=== PATIENT | female | born 1960 | race Caucasian/White ===

== ENCOUNTER 2019-12-12 16:06 | Emergency (ER) | payer OTHER ==
[2019-12-12] MEDS ORDERED: Sodium Chloride 0.9% 1000 ML 1,000 ML IV STA (16:20)
[2019-12-12] MEDS ORDERED: CLINDAMYCIN-D5W 600 MG/50 ML*** 600 MG/50 ML BAG IV STA (16:20)
[2019-12-12] MEDS ORDERED: CLINDAMYCIN-D5W 600 MG/50 ML*** 600 MG/50 ML BAG IV ONE (16:35)
[2019-12-12] MEDS ORDERED: Sodium Chloride 0.9% 1000 ML 1,000 ML ONE (16:35)
--- NOTE | 2019-12-12 17:14 | ERPHSYRPT ---
- History of Present Illness Source: patient Exam Limitations: no limitations Patient Subjective Stated Complaint: pt reports Dr. Valladares performed surgery 11/09 to the left hip to remove a mass. pt states approx 2 weeks ago the top of her incision had opened and she noted some drainage, reports she saw Dr Valladares for this and took a one week course of a tetracycline. pt reports approx 8 days ago she noted some bloody drainage and tenderness to her left hip and she placed a pressure dressing over her incision. pt reports she is unable to see her hip. pt reports she presented to [facility] today for increased pain and was sent to the ED for evaluation. Triage Nursing Assessment: pt is aox3, pupils perrl, afebrile, resps easy and non labored, radial pulses strong and equal, cap refill < 3 seconds, large swollen, hot to touch, reddened area noted to the left lateral hip. area measures 21.5 cm x 10cm. skin is intact, no drainage noted. pt is unable to sit due to pain. pt mobility is intact, bears weight with no difficulty. Method of Injury: incised Occurred: other (Surgery was 1 month ago, dehiscence 2 weeks ago, worsening pain , swelling and redness was 8 is ago) Quality: constant, sharpness, throbbing Severity of Pain-Max: severe Severity of Pain-Current: severe Lower Extremities Pain: hip: left (Lateral aspect), leg: left (Lateral aspect) Modifying Factors: Improves With: rest. Worsens With: movement, other ( Palpation) Associated Symptoms: No unable to bear weight, No dizzy, No fainted, No snapping sensation, No popping sensation Hx Tetanus, Diphtheria Vaccination/Date Given: Yes Hx Influenza Vaccination/Date Given: Yes Hx Pneumococcal Vaccination/Date Given: Yes Immunizations Up to Date: Yes <ANJALI ARORA - Last Filed: 12/12/19 18:44> <DOM DAVIS - Last Filed: 12/12/19 20:04> - History of Present Illness Time Seen by Provider: 12/12/19 16:10 Physician History: Patient comes into the emergency department with left lateral upper leg pain redness, swelling and tenderness the past 8 days. Patient had a mass removed from her left lateral upper leg on 11/09/[address] Arya Valladares. She had dehiscence with drainage from the wound slightly over 2 weeks ago, and Dr. Valladares gave her a one-week supply of dog cycling which she took. Patient began having pain to the left lateral aspect of her leg which worsened over the past 8 days. Patient was then referred to the emergency department from [facility] due to the size of the redness, swelling and pain noticed at the [facility]. (ANJALI ARORA) Allergies/Adverse Reactions: Penicillins Allergy (Verified 12/12/19 16:40) Home Medications: Metformin HCl 500 mg [Glucophage 500 MG] 500 mg PO TID 12/12/19 [History] glipiZIDE [Glipizide] 5 mg PO TID 12/12/19 [History] - Review of Systems Constitutional: No Fever, No Chills Eyes: No Symptoms Ears, Nose, & Throat: No Symptoms, No Throat Pain, No Painful Swallowing Respiratory: No Cough, No Dyspnea Cardiac: No Chest Pain, No Edema, No Syncope Abdominal/Gastrointestinal: No Abdominal Pain, No Nausea, No Vomiting, No Diarrhea Genitourinary Symptoms: No Dysuria, No Hematuria, No Flank Pain Musculoskeletal: No Back Pain, No Neck Pain Skin: Induration (Left lateral upper leg only), No Rash Neurological: No Dizziness, No Focal Weakness, No Sensory Changes Psychological: No Symptoms Endocrine: No Symptoms All Other Systems: Reviewed and Negative <ANJALI ARORA - Last Filed: 12/12/19 18:44> - Past Medical History Pertinent Past Medical History: Yes Cardiac History: High Cholesterol Endocrine Medical History: Diabetes Type II - Past Surgical History Past Surgical History: Yes Gastrointestinal: Appendectomy, Cholecystectomy Musculoskeletal: Other Female Surgical History: Tubal Ligation Other Surgical History: left hip surgery, mass removal. breast biopsy - Social History Smoking Status: Never smoker Drug Use: none Patient Lives Alone: Yes <MAITEPRASANTHBRYNN CONTRERAS - Last Filed: 12/12/19 18:44> - Physical Exam General Appearance: mild distress, alert Eyes, Ears, Nose, Throat Exam: moist mucous membranes Neck Exam: normal inspection, non-tender, supple Cardiovascular/Respiratory Exam: chest non-tender, normal breath sounds, regular rate/rhythm, no JVD, no respiratory distress Gastrointestinal/Abdominal Exam: non-tender, soft, guarding, No tenderness Back Exam: normal inspection, No CVA tenderness, No vertebral tenderness Hips Exam: bilateral: non-tender, normal inspection, normal range of motion, no evidence of injury Legs Exam: right leg: non-tender, normal inspection, no evidence of injury, bilateral leg: normal range of motion, pain, soft tissue tenderness ( [id number] erythematous patch on the lateral upper left thigh), swelling (No dehiscence noted at the surgical incision site) Knees Exam: bilateral knee: non-tender, normal inspection, normal range of motion, no evidence of injury Ankle Exam: bilateral ankle: non-tender, normal inspection, normal range of motion, no evidence of injury Foot Exam: bilateral foot: non-tender, normal inspection, normal range of motion , no evidence of injury DTR - Lower Extremities Exam: ankle (R): 2+, ankle (L): 2+ Neuro/Tendon Exam: normal sensation, normal motor functions Mental Status Exam: alert, oriented x 3, cooperative Skin Exam: normal color, warm, dry, No petechiae, No jaundice, No cyanosis SpO2 Interpretation: normal SpO2: 100 O2 Delivery: Room Air <ANJALI ARORA - Last Filed: 12/12/19 18:44> - Nursing Vital Signs Nursing Vital Signs: Initial Vital Signs Temperature 99.5 F 12/12/19 16:18 Pulse Rate 117 H 12/12/19 16:18 Respiratory Rate 20 12/12/19 16:18 Blood Pressure 135/84 12/12/19 16:18 O2 Sat by Pulse Oximetry 100 12/12/19 16:18 Pain Scale Pain Intensity 3 Ordered Tests: Active Orders 24 hr Category Date Time Status PELVIS WITHOUT CONTRAST [CT] Stat Exams 12/12/19 16:19 Taken CBC W DIFF Stat Lab 12/12/19 17:55 Completed CK (IN-HOUSE) [CK-Creatinine Phosphokinase] Stat Lab 12/12/19 17:55 Completed CMP Stat Lab 12/12/19 17:55 Completed Lactic Acid Stat Lab 12/12/19 16:18 Completed Lactic Acid Stat Lab 12/12/19 19:19 Received Manual Differential NC Stat Lab 12/12/19 17:55 Completed PROTIME WITH INR Stat Lab 12/12/19 17:55 Completed SED RATE [Erythrocyte Sedimentation Rate] Stat Lab 12/12/19 17:55 Completed Medication Summary Discontinued Medications Generic Name Dose Route Start Last Admin Trade Name Terry PRN Reason Stop Dose Admin Clindamycin HCl/Dextrose 600 mg in 50 mls @ 100 mls/hr 12/12/19 16:20 18:06 Clindamycin-D5w 600 Mg/50 Ml IV 12/12/19 16:49 Infused STAT STA Infusion Sodium Chloride 1,000 mls @ 999 mls/hr 12/12/19 16:20 12/12/19 18:06 Sodium Chloride 0.9% 1000 Ml IV 12/12/19 17:20 Infused .Q1H1M STA Infusion Sodium Chloride Confirm 12/12/19 16:35 Sodium Chloride 0.9% 1000 Ml Administered 12/12/19 16:36 Dose 1,000 mls @ ud .ROUTE .[employer] ONE Clindamycin HCl/Dextrose Confirm 12/12/19 16:35 Clindamycin-D5w 600 Mg/50 Ml Administered 12/12/19 16:36 Dose 600 mg in 50 mls @ ud IV .[employer]-MED ONE Lab/Rad Data: Laboratory Result Diagrams 12/12/19 17:55 12/12/19 17:55 Laboratory Results 12/12/19 12/12/19 12/12/19 Range/Units 17:55 17:55 17:55 WBC (4.0-10.5) K/mm3 RBC (4.1-5.4) M/mm3 Hgb (12.0-16.0) gm/dl Hct (35-47) % MCV (78-100) fl MCH (26-32) pg MCHC (32-36) g/dl RDW (11.5-14.0) % Plt Count (150-450) K/mm3 MPV (7.5-11.0) fl ESR (0-20) mm/hr PT 13.8 H (9.95-12.35) SECONDS INR 1.22 (0.8-3.0) Sodium 139 (137-145) mmol/L Potassium 4.0 (3.5-5.1) mmol/L Chloride 99 (98-107) mmol/L Carbon Dioxide 29 (22-30) mmol/L Anion Gap 14.9 (5-15) MEQ/L BUN 16 (7-17) mg/dL Creatinine 0.69 (0.52-1.04) mg/dL Estimated GFR > 60.0 ML/MIN Glucose 340 H (74-106) mg/dL Lactic Acid (0.4-2.0) Calcium 9.4 (8.4-10.2) mg/dL Total Bilirubin 0.50 (0.2-1.3) mg/dL AST 13 L (14-36) U/L ALT 11 (0-35) U/L Alkaline Phosphatase 119 (38-126) U/L Creatine Kinase 24 L (30-135) U/L Serum Total Protein 7.3 (6.3-8.2) g/dL Albumin 3.9 (3.5-5.0) g/dL 12/12/19 12/12/19 Range/Units 17:55 16:18 WBC 11.7 H (4.0-10.5) K/mm3 RBC 4.26 (4.1-5.4) M/mm3 Hgb 12.1 (12.0-16.0) gm/dl Hct 36.6 (35-47) % MCV 85.9 (78-100) fl MCH 28.4 (26-32) pg MCHC 33.1 (32-36) g/dl RDW 12.6 (11.5-14.0) % Plt Count 206 (150-450) K/mm3 MPV 10.1 (7.5-11.0) fl ESR 82 H (0-20) mm/hr PT (9.95-12.35) SECONDS INR (0.8-3.0) Sodium (137-145) mmol/L Potassium (3.5-5.1) mmol/L Chloride (98-107) mmol/L Carbon Dioxide (22-30) mmol/L Anion Gap (5-15) MEQ/L BUN (7-17) mg/dL Creatinine (0.52-1.04) mg/dL Estimated GFR ML/MIN Glucose (74-106) mg/dL Lactic Acid 2.0 (0.4-2.0) Calcium (8.4-10.2) mg/dL Total Bilirubin (0.2-1.3) mg/dL AST (14-36) U/L ALT (0-35) U/L Alkaline Phosphatase (38-126) U/L Creatine Kinase (30-135) U/L Serum Total Protein (6.3-8.2) g/dL Albumin (3.5-5.0) g/dL - Progress Counseled pt/family regarding: lab results, diagnosis, need for follow-up, rad results <ANJALI ARORA - Last Filed: 12/12/19 18:44> <DOM DAVIS - Last Filed: 12/12/19 20:04> - Progress Progress Note: 12/12/19 17:59 The patient was discussed with transfer center at [facility] in [place], [place]. They will get started on reserving a bed for transfer and will contact Dr. Valladares. 12/12/19 18:15 Discussed the patient with Dr Arya Valladares, patient's surgeon. Dr. Valladares states that he drained a large seroma for the patient in the past and thinks that it is a seroma causing her symptoms at this time and does not need admitted but continue with oral antibiotics such as clindamycin we will see her in the office on 12/15/2019. Becomes febrile or cannot tolerate orally or systemically become sick, Dr. Valladares recommends the patient go to [facility] through the emergency department there to be admitted. 12/12/19 18:18 Incision site was noted to be oozing clear to yellow fluid per nursing visualization. 12/12/19 18:47 Patient's pulse has improved after IV hydration and IV antibiotics. 12/12/19 19:00 Discussed the patient with Dr Davis, [facility] emergency department attending. Care was transferred to Dr. Davis. Dr. Davis will determine final disposition of the patient after reevaluation the patient, reviewing labs and reviewing finalized interpretation of the CT scan imaging. (ANJALI ARORA) 12/12/19 20:00 Patient is checked out to me at end of Dr. Colindres's shift with pending CT. Patient was earlier discussed with Dr. Valladares the primary surgeon at [facility]. CT showed left hip cutaneous/subcutaneous induration with subcutaneous 8 x 4 x 14 cm fluid collection with air bubbles favoring abscess. I have discussed with Dr. Valladares, he still thinks patient has seroma but patient would be transferred to [place] for further evaluation as it looks infected to me. She has been given a dose of clindamycin IV in here. Plan discussed with patient and family in detail which they seem understanding and agree with that. (DOM DAVIS) <ANJALI ARORA DIANE - Last Filed: 12/12/19 18:44> - Departure Departure Disposition: Transfer Critical Care Time: No <DOM DAVIS - Last Filed: 12/12/19 20:04> - Departure Clinical Impression: Cellulitis of left thigh, Abscess of left thigh Condition: Stable Referrals: DAVIAN WHITE DO [Primary Care Provider] - Prescriptions: Clindamycin HCl 300 mg PO QID 10 Days #40 capsule
[2019-12-12 18:04] LABS: Hematocrit 36.6 % (35-47); Hemoglobin 12.1 gm/dl (12.0-16.0); Mean Cell Volume 85.9 fl (78-100); Mean Corpuscular Hemoglobin 28.4 pg (26-32); Mean Corpuscular Hgb Concent. 33.1 g/dl (32-36); Mean Platelet Volume 10.1 fl (7.5-11.0); Platelet Count 206 K/mm3 (150-450); Red Blood Count 4.26 M/mm3 (4.1-5.4); Red Cell Distribution Width 12.6 % (11.5-14.0); White Blood Count 11.7 K/mm3 (4.0-10.5)
[2019-12-12 18:14] LABS: INR 1.22 (0.8-3.0); PROTIME 13.8 SECONDS (9.95-12.35)
[2019-12-12 18:30] LABS: Erythrocyte Sedimentation Rate 82 mm/hr (0-20)
[2019-12-12 18:52] LABS: ALBUMIN 3.9 g/dL (3.5-5.0); ALKALINE PHOSPHATASE 119 U/L (38-126); ANION GAP 14.9 MEQ/L (5-15); BLOOD UREA NITROGEN 16 mg/dL (7-17); CHLORIDE 99 mmol/L (98-107); Calcium 9.4 mg/dL (8.4-10.2); Carbon Dioxide 29 mmol/L (22-30); Creatinine 1 0.69 mg/dL (0.52-1.04); Glucose 340 mg/dL (74-106); SGOT/AST 13 U/L (14-36); SGPT/ALT 11 U/L (0-35); SODIUM 139 mmol/L (137-145); Total Protein 7.3 g/dL (6.3-8.2)
[2019-12-12 21:02] VITALS: BP 150/79; PULSE 95; O2SAT 98
[2019-12-12 21:34] LABS: BAND 1 % (0.0-2.0); Eosinophil 1 % (0.00-3.0); Lymphocytes 17 % (24-44); Monocyte 5 % (0.0-12.0); Neutrophils 76 % (36.0-66.0); Platelet Estimate NORMAL (NORMAL); Total Cells Counted 100
--- NOTE | 2019-12-13 07:39 | XRAY ---
Indication: Left hip pain, erythema, and swelling following "mass" surgical excision October 2019. Multiple contiguous axial images obtained through the pelvis without contrast. Cutaneous BBs placed over the region of interest. Comparison: None Lateral left hip demonstrates cutaneous/subcutaneous soft tissue induration favoring inflammatory/infectious process. There is underlying subcutaneous fluid collection measuring at least 8.8 x 4.5 x 14.5 cm in greatest AP, transverse, and CC projections respectively. Fluid collection demonstrates multiple air bubbles concerning for gas-forming abscess. The deeper soft tissues/muscles appears minimally heterogeneous without air bubbles either reactive versus postsurgical. No acute fracture, suspicious bony lesions, or osseous destructive process. Both hips are intact with mild/moderate degenerative changes. Visualized pelvis demonstrates scattered colonic diverticulosis. Right mid kidney demonstrates partially visualized 1.4 x 0.4 cm indeterminant cortical calcifications. Minimal scattered aortoiliac calcifications. Impression: 1. Lateral left hip soft tissue induration favoring inflammatory/infectious process with abnormal fluid collection as detailed worrisome for abscess. No bony involvement. 2. Incidental bilateral hip degenerative arthropathy and indeterminant right renal cortical calcifications.
== END 2019-12-12 21:10 | disposition short-term general hospital (02) ==
LOC: ED 16:06
DX: L03.116 Cellulitis of left lower limb (principal); L02.416 Cutaneous abscess of left lower limb
CPT/HCPCS: 36415; 72192; 80053; 82550; 83605; 85025; 85610; 85652; 86141; 96360; 96365; 99285

== ENCOUNTER 2020-02-20 08:24 | Observation (INO) | payer OTHER ==
[2020-02-20] MEDS ORDERED: SUBLIMAZE 100 MCG/2 ML IV ONE ×2 (08:26→09:23)
[2020-02-20] MEDS ORDERED: SUBLIMAZE 100 MCG/2 ML ONE ×2 (08:33→09:28)
[2020-02-20 08:41] LABS: Absolute Neutrophil Ct (ANC) 6.79 (1.4-6.9); BASOPHIL % 0.4 % (0.0-0.4); Basophil (Absolute #) 0.04 (0-0.4); Eosinophil % 1.4 % (0.00-5.0); Eosinophil (Absolute #) 0.14 (0-0.5); Hematocrit 39.8 % (35-47); Hemoglobin 13.2 gm/dl (12.0-16.0); Lymphocyte (Absolute #) 2.06 (1.0-4.6); Lymphocytes % 21.3 % (24.0-44.0); Mean Cell Volume 81.4 fl (78-100); Mean Corpuscular Hgb Concent. 33.2 g/dl (32-36); Mean Platelet Volume 10.6 fl (7.5-11.0); Monocyte (Absolute #) 0.64 (0.0-1.3); Monocytes % 6.6 % (0.0-12.0); Neutrophil % 70.3 % (36.0-66.0); Platelet Count 191 K/mm3 (150-450); Red Blood Count 4.89 M/mm3 (4.1-5.4); White Blood Count 9.7 K/mm3 (4.0-10.5)
[2020-02-20 08:54] LABS: ALBUMIN 4.3 g/dL (3.5-5.0); ALKALINE PHOSPHATASE 180 U/L (38-126); ANION GAP 16.6 MEQ/L (5-15); BLOOD UREA NITROGEN 19 mg/dL (7-17); CHLORIDE 104 mmol/L (98-107); Calcium 9.8 mg/dL (8.4-10.2); Carbon Dioxide 21 mmol/L (22-30); Creatinine 1 0.45 mg/dL (0.52-1.04); Glucose 313 mg/dL (74-106); Potassium 4.1 mmol/L (3.5-5.1); SGOT/AST 22 U/L (14-36); SGPT/ALT 23 U/L (0-35); SODIUM 137 mmol/L (137-145); Total Protein 7.8 g/dL (6.3-8.2)
[2020-02-20] MEDS ORDERED: Ativan 2 MG/1 ML VIAL IV ONE (09:24)
--- NOTE | 2020-02-20 09:26 | XRAY ---
Indication: Right hip pain following fall. Comparison: August 28, 2019. AP pelvis and 2 view right hip unchanged again demonstrating osteopenia, mild bilateral hip degenerative arthropathy, mild lower lumbar degenerative spondylosis, and mild scattered vascular calcifications. No new/acute findings.
[2020-02-20] MEDS ORDERED: Ativan 2 MG/1 ML VIAL ONE (09:28)
--- NOTE | 2020-02-20 10:12 | XRAY ---
Indication: Right hip pain following fall. Multiple contiguous axial images obtained through the pelvis with special attention to the osseous structures. Two-dimensional sagittal and coronal reformatted images obtained. Comparison: December 12, 2019. Stable osteopenia, mild/moderate degenerative changes of both hips, left anterior hip heterotopic ossifications, and lower lumbar degenerative changes. Again no acute fracture, dislocation, or suspicious bony lesions. SI joints are bilaterally symmetric with stable mild degenerative changes. Stable mild scattered vascular calcifications bilaterally. Previous lateral left hip subcutaneous abscess has markedly improved with mild residual soft tissue induration and tiny subcutaneous air bubble. Remaining visualized noncontrasted soft tissues including pelvic contents are unremarkable. Impression: 1. Continued negative for acute fracture/dislocation. 2. Stable osteopenia and degenerative changes as detailed. 3. Markedly improved left lateral hip abscess.
--- NOTE | 2020-02-20 10:38 | ERPHSYRPT ---
- History of Present Illness Time Seen by Provider: 02/20/20 08:25 Patient Subjective Stated Complaint: "I fell around 330 this morning and landed on my right hip." Triage Nursing Assessment: Pt presents alert et oriented with obvious distress of pain noted. Pt reported recent left hip surgery. Presents with complaints of right hip pain following a fall secondary to tripping at home. Denies any head injury/loss of consciousness. Symmetrical chest expanions. lungs clear with adequate airflow. Pain to right hip rated 8/10 and described as sharp. Unable to palpate hip d/t pt presenting in a wheelchair. Pt able to bear minimal weight yet unable to rotate. Denies numbness/tingling to lower extremities. Pedal pulses present bilateral. Physician History: Patient had a fall, right hip pain. She did not hit her head. She does have some very minor left hip pain. Patient does have a past medical history of left hip surgery. She is not on any blood thinners. She has no headache. Location: right hip Quality: sharp Radiation: none Severity: moderate Duration: just CEM[employer] KEE[employer] Timing: after fall Modifying factors/associated signs and symptoms: none tried, arrives in wheel chair Timing/Duration: today Occured at: home Context: fall Quality: stabbing Hip Pain Location: hip (R) Allergies/Adverse Reactions: Iodinated Contrast Media Allergy (Verified 02/20/20 08:30) Penicillins Allergy (Verified 02/20/20 08:27) shellfish derived Allergy (Verified 02/20/20 08:30) Home Medications: Metformin HCl 500 mg [Glucophage 500 MG] 500 mg PO TID 12/12/19 [History] glipiZIDE [Glipizide] 5 mg PO TID 12/12/19 [History] Hx Tetanus, Diphtheria Vaccination/Date Given: Yes Hx Influenza Vaccination/Date Given: Yes Hx Pneumococcal Vaccination/Date Given: Yes Immunizations Up to Date: Yes Travel Risk - International Travel Have you traveled outside of the country in past 3 weeks: No Have you or anyone close to you been diagnosed with or: No Do your reside in a community with a known COVID-19 case?: Yes If Yes where:: [facility] - Coronavirus Screening Has patient experienced Coronavirus symptoms: No - Review of Systems Constitutional: No Fever, No Chills Eyes: No Symptoms Ears, Nose, & Throat: No Symptoms Respiratory: No Cough, No Dyspnea Cardiac: No Chest Pain, No Edema, No Syncope Abdominal/Gastrointestinal: No Abdominal Pain, No Nausea, No Vomiting, No Diarrhea Genitourinary Symptoms: No Dysuria Musculoskeletal: Other (righ hip pain), No Back Pain, No Neck Pain Skin: No Rash Neurological: No Dizziness, No Focal Weakness, No Sensory Changes Psychological: No Symptoms Endocrine: No Symptoms All Other Systems: Reviewed and Negative - Past Medical History Pertinent Past Medical History: Yes Cardiac History: High Cholesterol, Hypertension Endocrine Medical History: Diabetes Type II - Past Surgical History Past Surgical History: Yes Gastrointestinal: Appendectomy, Cholecystectomy Musculoskeletal: Other Female Surgical History: Tubal Ligation Other Surgical History: left hip surgery, mass removal. breast biopsy - Social History Smoking Status: Never smoker Exposure to second hand smoke: No Drug Use: none Patient Lives Alone: Yes - Female History Hx Now: (NA) - Nursing Vital Signs Nursing Vital Signs: Initial Vital Signs Pulse Rate 93 H 02/20/20 08:31 Respiratory Rate 22 02/20/20 08:31 Blood Pressure 159/69 02/20/20 08:31 O2 Sat by Pulse Oximetry 99 02/20/20 08:31 Pain Scale Pain Intensity 9 - Physical Exam General Appearance: no apparent distress, alert Eye Exam: PERRL/EOMI Ears, Nose, Throat Exam: normal ENT inspection, moist mucous membranes Neck Exam: normal inspection, non-tender, supple Respiratory Exam: normal breath sounds, lungs clear, No chest tenderness, No respiratory distress Cardiovascular Exam: regular rate/rhythm, No edema Gastrointestinal Exam: soft, No tenderness, No distention, No guarding Back Exam: normal inspection, normal range of motion, No vertebral tenderness Neurologic Exam: alert, oriented x 3, cooperative, 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 Sensation intact. 2+ pulses. Full range of motion at her knee and ankle. No other signs of obvious deformity. Left hip has minor tenderness. - Course Nursing assessment & vital signs reviewed: Yes EKG Interpreted by Me: RATE, Sinus Rhythm - Radiology Exams Hip X-ray Interpretation: Interpreted by me, Negative Ordered Tests: Active Orders 24 hr Category Date Time Status Code Status Order ROUTINE Care 02/20/20 10:44 Active EKG-ER Only STAT Care 02/20/20 08:26 Active IV Care Q6H Care 02/20/20 10:44 Active IV Insertion STAT Care 02/20/20 08:[address] in Observation ROUTINE Care 02/20/20 10:44 Active HIP UNI (2V) INCL PEL IF DONE Stat Exams 02/20/20 08:59 Completed MRI PELVIS WITHOUT CONTRAST [MRI] Stat Exams 02/20/20 10:45 Ordered PELVIS WITHOUT CONTRAST [CT] Stat Exams 02/20/20 09:28 Completed CBC W DIFF Stat Lab 02/20/20 08:35 Completed CMP Stat Lab 02/20/20 08:35 Completed Medication Summary Generic Name Dose Route Start Last Admin Trade Name Freq PRN Reason Stop Dose Admin Hydromorphone HCl 1 mg 02/20/20 10:44 Dilaudid 2 Mg Injection IV 02/25/20 10:43 Q4H PRN PRN PAIN Discontinued Medications Generic Name Dose Route Start Last Admin Trade Name Freq PRN Reason Stop Dose Admin Fentanyl Citrate 50 mcg 02/20/20 08:26 02/20/20 08:38 Sublimaze 100 Mcg/2 Ml IV 02/20/20 08:27 50 mcg STAT ONE Administration Fentanyl Citrate Confirm 02/20/20 08:33 Sublimaze 100 Mcg/2 Ml Administered 02/20/20 08:34 Dose 100 mcg .ROUTE .STK-MED ONE Fentanyl Citrate 50 mcg 02/20/20 09:23 02/20/20 09:32 Sublimaze 100 Mcg/2 Ml IV 02/20/20 09:24 50 mcg STAT ONE Administration Fentanyl Citrate Confirm 02/20/20 09:28 Sublimaze 100 Mcg/2 Ml Administered 02/20/20 09:29 Dose 100 mcg .ROUTE .STK-MED ONE Lorazepam 1 mg 02/20/20 09:24 02/20/20 09:34 Ativan 2 Mg/1 Ml Vial IV 02/20/20 09:25 1 mg STAT ONE Administration Lorazepam Confirm 02/20/20 09:28 Ativan 2 Mg/1 Ml Vial Administered 02/20/20 09:29 Dose 2 mg .ROUTE .STK-MED ONE Lab/Rad Data: Laboratory Result Diagrams 02/20/20 08:35 02/20/20 08:35 Laboratory Results 02/20/20 02/20/20 Range/Units 08:35 08:35 WBC 9.7 (4.0-10.5) K/mm3 RBC 4.89 (4.1-5.4) M/mm3 Hgb 13.2 (12.0-16.0) gm/dl Hct 39.8 (35-47) % MCV 81.4 (78-100) fl MCH 27.0 (26-32) pg MCHC 33.2 (32-36) g/dl RDW 14.0 (11.5-14.0) % Plt Count 191 (150-450) K/mm3 MPV 10.6 (7.5-11.0) fl Gran % 70.3 H (36.0-66.0) % Eos # (Auto) 0.14 (0-0.5) Absolute Lymphs (auto) 2.06 (1.0-4.6) Absolute Monos (auto) 0.64 (0.0-1.3) Lymphocytes % 21.3 L (24.0-44.0) % Monocytes % 6.6 (0.0-12.0) % Eosinophils % 1.4 (0.00-5.0) % Basophils % 0.4 (0.0-0.4) % Absolute Granulocytes 6.79 (1.4-6.9) Basophils # 0.04 (0-0.4) Sodium 137 (137-145) mmol/L Potassium 4.1 (3.5-5.1) mmol/L Chloride 104 (98-107) mmol/L Carbon Dioxide 21 L (22-30) mmol/L Anion Gap 16.6 H (5-15) MEQ/L BUN 19 H (7-17) mg/dL Creatinine 0.45 L (0.52-1.04) mg/dL Estimated GFR > 60.0 ML/MIN Glucose 313 H (74-106) mg/dL Calcium 9.8 (8.4-10.2) mg/dL Total Bilirubin 0.70 (0.2-1.3) mg/dL AST 22 (14-36) U/L ALT 23 (0-35) U/L Alkaline Phosphatase 180 H (38-126) U/L Serum Total Protein 7.8 (6.3-8.2) g/dL Albumin 4.3 (3.5-5.0) g/dL - Progress Progress: improved Progress Note: 02/20/20 11:08 Patient was given 2 rounds of IV fentanyl for pain control. X-ray of the hip showed no obvious fracture. Patient is having a lot of pain, unable to ambulate. Therefore obtained a CT scan of the hip and proximal femur. This demonstrated no obvious fractures. I have a very high suspicion for occult fracture. Therefore, an MRI will need to be obtained. Discussed with inpatient physician, Dr. Blood. Patient will need to be admitted for pain control, PT OT, MRI. We discussed with patient and patient's daughter. They are amenable to being admitted to the hospital today. Discussed with : Sandy Will see patient in: hospital (observation) Counseled pt/family regarding: lab results, diagnosis, rad results - Departure Departure Disposition: Observation, Extended Care Facility Clinical Impression: Right hip pain Condition: Stable Critical Care Time: No
[2020-02-20] MEDS: DILAUDID 2 MG INJECTION IV PRN ×2 (11:24→21:25)
[2020-02-20] MEDS ORDERED: HUMALOG SQ PRN (12:17)
[2020-02-20] MEDS ORDERED: TYLENOL 325 MG PO PRN (12:45)
[2020-02-20] MEDS ORDERED: Zofran 4 MG/2 ML VIAL IV PRN (12:46)
[2020-02-20] MEDS ORDERED: Zestril 5 MG PO STA (16:17)
[2020-02-20] MEDS: Glucotrol 5 MG PO SCH (16:56)
[2020-02-20] MEDS: NORCO 5/325 MG PO PRN (16:56)
[2020-02-20] MEDS ORDERED: Lantus Insulin SQ SCH (22:00)
[2020-02-21] MEDS: DILAUDID 2 MG INJECTION IV PRN (03:19)
[2020-02-21 08:11] VITALS: PULSE 87
[2020-02-21] MEDS: Glucotrol 5 MG PO SCH ×2 (08:30→12:14)
[2020-02-21] MEDS: NORCO 5/325 MG PO PRN ×2 (08:31→13:00)
--- NOTE | 2020-02-21 09:28 | PCM.DCORD ---
- Discharge Discharge Date: 02/21/20 Disposition: Home, Self-Care Condition: Good Prescriptions: New Pen Needle, Diabetic [1St Tier Unifine Pentips Plus] 1 each MC DAILY #100 dis.needle Insulin Glargine,Hum.rec.anlog [Lantus Solostar] 10 unit SQ QHS #3 ml Acetaminophen 325 mg [Tylenol 325 mg] 650 mg PO Q4H PRN PRN tablet PRN Reason: Pain Lisinopril 5 mg [Zestril 5 MG] 5 mg PO DAILY #30 tablet Continue glipiZIDE [Glipizide] 5 mg PO TID Metformin HCl 500 mg [Glucophage 500 MG] 500 mg PO TID Additional Instructions: Check your blood glucoses before meals. Call you primary care doctor if your blood glucose is <60 or >300. Use your walker to help with ambulation. Follow up with: DAVIAN WHITE DO [Primary Care Provider] - 1 Week
[2020-02-21] MEDS ORDERED: Zestril 5 MG PO SCH (10:00)
[2020-02-21 12:31] VITALS: BP 116/65; O2SAT 97
[2020-02-21] MEDS ORDERED: Sodium Chloride 0.9% 10 ML FLUSH Syringe IV SCH (14:00)
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
== END 2020-02-21 12:50 | disposition home or self-care (01) ==
LOC: ED 08:24 → MED SURG 11:04
PROVIDERS: ADMIT Internal Medicine; ATTEND Internal Medicine
DX: M25.551 Pain in right hip (principal); E11.649 Type 2 diabetes mellitus with hypoglycemia without coma; I10 Essential (primary) hypertension; Z60.9 Problem related to social environment, unspecified; W01.0XXA Fall on same level from slipping, tripping and stumbling without subsequent striking against object, initial encounter; Y92.009 Unspecified place in unspecified non-institutional (private) residence as the place of occurrence of the external cause; Z79.84 Long term (current) use of oral hypoglycemic drugs
CPT/HCPCS: 36000; 36415; 72192; 73502; 80053; 82962; 83036; 85025; 93005; 96374; 96375; 96376; 99285; G0378; J1170; J1817; J2060; J3010; A9270-GY

== ENCOUNTER 2023-02-06 10:08 | Inpatient (IN) | payer OTHER ==
[2023-02-06] MEDS ORDERED: PHARMACY DOSING REQUEST MC ONE (10:36)
[2023-02-06] MEDS ORDERED: HUMALOG SQ PRN (10:42)
[2023-02-06] MEDS: Sodium Chloride 0.9% 1000 ML 1,000 ML IV SCH (11:20)
[2023-02-06 11:29] LABS: Absolute Neutrophil Ct (ANC) 9.22 x10^3/uL (1.4-6.9); BASOPHIL % 0.3 % (0.0-0.4); Basophil (Absolute #) 0.03 x10^3/uL (0-0.4); Eosinophil % 0.6 % (0.00-5.0); Eosinophil (Absolute #) 0.07 x10^3/uL (0-0.5); Hematocrit 38.1 % (35-47); Hemoglobin 12.4 g/dL (12.0-16.0); IMMATURE GRAN # 0.07 x10^3u/L (0.00-0.03); IMMATURE GRAN % 0.6 % (0.00-0.4); Lymphocyte (Absolute #) 1.68 x10^3/uL (1.0-4.6); Lymphocytes % 14.2 % (24.0-44.0); Mean Corpuscular Hemoglobin 27.7 pg (26-32); Mean Corpuscular Hgb Concent. 32.5 g/dL (32-36); Mean Platelet Volume 10.6 fL (7.5-11.0); Monocyte (Absolute #) 0.79 x10^3/uL (0.0-1.3); Monocytes % 6.7 % (0.0-12.0); Neutrophil % 77.6 % (36.0-66.0); Platelet Count 160 x10^3/uL (150-450); Red Blood Count 4.48 x10^6/uL (4.1-5.4); Red Cell Distribution Width 11.9 % (11.5-14.0); White Blood Count 11.9 x10^3/uL (4.0-10.5)
[2023-02-06 11:47] LABS: ALBUMIN 3.7 g/dL (3.5-5.0); ALKALINE PHOSPHATASE 183 U/L (38-126); ANION GAP 11.6 MEQ/L (5-15); BLOOD UREA NITROGEN 16 mg/dL (7-17); CHLORIDE 101 mmol/L (98-107); Carbon Dioxide 29 mmol/L (22-30); Creatinine 1 0.65 mg/dL (0.52-1.04); EST GLOMERULAR FILTRATION RATE > 60.0 ML/MIN; Glucose 270 mg/dL (74-106); Potassium 3.9 mmol/L (3.5-5.1); SGOT/AST 24 U/L (14-36); SGPT/ALT 25 U/L (0-35); SODIUM 137 mmol/L (137-145)
[2023-02-06 11:50] LABS: INFLUENZA A NEGATIVE (NEGATIVE); INFLUENZA B NEGATIVE (NEGATIVE); RESPIRATORY SYNCTIAL VIRUS NEGATIVE (NEGATIVE); SARS-CoV-2 Xpert Express NEGATIVE (NEGATIVE)
[2023-02-06] MEDS ORDERED: ROCEPHIN 1 Gm-D5w 50 ml Bag** 1 G/50 ML IVPB IV SCH (12:00)
--- NOTE | 2023-02-06 12:08 | XRAY ---
Indication: Great toe ulcer. No known injury. Comparison: None 3 portable views left foot demonstrates great toe soft tissue swelling. Elsewhere osteopenia, large heel spurs, and scattered vascular calcifications. No other bony, articular, or soft tissue abnormalities.
[2023-02-06] MEDS ORDERED: Xylocaine 1% Vial 30 ML PF IJ ONE (12:48)
[2023-02-06] MEDS ORDERED: Marcaine Mpf 0.5% Vial 30 Ml ONE (12:48)
[2023-02-06] MEDS ORDERED: Lactated Ringers 1,000 ML IV SCH (13:00)
--- NOTE | 2023-02-06 13:11 | PCM.HP ---
History of Present Illness - Chief Complaint Chief Complaint: Diabetic foot wound, cellulitis, hyperglycemia History of Present Illness: is a 62 year old female pt of Dr. Rodriguez's (first seen by him today) who was admitted directly from office with diabetic foot wound, cellulitis, and hyperglycemia d/t DM. She started having L foot swelling after some shoes rubbed her feet 5d ago; also had erythema. Two days later she attempted to go to the doctor only to find her PCP had retired. Went to yesterday and was given bactrim, but vomited up the 2nd dose. Denies fevers/chills. Saw Dr. Rodriguez and was admitted by me. Dr. Sims was consulted and would like to amputate her great toe on the L. She was started on IV vancomycin and rocephin. She grew up "odd" and her mother was an herbalist. 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 It was reported to me that pt's BS was 500. Pt does not check it at home. - Review of Systems Abdominal/Gastrointestinal: Nausea, Vomiting Skin: Cellulitis, Skin Lesions All Other Systems: Reviewed and Negative Medications & Allergies Home Medications: Home Medication List No Reportable Medications [No Reported Medications] 02/06/23 [History Confirmed 02/06/23] Allergies/Adverse Reactions: Allergies Allergy/AdvReac Type Severity Reaction Status Date / Time shellfish derived Allergy Intermediate Rash Verified 02/06/23 11:27 Iodinated Contrast Media Allergy Unknown Verified 02/06/23 11:29 Penicillins Allergy Hives Verified 02/06/23 11:27 - Past Medical History Past Medical History: Yes Neurological History: No Pertinent History ENT History: No Pertinent History Cardiac History: High Cholesterol, Hypertension Respiratory History: No Pertinent History Endocrine Medical History: Diabetes Type II Musculoskelatal History: No Pertinent History GI Medical History: No Pertinent History History: No Pertinent History Reproductive Disorders: No Pertinent History - Female History Are you now?: No - Past Surgical History Past Surgical History: Yes Neuro Surgical History: No Pertinent History Cardiac History: No Pertinent History Respiratory Surgery: No Pertinent History GI Surgical History: Appendectomy, Cholecystectomy Musculskeletal Surgical Hx: Other Female Surgical History: Tubal Ligation Other Surgical History: left hip surgery, mass removal. breast biopsy - Social History Smoking Status: Never smoker Exposure to second hand smoke: No Alcohol: None Drug Use: none - Physical Exam General Appearance: no apparent distress, alert Neurologic Exam: oriented x 3, cooperative Eye Exam: eyes nml inspection Ears, Nose, Throat Exam: moist mucous membranes Neck Exam: normal inspection Respiratory Exam: normal breath sounds, lungs clear, No crackles/rales, No rhonchi, No wheezing Cardiovascular Exam: regular rate/rhythm, normal heart sounds, No murmur Gastrointestinal/Abdomen Exam: normal bowel sounds Back Exam: normal inspection, No rash Extremity Exam: other (L great toe is wrapped. There is erythema of distal L foot.) Results - Labs Lab/Micro Results: Lab Results-Last 24 Hours 02/06/23 02/06/23 02/06/23 Range/Units 11:00 11:20 Unknown WBC 11.9 H (4.0-10.5) x10^3/uL RBC 4.48 (4.1-5.4) x10^6/uL Hgb 12.4 (12.0-16.0) g/dL Hct 38.1 (35-47) % MCV 85.0 (78-100) fL MCH 27.7 (26-32) pg MCHC 32.5 (32-36) g/dL RDW 11.9 (11.5-14.0) % Plt Count 160 (150-450) x10^3/uL MPV 10.6 (7.5-11.0) fL Gran % 77.6 H (36.0-66.0) % Immature Gran % (Auto) 0.6 H (0.00-0.4) % Nucleat RBC Rel Count 0.0 (0.00-0.1) % Eos # (Auto) 0.07 (0-0.5) x10^3/uL Immature Gran # (Auto) 0.07 H (0.00-0.03) x10^3u/L Absolute Lymphs (auto) 1.68 (1.0-4.6) x10^3/uL Absolute Monos (auto) 0.79 (0.0-1.3) x10^3/uL Absolute Nucleated RBC 0.00 (0.00-0.01) x10^3u/L Lymphocytes % 14.2 L (24.0-44.0) % Monocytes % 6.7 (0.0-12.0) % Eosinophils % 0.6 (0.00-5.0) % Basophils % 0.3 (0.0-0.4) % Absolute Granulocytes 9.22 H (1.4-6.9) x10^3/uL Basophils # 0.03 (0-0.4) x10^3/uL Sodium 137 (137-145) mmol/L Potassium 3.9 (3.5-5.1) mmol/L Chloride 101 (98-107) mmol/L Carbon Dioxide 29 (22-30) mmol/L Anion Gap 11.6 (5-15) MEQ/L BUN 16 (7-17) mg/dL Creatinine 0.65 (0.52-1.04) mg/dL Estimated GFR > 60.0 ML/MIN Glucose 270 H (74-106) mg/dL Lactic Acid 1.2 (0.4-2.0) Calcium 9.0 (8.4-10.2) mg/dL Total Bilirubin 0.60 (0.2-1.3) mg/dL AST 24 (14-36) U/L ALT 25 (0-35) U/L Alkaline Phosphatase 183 H (38-126) U/L Serum Total Protein 7.0 (6.3-8.2) g/dL Albumin 3.7 (3.5-5.0) g/dL Influenza Type A Ag (NEGATIVE) Influenza Type B Ag (NEGATIVE) RSV (PCR) (NEGATIVE) SARS-CoV-2 (PCR) (NEGATIVE) 02/06/23 Range/Units Unknown WBC (4.0-10.5) x10^3/uL RBC (4.1-5.4) x10^6/uL Hgb (12.0-16.0) g/dL Hct (35-47) % MCV (78-100) fL MCH (26-32) pg MCHC (32-36) g/dL RDW (11.5-14.0) % Plt Count (150-450) x10^3/uL MPV (7.5-11.0) fL Gran % (36.0-66.0) % Immature Gran % (Auto) (0.00-0.4) % Nucleat RBC Rel Count (0.00-0.1) % Eos # (Auto) (0-0.5) x10^3/uL Immature Gran # (Auto) (0.00-0.03) x10^3u/L Absolute Lymphs (auto) (1.0-4.6) x10^3/uL Absolute Monos (auto) (0.0-1.3) x10^3/uL Absolute Nucleated RBC (0.00-0.01) x10^3u/L Lymphocytes % (24.0-44.0) % Monocytes % (0.0-12.0) % Eosinophils % (0.00-5.0) % Basophils % (0.0-0.4) % Absolute Granulocytes (1.4-6.9) x10^3/uL Basophils # (0-0.4) x10^3/uL Sodium (137-145) mmol/L Potassium (3.5-5.1) mmol/L Chloride (98-107) mmol/L Carbon Dioxide (22-30) mmol/L Anion Gap (5-15) MEQ/L BUN (7-17) mg/dL Creatinine (0.52-1.04) mg/dL Estimated GFR ML/MIN Glucose (74-106) mg/dL Lactic Acid (0.4-2.0) Calcium (8.4-10.2) mg/dL Total Bilirubin (0.2-1.3) mg/dL AST (14-36) U/L ALT (0-35) U/L Alkaline Phosphatase (38-126) U/L Serum Total Protein (6.3-8.2) g/dL Albumin (3.5-5.0) g/dL Influenza Type A Ag NEGATIVE (NEGATIVE) Influenza Type B Ag NEGATIVE (NEGATIVE) RSV (PCR) NEGATIVE (NEGATIVE) SARS-CoV-2 (PCR) NEGATIVE (NEGATIVE) - Radiology Impressions Radiology Exams & Impressions: Radiology Procedures Category Date Time Status FOOT (MINIMUM 3 VIEWS) Urgent Exams 02/06/23 11:00 Completed Assessment/Plan (1) Diabetic foot wound Current Visit: Yes Status: Acute (2) Cellulitis of left foot Current Visit: Yes Status: Acute Code(s): L03.116 - CELLULITIS OF LEFT LOWER LIMB (3) Diabetes mellitus type II, uncontrolled Current Visit: Yes Status: Acute Code(s): YIV5669 - (4) Hyperglycemia Current Visit: Yes Status: Acute Code(s): R73.9 - HYPERGLYCEMIA, UNSPECIFIED
[2023-02-06] MEDS: VANCOMYCIN 1 GRAM/200 ML BAG 1 GM/200 ML PIGGYBACK IV SCH ×2 (15:15→21:59)
--- NOTE | 2023-02-06 15:37 | PCM.CONS ---
Podiatry HPI - Consult Date of Consultation Date: 02/06/23 Reason for Consult: Diabetic foot wound possible necrotizing fasciitis Consulting Provider: MARCIO HOU DPM - [facility] History of Present Illness: Rina is a very pleasant 62-year-old female with a positive history of diabetes mellitus uncontrolled with recent history of a diabetic sore developing over the left hallux when she wore a thicker pair of socks than she typically does in a pair of shoes that was too small for her feet. Patient indicates it started off as beet red however over the course of several days from Sunday of last week till today it is progressively gotten worse. She indicates that she presented to [facility] where she was provided antibiotics and cultures were taken however after the second dose of Bactrim she vomited and can no longer tolerate tolerate the home antibiotics. Patient indicates that she has not been taking her insulin or checking her sugars at home. She currently denies any other pedal complaints at this time Medications & Allergies Home Medications: Home Medication List No Reportable Medications [No Reported Medications] 02/06/23 [History Confirmed 02/06/23] Allergies/Adverse Reactions: Allergies Allergy/AdvReac Type Severity Reaction Status Date / Time shellfish derived Allergy Intermediate Rash Verified 02/06/23 11:27 Iodinated Contrast Media Allergy Unknown Verified 02/06/23 11:29 Penicillins Allergy Hives Verified 02/06/23 11:27 - Past Medical History Past Medical History: Yes Neurological History: No Pertinent History ENT History: No Pertinent History Cardiac History: High Cholesterol, Hypertension Respiratory History: No Pertinent History Endocrine Medical History: Diabetes Type II Musculoskelatal History: No Pertinent History GI Medical History: No Pertinent History History: No Pertinent History Reproductive Disorders: No Pertinent History - Female History Are you now?: No - Past Surgical History Past Surgical History: Yes Neuro Surgical History: No Pertinent History Cardiac History: No Pertinent History Respiratory Surgery: No Pertinent History GI Surgical History: Appendectomy, Cholecystectomy Musculskeletal Surgical Hx: Other Female Surgical History: Tubal Ligation Other Surgical History: left hip surgery, mass removal. breast biopsy - Social History Smoking Status: Never smoker Exposure to second hand smoke: No Alcohol: None Drug Use: none Physical Exam - General General Appearance: no apparent distress - Neuro Neurologic: Epicritic and protopathic (absent) - Vascular Peripheral Pulses: Posterior tibialis: 2+, Dorsalis-Pedis: 2+ Capillary Refill Time: < 3 seconds Hair Growth: Symmetrical and Bilateral Varicosities: Positive Edema: Pitting Edema Degree: 2+ Skin: Supple, not atrophic - Narrative Narrative Physical Exam: Podiatry Physical Exam Results - Labs Lab/Micro Results: Lab Results-Last 24 Hours 02/06/23 02/06/23 02/06/23 Range/Units 11:00 11:20 Unknown WBC 11.9 H (4.0-10.5) x10^3/uL RBC 4.48 (4.1-5.4) x10^6/uL Hgb 12.4 (12.0-16.0) g/dL Hct 38.1 (35-47) % MCV 85.0 (78-100) fL MCH 27.7 (26-32) pg MCHC 32.5 (32-36) g/dL RDW 11.9 (11.5-14.0) % Plt Count 160 (150-450) x10^3/uL MPV 10.6 (7.5-11.0) fL Gran % 77.6 H (36.0-66.0) % Immature Gran % (Auto) 0.6 H (0.00-0.4) % Nucleat RBC Rel Count 0.0 (0.00-0.1) % Eos # (Auto) 0.07 (0-0.5) x10^3/uL Immature Gran # (Auto) 0.07 H (0.00-0.03) x10^3u/L Absolute Lymphs (auto) 1.68 (1.0-4.6) x10^3/uL Absolute Monos (auto) 0.79 (0.0-1.3) x10^3/uL Absolute Nucleated RBC 0.00 (0.00-0.01) x10^3u/L Lymphocytes % 14.2 L (24.0-44.0) % Monocytes % 6.7 (0.0-12.0) % Eosinophils % 0.6 (0.00-5.0) % Basophils % 0.3 (0.0-0.4) % Absolute Granulocytes 9.22 H (1.4-6.9) x10^3/uL Basophils # 0.03 (0-0.4) x10^3/uL Sodium 137 (137-145) mmol/L Potassium 3.9 (3.5-5.1) mmol/L Chloride 101 (98-107) mmol/L Carbon Dioxide 29 (22-30) mmol/L Anion Gap 11.6 (5-15) MEQ/L BUN 16 (7-17) mg/dL Creatinine 0.65 (0.52-1.04) mg/dL Estimated GFR > 60.0 ML/MIN Glucose 270 H (74-106) mg/dL Lactic Acid 1.2 (0.4-2.0) Calcium 9.0 (8.4-10.2) mg/dL Total Bilirubin 0.60 (0.2-1.3) mg/dL AST 24 (14-36) U/L ALT 25 (0-35) U/L Alkaline Phosphatase 183 H (38-126) U/L Serum Total Protein 7.0 (6.3-8.2) g/dL Albumin 3.7 (3.5-5.0) g/dL Influenza Type A Ag (NEGATIVE) Influenza Type B Ag (NEGATIVE) RSV (PCR) (NEGATIVE) SARS-CoV-2 (PCR) (NEGATIVE) 02/06/23 Range/Units Unknown WBC (4.0-10.5) x10^3/uL RBC (4.1-5.4) x10^6/uL Hgb (12.0-16.0) g/dL Hct (35-47) % MCV (78-100) fL MCH (26-32) pg MCHC (32-36) g/dL RDW (11.5-14.0) % Plt Count (150-450) x10^3/uL MPV (7.5-11.0) fL Gran % (36.0-66.0) % Immature Gran % (Auto) (0.00-0.4) % Nucleat RBC Rel Count (0.00-0.1) % Eos # (Auto) (0-0.5) x10^3/uL Immature Gran # (Auto) (0.00-0.03) x10^3u/L Absolute Lymphs (auto) (1.0-4.6) x10^3/uL Absolute Monos (auto) (0.0-1.3) x10^3/uL Absolute Nucleated RBC (0.00-0.01) x10^3u/L Lymphocytes % (24.0-44.0) % Monocytes % (0.0-12.0) % Eosinophils % (0.00-5.0) % Basophils % (0.0-0.4) % Absolute Granulocytes (1.4-6.9) x10^3/uL Basophils # (0-0.4) x10^3/uL Sodium (137-145) mmol/L Potassium (3.5-5.1) mmol/L Chloride (98-107) mmol/L Carbon Dioxide (22-30) mmol/L Anion Gap (5-15) MEQ/L BUN (7-17) mg/dL Creatinine (0.52-1.04) mg/dL Estimated GFR ML/MIN Glucose (74-106) mg/dL Lactic Acid (0.4-2.0) Calcium (8.4-10.2) mg/dL Total Bilirubin (0.2-1.3) mg/dL AST (14-36) U/L ALT (0-35) U/L Alkaline Phosphatase (38-126) U/L Serum Total Protein (6.3-8.2) g/dL Albumin (3.5-5.0) g/dL Influenza Type A Ag NEGATIVE (NEGATIVE) Influenza Type B Ag NEGATIVE (NEGATIVE) RSV (PCR) NEGATIVE (NEGATIVE) SARS-CoV-2 (PCR) NEGATIVE (NEGATIVE) - Radiology Impressions Radiology Exams & Impressions: Radiology Procedures Category Date Time Status FOOT (MINIMUM 3 VIEWS) Urgent Exams 02/06/23 11:00 Completed Assessment/Plan (1) Necrotizing fasciitis of lower leg Current Visit: Yes Status: Acute Code(s): M72.6 - NECROTIZING FASCIITIS (2) Cellulitis of left foot Current Visit: Yes Status: Acute Assessment & Plan: Initial patient examination evaluation. Radiographs reviewed and discussed with patient demonstrating relatively normal soft tissue pathology and no osseous indicators. Decision was made due to patient's neuropathy to proceed with a bedside debridement however once the dorsal aspect of the wound was uncovered the distal interphalangeal joint was exposed and a very strong anaerobic malodor was uncovered. Deep cultures were obtained at bedside. Given patient does have an elevated white blood cell count with left shift and clinical appearance of wound appears to be cellulitic with tracking up the extensor hallucis longus discussion was held in regards to pot entials for treatment. Patient after discussion was amenable to an amputation to the left hallux in order to stop the spread of the possible necrotizing fasciitis We will need to see reactive protein in order to better assess however there is a higher clinical suspicion through history and physical therefore we will proceed with operative debridement. Plan for amputation left hallux open with packing. Plan for delayed primary closure at a later date once infection has been eradicated. Would like to proceed with vancomycin and Cirpofloxacin 500 mg PO BID. pharmacy to dose vancomycin. will follow cultures for narrowing antibiotic spectrum. Dressings to remain clean dry and intact following surgical intervention reinforced for strikethrough dressing changes to be performed daily by myself or staff. Pain control as prescribed DVT prophylaxis as prescribed Will follow up closely planned return to OR later this week. Code(s): L03.116 - CELLULITIS OF LEFT LOWER LIMB (3) Diabetes mellitus type II, uncontrolled Current Visit: Yes Status: Acute Code(s): [id number] - (4) Diabetic foot wound Current Visit: Yes Status: Acute (5) Hyperglycemia Current Visit: Yes Status: Acute Code(s): R73.9 - HYPERGLYCEMIA, UNSPECIFIED
[2023-02-06] MEDS ORDERED: Hydromorphone 1 mg/ml Injection IV PRN (15:50)
[2023-02-06] MEDS ORDERED: PERCOCET TABLET 5/325MG PO PRN (15:50)
[2023-02-06] MEDS: Acidophilus TABLET PO SCH ×2 (15:52→21:59)
[2023-02-06] MEDS ORDERED: PHARMACY RENAL DOSING MC ONE (16:48)
[2023-02-06] MEDS: Cipro 500 MG PO SCH (18:41)
[2023-02-06] MEDS: Ecotrin 325 MG PO SCH (18:41)
[2023-02-06] MEDS ORDERED: Levofloxacin 500 MG Tablet PO SCH (22:00)
[2023-02-06 22:30] LABS: Barbiturate,Urine NEGATIVE (NEGATIVE); Benzodiazepine,Urine NEGATIVE (NEGATIVE); Cocaine,Urine NEGATIVE (NEGATIVE); Methadone,Urine NEGATIVE (NEGATIVE); Opiate,Urine NEGATIVE (NEGATIVE); PCP,Urine NEGATIVE (NEGATIVE); THC,Urine POSITIVE (NEGATIVE)
[2023-02-06 22:56] LABS: Amphetamine,Urine POSITIVE (NEGATIVE)
[2023-02-07] MEDS: Sodium Chloride 0.9% 1000 ML 1,000 ML IV SCH ×2 (06:50→20:29)
[2023-02-07] MEDS: Acidophilus TABLET PO SCH ×3 (08:32→21:44)
[2023-02-07] MEDS: Ecotrin 325 MG PO SCH (08:32)
[2023-02-07] MEDS: VANCOMYCIN 1 GRAM/200 ML BAG 1 GM/200 ML PIGGYBACK IV SCH ×2 (08:32→21:44)
[2023-02-07] MEDS: ENOXAPARIN SODIUM SQ SCH (08:32)
[2023-02-07] MEDS: Cipro 500 MG PO SCH (08:34)
[2023-02-07] MEDS ORDERED: ENOXAPARIN SODIUM SQ SCH (10:00)
--- NOTE | 2023-02-07 11:08 | OP ---
SURGERY DATE/TIME: 02/06/2023 1341 PREOPERATIVE DIAGNOSES: 1) Left foot diabetic foot infection. 2) Diabetic foot ulcer. 3) Cellulitis left foot. 4) Necrotizing fasciitis. 5) Uncontrolled diabetes mellitus. POSTOPERATIVE DIAGNOSES: 1) Left foot diabetic foot infection. 2) Diabetic foot ulcer. 3) Cellulitis left foot. 4) Necrotizing fasciitis. 5) Uncontrolled diabetes mellitus. PROCEDURE: Open amputation left hallux at metatarsophalangeal joint. SURGEON: Levi Ramirez DPM. TRAFFIC ADMINISTRATOR: None. ANESTHESIA: Local. ESTIMATED BLOOD LOSS: Less than 10 cc. MATERIALS: 3-0 Nylon, 0.25 inch Iodoform packing. INJECTABLES: 30 cc of a 1:1 mixture of 1% lidocaine plain and 0.5% bupivacaine plain injected in a Hester block-type fashion. HEMOSTASIS: Pressure dressing. INDICATION FOR SURGERY: Rina is a very pleasant 62-year-old female well-known patient who was admitted to the hospital after having suffered a diabetic foot infection from wearing a pair of shoes that were too tight with some socks that were too thick. The patient indicated that this started out as deep red to the dorsal aspect of the left great toe. She presented to [facility] at first which prescribed her Bactrim and she was only able to tolerate the first dose. However, she was suffering with nausea, vomiting, fever, chills and as a result presented to Dr. Rodriguez's office and presented for direct admit. At this time the patient does present with an elevated white blood cell count as well as indications of possible necrotizing fasciitis. A LRINEC score was run. However with the patient's clinical symptomatology and evidence of concerns for necrotizing fasciitis we decided to have discussion in regards to options for treatment. Bedside debridement was first initially performed. However, significant necrosis of the tissue as well as concern for tracking of the infection of the extensor hallucis longus tendon was immediately a concern as well as a very specific anaerobic smell to the wound. Discussion was held in regards to proceeding with an amputation to the left great toe in hope to salvage a potential transmetatarsal or a below knee amputation at a later date. The patient is amenable to this. She currently understands all risks, complications and benefits of surgical intervention at this time including but not limited to infection, hematoma, seroma, possibility of delayed wound healing, nonwound healing, possibility of residual infection and possible need for surgical intervention at a later date. There were no guarantees provided as to the outcome of surgical intervention. It is with that we decided to proceed. Plenty of time was allowed for the patient to ask questions to her apparent satisfaction. It is with that we decided to proceed. DESCRIPTION OF PROCEDURE AND FINDINGS: At this time the patient is brought into the OR and placed and placed on the OR bed in the supine position. A local block consisting of 30 cc of a 1:1 mixture of 1% lidocaine plain and 0.5% bupivacaine plain was injected to the left foot in a Hester block-type fashion. Following this, the left lower extremity was prepped and draped in the typical sterile fashion and lowered onto the surgical field. At this time a medial racket incision was made over the first metatarsal down to the level of bone and circumferentially around the great toe. Disarticulation of the hallux was performed. The hallux was handed off the field for soft tissue cultures as well as bone for pathology. At this time Bactisure was utilized to flush the surgical site and then 3 liters of normal sterile saline was then utilized to flush the surgical site. Following this the wound was inspected for any residual necrosis of which none was found. No other clinical signs of infection were present. At this time gloves were changed and 3-0 Nylon was utilized to partially close the wound. A 0.25 inch Iodoform packing was introduced to the distal aspect of the left amputation site. A dressing consisting of Betadine, Adaptic, 4x4, Kerlix, ABD and THOMPSON was applied with minimal compression to the left lower extremity. At this time, the patient was returned to the Med/Surg floor with vital signs stable and vascular status intact. The patient handled the anesthesia as well as the procedure without significant complication. Postoperative orders as indicated in the patients inpatient chart.
--- NOTE | 2023-02-07 12:33 | PCM.NOTE ---
Date and Time: 02/07/23 1227 Subjective Assessment: She is very tired today. Had surgery yesterday. Sandie po. - Review of Systems Constitutional: Fatigue, No Fever Abdominal/Gastrointestinal: No Vomiting Objective Exam General Appearance: no apparent distress, other (somnolent but wakes to voice) Neurologic Exam: cooperative, No motor deficits Skin Exam: normal color, warm, dry, No rash Wound Assessment: Skin/Wound Assessment Wound/Incision Assessment Start: 02/06/23 12:01 Text: Status: Active Freq: Q6H Protocol: Document 02/07/23 08:00 AR (Rec: 02/07/23 08:45 AR [id number]) Wound/Incision Assessment Left Toe Wound Assessment Shift Assessment Wound Type Amputation Dressing Status Dry & Intact Comment DRESSING CDI Wound Photo Photo Taken No Comment: Instructed by physician to not remove dressing, only reinforce dressing. Eye Exam: eyes nml inspection Ears, Nose, Throat Exam: moist mucous membranes Neck Exam: normal inspection Respiratory Exam: normal breath sounds, lungs clear, No crackles/rales, No rhonchi, No wheezing Cardiovascular Exam: regular rate/rhythm, normal heart sounds, No murmur Gastrointestinal/Abdomen Exam: soft, normal bowel sounds, No tenderness, No distention, No mass, No guarding, No rebound Extremity Exam: other (L foot wrapped) Back Exam: normal inspection, No rash OBJECTIVE DATA Vital Signs: Vital Signs - 24 hr Temp Pulse Resp BP Pulse Ox 02/07/23 11:39 96.9 F 69 16 88/53 99 02/07/23 08:00 97.2 F 83 17 127/69 98 02/07/23 04:00 98.2 F 85 15 131/71 95 02/06/23 23:51 98.5 F 84 17 136/73 96 02/06/23 20:00 97.8 F 96 H 18 138/71 98 02/06/23 16:34 124/67 02/06/23 16:00 97.2 F 98 H 17 97 Intake and Output: Intake & Output 02/05/23 02/06/23 02/07/23 02/08/23 11:59 11:59 11:59 11:59 Intake Total 1712 Output Total 1650 Balance 62 Weight 63.6 kg 63.6 kg Lab Results: Lab Results-Last 24 Hours 04/09/2002/06/23 02/06/23 Range/Units 11:15 16:36 21:12 POC Glucometer 263 H (74 to 106) mg/dL Uric Acid 5.1 (2.6-6.0) mg/dL Urine Opiates Level NEGATIVE (NEGATIVE) Ur Methadone NEGATIVE (NEGATIVE) Urine Barbiturates NEGATIVE (NEGATIVE) Ur Phencyclidine (PCP) NEGATIVE (NEGATIVE) Urine Amphetamine POSITIVE (NEGATIVE) U Benzodiazepine Level NEGATIVE (NEGATIVE) Urine Cocaine NEGATIVE (NEGATIVE) Urine Marijuana (THC) POSITIVE (NEGATIVE) 02/06/23 02/07/23 02/07/23 Range/Units 21:14 07:01 11:08 POC Glucometer 324 H 189 H 249 H (74 to 106) mg/dL Uric Acid (2.6-6.0) mg/dL Urine Opiates Level (NEGATIVE) Ur Methadone (NEGATIVE) Urine Barbiturates (NEGATIVE) Ur Phencyclidine (PCP) (NEGATIVE) Urine Amphetamine (NEGATIVE) U Benzodiazepine Level (NEGATIVE) Urine Cocaine (NEGATIVE) Urine Marijuana (THC) (NEGATIVE) Radiology Exams: Radiology Procedures Category Date Time Status FOOT (MINIMUM 3 VIEWS) Urgent Exams 02/06/23 11:00 Completed Multi-Disciplinary Progress Notes: Multi-Disciplinary Progress Notes 02/07/23 09:56 Case Management Note by Amanda Galvez S/W PATIENT AND SHE VERBALIZED UNDERSTANDING OF NEEDING CONT IV ANTIBIOTICS VIA PICC AND STATES SHE WILL BE ABLE TO COME TO [facility] OUPT FOR IV THERAPY AND DRSG CHANGES. EX- AND CHILDREN WILL TRANSPORT NEEDED. DENIES ANY OTHER NEEDS AT DC. PLANS TO RETURN HOME Initialized on 02/07/23 09:56 - END OF NOTE 02/07/23 09:36 Case Management Note by Amparo Barfield S/W DR. BUCKLEY- NOTIFIED HIM OF + DRUG SCREEN FOR AMPHETAMINES AND THC. HE VERIFIED UNDERSTANDING AND STATED TO PROCEED WITH IV PICC LINE PATIENT NEEDS THIS FOR TREATMENT OF INFECTION Initialized on 02/07/23 09:36 - END OF NOTE 02/07/23 09:01 Case Management Note by Amparo Barfield S/W DR. BUCKLEY ABOUT PLAN OF CARE- HE MAY TAKE PATIENT BACK FOR DELAYED CLOSURE ON SUNDAY BUT IT WILL DEPEND ON HER HEALING STATUS. HE STATED THIS WOULD BE THE EARLIEST DATE BUT MAY BE LATER. HE GAVE ORDERS FOR PICC LINE PLACEMENT SHE WILL NEED ORGAN TUNER ELECTRONIC ANTIBIOTICS AFTER DC. ORDER ENTERED. MASTER FIRE CONTROL TECHNICIAN AND PRIMARY RN NOTIFIED Initialized on 02/07/23 09:01 - END OF NOTE 02/06/23 15:36 Case Management Note by Amanda Galvez S/W PATIENT AND SHE STATES SHE DOES NOT HAVE AN GLUCOMETER TO CHECK HER SUGARS AT HOME. WILL NEED A GLUCOMETER AND STRIPS AT DC. Initialized on 02/06/23 15:36 - END OF NOTE 02/06/23 12:46 Pharmacy Note by Hayes Spencer Pharmacokinetic dosing service Date: 02/06/23 Time: 1245 Objective: Patient: Floor: Age: 62 yo Serum creatinine: 0.6 mg/dL Height: 62 Inches Weight (kg): 64 Diagnosis:CELLULITIS Relevant medical/social history: Cultures and sensitivities: Other labs: Assessment: IBW (kg): 50.10 Dosing wt(kg): 64 Estimated Creatinine clearance (ml/min): 76.9 CRCL method: Cockcroft and Gault using ibw(default). Drug selected: Vancomycin Loading dose (mg): 0 Vd (liters): 48.0 (factor used: 0.75 L/kg) Jp (hr-1): 0.068 Half life (hrs): 10.19 Recommended dose: 1000 mg Interval: 12 hrs Infusion time (hrs): 1.5 Predicted peak (mcg/mL): 35.5 Predicted trough (mcg/mL): 17.38 Total body weight is being used for vancomycin dosing. Renal function is stable [X ] /unstable [ ] Recommendations: Give Vancomycin 1000 mg q 12 hrs with an expected Cpeak of 35.5 mcg/ml and an expected Ctrough of 17.38 mcg/ml Renal dosing of other antibiotics (review renal dosing of other medications and list guidelines here): Thank you for the consult, will continue to follow. VANCOMYCIN TROUGH 02/08/23 Signature: ALEN SPENCER [facility] Initialized on 02/06/23 12:46 - END OF NOTE Assessment/Plan (1) Diabetic foot wound Current Visit: Yes Status: Acute Assessment & Plan: POD #1 s/p amputation great toe. Foot is wrapped. On vancomycin and cipro day #[address] Buckley, thank you. (2) Cellulitis of left foot Current Visit: Yes Status: Acute Code(s): L03.116 - CELLULITIS OF LEFT LOWER LIMB (3) Diabetes mellitus type II, uncontrolled Current Visit: Yes Status: Chronic Qualifiers: Glycemic state: with hyperglycemia Qualified Code(s): E11.65 - Type 2 diabetes mellitus with hyperglycemia Code(s): AWU7229 - (4) Hyperglycemia Current Visit: Yes Status: Acute Assessment & Plan: will start glimeperide here in an effort to lower BS and promote healing. Code(s): R73.9 - HYPERGLYCEMIA, UNSPECIFIED (5) Polysubstance use disorder Current Visit: Yes Status: Acute Assessment & Plan: Pt's daughter suggested we check a urine drug screen; was positive for THC and amphetamines. Code(s): F19.90 - OTHER PSYCHOACTIVE SUBSTANCE USE, UNSPECIFIED, UNCOMPLICATED
[2023-02-07 13:18] LABS: Absolute Neutrophil Ct (ANC) 5.31 x10^3/uL (1.4-6.9); BASOPHIL % 0.5 % (0.0-0.4); Basophil (Absolute #) 0.04 x10^3/uL (0-0.4); Eosinophil % 1.4 % (0.00-5.0); Eosinophil (Absolute #) 0.12 x10^3/uL (0-0.5); Hematocrit 36.9 % (35-47); Hemoglobin 12.2 g/dL (12.0-16.0); IMMATURE GRAN # 0.06 x10^3u/L (0.00-0.03); IMMATURE GRAN % 0.7 % (0.00-0.4); Lymphocyte (Absolute #) 2.19 x10^3/uL (1.0-4.6); Lymphocytes % 26.1 % (24.0-44.0); Mean Corpuscular Hemoglobin 28.1 pg (26-32); Mean Corpuscular Hgb Concent. 33.1 g/dL (32-36); Mean Platelet Volume 11.6 fL (7.5-11.0); Monocyte (Absolute #) 0.68 x10^3/uL (0.0-1.3); Monocytes % 8.1 % (0.0-12.0); Neutrophil % 63.2 % (36.0-66.0); Platelet Count 161 x10^3/uL (150-450); Red Blood Count 4.34 x10^6/uL (4.1-5.4); Red Cell Distribution Width 11.9 % (11.5-14.0); White Blood Count 8.4 x10^3/uL (4.0-10.5)
[2023-02-07 13:24] LABS: ALBUMIN 3.5 g/dL (3.5-5.0); ALKALINE PHOSPHATASE 168 U/L (38-126); ANION GAP 11.8 MEQ/L (5-15); BLOOD UREA NITROGEN 15 mg/dL (7-17); CHLORIDE 104 mmol/L (98-107); Calcium 8.9 mg/dL (8.4-10.2); Carbon Dioxide 26 mmol/L (22-30); EST GLOMERULAR FILTRATION RATE > 60.0 ML/MIN; Glucose 163 mg/dL (74-106); Potassium 4.2 mmol/L (3.5-5.1); SGOT/AST 32 U/L (14-36); SGPT/ALT 24 U/L (0-35); SODIUM 138 mmol/L (137-145); Total Protein 6.8 g/dL (6.3-8.2)
[2023-02-07] MEDS: Amaryl 2 MG PO SCH ×2 (14:33→21:44)
--- NOTE | 2023-02-07 14:40 | XRAY ---
Indication: PICC line placement. Comparison: None Portable chest demonstrates right arm PICC line with tip projecting over atrial caval junction. Remaining heart and lungs normal. Bony thorax intact with osteopenia and mild degenerative changes.
--- NOTE | 2023-02-07 16:38 | PCM.NOTE ---
Date and Time: 02/07/23 1631 Subjective Assessment: POD #1. Awake and alert on assessment. Patient states she is not her typical self but feels better than she did yesterday. Denies calf pain, chest pain or shortness of breath. She denies any other pedal complaints. Physical Exam - General General Appearance: no apparent distress - Neuro Neurologic: Epicritic and protopathic (absent) - Vascular Peripheral Pulses: Posterior tibialis: 1+, Dorsalis-Pedis: 2+ Capillary Refill Time: < 3 seconds Hair Growth: Symmetrical and Bilateral Edema: Pitting Edema Degree: 2+ Skin: Supple, not atrophic Skin Temperature: Warm to touch - Muscular Muscle Strength: 5/5 on all 4 quadrants - Narrative Narrative Physical Exam: Podiatry Physical Exam Wound appears to be clean with no evidence of necrosis or residual infection. Some residual cellulitis extending to the midtarsal joint dorsally. No obvious signs of drainage. OBJECTIVE DATA Vital Signs: Vital Signs - 24 hr Temp Pulse Resp BP Pulse Ox 02/07/23 11:39 96.9 F 69 16 88/53 99 02/07/23 08:00 97.2 F 83 17 127/69 98 02/07/23 04:00 98.2 F 85 15 131/71 95 02/06/23 23:51 98.5 F 84 17 136/73 96 02/06/23 20:00 97.8 F 96 H 18 138/71 98 02/06/23 16:34 124/67 Intake and Output: Intake & Output 02/05/23 02/06/23 02/07/23 02/08/23 11:59 11:59 11:59 11:59 Intake Total 1712 Output Total 1650 Balance 62 Weight 63.6 kg 63.6 kg Lab Results: Lab Results-Last 24 Hours 02/06/23 02/06/23 02/06/23 Range/Units 11:15 16:36 21:12 WBC (4.0-10.5) x10^3/uL RBC (4.1-5.4) x10^6/uL Hgb (12.0-16.0) g/dL Hct (35-47) % MCV (78-100) fL MCH (26-32) pg MCHC (32-36) g/dL RDW (11.5-14.0) % Plt Count (150-450) x10^3/uL MPV (7.5-11.0) fL Gran % (36.0-66.0) % Immature Gran % (Auto) (0.00-0.4) % Nucleat RBC Rel Count (0.00-0.1) % Eos # (Auto) (0-0.5) x10^3/uL Immature Gran # (Auto) (0.00-0.03) x10^3u/L Absolute Lymphs (auto) (1.0-4.6) x10^3/uL Absolute Monos (auto) (0.0-1.3) x10^3/uL Absolute Nucleated RBC (0.00-0.01) x10^3u/L Lymphocytes % (24.0-44.0) % Monocytes % (0.0-12.0) % Eosinophils % (0.00-5.0) % Basophils % (0.0-0.4) % Absolute Granulocytes (1.4-6.9) x10^3/uL Basophils # (0-0.4) x10^3/uL Sodium (137-145) mmol/L Potassium (3.5-5.1) mmol/L Chloride (98-107) mmol/L Carbon Dioxide (22-30) mmol/L Anion Gap (5-15) MEQ/L BUN (7-17) mg/dL Creatinine (0.52-1.04) mg/dL Estimated GFR ML/MIN Glucose (74-106) mg/dL POC Glucometer 263 H (74 to 106) mg/dL Uric Acid 5.1 (2.6-6.0) mg/dL Calcium (8.4-10.2) mg/dL Total Bilirubin (0.2-1.3) mg/dL AST (14-36) U/L ALT (0-35) U/L Alkaline Phosphatase (38-126) U/L Serum Total Protein (6.3-8.2) g/dL Albumin (3.5-5.0) g/dL Urine Opiates Level NEGATIVE (NEGATIVE) Ur Methadone NEGATIVE (NEGATIVE) Urine Barbiturates NEGATIVE (NEGATIVE) Ur Phencyclidine (PCP) NEGATIVE (NEGATIVE) Urine Amphetamine POSITIVE (NEGATIVE) U Benzodiazepine Level NEGATIVE (NEGATIVE) Urine Cocaine NEGATIVE (NEGATIVE) Urine Marijuana (THC) POSITIVE (NEGATIVE) 02/06/23 02/07/23 02/07/23 Range/Units 21:14 05:00 05:00 WBC 8.4 (4.0-10.5) x10^3/uL RBC 4.34 (4.1-5.4) x10^6/uL Hgb 12.2 (12.0-16.0) g/dL Hct 36.9 (35-47) % MCV 85.0 (78-100) fL MCH 28.1 (26-32) pg MCHC 33.1 (32-36) g/dL RDW 11.9 (11.5-14.0) % Plt Count 161 (150-450) x10^3/uL MPV 11.6 H (7.5-11.0) fL Gran % 63.2 (36.0-66.0) % Immature Gran % (Auto) 0.7 H (0.00-0.4) % Nucleat RBC Rel Count 0.0 (0.00-0.1) % Eos # (Auto) 0.12 (0-0.5) x10^3/uL Immature Gran # (Auto) 0.06 H (0.00-0.03) x10^3u/L Absolute Lymphs (auto) 2.19 (1.0-4.6) x10^3/uL Absolute Monos (auto) 0.68 (0.0-1.3) x10^3/uL Absolute Nucleated RBC 0.00 (0.00-0.01) x10^3u/L Lymphocytes % 26.1 (24.0-44.0) % Monocytes % 8.1 (0.0-12.0) % Eosinophils % 1.4 (0.00-5.0) % Basophils % 0.5 (0.0-0.4) % Absolute Granulocytes 5.31 (1.4-6.9) x10^3/uL Basophils # 0.04 (0-0.4) x10^3/uL Sodium 138 (137-145) mmol/L Potassium 4.2 (3.5-5.1) mmol/L Chloride 104 (98-107) mmol/L Carbon Dioxide 26 (22-30) mmol/L Anion Gap 11.8 (5-15) MEQ/L BUN 15 (7-17) mg/dL Creatinine 0.60 (0.52-1.04) mg/dL Estimated GFR > 60.0 ML/MIN Glucose 163 H (74-106) mg/dL POC Glucometer 324 H (74 to 106) mg/dL Uric Acid (2.6-6.0) mg/dL Calcium 8.9 (8.4-10.2) mg/dL Total Bilirubin 0.40 (0.2-1.3) mg/dL AST 32 (14-36) U/L ALT 24 (0-35) U/L Alkaline Phosphatase 168 H (38-126) U/L Serum Total Protein 6.8 (6.3-8.2) g/dL Albumin 3.5 (3.5-5.0) g/dL Urine Opiates Level (NEGATIVE) Ur Methadone (NEGATIVE) Urine Barbiturates (NEGATIVE) Ur Phencyclidine (PCP) (NEGATIVE) Urine Amphetamine (NEGATIVE) U Benzodiazepine Level (NEGATIVE) Urine Cocaine (NEGATIVE) Urine Marijuana (THC) (NEGATIVE) 02/07/23 02/07/23 Range/Units 07:01 11:08 WBC (4.0-10.5) x10^3/uL RBC (4.1-5.4) x10^6/uL Hgb (12.0-16.0) g/dL Hct (35-47) % MCV (78-100) fL MCH (26-32) pg MCHC (32-36) g/dL RDW (11.5-14.0) % Plt Count (150-450) x10^3/uL MPV (7.5-11.0) fL Gran % (36.0-66.0) % Immature Gran % (Auto) (0.00-0.4) % Nucleat RBC Rel Count (0.00-0.1) % Eos # (Auto) (0-0.5) x10^3/uL Immature Gran # (Auto) (0.00-0.03) x10^3u/L Absolute Lymphs (auto) (1.0-4.6) x10^3/uL Absolute Monos (auto) (0.0-1.3) x10^3/uL Absolute Nucleated RBC (0.00-0.01) x10^3u/L Lymphocytes % (24.0-44.0) % Monocytes % (0.0-12.0) % Eosinophils % (0.00-5.0) % Basophils % (0.0-0.4) % Absolute Granulocytes (1.4-6.9) x10^3/uL Basophils # (0-0.4) x10^3/uL Sodium (137-145) mmol/L Potassium (3.5-5.1) mmol/L Chloride (98-107) mmol/L Carbon Dioxide (22-30) mmol/L Anion Gap (5-15) MEQ/L BUN (7-17) mg/dL Creatinine (0.52-1.04) mg/dL Estimated GFR ML/MIN Glucose (74-106) mg/dL POC Glucometer 189 H 249 H (74 to 106) mg/dL Uric Acid (2.6-6.0) mg/dL Calcium (8.4-10.2) mg/dL Total Bilirubin (0.2-1.3) mg/dL AST (14-36) U/L ALT (0-35) U/L Alkaline Phosphatase (38-126) U/L Serum Total Protein (6.3-8.2) g/dL Albumin (3.5-5.0) g/dL Urine Opiates Level (NEGATIVE) Ur Methadone (NEGATIVE) Urine Barbiturates (NEGATIVE) Ur Phencyclidine (PCP) (NEGATIVE) Urine Amphetamine (NEGATIVE) U Benzodiazepine Level (NEGATIVE) Urine Cocaine (NEGATIVE) Urine Marijuana (THC) (NEGATIVE) Radiology Exams: Radiology Procedures Category Date Time Status CHEST 1 VIEW (PORTABLE) Stat Exams 02/07/23 14:22 Completed FOOT (MINIMUM 3 VIEWS) Urgent Exams 02/06/23 11:00 Completed Multi-Disciplinary Progress Notes: Multi-Disciplinary Progress Notes 02/07/23 09:56 Case Management Note by Amanda Galvez S/W PATIENT AND SHE VERBALIZED UNDERSTANDING OF NEEDING CONT IV ANTIBIOTICS VIA PICC AND STATES SHE WILL BE ABLE TO COME TO [facility] OUPT FOR IV THERAPY AND DRSG CHANGES. EX- AND CHILDREN WILL TRANSPORT NEEDED. DENIES ANY OTHER NEEDS AT AL. PLANS TO RETURN HOME Initialized on 02/07/23 09:56 - END OF NOTE 02/07/23 09:36 Case Management Note by Amparo Barfield S/Estrellita BUCKLEY- NOTIFIED HIM OF + DRUG SCREEN FOR AMPHETAMINES AND THC. HE VERIFIED UNDERSTANDING AND STATED TO PROCEED WITH IV PICC LINE PATIENT NEEDS THIS FOR TREATMENT OF INFECTION Initialized on 02/07/23 09:36 - END OF NOTE 02/07/23 09:01 Case Management Note by Amparo Barfield/Estrellita BUCKLEY ABOUT PLAN OF CARE- HE MAY TAKE PATIENT BACK FOR DELAYED CLOSURE ON SUNDAY BUT IT WILL DEPEND ON HER HEALING STATUS. HE STATED THIS WOULD BE THE EARLIEST DATE BUT MAY BE LATER. HE GAVE ORDERS FOR PICC LINE PLACEMENT SHE WILL NEED ANESTHESIA RESIDENT ANTIBIOTICS AFTER DC. ORDER ENTERED. IDENTIFICATION OFFICER AND PRIMARY RN NOTIFIED Initialized on 02/07/23 09:01 - END OF NOTE Assessment/Plan (1) Cellulitis of left foot Current Visit: Yes Status: Acute Code(s): L03.116 - CELLULITIS OF LEFT LOWER LIMB (2) Diabetes mellitus type II, uncontrolled Current Visit: Yes Status: Chronic Qualifiers: Glycemic state: with hyperglycemia Qualified Code(s): E11.65 - Type 2 diabetes mellitus with hyperglycemia Code(s): [id number] - (3) Diabetic foot wound Current Visit: Yes Status: Acute Assessment & Plan: Patient examination and evaluation. Radiographs ordered to reassess for potential residual gas. Dressings changed and wound inspected packing pulled today and flushed with sterile saline demonstrating no purulence and no residual signs of infection at the margins of the wound. A dressing consisting of Betadine Adaptic 4 x 4 Curlex and Tj was applied to the left foot. White blood cell count has dropped from 11.9 yesterday to 8.4 today demonstrating some indications of improvement in response to infection with surgical intervention as well as IV antibiotics. Preliminary cultures demonstrating gram-positive bacteria we will discontinue Cipro at this time and proceed with vancomycin. Based on clinical appearance of wound yesterday with purple discoloration I suspect a streptococcal infection. If confirmed will add clindamycin for endotoxin coverage. Once culture and sensitivity has been obtained we will proceed with narrowing antibiotic spectrum for outpatient therapy. At this time too early to tell if patient is a good candidate for delayed primary closure on Sunday of this week however she is making good progress at this point. Continue nonweightbearing left lower extremity Continue pain prophylaxis Continue DVT prophylaxis Will monitor closely. (4) Hyperglycemia Current Visit: Yes Status: Acute Code(s): R73.9 - HYPERGLYCEMIA, UNSPECIFIED
[2023-02-07] MEDS ORDERED: ZOFRAN ODT 4 MG PO PRN (18:22)
[2023-02-08 05:29] LABS: Absolute Neutrophil Ct (ANC) 4.69 x10^3/uL (1.4-6.9); BASOPHIL % 0.4 % (0.0-0.4); Basophil (Absolute #) 0.03 x10^3/uL (0-0.4); Eosinophil % 1.6 % (0.00-5.0); Eosinophil (Absolute #) 0.12 x10^3/uL (0-0.5); Hematocrit 34.3 % (35-47); Hemoglobin 11.1 g/dL (12.0-16.0); IMMATURE GRAN # 0.05 x10^3u/L (0.00-0.03); IMMATURE GRAN % 0.7 % (0.00-0.4); Lymphocyte (Absolute #) 1.88 x10^3/uL (1.0-4.6); Lymphocytes % 25.7 % (24.0-44.0); Mean Cell Volume 84.9 fL (78-100); Mean Corpuscular Hemoglobin 27.5 pg (26-32); Mean Corpuscular Hgb Concent. 32.4 g/dL (32-36); Mean Platelet Volume 10.3 fL (7.5-11.0); Monocyte (Absolute #) 0.55 x10^3/uL (0.0-1.3); Monocytes % 7.5 % (0.0-12.0); Neutrophil % 64.1 % (36.0-66.0); Platelet Count 152 x10^3/uL (150-450); Red Blood Count 4.04 x10^6/uL (4.1-5.4); Red Cell Distribution Width 11.9 % (11.5-14.0); White Blood Count 7.3 x10^3/uL (4.0-10.5)
[2023-02-08 05:42] LABS: ALBUMIN 3.3 g/dL (3.5-5.0); ALKALINE PHOSPHATASE 156 U/L (38-126); BLOOD UREA NITROGEN 16 mg/dL (7-17); CHLORIDE 105 mmol/L (98-107); Carbon Dioxide 25 mmol/L (22-30); Creatinine 1 0.53 mg/dL (0.52-1.04); EST GLOMERULAR FILTRATION RATE > 60.0 ML/MIN; Glucose 196 mg/dL (74-106); SGOT/AST 29 U/L (14-36); SGPT/ALT 26 U/L (0-35); SODIUM 137 mmol/L (137-145); Total Protein 6.5 g/dL (6.3-8.2)
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
[2023-02-08] MEDS: Cipro 500 MG PO SCH (11:25)
[2023-02-08] MEDS: Ecotrin 325 MG PO SCH (11:25)
[2023-02-08] MEDS: Acidophilus TABLET PO SCH ×3 (11:25→20:33)
[2023-02-08] MEDS: ENOXAPARIN SODIUM SQ SCH (11:25)
[2023-02-08] MEDS: VANCOMYCIN 1 GRAM/200 ML BAG 1 GM/200 ML PIGGYBACK IV SCH ×2 (11:25→20:33)
[2023-02-08] MEDS: Amaryl 2 MG PO SCH ×2 (11:25→20:34)
[2023-02-08] MEDS: Sodium Chloride 0.9% 1000 ML 1,000 ML IV SCH (11:26)
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
[2023-02-09] MEDS: Sodium Chloride 0.9% 1000 ML 1,000 ML IV SCH (03:53)
[2023-02-09 05:03] LABS: Absolute Neutrophil Ct (ANC) 4.29 x10^3/uL (1.4-6.9); BASOPHIL % 0.4 % (0.0-0.4); Basophil (Absolute #) 0.03 x10^3/uL (0-0.4); Eosinophil % 1.8 % (0.00-5.0); Eosinophil (Absolute #) 0.12 x10^3/uL (0-0.5); Hematocrit 35.3 % (35-47); Hemoglobin 11.5 g/dL (12.0-16.0); IMMATURE GRAN # 0.05 x10^3u/L (0.00-0.03); IMMATURE GRAN % 0.7 % (0.00-0.4); Lymphocyte (Absolute #) 1.81 x10^3/uL (1.0-4.6); Lymphocytes % 26.7 % (24.0-44.0); Mean Cell Volume 84.7 fL (78-100); Mean Corpuscular Hemoglobin 27.6 pg (26-32); Mean Corpuscular Hgb Concent. 32.6 g/dL (32-36); Mean Platelet Volume 9.8 fL (7.5-11.0); Monocyte (Absolute #) 0.49 x10^3/uL (0.0-1.3); Monocytes % 7.2 % (0.0-12.0); Neutrophil % 63.2 % (36.0-66.0); Platelet Count 151 x10^3/uL (150-450); Red Blood Count 4.17 x10^6/uL (4.1-5.4); Red Cell Distribution Width 11.9 % (11.5-14.0); White Blood Count 6.8 x10^3/uL (4.0-10.5)
[2023-02-09] MEDS ORDERED: Marcaine Mpf 0.5% Vial 30 Ml ONE (06:27)
[2023-02-09] MEDS ORDERED: Xylocaine 1% Vial 30 ML PF IJ ONE (06:27)
[2023-02-09] MEDS ORDERED: CLEOCIN 150 MG CAPSULE PO SCH (10:00)
[2023-02-09] MEDS ORDERED: DAPTOMYCIN IV SCH (10:00)
[2023-02-09] MEDS ORDERED: SODIUM CHLORIDE FLUSH IV SCH (10:00)
[2023-02-09] MEDS ORDERED: NORCO 5/325 MG PO PRN (10:03)
[2023-02-09] MEDS ORDERED: MOTRIN 600 MG PO PRN (10:04)
--- NOTE | 2023-02-09 10:17 | XRAY ---
Indication: Follow-up surgery. Comparison: February 06, 2023 3 nonweightbearing views left foot demonstrates interval amputation great toe/distal 1st metatarsal with postsurgical soft tissue swelling, subcutaneous air bubble, and overlying bandage material. Stable osteopenia, large heel spurs, and scattered vascular calcifications. No other bony, articular, or soft tissue abnormalities.
[2023-02-09] MEDS: Acidophilus TABLET PO SCH (10:40)
[2023-02-09] MEDS: Amaryl 2 MG PO SCH (10:40)
[2023-02-09] MEDS: Ecotrin 325 MG PO SCH (10:40)
[2023-02-09] MEDS: ENOXAPARIN SODIUM SQ SCH (10:41)
--- NOTE | 2023-02-09 10:58 | OP ---
SURGERY DATE/TIME: 11/11/2022 0817 PREOPERATIVE DIAGNOSES: 1) Group B Streptococcus infection. 2) Diabetic foot ulcer. 3) Peripheral neuropathy left foot. 4) Uncontrolled diabetes. 5) Soft tissue infection. POSTOPERATIVE DIAGNOSES: 1) Group B Streptococcus infection. 2) Diabetic foot ulcer. 3) Peripheral neuropathy left foot. 4) Uncontrolled diabetes. 5) Soft tissue infection. PROCEDURES: 1) Metatarsal head resection. 2) Delayed complex closure of surgical wound. SURGEON: Levi Ramirez DPM. CASING RUNNING MACHINE TENDER: None. HEMOSTASIS: Pressure dressing. ESTIMATED BLOOD LOSS: Approximately 10 cc. MATERIALS: 4-0 Monocryl, 3-0 Nylon. INJECTABLES: 20 cc of 1:1 mixture of 1% lidocaine plain and 0.5% bupivacaine plain injected in mini Hester type block fashion. INDICATION FOR SURGERY: Rina is a very pleasant 62-year-old female known to my service for an amputation secondary to an aggressive group B Strep infection that was developing to the dorsal aspect of the left hallux. The patient had this occurring for five days and it was not responding to antibiotics. X-rays were taken demonstrating no significant gas. However, significant anaerobic smell and worsening along with endotoxin to the appearance of the toe leading me to believe that this is an aggressive group B Strep infection and options were discussed with the patient. The patient wished to proceed with amputation and that was performed approximately three days ago. At this time the patient has improved quite significantly with an open wound draining infection and on antibiotics at this time. This was confirmed to be a group B Strep and the decision was made for IV antibiotics and delayed primary closure at this time. The patient understands all risks, complications and benefits of surgical intervention including but not limited to infection, hematoma, seroma, possibility of delayed wound healing or nonwound healing, possibility of need for surgical intervention at a later date and possibility of need for revision of said outcome. No guarantees were provided as to the outcome. Plenty of time was allowed for the patient to ask questions which were answered to the patient's apparent satisfaction. It is with that we decided to proceed. DESCRIPTION OF PROCEDURE AND FINDINGS: The patient is brought into the OR and placed on the OR table in the supine position. At this time the left lower extremity was prepped and draped in the typical sterile fashion and lowered onto the surgical field. At this time a local block consisting of 20 cc of a 1:1 mixture of 1% lidocaine plain and 0.5% bupivacaine plain was injected in a Hester block-type fashion. The trauma stitches were removed from the surgical site. Deepening the wound and checking for any signs of residual necrosis or infection. Some hematoma was cleared out utilizing a combination of 15 blade and a rongeur. At this time the wound edges were excised and demonstrated healthy bleeding border. In order to get the necrotic tissue out, more skin had to be taken and on attempt at closure the skin was unable to be closed under minimal tension. Decision at that time was to proceed with a tarsometatarsal head resection along with the sesamoid. At this time the metatarsal head was resected utilizing an 18 mm blade and sagittal saw, this was handed off the field and sent for clean margins. At this time the wound was cleansed with copious amounts of sterile saline through Pulsavac. The wound was coapted utilizing 4-0 Monocryl and 3-0 Nylon in a simple buried-type fashion and followed by a horizontal mattress-type fashion for skin closure. At this time a dressing consisting of Betadine, Adaptic, 4x4, Kerlix, ABD and THOMPSON was then applied to the patient's left lower extremity. The patient was returned to her room with vital signs stable and vascular status intact. The patient handled the anesthesia as well as procedure without significant complication. Postoperative orders as indicated in the patient's inpatient chart.
[2023-02-09 11:23] VITALS: BP 159/72; PULSE 86; O2SAT 99
--- NOTE | 2023-02-09 13:13 | PCM.DS ---
Discharge Summary Date of Admission: 02/06/23 13:06 Admitting Physician: MARLEEN MENDOZA Consults: Consults on Case 02/06/23 10:35 Consult Podiatry ROUTINE Primary Care Provider: ROSA M MILTON Allergies Allergies shellfish derived Allergy (Intermediate, Verified 02/06/23 11:27) Rash rash Iodinated Contrast Media Allergy (Unknown, Verified 02/06/23 11:29) PT STATES SHE USE TO BE ALLERGIC TO BETADINE BUT NOT ANYMORE AN ADULT. STATES SHES NEVER HAD IV CONTRAST THAT SHE KNOWS OF Penicillins Allergy (Verified 02/06/23 11:27) [facility] Summary - Hospital Course Hospital Course: patient admitted with cellulitis and had amputation of toe of left foot with delayed closure done today. she is ordered to have IV abx per podiatry, new onset diabetes well controlled on new po meds. home today and will get outpatient infusions - Vitals & Intake/Output Vital Signs: Vital Signs Temperature 97.8 F 02/09/23 11:22 Pulse Rate 86 02/09/23 11:22 Respiratory Rate 16 02/09/23 11:22 Blood Pressure 159/72 02/09/23 11:22 O2 Sat by Pulse Oximetry 99 02/09/23 11:22 Intake & Output: Intake & Output 02/07/23 02/08/23 02/09/23 02/10/23 11:59 11:59 11:59 11:59 Intake Total 1712 2515 1402 Output Total 1650 1550 1350 Balance 62 965 52 Weight 63.6 kg 63.6 kg - Lab Result Diagrams: 02/09/23 04:48 02/08/23 05:10 Lab Results-Last 24 Hrs: Lab Results-Last 24 Hours 02/07/23 02/08/23 02/08/23 Range/Units 05:00 16:36 21:20 WBC (4.0-10.5) x10^3/uL RBC (4.1-5.4) x10^6/uL Hgb (12.0-16.0) g/dL Hct (35-47) % MCV (78-100) fL MCH (26-32) pg MCHC (32-36) g/dL RDW (11.5-14.0) % Plt Count (150-450) x10^3/uL MPV (7.5-11.0) fL Gran % (36.0-66.0) % Immature Gran % (Auto) (0.00-0.4) % Nucleat RBC Rel Count (0.00-0.1) % Eos # (Auto) (0-0.5) x10^3/uL Immature Gran # (Auto) (0.00-0.03) x10^3u/L Absolute Lymphs (auto) (1.0-4.6) x10^3/uL Absolute Monos (auto) (0.0-1.3) x10^3/uL Absolute Nucleated RBC (0.00-0.01) x10^3u/L Lymphocytes % (24.0-44.0) % Monocytes % (0.0-12.0) % Eosinophils % (0.00-5.0) % Basophils % (0.0-0.4) % Absolute Granulocytes (1.4-6.9) x10^3/uL Basophils # (0-0.4) x10^3/uL POC Glucometer 186 H 238 H (74 to 106) mg/dL Hemoglobin A1c 13.1 H (4.8-5.6) % 02/09/23 02/09/23 02/09/23 Range/Units 04:48 06:47 11:05 WBC 6.8 (4.0-10.5) x10^3/uL RBC 4.17 (4.1-5.4) x10^6/uL Hgb 11.5 L (12.0-16.0) g/dL Hct 35.3 (35-47) % MCV 84.7 (78-100) fL MCH 27.6 (26-32) pg MCHC 32.6 (32-36) g/dL RDW 11.9 (11.5-14.0) % Plt Count 151 (150-450) x10^3/uL MPV 9.8 (7.5-11.0) fL Gran % 63.2 (36.0-66.0) % Immature Gran % (Auto) 0.7 H (0.00-0.4) % Nucleat RBC Rel Count 0.0 (0.00-0.1) % Eos # (Auto) 0.12 (0-0.5) x10^3/uL Immature Gran # (Auto) 0.05 H (0.00-0.03) x10^3u/L Absolute Lymphs (auto) 1.81 (1.0-4.6) x10^3/uL Absolute Monos (auto) 0.49 (0.0-1.3) x10^3/uL Absolute Nucleated RBC 0.00 (0.00-0.01) x10^3u/L Lymphocytes % 26.7 (24.0-44.0) % Monocytes % 7.2 (0.0-12.0) % Eosinophils % 1.8 (0.00-5.0) % Basophils % 0.4 (0.0-0.4) % Absolute Granulocytes 4.29 (1.4-6.9) x10^3/uL Basophils # 0.03 (0-0.4) x10^3/uL POC Glucometer 108 H 108 H (74 to 106) mg/dL Hemoglobin A1c (4.8-5.6) % Micro Results-Entire Visit: Microbiology 02/06/23 14:21 Wound Culture - Final Toe - L Big (Greater) Streptococcus Agalactiae 02/06/23 14:38 Anaerobic Culture - Final Toe - L Big (Greater) Not Reportable Anaerobic Culture Result 1 - Final Not Reportable Anaerobic Culture Result 3 - Final Not Reportable Anaerobic Culture Result 4 - Final Not Reportable Anaerobic Bacterial Sensitivity - Final Not Reportable Accuchecks Date 02/09/23 Date 02/09/23 Date 02/08/23 Time 11:22 Time 07:02 Time 17:30 - Radiology Exams Ordered Rad Exams-Entire Visit: Radiology Procedures Category Date Time Status CHEST 1 VIEW (PORTABLE) Stat Exams 02/07/23 14:22 Completed FOOT (2 VIEWS) Urgent Exams 02/09/23 12:04 Stop Req FOOT (MINIMUM 3 VIEWS) Routine Exams 02/09/23 09:37 Completed - Procedures and Test Procedures and Tests throughout Hospitalization: Therapy Orders & Screens 02/06/23 12:57 OT Screen per Nursing Assess ONCE Comment: Protocol Order Physician Instructions: Greater than 3 points order OT Admission Screening Reason For Exam: Triggered on Admission Diagnosis: Diabetic foot wound, cellulitis, hyperglycemia Open Wound/Cellutlitis/Pressure Ulcers: Yes Acute Fx/ORIF/Change in wt bearing status: No Severe MUSCULOSKELETAL pain: No ADL Dysfunction: No Acute CVA w/Hemiparesis/Hemiplegia: No Decreased Functional Mobility/Strength: No Sprain/Strain: No Acute Post-op Mobility Dysfunction: No Total Points: 5 PT Screen per Nursing Assess ONCE Comment: Protocol Order Physician Instructions: Greater than 3 points order PT Admission Screenin Reason For Exam: Triggered on Admission Diagnosis: Diabetic foot wound, cellulitis, hyperglycemia Open Wound/Cellutlitis/Pressure Ulcers: Yes Acute Fx/ORIF/Change in wt bearing status: No Severe MUSCULOSKELETAL pain: No ADL Dysfunction: No Acute CVA w/Hemiparesis/Hemiplegia: No Decreased Functional Mobility/Strength: No Sprain/Strain: No Acute Post-op Mobility Dysfunction: No Total Points: 5 02/06/23 15:50 PT Eval & Treat (MD Order) ONCE Reason for Eval:: Postop amp left great toe Diagnosis: Diabetic foot wound, cellulitis, hyperglycemia Discharge Exam General Appearance: no apparent distress Neurologic Exam: alert, oriented x 3 Respiratory Exam: normal breath sounds, lungs clear, No respiratory distress Cardiovascular Exam: regular rate/rhythm, normal heart sounds Gastrointestinal/Abdomen Exam: soft, No tenderness, No mass Extremity Exam: other (dressing to left foot intact, clean and dry) Wound Assessment: Skin/Wound Assessment Wound/Incision Assessment Start: 02/06/23 12:01 Text: Status: Active Freq: Q6H Protocol: Document 02/09/23 08:00 EK (Rec: 02/09/23 08:18 EK [id number]) Wound/Incision Assessment Left Toe Wound Assessment Shift Assessment Wound Type Amputation Dressing Status Dry & Intact Comment DRESSING CDI, LLE ELEVATED ON PILLOWS AT THIS TIME. PATIENT PREPARING TO GO TO OR FOR DELAYED PRIMARY CLOSURE THIS AM. Final Diagnosis/Problem List - Final Discharge Diagnosis/Problem (1) Amputated great toe of left foot Current Visit: Yes Status: Acute Assessment & Plan: managed per podiatry Dr Buckley, receiving IV abx infusions. Code(s): S98.112A - COMPLETE TRAUMATIC AMPUTATION OF LEFT GREAT TOE, INIT ENCNTR (2) Cellulitis of left foot Current Visit: Yes Status: Acute Code(s): L03.116 - CELLULITIS OF LEFT LOWER LIMB (3) Diabetic foot wound Current Visit: Yes Status: Acute (4) Polysubstance use disorder Current Visit: Yes Status: Acute Code(s): F19.90 - OTHER PSYCHOACTIVE SUBSTANCE USE, UNSPECIFIED, UNCOMPLICATED (5) Diabetes mellitus type II, uncontrolled Current Visit: Yes Status: Chronic Assessment & Plan: continue new po med, check blood sugar once daily as directed. f/u arranged with Dr Milton PCP Code(s): MCQ6201 - - Discharge Disposition: Home, Self-Care Condition: Stable Prescriptions: New Aspirin EC 325 mg [Ecotrin 325 MG] 325 mg PO DAILY #30 tab clindamycin HCL [Clindamycin HCl] 300 mg PO TID #42 cap Daptomycin [Cubicin Rf] 400 mg IV DAILY #21 Lactobacillus Acidophilus [Acidophilus TABLET] 1 tab PO TID tablet Glimepiride 2 mg [Amaryl 2 MG] 2 mg PO BID #60 tablet Additional Instructions: -YOUR FIRST INFUSION IS SCHEDULED FOR TOMORROW 02/10/23@0800- GO TO REGISTRATION WHEN YOU ARRIVE. -YOU WILL RECEIVE INFUSIONS DAILY FOR 20 DAYS. -YOU ALSO NEED TO TAKE CLINDAMYCIN AT HOME- PRESCRIPTION SENT TO PHARMACY -THE INFUSION CENTER WILL DO YOUR DRESSING CHANGES ON MONDAYS AND FRIDAYS. -YOU WILL SEE DR. BUCKLEY ON WEDNESDAYS- HE WILL CHANGE YOUR DRESSING THAT DAY -DR. BUCKLEY'S OFFICE WILL SEND IN PRESCRIPTION FOR PAIN MEDS -ELEVATE LEFT FOOT ABOVE LEVEL OF HEART TO REDUCE INFLAMMATION AND PAIN -ICE BEHIND KNEE TO REDUCE INFLAMMATION -KEEP NON WEIGHT BEARING STATUS TO LEFT FOOT- USE KNEE SCOOTER -TEST YOUR BLOOD SUGAR DAILY IN THE AM -PRESCRIPTION FOR GLUCOMETER, TEST STRIPS AND LANCETS WERE SENT TO [facility] Follow up with: MARCIO HOU DPM [ACTIVE STAFF] - 02/14/23 11:00 am ROSA M MILTON [Primary Care Provider] - 02/15/23 9:00 am
== END 2023-02-09 14:10 | disposition home or self-care (01) | DRG 579 ==
LOC: MED SURG 10:08 → OBSVTOIN 13:06 → MED SURG 13:06
PROVIDERS: ADMIT Family Medicine; ATTEND Family Medicine
PROC: 0Y6Q0Z0 Detachment at Left 1st Toe, Complete, Open Approach (ICD-10-PCS; principal; 2023-02-06)
PROC: 0QTP0ZZ Resection of Left Metatarsal, Open Approach (ICD-10-PCS; 2023-02-09)
PROC: 0HQNXZZ Repair Left Foot Skin, External Approach (ICD-10-PCS; 2023-02-09)
DX: L03.116 Cellulitis of left lower limb (principal); M72.6 Necrotizing fasciitis; S98.112A Complete traumatic amputation of left great toe, initial encounter; E11.621 Type 2 diabetes mellitus with foot ulcer; E11.65 Type 2 diabetes mellitus with hyperglycemia; I10 Essential (primary) hypertension; E78.5 Hyperlipidemia, unspecified; F19.90 Other psychoactive substance use, unspecified, uncomplicated; Z20.828 Contact with and (suspected) exposure to other viral communicable diseases; A49.1 Streptococcal infection, unspecified site; G62.9 Polyneuropathy, unspecified; L08.9 Local infection of the skin and subcutaneous tissue, unspecified
CPT/HCPCS: 0241U; 13160; 28005; 28820; 36415; 71045; 73630; 80053; 80202; 80307; 82947; 83036; 83605; 84550; 85025; 87070; 87075; 87077; 87186; 93971; 97161; 97530; 99232; A6260; J0696; J0878; J1650; J1817; J2001; A9270-GY; J3370

== ENCOUNTER 2024-01-15 05:36 | Day surgery (SDC) | payer OTHER ==
[2024-01-15] MEDS: Lactated Ringers 1,000 ML IV SCH (06:27)
[2024-01-15 06:43] VITALS: RESP 18
[2024-01-15 06:53] LABS: Absolute Neutrophil Ct (ANC) 7.23 x10^3/uL (1.4-6.9); BASOPHIL % 0.3 % (0.0-0.4); Basophil (Absolute #) 0.03 x10^3/uL (0-0.4); Eosinophil % 1.6 % (0.00-5.0); Eosinophil (Absolute #) 0.16 x10^3/uL (0-0.5); Hematocrit 34.5 % (35-47); Hemoglobin 11.1 g/dL (12.0-16.0); IMMATURE GRAN # 0.06 x10^3u/L (0.00-0.03); IMMATURE GRAN % 0.6 % (0.00-0.4); Lymphocyte (Absolute #) 1.87 x10^3/uL (1.0-4.6); Lymphocytes % 18.7 % (24.0-44.0); Mean Cell Volume 83.5 fL (78-100); Mean Corpuscular Hemoglobin 26.9 pg (26-32); Mean Corpuscular Hgb Concent. 32.2 g/dL (32-36); Mean Platelet Volume 10.1 fL (7.5-11.0); Monocyte (Absolute #) 0.64 x10^3/uL (0.0-1.3); Monocytes % 6.4 % (0.0-12.0); Neutrophil % 72.4 % (36.0-66.0); Platelet Count 142 x10^3/uL (150-450); Red Blood Count 4.13 x10^6/uL (4.1-5.4); Red Cell Distribution Width 12.4 % (11.5-14.0)
[2024-01-15 07:03] LABS: ALBUMIN 3.3 g/dL (3.5-5.0); ANION GAP 10.1 MEQ/L (5-15); BILIRUBIN,TOTAL 0.5 mg/dL (0.2-1.3); Calcium 9.2 mg/dL (8.4-10.2); Creatinine 1 0.7 mg/dL (0.52-1.04); EST GLOMERULAR FILTRATION RATE 97.1 ML/MIN; Potassium 4.5 mmol/L (3.5-5.1); Total Protein 6.3 g/dL (6.3-8.2)
[2024-01-15] MEDS ORDERED: HUMULIN R ONE (07:34)
[2024-01-15] MEDS: HUMULIN R IV ONE (07:46)
--- NOTE | 2024-01-15 08:41 | XRAY ---
Indication: Preop exam. Comparison: None 3 nonweightbearing views right foot demonstrates osteopenia, small posterior/plantar heel spurs, tiny navicular accessory ossicle, and diffuse scattered vascular calcifications. No other bony, articular, or soft tissue abnormalities.
--- NOTE | 2024-01-15 08:41 | XRAY ---
Indication: Preop exam. Comparison: February 09, 2023. 3 nonweightbearing views left foot demonstrates interval healed amputation great toe/distal 1st metatarsal. Stable osteopenia, large heel spurs, and diffuse scattered vascular calcifications. No other bony, articular, or soft tissue abnormalities.
[2024-01-15] MEDS ORDERED: DIPRIVAN 200 MG/20 ML IV ONE (08:58)
[2024-01-15] MEDS ORDERED: Versed 2 MG/2 ML Injection ONE (09:13)
[2024-01-15] MEDS ORDERED: SUBLIMAZE 100 MCG/2 ML ONE (09:13)
[2024-01-15] MEDS ORDERED: Xylocaine-Mpf 2% 5 Ml Vial ONE (09:15)
[2024-01-15] MEDS ORDERED: Marcaine Mpf 0.5% Vial 30 Ml ONE (09:41)
[2024-01-15] MEDS ORDERED: Xylocaine 1% Vial 30 ML PF IJ ONE (09:41)
[2024-01-15] MEDS ORDERED: D5W IV ONE (09:47)
[2024-01-15] MEDS ORDERED: ROCEPHIN IV ONE (09:47)
[2024-01-15 10:10] VITALS: TEMP 97.2
[2024-01-15 10:34] VITALS: PULSE 87; O2SAT 96
[2024-01-15 10:37] VITALS: BP 155/86
--- NOTE | 2024-01-28 10:20 | OP ---
SURGERY DATE/TIME: 01/15/2024 0909 PREOPERATIVE DIAGNOSES: 1) Diabetic foot ulcer bilateral heels. 2) Group B Strep infection. 3) Diabetic peripheral neuropathy. 4) Pressure injury to heel. 5) Diabetes mellitus type II, uncontrolled. POSTOPERATIVE DIAGNOSES: 1) Diabetic foot ulcer bilateral heels. 2) Group B Strep infection. 3) Diabetic peripheral neuropathy. 4) Pressure injury to heel. 5) Diabetes mellitus type II, uncontrolled. PROCEDURE: Incision and drainage with debridement to the level of the fascia under multiple soft tissue planes to the bilateral heel. SURGEON: Levi Ramirez DPM. LEVELER: None. ANESTHESIA: Monitored anesthesia care with local block. HEMOSTASIS: Pressure dressing. ESTIMATED BLOOD LOSS: Approximately 5 cc. MATERIALS: None. INJECTABLES: 30 cc of 1% lidocaine plain with epinephrine for the thigh and 20 cc of 1:1 mixture of 1% lidocaine plain and 0.5% bupivacaine plain injected for a V block-type fashion to the right lower extremity proximal to the surgical wound. INDICATION FOR SURGERY: Rina Espinosa is a very pleasant 63-year-old female that presented to my clinic for nail care shortly after the passing of her secondary to cancer with metastases to the brain. The patient was extraordinarily depressed and stated that she had neglected her health in this period of time. As a result, she had developed some pressure ulceration to the bilateral heel which initially appeared to be worse on the right than on the left. Cultures were obtained and initially the patient was progressing without complication. However, she did develop an infection in the postoperative period of Group B Strep with worsening of the left heel wound which broke down to the level of the fascia and tendon however not quite exposed bone at this point. At this time, the patient was amenable to proceeding with aggressive debridement to the bilateral lower extremity in order to eradicate the infection as she is somewhat sensate to this area at the posterior aspect of her heel. However, secondary to her neuropathy, she has suffered amputation in the past before. The patient understands all risks, complications and benefits of surgical intervention including but not limited to infection, hematoma, seroma, possibility of loss of limb and possible loss of life. The patient understands all of these risks. Plenty of time was allowed for the patient to ask questions which were answered to her apparent satisfaction. It is at this time we decided to proceed. DESCRIPTION OF PROCEDURE AND FINDINGS: The patient is brought into the OR and placed on the OR table in the supine position. At this time, monitored anesthesia care was administered until the patient was adequately sedated. The bilateral lower extremity was prepped and draped in the typical sterile fashion and lowered onto the surgical field. At this time, aggressive debridement took place utilizing a combination of curette, rongeur and 15 blade to resect any necrotic or infected appearing tissue. At this time, 1,000 ml of Bactisure was then utilized on each leg in order to flush out any signs of infection and then 3,000 ml of sterile saline was utilized to flush out the Bactisure. Following this, a dressing with compression consisting of Betadine, Adaptic, 4x4, Kerlix, ABD and THOMPSON was applied to the bilateral lower extremity with moderate compression. The patient was then reversed from anesthesia and returned to the postoperative anesthesia care unit with vital signs stable and vascular status intact. The patient handled the anesthesia as well as the procedure without significant complication. Postoperative orders as indicated in the patient's discharge chart.
== END 2024-01-15 10:47 | disposition home or self-care (01) ==
LOC: SDC 05:36
PROVIDERS: ATTEND Podiatrist Foot & Ankle Surgery
DX: E11.621 Type 2 diabetes mellitus with foot ulcer (principal); B95.1 Streptococcus, group B, as the cause of diseases classified elsewhere; E11.42 Type 2 diabetes mellitus with diabetic polyneuropathy; L89.623 Pressure ulcer of left heel, stage 3; L89.613 Pressure ulcer of right heel, stage 3
CPT/HCPCS: 28003; 36415; 73630; 80053; 82947; 85025; 87046; 87070; 87075; 87116; 87205; 87206; A6260; J0696; J1642; J1815; J2001; J2250; J2704; J3010

== ENCOUNTER 2024-01-16 08:29 | Emergency (ER) | payer OTHER ==
[2024-01-16 08:36] VITALS: TEMP 97.5
--- NOTE | 2024-01-16 08:39 | ERPHSYRPT ---
- History of Present Illness Time Seen by Provider: 01/16/24 08:38 Source: patient Exam Limitations: no limitations Physician History: This is a 63-year-old diabetic white female patient brought to the emergency department from the infusion clinic. Patient did receive her intravenous antibiotics this morning. However, patient lives alone and has difficulty with her partial weightbearing instructions post surgical debridement of her bilateral heels by Dr. Sims, podiatry. Per report, hospitalist contacted to see if they would admit the patient for intravenous antibiotics for the next few days. The hospitalist declined. Outpatient infusion clinic brought the patient here. Timing/Duration: today Severity: mild Associated Symptoms: denies symptoms Allergies/Adverse Reactions: shellfish derived Allergy (Intermediate, Verified 01/16/24 09:05) Rash rash bee venom protein (honey bee) Allergy (Unknown, Verified 01/16/24 09:05) metformin [From Glucophage] Allergy (Unknown, Verified 01/16/24 09:05) Penicillins Allergy (Verified 01/16/24 09:05) Hives hives sob Home Medications: Glimepiride 2 mg [Amaryl 2 MG] 4 mg PO BID 01/14/24 [History] Honey [Medihoney] 1 applic TOP UD 01/14/24 [History] Gabapentin [Neurontin ] 300 mg PO DAILY 01/16/24 [History] Hydrocodone/Acetaminophen [Hydrocodone-Acetamin 5-325 mg] 1 tab PO Q6HPRN PRN MDD 4 01/16/24 [History] Hx Tetanus, Diphtheria Vaccination/Date Given: Yes Hx Influenza Vaccination/Date Given: Yes Hx Pneumococcal Vaccination/Date Given: Yes Travel Risk - International Travel Have you traveled outside of the country in past 3 weeks: No - Coronavirus Screening Are you exhibiting any of the following symptoms?: No Close contact with a COVID-19 positive Pt in past 14-21 Days: No - Vaccine Status Have you recieved a Covid-19 vaccination: No - Review of Systems Constitutional: No Symptoms Eyes: No Symptoms Ears, Nose, & Throat: No Symptoms Respiratory: No Symptoms Cardiac: No Symptoms Abdominal/Gastrointestinal: No Symptoms Genitourinary Symptoms: No Symptoms Musculoskeletal: No Symptoms Skin: No Symptoms Neurological: No Symptoms Psychological: Anxiety, Depression Endocrine: No Symptoms Hematologic/Lymphatic: No Symptoms Immunological/Allergic: No Symptoms All Other Systems: Reviewed and Negative - Past Medical History Pertinent Past Medical History: No Neurological History: No Pertinent History ENT History: No Pertinent History Cardiac History: High Cholesterol, Hypertension Respiratory History: No Pertinent History Endocrine Medical History: Diabetes Type II, Other Musculoskeletal History: No Pertinent History GI Medical History: No Pertinent History History: No Pertinent History Psycho-Social History: Depression Female Reproductive Disorders: No Pertinent History - Past Surgical History Past Surgical History: Yes Neuro Surgical History: No Pertinent History Cardiac: No Pertinent History Respiratory: No Pertinent History Gastrointestinal: Appendectomy, Cholecystectomy Genitourinary: No Pertinent History Musculoskeletal: Amputation, Other Female Surgical History: Tubal Ligation Other Surgical History: left hip surgery, mass removal. breast biopsy,lt great toe amputation. debr - Social History Smoking Status: Never smoker Exposure to second hand smoke: No Drug Use: marijuana Patient Lives Alone: Yes - Nursing Vital Signs Nursing Vital Signs: Initial Vital Signs Temperature 97.5 F 01/16/24 08:34 Pulse Rate 85 01/16/24 08:34 Respiratory Rate 22 01/16/24 08:34 Blood Pressure 149/81 01/16/24 08:34 O2 Sat by Pulse Oximetry 99 01/16/24 08:34 Pain Scale Pain Intensity 0 - Physical Exam General Appearance: no apparent distress, alert, anxiety, obese Eye Exam: PERRL/EOMI, eyes nml inspection Ears, Nose, Throat Exam: normal ENT inspection, moist mucous membranes Neck Exam: normal inspection, non-tender, supple, full range of motion Respiratory Exam: normal breath sounds, lungs clear, No chest tenderness, No respiratory distress Cardiovascular Exam: regular rate/rhythm, normal heart sounds, normal peripheral pulses Gastrointestinal/Abdomen Exam: soft, normal bowel sounds, No tenderness Pelvic Exam: not done Rectal Exam: not done Back Exam: normal inspection, normal range of motion, No CVA tenderness, No vertebral tenderness Extremity Exam: tenderness (bilat feet with postop dressings in place. dressings clean) Neurologic Exam: alert, oriented x 3, cooperative, asphalt coater II-XII nml as tested Skin Exam: normal color, warm, dry Lymphatic Exam: No adenopathy SpO2 Interpretation: normal SpO2: 99 O2 Delivery: Room Air Ordered Tests: Active Orders 24 hr Category Date Time Status CBC W DIFF Stat Lab 01/16/24 09:20 Completed CMP Stat Lab 01/16/24 09:20 Completed Lactic Acid Stat Lab 01/16/24 09:20 Completed Lab/Rad Data: Laboratory Result Diagrams 01/16/24 09:20 01/16/24 09:20 Laboratory Results 01/16/24 01/16/24 01/16/24 Range/Units 09:20 09:20 09:20 WBC 10.6 H (4.0-10.5) x10^3/uL RBC 4.24 (4.1-5.4) x10^6/uL Hgb 11.3 L (12.0-16.0) g/dL Hct 35.8 (35-47) % MCV 84.4 (78-100) fL MCH 26.7 (26-32) pg MCHC 31.6 L (32-36) g/dL RDW 12.7 (11.5-14.0) % Plt Count 183 (150-450) x10^3/uL MPV 10.2 (7.5-11.0) fL Gran % 74.9 H (36.0-66.0) % Immature Gran % (Auto) 0.5 H (0.00-0.4) % Nucleat RBC Rel Count 0.0 (0.00-0.1) % Eos # (Auto) 0.13 (0-0.5) x10^3/uL Immature Gran # (Auto) 0.05 H (0.00-0.03) x10^3u/L Absolute Lymphs (auto) 1.83 (1.0-4.6) x10^3/uL Absolute Monos (auto) 0.61 (0.0-1.3) x10^3/uL Absolute Nucleated RBC 0.00 (0.00-0.01) x10^3u/L Lymphocytes % 17.3 L (24.0-44.0) % Monocytes % 5.8 (0.0-12.0) % Eosinophils % 1.2 (0.00-5.0) % Basophils % 0.3 (0.0-0.4) % Absolute Granulocytes 7.90 H (1.4-6.9) x10^3/uL Basophils # 0.03 (0-0.4) x10^3/uL Sodium 138 (135-145) mmol/L Potassium 4.0 (3.5-5.1) mmol/L Chloride 103 (98-107) mmol/L Carbon Dioxide 26 (22-30) mmol/L Anion Gap 13.2 (5-15) MEQ/L BUN 20 H (7-17) mg/dL Creatinine 0.75 (0.52-1.04) mg/dL Estimated GFR 89.4 ML/MIN Glucose 277 H (74-106) mg/dL Lactic Acid 0.9 (0.4-2.0) Calcium 9.6 (8.4-10.2) mg/dL Total Bilirubin 0.30 (0.2-1.3) mg/dL AST 17 (14-36) U/L ALT 19 (0-35) U/L Alkaline Phosphatase 154 H (38-126) U/L Serum Total Protein 7.2 (6.3-8.2) g/dL Albumin 3.8 (3.5-5.0) g/dL - Progress Progress: unchanged Progress Note: 01/16/24 09:35 This patient's medical issue is 1 of low to moderate complexity. Level complexity in the workup performed is based on review of the patient's past medical history, review of the patient's medication list, review the patient drug allergy list, history of present illness and physical findings on examination. The workup in this patient includes CBC, CMP and lactic acid level. 01/16/24 10:50 I interpreted the patient's laboratory data results. There is no evidence of any acute, emergent medical issue based on her laboratory data results. There is no evidence of sepsis. This patient refused to be placed short-term, in a nursing facility for rehab, wound care and intravenous antibiotics. Patient also told our emergency room nurse, Ashlee, a second time that she would not go into a nursing facility for rehab and IV antibiotics. 01/16/24 10:57 Discharge planning is in the room with the patient at this time. They are making arrangements for home health intravenous antibiotics. They are also making arrangements for her to get transportation home today. Counseled pt/family regarding: lab results, diagnosis, need for follow-up Medical Desision Making - Diagnostic Testing Diagnostic test were ordered, analyzed, and reviewed by me: Yes - Risk of complications Low Risk: Low risk of morbidity from additional dx testing or treatment - Departure Departure Disposition: Home Clinical Impression: Encounter for medical screening examination, Need for elementary school social worker intervention Condition: Stable Critical Care Time: No Referrals: ROSA M MILTON [Primary Care Provider] - Follow up/PCP as directed Additional Instructions: Continue all your same medications at home. Follow the discharge planning instructions. Keep all your follow-up appointments with your primary care provider and shellfish grower.
[2024-01-16 09:30] LABS: BASOPHIL % 0.3 % (0.0-0.4); Basophil (Absolute #) 0.03 x10^3/uL (0-0.4); Eosinophil % 1.2 % (0.00-5.0); Eosinophil (Absolute #) 0.13 x10^3/uL (0-0.5); Hematocrit 35.8 % (35-47); Hemoglobin 11.3 g/dL (12.0-16.0); IMMATURE GRAN # 0.05 x10^3u/L (0.00-0.03); IMMATURE GRAN % 0.5 % (0.00-0.4); Lymphocyte (Absolute #) 1.83 x10^3/uL (1.0-4.6); Lymphocytes % 17.3 % (24.0-44.0); Mean Cell Volume 84.4 fL (78-100); Mean Corpuscular Hemoglobin 26.7 pg (26-32); Mean Corpuscular Hgb Concent. 31.6 g/dL (32-36); Mean Platelet Volume 10.2 fL (7.5-11.0); Monocyte (Absolute #) 0.61 x10^3/uL (0.0-1.3); Monocytes % 5.8 % (0.0-12.0); Neutrophil % 74.9 % (36.0-66.0); Platelet Count 183 x10^3/uL (150-450); Red Blood Count 4.24 x10^6/uL (4.1-5.4); Red Cell Distribution Width 12.7 % (11.5-14.0); White Blood Count 10.6 x10^3/uL (4.0-10.5)
[2024-01-16 09:45] LABS: ALBUMIN 3.8 g/dL (3.5-5.0); ANION GAP 13.2 MEQ/L (5-15); BILIRUBIN,TOTAL 0.3 mg/dL (0.2-1.3); Calcium 9.6 mg/dL (8.4-10.2); Creatinine 1 0.75 mg/dL (0.52-1.04); EST GLOMERULAR FILTRATION RATE 89.4 ML/MIN; Total Protein 7.2 g/dL (6.3-8.2)
[2024-01-16 10:06] VITALS: RESP 18
[2024-01-16 12:16] VITALS: BP 108/60; PULSE 70; O2SAT 105
== END 2024-01-16 12:17 | disposition home or self-care (01) ==
LOC: ED 08:29
DX: Z04.89 Encounter for examination and observation for other specified reasons (principal); Z60.2 Problems related to living alone; E78.5 Hyperlipidemia, unspecified; I10 Essential (primary) hypertension; E11.9 Type 2 diabetes mellitus without complications; Z79.84 Long term (current) use of oral hypoglycemic drugs; Z79.891 Long term (current) use of opiate analgesic; Z79.899 Other long term (current) drug therapy; Z28.310 Unvaccinated for COVID-19
CPT/HCPCS: 36415; 80053; 83605; 85025; 99282

== ENCOUNTER 2024-01-29 05:54 | Day surgery (SDC) | payer OTHER ==
[2024-01-29] MEDS: Lactated Ringers 1,000 ML IV SCH (06:40)
[2024-01-29 06:48] VITALS: RESP 18
[2024-01-29 07:05] LABS: Hematocrit 31.8 % (35-47); Hemoglobin 10.1 g/dL (12.0-16.0); Mean Cell Volume 85.7 fL (78-100); Mean Corpuscular Hemoglobin 27.2 pg (26-32); Mean Corpuscular Hgb Concent. 31.8 g/dL (32-36); Mean Platelet Volume 10.4 fL (7.5-11.0); Platelet Count 143 x10^3/uL (150-450); Red Blood Count 3.71 x10^6/uL (4.1-5.4); Red Cell Distribution Width 12.9 % (11.5-14.0); White Blood Count 8.2 x10^3/uL (4.0-10.5)
[2024-01-29] MEDS ORDERED: Marcaine Mpf 0.5% Vial 30 Ml ONE (07:15)
[2024-01-29 07:16] LABS: ALBUMIN 3.2 g/dL (3.5-5.0); ANION GAP 7.2 MEQ/L (5-15); BILIRUBIN,TOTAL 0.2 mg/dL (0.2-1.3); Creatinine 1 0.63 mg/dL (0.52-1.04); EST GLOMERULAR FILTRATION RATE 99.6 ML/MIN; Potassium 3.6 mmol/L (3.5-5.1); Total Protein 6.4 g/dL (6.3-8.2)
[2024-01-29] MEDS ORDERED: XYLOCAINE 1% HCL 20 ML MDV ONE (07:16)
[2024-01-29 07:18] LABS: INR 0.94 (0.8-3.0); PROTIME 10.3 SECONDS (9.4-12.5); PTT 25.2 SECONDS (25.1-36.5)
[2024-01-29] MEDS ORDERED: SUBLIMAZE 100 MCG/2 ML ONE (07:29)
[2024-01-29] MEDS ORDERED: DIPRIVAN 200 MG/20 ML IV ONE (07:29)
[2024-01-29] MEDS ORDERED: Zofran 4 MG/2 ML VIAL ONE (07:36)
[2024-01-29] MEDS ORDERED: TORAdol 30 mg Injection ONE (07:36)
[2024-01-29] MEDS ORDERED: Versed 2 MG/2 ML Injection ONE (07:36)
[2024-01-29] MEDS ORDERED: Decadron 4 MG INJ ONE (07:36)
[2024-01-29] MEDS ORDERED: Ephedrine Sulfate 50 MG/ML ONE (08:29)
[2024-01-29] MEDS ORDERED: PHENYLEPHRINE HCL ONE (08:34)
[2024-01-29] MEDS ORDERED: OFIRMEV 100 ML IV ONE (08:54)
[2024-01-29 11:03] VITALS: BP 151/88; PULSE 81; TEMP 97.6; O2SAT 95
--- NOTE | 2024-01-29 12:40 | OP ---
SURGERY DATE/TIME: 01/29/2024 0826 PREOPERATIVE DIAGNOSES: 1) Diabetic foot ulcer bilateral heel. 2) Pressure ulceration to the left heel to level of bone. 3) Pressure ulceration to the right heel to the level of subcu. 4) Diabetic peripheral neuropathy. 5) Uncontrolled diabetes mellitus. 6) Group B Strep infection, resolved. POSTOPERATIVE DIAGNOSES: 1) Diabetic foot ulcer bilateral heel. 2) Pressure ulceration to the left heel to level of bone. 3) Pressure ulceration to the right heel to the level of subcu. 4) Diabetic peripheral neuropathy. 5) Uncontrolled diabetes mellitus. 6) Group B Strep infection, resolved. PROCEDURES: 1) Incision and drainage with bone debridement to the left heel. 2) Wound debridement to the right heel with bone biopsy and incision and drainage to the level of bone right heel. 3) Application of synthetic skin substitute left heel. SURGEON: Levi Ramirez DPM. FLIGHT CREW TIME CLERK: None. ANESTHESIA: Monitored anesthesia care with intraoperative local block to the bilateral lower extremity consisting of 15 cc of 1:1 mixture of 1% lidocaine plain and 0.5% bupivacaine plain injected in an ankle block specifically posterior tibial and sural nerve distributions bilaterally. HEMOSTASIS: Pressure dressing. ESTIMATED BLOOD LOSS: Approximately 10 cc. MATERIALS: Integra 4x5 to the left heel secured with 4-0 Monocryl. INDICATION FOR SURGERY: Rina is a very pleasant 64-year-old female very well known to my service for amputations in the past. In this recent turn of events, the patient did have some issues with wounds developing to the bilateral heel secondary to her peripheral neuropathy. The patient did subsequently refuse to go to a fpc and developed Group B Strep infection to the bilateral heel, which was debrided in the previous weeks. As a result, the wound that probed to the level of bone on the left heel and a localized area that probes to the level of bone on the right heel. The patient has been made aware of the planned procedure and consents to debridement to the right as well as incision and drainage with debridement to the level of bone on the left with bone biopsy as well as application of synthetic skin substitute. The patient has been made aware of all risks, complications and benefits of surgical intervention at this time including but not limited to infection, hematoma, seroma, possibility of delayed bone healing, nonwound healing, possibility of nonheaing of wound, possible loss of limb, possible loss of life and possible need for further surgical intervention at a later date. The discussion of an external fixator was discussed with the patient which initially she was agreeable to the left lower extremity. However on discussion this morning, the patient did not understand the implication of this and this was explained in depth and the patient was asked once again if she consented to this procedure which she wished to forego for this period of time. Discussion was held in regards to the future. If the graft does fail as a result of noncompliance and weightbearing, we may have to revisit the concept of an external fixator if the wound does appear to be further progressing to the level of bone. The patient understands this and wishes to proceed. Plenty of time was allowed for the patient to ask questions to her apparent satisfaction. It is at this time we decided to proceed. DESCRIPTION OF PROCEDURE AND FINDINGS: The patient is brought into the OR and placed on the OR table in the supine position. At this time monitored anesthesia care was administered until the patient was adequately sedated. The bilateral lower extremity were prepped and draped in the typical sterile fashion and lowered onto the surgical field. At this time attention was directed to the left heel wound where utilizing a 15 blade, curette and rongeurs debridement took place of all necrotic tissue. All nonviable tissue was removed from the site. There was an area of nonviable tissue very close to the level of bone. The decision was made to proceed with a bone debridement to the medial aspect of the calcaneus. From this standpoint the debridement took place utilizing a curette. Bone biopsy with trocar was then performed of the medial aspect of the calcaneus in the area where the bone was exposed. Copious amounts of sterile saline and Bactisure were utilized to flush the surgical site. Integra was then placed and secured utilizing 4-0 Monocryl, this was secured with a compression dressing to the left lower extremity. Following this, the right lower extremity was then debrided utilizing a combination of curettes, rongeurs and 15 blade. From that standpoint, there is a central area of plug of tissue that was easily probed. [place] was passed through this deficit and was carried down to the level of bone. Decision was made to proceed with debridement and a bone biopsy on the right side as well. Following this, copious amounts of sterile saline and Bactisure once again were utilized to flush the surgical site. Following this, a dressing to the right consisting of Betadine, Adaptic, 4x4, Kerlix, ABD and Coban were then applied to the right lower extremity. To the left lower extremity iodine was applied around the Integra graft and a compression dressing consisting of Adaptic, 4x4, Kerlix, cast padding and Coban was applied with moderate compression. The patient was then reversed from anesthesia and returned to the postoperative anesthesia care unit with vital signs stable and vascular status intact. The patient handled the anesthesia as well as the procedure without significant complication. Postoperative orders as indicated in the patient's discharge chart.
== END 2024-01-29 11:39 | disposition home health service (06) ==
LOC: SDC 05:54
PROVIDERS: ATTEND Podiatrist Foot & Ankle Surgery
DX: E11.621 Type 2 diabetes mellitus with foot ulcer (principal); E11.42 Type 2 diabetes mellitus with diabetic polyneuropathy; A49.1 Streptococcal infection, unspecified site; L89.624 Pressure ulcer of left heel, stage 4; L89.613 Pressure ulcer of right heel, stage 3
CPT/HCPCS: 15275; 28005; 36415; 80053; 82947; 83036; 85027; 85610; 85730; 93005; A6260; J1100; J1642; J1885; J2250; J2371; J2405; J2704; J3010; Q4104; Q4158

== ENCOUNTER 2024-02-14 21:58 | Inpatient (IN) | payer OTHER ==
[2024-02-14 23:41] LABS: Absolute Neutrophil Ct (ANC) 9.24 x10^3/uL (1.4-6.9); BASOPHIL % 0.3 % (0.0-0.4); Basophil (Absolute #) 0.03 x10^3/uL (0-0.4); Eosinophil % 0.5 % (0.00-5.0); Eosinophil (Absolute #) 0.06 x10^3/uL (0-0.5); Hematocrit 28.3 % (35-47); Hemoglobin 9.2 g/dL (12.0-16.0); IMMATURE GRAN % 0.9 % (0.00-0.4); Lymphocyte (Absolute #) 0.99 x10^3/uL (1.0-4.6); Lymphocytes % 8.9 % (24.0-44.0); Mean Corpuscular Hemoglobin 26.7 pg (26-32); Mean Corpuscular Hgb Concent. 32.5 g/dL (32-36); Mean Platelet Volume 9.8 fL (7.5-11.0); Monocyte (Absolute #) 0.66 x10^3/uL (0.0-1.3); Neutrophil % 83.4 % (36.0-66.0); Platelet Count 194 x10^3/uL (150-450); Red Blood Count 3.45 x10^6/uL (4.1-5.4); Red Cell Distribution Width 13.1 % (11.5-14.0); White Blood Count 11.1 x10^3/uL (4.0-10.5)
[2024-02-14 23:48] LABS: ALBUMIN 2.9 g/dL (3.5-5.0); ANION GAP 7.8 MEQ/L (5-15); BILIRUBIN,TOTAL 0.1 mg/dL (0.2-1.3); Calcium 8.2 mg/dL (8.4-10.2); Creatinine 1 0.79 mg/dL (0.52-1.04); Total Protein 5.9 g/dL (6.3-8.2)
[2024-02-14 23:52] LABS: Potassium 2.9 mmol/L (3.5-5.1)
[2024-02-15] MEDS ORDERED: Klor Con ONE (00:23)
[2024-02-15] MEDS ORDERED: VANCOMYCIN 2 GRAM/400 ML BAG 2 GM/400 ML PIGGYBACK IV ONE (00:23)
[2024-02-15] MEDS ORDERED: Merrem IV ONE (00:23)
[2024-02-15] MEDS ORDERED: Sodium Chloride 100ML MINI-BAG PLUS 100 ML IV ONE (00:23)
[2024-02-15] MEDS: Klor Con PO ONE (00:24)
[2024-02-15] MEDS ORDERED: POTASSIUM CHLORIDE 20 mEq IN WATER 100ML 100 ML IV ONE (00:24)
[2024-02-15] MEDS: POTASSIUM CHLORIDE 20 mEq IN WATER 100ML 20 MEQ/100 ML BAG IV ONE (00:25)
[2024-02-15] MEDS: VANCOMYCIN 2 GRAM/400 ML BAG 2 GM/400 ML PIGGYBACK IV ONE (00:25)
[2024-02-15] MEDS: Merrem 1 GM in Sodium Chloride 100ML MINI-BAG PLUS 100 ML IV ONE (00:26)
[2024-02-15] MEDS: Sodium Chloride 0.9% 1000 ML 1,000 ML IV SCH (00:41)
[2024-02-15] MEDS ORDERED: NORCO 5/325 MG ONE (02:05)
[2024-02-15] MEDS: NORCO 5/325 MG PO PRN (02:05)
--- NOTE | 2024-02-15 04:39 | PCM.HP ---
History of Present Illness - Chief Complaint Chief Complaint: Sepsis/ Diabetic Foot Wounds Date: 02/15/24 History of Present Illness: Ms. HERNANDEZ is a 63 year old female with a past medical history significant for diabetes, neuropathy and recent loss of her in November who presents to the hospital with wounds on her feet that have not been improving despite outpatient treatment of Rocephin. She was seen in the ER and switched to a combination of antibiotics including Vancomycin and Meropenem. Initial labs were notable for a potassium of 2.7. She reports having ongoing diarrhea since she's been on antibiotics. No fever but some chills earlier. No chest pain or shortness of breath. She does have diarrhea but denies nausea and vomiting. No dysuria, hematuria or foamy urine. She has been recommended for admission and appears comfortable in bed. - Review of Systems Constitutional: Chills, No Fever, No Fatigue Eyes: No Vision Changes Ears, Nose, & Throat: No Epistaxis, No Mouth Pain Respiratory: No Cough, No Orthopnea, No Short Of Breath Cardiac: No Chest Pain, No Edema, No Palpitations Abdominal/Gastrointestinal: Diarrhea, No Abdominal Pain, No Nausea, No Vomiting Genitourinary Symptoms: No Dysuria, No Frequency, No Hematuria Musculoskeletal: No Arthralgias, No Back Pain Skin: Cellulitis Neurological: No Focal Weakness Psychological: Depression, Emotional Lability Endocrine: No Polyuria, No Polydipsia Medications & Allergies Home Medications: Home Medication List Glimepiride 2 mg [Amaryl 2 MG] 4 mg PO BID 01/14/24 [History Confirmed 02/14/24] Gabapentin [Neurontin ] 300 mg PO TID 01/16/24 [History Confirmed 02/14/24] Allergies/Adverse Reactions: Allergies Allergy/AdvReac Type Severity Reaction Status Date / Time shellfish derived Allergy Intermediate Rash Verified 02/14/24 22:19 bee venom protein (honey bee) Allergy Unknown Verified 02/14/24 22:19 metformin [From Glucophage] Allergy Unknown Verified 02/14/24 22:19 Penicillins Allergy Hives Verified 02/14/24 22:19 - Past Medical History Past Medical History: No Neurological History: No Pertinent History ENT History: No Pertinent History Cardiac History: High Cholesterol, Hypertension Respiratory History: No Pertinent History Endocrine Medical History: Diabetes Type II, Other Musculoskelatal History: No Pertinent History GI Medical History: No Pertinent History History: No Pertinent History Pyscho-Social History: Depression Reproductive Disorders: No Pertinent History - Female History Are you now?: No - Past Surgical History Past Surgical History: Yes Neuro Surgical History: No Pertinent History Cardiac History: No Pertinent History Respiratory Surgery: No Pertinent History GI Surgical History: Appendectomy, Cholecystectomy Genitourinary Surgical Hx: No Pertinent History Musculskeletal Surgical Hx: Amputation, Other Female Surgical History: Tubal Ligation Other Surgical History: left hip surgery, mass removal. breast biopsy,Lt great toe amputation. debr - Social History Smoking Status: Never smoker Exposure to second hand smoke: No Alcohol: None Drug Use: marijuana - Social Determinants of Health Will the patient participate in the screening: Yes Do you worry about a steady place to live?: No Do you have any problems with any of the following?: No known problems In the past 12 months,have you had to go without utilities?: No Have you or anyone in your house had to go without enough: No Transportation Issues: No Has anyone in your support network made you feel unsafe?: No Does the patient want assistance with any of the above?: No - Physical Exam Vital Signs: Vital Signs - 24 hr Temp Pulse Resp BP BP Pulse Ox 02/15/24 02:53 99.1 F 106 H 20 156/74 94 L 02/15/24 00:00 103 H 19 149/82 94 L 02/14/24 23:30 103 H 18 152/76 93 L 02/14/24 23:26 104 H 20 139/79 98 02/14/24 22:21 100.4 F 113 H 16 137/99 98 General Appearance: no apparent distress Neurologic Exam: alert, oriented x 3, No slurred speech Ears, Nose, Throat Exam: dry mucous membranes Neck Exam: normal inspection, supple Respiratory Exam: No respiratory distress Cardiovascular Exam: regular rate/rhythm Gastrointestinal/Abdomen Exam: soft Extremity Exam: No riana's sign, No pedal edema Skin Exam: No rash Results - Labs Lab/Micro Results: Lab Results-Last 24 Hours 02/14/24 02/14/24 02/14/24 Range/Units 23:10 23:10 23:10 WBC 11.1 H (4.0-10.5) x10^3/uL RBC 3.45 L (4.1-5.4) x10^6/uL Hgb 9.2 L (12.0-16.0) g/dL Hct 28.3 L (35-47) % MCV 82.0 (78-100) fL MCH 26.7 (26-32) pg MCHC 32.5 (32-36) g/dL RDW 13.1 (11.5-14.0) % Plt Count 194 (150-450) x10^3/uL MPV 9.8 (7.5-11.0) fL Gran % 83.4 H (36.0-66.0) % Immature Gran % (Auto) 0.9 H (0.00-0.4) % Nucleat RBC Rel Count 0.0 (0.00-0.1) % Eos # (Auto) 0.06 (0-0.5) x10^3/uL Immature Gran # (Auto) 0.10 H (0.00-0.03) x10^3u/L Absolute Lymphs (auto) 0.99 L (1.0-4.6) x10^3/uL Absolute Monos (auto) 0.66 (0.0-1.3) x10^3/uL Absolute Nucleated RBC 0.00 (0.00-0.01) x10^3u/L Lymphocytes % 8.9 L (24.0-44.0) % Monocytes % 6.0 (0.0-12.0) % Eosinophils % 0.5 (0.00-5.0) % Basophils % 0.3 (0.0-0.4) % Absolute Granulocytes 9.24 H (1.4-6.9) x10^3/uL Basophils # 0.03 (0-0.4) x10^3/uL ESR 64 H (0-20) mm/hr Sodium 132 L (135-145) mmol/L Potassium 2.9 L* (3.5-5.1) mmol/L Chloride 99 (98-107) mmol/L Carbon Dioxide 29 (22-30) mmol/L Anion Gap 7.8 (5-15) MEQ/L BUN 17 (7-17) mg/dL Creatinine 0.79 (0.52-1.04) mg/dL Estimated GFR 84.0 ML/MIN Glucose 279 H (74-106) mg/dL Lactic Acid (0.4-2.0) Calcium 8.2 L (8.4-10.2) mg/dL Total Bilirubin 0.10 L (0.2-1.3) mg/dL AST 22 (14-36) U/L ALT 19 (0-35) U/L Alkaline Phosphatase 134 H (38-126) U/L Serum Total Protein 5.9 L (6.3-8.2) g/dL Albumin 2.9 L (3.5-5.0) g/dL Lipase 468 H (23-300) U/L 02/15/24 Range/Units 00:38 WBC (4.0-10.5) x10^3/uL RBC (4.1-5.4) x10^6/uL Hgb (12.0-16.0) g/dL Hct (35-47) % MCV (78-100) fL MCH (26-32) pg MCHC (32-36) g/dL RDW (11.5-14.0) % Plt Count (150-450) x10^3/uL MPV (7.5-11.0) fL Gran % (36.0-66.0) % Immature Gran % (Auto) (0.00-0.4) % Nucleat RBC Rel Count (0.00-0.1) % Eos # (Auto) (0-0.5) x10^3/uL Immature Gran # (Auto) (0.00-0.03) x10^3u/L Absolute Lymphs (auto) (1.0-4.6) x10^3/uL Absolute Monos (auto) (0.0-1.3) x10^3/uL Absolute Nucleated RBC (0.00-0.01) x10^3u/L Lymphocytes % (24.0-44.0) % Monocytes % (0.0-12.0) % Eosinophils % (0.00-5.0) % Basophils % (0.0-0.4) % Absolute Granulocytes (1.4-6.9) x10^3/uL Basophils # (0-0.4) x10^3/uL ESR (0-20) mm/hr Sodium (135-145) mmol/L Potassium (3.5-5.1) mmol/L Chloride (98-107) mmol/L Carbon Dioxide (22-30) mmol/L Anion Gap (5-15) MEQ/L BUN (7-17) mg/dL Creatinine (0.52-1.04) mg/dL Estimated GFR ML/MIN Glucose (74-106) mg/dL Lactic Acid 0.5 (0.4-2.0) Calcium (8.4-10.2) mg/dL Total Bilirubin (0.2-1.3) mg/dL AST (14-36) U/L ALT (0-35) U/L Alkaline Phosphatase (38-126) U/L Serum Total Protein (6.3-8.2) g/dL Albumin (3.5-5.0) g/dL Lipase (23-300) U/L Assessment/Plan (1) Diabetic foot wound Current Visit: No Status: Acute Assessment & Plan: Bilateral foot wounds not responding to IV Rocephin 1. Admit to hospital 2. Will switch antibiotics to Vanco/Meropenem 3. Podiatry consult 4. Monitor cultures 5. DVT prophylaxis (2) Hypokalemia Current Visit: Yes Status: Acute Assessment & Plan: Likely from GI losses 1. Replete K, check Mg 2. Monitor electrolytes closely Code(s): E87.6 - HYPOKALEMIA (3) Diarrhea Current Visit: Yes Status: Acute Assessment & Plan: High concern for C dif given previous antibiotic therapy 1. Will check stool for C dif 2. Check stool for culture, O&P 3. Defer meds for now Code(s): R19.7 - DIARRHEA, UNSPECIFIED (4) Diabetes mellitus type II, uncontrolled Current Visit: No Status: Chronic Qualifiers: Glycemic state: with hyperglycemia Qualified Code(s): E11.65 - Type 2 diabetes mellitus with hyperglycemia Assessment & Plan: Exacerbated by dietary indiscretion 1. FSBS qAC/HS 2. Continue oral sulfonylurea 3. Check HbA1c 4. Monitor blood sugars Code(s): [id number] - Telemedicine Encounter - Telemedicine Encounter Telemedicine Encounter: The entirety of this encounter was performed via Telemedicine"
[2024-02-15] MEDS ORDERED: HUMULIN R SQ PRN (04:45)
[2024-02-15] MEDS: VANCOMYCIN 1 GRAM/200 ML BAG 1 GM/200 ML PIGGYBACK IV SCH (05:26)
[2024-02-15] MEDS: MERREM 500 MG in Sodium Chloride 100ML MINI-BAG PLUS 100 ML IV SCH (05:26)
[2024-02-15] MEDS: Amaryl 2 MG PO SCH ×2 (07:27→18:25)
[2024-02-15 07:28] LABS: ADD URINE CULTURE? NO (NO); Appearance Clear (Clear); Bacteria None Seen /HPF (None Seen); Bilirubin Negative (Negative); Blood Negative (Negative); Epithelial Cells Few /HPF (None Seen); Glucose, Urine 500 mg/dL (Negative); Hyaline Casts NONE SEEN /LPF (0-2); Ketones Negative (Negative); Leukocyte Esterase Negative (Negative); Nitrite Negative (Negative); Ph 5.5 (4.6-8.0); Protein,Urine Dip 100 (Negative); RBC 0-2 /HPF (0-5); Specific Gravity 1.025 (1.005-1.030); Urobilinogen 0.2 mg/dL (0.2); WBC 0-2 /HPF (0-5)
[2024-02-15 08:22] LABS: Absolute Neutrophil Ct (ANC) 10.96 x10^3/uL (1.4-6.9); BASOPHIL % 0.3 % (0.0-0.4); Basophil (Absolute #) 0.04 x10^3/uL (0-0.4); Eosinophil % 0.5 % (0.00-5.0); Eosinophil (Absolute #) 0.06 x10^3/uL (0-0.5); Hematocrit 26.4 % (35-47); Hemoglobin 8.4 g/dL (12.0-16.0); IMMATURE GRAN # 0.12 x10^3u/L (0.00-0.03); IMMATURE GRAN % 0.9 % (0.00-0.4); Lymphocyte (Absolute #) 0.69 x10^3/uL (1.0-4.6); Lymphocytes % 5.4 % (24.0-44.0); Mean Cell Volume 83.3 fL (78-100); Mean Corpuscular Hemoglobin 26.5 pg (26-32); Mean Corpuscular Hgb Concent. 31.8 g/dL (32-36); Mean Platelet Volume 9.4 fL (7.5-11.0); Monocyte (Absolute #) 0.87 x10^3/uL (0.0-1.3); Monocytes % 6.8 % (0.0-12.0); Neutrophil % 86.1 % (36.0-66.0); Platelet Count 180 x10^3/uL (150-450); Red Blood Count 3.17 x10^6/uL (4.1-5.4); Red Cell Distribution Width 13.4 % (11.5-14.0); White Blood Count 12.7 x10^3/uL (4.0-10.5)
[2024-02-15 08:37] LABS: ALBUMIN 2.6 g/dL (3.5-5.0); BILIRUBIN,TOTAL 0.4 mg/dL (0.2-1.3); Calcium 7.5 mg/dL (8.4-10.2); Creatinine 1 0.63 mg/dL (0.52-1.04); EST GLOMERULAR FILTRATION RATE 99.6 ML/MIN; Potassium 3.5 mmol/L (3.5-5.1); Total Protein 5.4 g/dL (6.3-8.2)
[2024-02-15] MEDS ORDERED: Xylocaine 1% Vial 30 ML PF IJ ONE (10:21)
[2024-02-15] MEDS ORDERED: Marcaine Mpf 0.5% Vial 30 Ml ONE (10:21)
[2024-02-15] MEDS ORDERED: SUBLIMAZE 100 MCG/2 ML ONE (10:22)
[2024-02-15] MEDS ORDERED: DIPRIVAN 200 MG/20 ML IV ONE (10:22)
[2024-02-15] MEDS ORDERED: DEXMEDETOMIDINE 80 MCG/20ML-NS IV ONE (10:22)
--- NOTE | 2024-02-15 11:56 | PCM.NOTE ---
Podiatry Post-Op Plan Podiatry Post-Op Plan: Podiatry Post-Op Plan Post-operative plan is as follows: ANTIBIOTICS: Vancomycin 1 g every 12 hours. Vancomycin trough. Meropenem 500 mg every 8 hours PAIN CONTROL: [place] 5/325mg q4h moderate pain. Morphine 2 mg q4h severe pain. VTE PROPHYLAXIS: Aspirin 325mg PO daily DRESSINGS: Dressing to remain clean and dry. Reinforce with Kerlix/THOMPSON as necessary. Dressing change MWF with podaitry service ACTIVITY: bedrest THERAPIES:NWB to the bilateral leg with exception for transfers. PLACEMENT: CM consult for evaluation and possible SNF/Rehab placement. Imaging: MRI with contrast bilateral calcaneus.
[2024-02-15] MEDS: Neurontin PO SCH (13:05)
[2024-02-15] MEDS: ENOXAPARIN SODIUM SQ SCH (13:05)
[2024-02-15] MEDS ORDERED: MOTRIN 600 MG PO PRN (13:41)
--- NOTE | 2024-02-15 15:19 | XRAY ---
Indication: Foot ulcers. Sagittal, coronal, and axial MRI left mid to hindfoot performed using pre-and post T1, T2, and STIR sequences. 15 cc Dotarem contrast used. Comparison: None Several images/sequences slightly degraded by motion artifact. Visualized left ankle/foot articulation appears anatomic. There is mild diffuse subcutaneous soft tissue swelling/edema with enhancement favoring diffuse cellulitis. No focal solid/cystic soft tissue mass or abnormal fluid collection. Major medial/lateral ankle ligaments/tendons including Achilles tendon and plantar aponeurosis are grossly unremarkable. Posterior heel demonstrates small soft tissue ulcer. Underlying posterior calcaneus demonstrates cortical thinning with breakthrough and 2.2 x 1.3 x 2.2 cm subcortical bony edema signal and enhancement favoring osteomyelitis. Incidental small posterior/plantar heel spurs. Medial talar dome demonstrates 1 cm curvilinear subcortical bone edema signal without fracture. Elsewhere no acute fracture, suspicious bony lesions, or abnormal bone marrow signal. Impression: 1. Motion artifact. 2. Diffuse cellulitis with posterior heel ulcer. Small focus osteomyelitis posterior calcaneus. 3. Tiny focus osteochondral injury medial talar dome. 4. Incidental heel spurs.
[2024-02-15] MEDS: NORCO 7.5/325 MG TAB PO PRN (15:23)
[2024-02-15] MEDS: NEURONTIN PO SCH (15:24)
--- NOTE | 2024-02-15 15:41 | XRAY ---
Indication: Foot ulcers. Sagittal, coronal, and axial MRI right mid to hindfoot performed using pre-and post T1, T2, and STIR sequences. 15 cc Dotarem contrast used. Comparison: None Several images/sequences slightly degraded by motion artifact. Visualized right ankle/foot articulation appears anatomic. There is mild diffuse subcutaneous soft tissue swelling/edema with enhancement favoring diffuse cellulitis. No focal solid/cystic soft tissue mass or abnormal fluid collection. Major medial/lateral ankle ligaments/tendons including Achilles tendon and plantar aponeurosis are grossly unremarkable. Calcaneus demonstrates anterior to posterior fracture. Fracture line originates subtalar joint and extends posteriorly with posterior fracture widened/splayed. Calcaneus demonstrates diffuse patchy bone edema signal/enhancement. Incidental small posterior/tiny heel spurs. Elsewhere no acute fracture, suspicious bony lesions, or abnormal bone marrow signal. Impression: 1. Motion artifact. 2. Diffuse cellulitis. 3. Anterior posterior calcaneal fracture with diffuse bone edema signal/enhancement as detailed. Fracture may be pathologic with superimposed osteomyelitis offered for clinical consideration. 4. Incidental heel spurs.
[2024-02-15] MEDS: TYLENOL 325 MG PO PRN (23:15)
[2024-02-16 06:03] LABS: Absolute Neutrophil Ct (ANC) 11.11 x10^3/uL (1.4-6.9); BASOPHIL % 0.3 % (0.0-0.4); Basophil (Absolute #) 0.04 x10^3/uL (0-0.4); Eosinophil % 0.5 % (0.00-5.0); Eosinophil (Absolute #) 0.07 x10^3/uL (0-0.5); Hematocrit 28.3 % (35-47); Hemoglobin 8.8 g/dL (12.0-16.0); IMMATURE GRAN % 0.8 % (0.00-0.4); Lymphocyte (Absolute #) 0.68 x10^3/uL (1.0-4.6); Lymphocytes % 5.3 % (24.0-44.0); Mean Cell Volume 84.5 fL (78-100); Mean Corpuscular Hemoglobin 26.3 pg (26-32); Mean Corpuscular Hgb Concent. 31.1 g/dL (32-36); Mean Platelet Volume 9.5 fL (7.5-11.0); Monocyte (Absolute #) 0.78 x10^3/uL (0.0-1.3); Monocytes % 6.1 % (0.0-12.0); Platelet Count 189 x10^3/uL (150-450); Red Blood Count 3.35 x10^6/uL (4.1-5.4); Red Cell Distribution Width 13.3 % (11.5-14.0); White Blood Count 12.8 x10^3/uL (4.0-10.5)
[2024-02-16 06:37] LABS: ALBUMIN 2.6 g/dL (3.5-5.0); ANION GAP 10.7 MEQ/L (5-15); BILIRUBIN,TOTAL 0.6 mg/dL (0.2-1.3); Calcium 8.3 mg/dL (8.4-10.2); Creatinine 1 0.71 mg/dL (0.52-1.04); EST GLOMERULAR FILTRATION RATE 95.5 ML/MIN; MAGNESIUM 1.5 mg/dL (1.6-2.3); Potassium 3.4 mmol/L (3.5-5.1); Total Protein 5.6 g/dL (6.3-8.2)
--- NOTE | 2024-02-16 07:31 | PCM.NOTE ---
Date and Time: 02/16/24 0726 Subjective Assessment: Ms. HERNANDEZ is a 63 year old female with a past medical history significant for diabetes, neuropathy and recent loss of her in November who presented to [facility] 02/15/24 experiencing wounds to bilateral feet that have not been improving despite outpatient treatment of Rocephin. Podiatry consulted and patient taken to OR 02/15/24 got debridement and removal of skin graft to left heel. MRI is showing diffuse cellulitis and questionable osteomyelitis to bilteral feet. MRI confirmed pathological fracture to right calcaneus Podiatry plan reviewed, agree with continued antibiotic treatment with vanc/merrem. No plan for surgical intervention to the right calcaneus fractures with current infection. Per po diatry note plan is to wait for final bone biopsies, if positive, partial calcanectomy and bone debridement with external fixation/6-8 weeks of IV abx. If negative, plan for ORIF calcaneus with Acera restrata graft/wound vac application to the right foot. Patient may need rehab placement as she to remain NWB to BLE with exception for transfers. Dressing changes MWF with podiatry. 02/15: Met with patient bedside. Endorses 04/07 to BLE secondary to I&D/foot ulcers. Discussed podiatry's plan of care and the possible need for rehab placement once discharged. Patient would like time to think about this. Will have CM discuss on Sunday. - Review of Systems Constitutional: No Symptoms Eyes: No Symptoms Ears, Nose, & Throat: No Symptoms Respiratory: No Symptoms Cardiac: No Symptoms Abdominal/Gastrointestinal: No Symptoms Genitourinary Symptoms: No Symptoms Musculoskeletal: No Symptoms Skin: No Symptoms Neurological: Dizziness Psychological: No Symptoms Endocrine: No Symptoms Hematologic/Lymphatic: No Symptoms Immunological/Allergic: No Symptoms Objective Exam General Appearance: no apparent distress Neurologic Exam: alert, oriented x 3, cooperative Skin Exam: normal color, other (trach) Ears, Nose, Throat Exam: moist mucous membranes, dry mucous membranes Neck Exam: full range of motion Respiratory Exam: normal breath sounds, lungs clear Cardiovascular Exam: regular rate/rhythm, normal heart sounds Gastrointestinal/Abdomen Exam: soft, normal bowel sounds Extremity Exam: normal inspection Back Exam: normal inspection Pelvic Exam: deferred Rectal Exam: deferred Objective Data Vital Signs: Vital Signs - 24 hr Temp Pulse Resp BP Pulse Ox 02/16/24 04:33 99.9 F 104 H 20 138/66 91 L 02/15/24 23:47 101.6 F 118 H 18 133/90 91 L 02/15/24 19:44 97.9 F 95 H 18 106/57 98 02/15/24 16:10 98.6 F 93 H 16 107/55 94 L 02/15/24 12:23 98.2 F 98 H 16 157/80 93 L 02/15/24 10:05 97.8 F 86 16 91/54 91 L Pain Assessment - Last Documented Pain Intensity 3 Pain Scale Used 0-10 Pain Scale Intake and Output: Intake & Output 02/13/24 02/14/24 02/15/24 02/16/24 11:59 11:59 11:59 11:59 Intake Total 60 3501 Output Total 650 Balance -590 3501 Weight 72 kg 72 kg Lab Results: Lab Results-Last 24 Hours 02/15/24 02/15/24 02/15/24 Range/Units 06:30 06:57 07:58 WBC 12.7 H (4.0-10.5) x10^3/uL RBC 3.17 L (4.1-5.4) x10^6/uL Hgb 8.4 L (12.0-16.0) g/dL Hct 26.4 L (35-47) % MCV 83.3 (78-100) fL MCH 26.5 (26-32) pg MCHC 31.8 L (32-36) g/dL RDW 13.4 (11.5-14.0) % Plt Count 180 (150-450) x10^3/uL MPV 9.4 (7.5-11.0) fL Gran % 86.1 H (36.0-66.0) % Immature Gran % (Auto) 0.9 H (0.00-0.4) % Nucleat RBC Rel Count 0.0 (0.00-0.1) % Eos # (Auto) 0.06 (0-0.5) x10^3/uL Immature Gran # (Auto) 0.12 H (0.00-0.03) x10^3u/L Absolute Lymphs (auto) 0.69 L (1.0-4.6) x10^3/uL Absolute Monos (auto) 0.87 (0.0-1.3) x10^3/uL Absolute Nucleated RBC 0.00 (0.00-0.01) x10^3u/L Lymphocytes % 5.4 L (24.0-44.0) % Monocytes % 6.8 (0.0-12.0) % Eosinophils % 0.5 (0.00-5.0) % Basophils % 0.3 (0.0-0.4) % Absolute Granulocytes 10.96 H (1.4-6.9) x10^3/uL Basophils # 0.04 (0-0.4) x10^3/uL Sodium (135-145) mmol/L Potassium (3.5-5.1) mmol/L Chloride (98-107) mmol/L Carbon Dioxide (22-30) mmol/L Anion Gap (5-15) MEQ/L BUN (7-17) mg/dL Creatinine (0.52-1.04) mg/dL Estimated GFR ML/MIN Glucose (74-106) mg/dL POC Glucometer (74 to 106) mg/dL Hemoglobin A1c (4.5-6.0) % Calcium (8.4-10.2) mg/dL Magnesium (1.6-2.3) mg/dL Total Bilirubin (0.2-1.3) mg/dL AST (14-36) U/L ALT (0-35) U/L Alkaline Phosphatase (38-126) U/L Serum Total Protein (6.3-8.2) g/dL Albumin (3.5-5.0) g/dL Urine Color Yellow (Yellow) Urine Appearance Clear (Clear) Urine pH 5.5 (4.6-8.0) Ur Specific [place] 1.025 (1.005-1.030) Urine Protein 100 A (Negative) Urine Glucose (UA) 500 A (Negative) mg/dL Urine Ketones Negative (Negative) Urine Blood Negative (Negative) Urine Nitrite Negative (Negative) Urine Bilirubin Negative (Negative) Urine Urobilinogen 0.2 (0.2) mg/dL Ur Leukocyte Esterase Negative (Negative) U Hyaline Cast (Auto) NONE SEEN (0-2) /LPF Urine Microscopic RBC 0-2 (0-5) /HPF Urine Microscopic WBC 0-2 (0-5) /HPF Ur Epithelial Cells Few (None Seen) /HPF Urine Bacteria None Seen (None Seen) /HPF Urine Culture Reflexed NO (NO) Ur Random Creatinine 115.0 MG/DL Urine Sodium 78 (30-90) mmol/L 02/15/24 02/15/24 02/15/24 Range/Units 08:05 08:05 10:09 WBC (4.0-10.5) x10^3/uL RBC (4.1-5.4) x10^6/uL Hgb (12.0-16.0) g/dL Hct (35-47) % MCV (78-100) fL MCH (26-32) pg MCHC (32-36) g/dL RDW (11.5-14.0) % Plt Count (150-450) x10^3/uL MPV (7.5-11.0) fL Gran % (36.0-66.0) % Immature Gran % (Auto) (0.00-0.4) % Nucleat RBC Rel Count (0.00-0.1) % Eos # (Auto) (0-0.5) x10^3/uL Immature Gran # (Auto) (0.00-0.03) x10^3u/L Absolute Lymphs (auto) (1.0-4.6) x10^3/uL Absolute Monos (auto) (0.0-1.3) x10^3/uL Absolute Nucleated RBC (0.00-0.01) x10^3u/L Lymphocytes % (24.0-44.0) % Monocytes % (0.0-12.0) % Eosinophils % (0.00-5.0) % Basophils % (0.0-0.4) % Absolute Granulocytes (1.4-6.9) x10^3/uL Basophils # (0-0.4) x10^3/uL Sodium 134 L (135-145) mmol/L Potassium 3.5 D (3.5-5.1) mmol/L Chloride 106 (98-107) mmol/L Carbon Dioxide 26 (22-30) mmol/L Anion Gap 6.0 (5-15) MEQ/L BUN 14 (7-17) mg/dL Creatinine 0.63 (0.52-1.04) mg/dL Estimated GFR 99.6 ML/MIN Glucose 185 H (74-106) mg/dL POC Glucometer 173 H (74 to 106) mg/dL Hemoglobin A1c 10.42 H (4.5-6.0) % Calcium 7.5 L (8.4-10.2) mg/dL Magnesium (1.6-2.3) mg/dL Total Bilirubin 0.40 (0.2-1.3) mg/dL AST 19 (14-36) U/L ALT 16 (0-35) U/L Alkaline Phosphatase 106 (38-126) U/L Serum Total Protein 5.4 L (6.3-8.2) g/dL Albumin 2.6 L (3.5-5.0) g/dL Urine Color (Yellow) Urine Appearance (Clear) Urine pH (4.6-8.0) Ur Specific [place] (1.005-1.030) Urine Protein (Negative) Urine Glucose (UA) (Negative) mg/dL Urine Ketones (Negative) Urine Blood (Negative) Urine Nitrite (Negative) Urine Bilirubin (Negative) Urine Urobilinogen (0.2) mg/dL Ur Leukocyte Esterase (Negative) U Hyaline Cast (Auto) (0-2) /LPF Urine Microscopic RBC (0-5) /HPF Urine Microscopic WBC (0-5) /HPF Ur Epithelial Cells (None Seen) /HPF Urine Bacteria (None Seen) /HPF Urine Culture Reflexed (NO) Ur Random Creatinine MG/DL Urine Sodium (30-90) mmol/L 02/15/24 02/15/24 02/15/24 Range/Units 12:09 16:38 21:30 WBC (4.0-10.5) x10^3/uL RBC (4.1-5.4) x10^6/uL Hgb (12.0-16.0) g/dL Hct (35-47) % MCV (78-100) fL MCH (26-32) pg MCHC (32-36) g/dL RDW (11.5-14.0) % Plt Count (150-450) x10^3/uL MPV (7.5-11.0) fL Gran % (36.0-66.0) % Immature Gran % (Auto) (0.00-0.4) % Nucleat RBC Rel Count (0.00-0.1) % Eos # (Auto) (0-0.5) x10^3/uL Immature Gran # (Auto) (0.00-0.03) x10^3u/L Absolute Lymphs (auto) (1.0-4.6) x10^3/uL Absolute Monos (auto) (0.0-1.3) x10^3/uL Absolute Nucleated RBC (0.00-0.01) x10^3u/L Lymphocytes % (24.0-44.0) % Monocytes % (0.0-12.0) % Eosinophils % (0.00-5.0) % Basophils % (0.0-0.4) % Absolute Granulocytes (1.4-6.9) x10^3/uL Basophils # (0-0.4) x10^3/uL Sodium (135-145) mmol/L Potassium (3.5-5.1) mmol/L Chloride (98-107) mmol/L Carbon Dioxide (22-30) mmol/L Anion Gap (5-15) MEQ/L BUN (7-17) mg/dL Creatinine (0.52-1.04) mg/dL Estimated GFR ML/MIN Glucose (74-106) mg/dL POC Glucometer 137 H 84 92 (74 to 106) mg/dL Hemoglobin A1c (4.5-6.0) % Calcium (8.4-10.2) mg/dL Magnesium (1.6-2.3) mg/dL Total Bilirubin (0.2-1.3) mg/dL AST (14-36) U/L ALT (0-35) U/L Alkaline Phosphatase (38-126) U/L Serum Total Protein (6.3-8.2) g/dL Albumin (3.5-5.0) g/dL Urine Color (Yellow) Urine Appearance (Clear) Urine pH (4.6-8.0) Ur Specific [place] (1.005-1.030) Urine Protein (Negative) Urine Glucose (UA) (Negative) mg/dL Urine Ketones (Negative) Urine Blood (Negative) Urine Nitrite (Negative) Urine Bilirubin (Negative) Urine Urobilinogen (0.2) mg/dL Ur Leukocyte Esterase (Negative) U Hyaline Cast (Auto) (0-2) /LPF Urine Microscopic RBC (0-5) /HPF Urine Microscopic WBC (0-5) /HPF Ur Epithelial Cells (None Seen) /HPF Urine Bacteria (None Seen) /HPF Urine Culture Reflexed (NO) Ur Random Creatinine MG/DL Urine Sodium (30-90) mmol/L 02/16/24 02/16/24 Range/Units 05:45 05:45 WBC 12.8 H (4.0-10.5) x10^3/uL RBC 3.35 L (4.1-5.4) x10^6/uL Hgb 8.8 L (12.0-16.0) g/dL Hct 28.3 L (35-47) % MCV 84.5 (78-100) fL MCH 26.3 (26-32) pg MCHC 31.1 L (32-36) g/dL RDW 13.3 (11.5-14.0) % Plt Count 189 (150-450) x10^3/uL MPV 9.5 (7.5-11.0) fL Gran % 87.0 H (36.0-66.0) % Immature Gran % (Auto) 0.8 H (0.00-0.4) % Nucleat RBC Rel Count 0.0 (0.00-0.1) % Eos # (Auto) 0.07 (0-0.5) x10^3/uL Immature Gran # (Auto) 0.10 H (0.00-0.03) x10^3u/L Absolute Lymphs (auto) 0.68 L (1.0-4.6) x10^3/uL Absolute Monos (auto) 0.78 (0.0-1.3) x10^3/uL Absolute Nucleated RBC 0.00 (0.00-0.01) x10^3u/L Lymphocytes % 5.3 L (24.0-44.0) % Monocytes % 6.1 (0.0-12.0) % Eosinophils % 0.5 (0.00-5.0) % Basophils % 0.3 (0.0-0.4) % Absolute Granulocytes 11.11 H (1.4-6.9) x10^3/uL Basophils # 0.04 (0-0.4) x10^3/uL Sodium 137 (135-145) mmol/L Potassium 3.4 L (3.5-5.1) mmol/L Chloride 106 (98-107) mmol/L Carbon Dioxide 23 (22-30) mmol/L Anion Gap 10.7 (5-15) MEQ/L BUN 16 (7-17) mg/dL Creatinine 0.71 (0.52-1.04) mg/dL Estimated GFR 95.5 ML/MIN Glucose 117 H (74-106) mg/dL POC Glucometer (74 to 106) mg/dL Hemoglobin A1c (4.5-6.0) % Calcium 8.3 L (8.4-10.2) mg/dL Magnesium 1.5 L (1.6-2.3) mg/dL Total Bilirubin 0.60 (0.2-1.3) mg/dL AST 24 (14-36) U/L ALT 17 (0-35) U/L Alkaline Phosphatase 116 (38-126) U/L Serum Total Protein 5.6 L (6.3-8.2) g/dL Albumin 2.6 L (3.5-5.0) g/dL Urine Color (Yellow) Urine Appearance (Clear) Urine pH (4.6-8.0) Ur Specific [place] (1.005-1.030) Urine Protein (Negative) Urine Glucose (UA) (Negative) mg/dL Urine Ketones (Negative) Urine Blood (Negative) Urine Nitrite (Negative) Urine Bilirubin (Negative) Urine Urobilinogen (0.2) mg/dL Ur Leukocyte Esterase (Negative) U Hyaline Cast (Auto) (0-2) /LPF Urine Microscopic RBC (0-5) /HPF Urine Microscopic WBC (0-5) /HPF Ur Epithelial Cells (None Seen) /HPF Urine Bacteria (None Seen) /HPF Urine Culture Reflexed (NO) Ur Random Creatinine MG/DL Urine Sodium (30-90) mmol/L Radiology Exams: Radiology Procedures Category Date Time Status MRI LOWER EXT WITH CONTRAST [MRI] Stat Exams 02/15/24 09:23 Completed MRI LOWER EXT WITH CONTRAST [MRI] Stat Exams 02/15/24 09:24 Completed Multi-Disciplinary Progress Notes: Multi-Disciplinary Progress Notes 02/15/24 15:30 (created 02/15/24 20:12) Case Management Note by Amparo Barfield ATTEMPTED TO TALK TO PATIENT ABOUT DC NEEDS- POSSIBLE REHAB STAY. PATIENT VERY TEARFUL. PATIENT NOTED PAIN IN COCCYX AREA AFTER MRI. PATIENT UPSET AT THE POSSIBILITY OF REHAB PLACEMENT. SHE VOICED SHE IS DISAPPOINTED THAT SHE HAS 2 DAUGHTERS THAT A NURSES BUT ARE EVIDENTLY UNWILLING TO CARE FOR OR HELP PATIENT AT HOME. PATIENT VOICING FEELINGS HOPELESSNESS. SHE STATED"IM ABOUT TO JUST BE DONE WITH ALL OF THIS, I'M TIRED OF ALL OF THIS". PATIENT GIVEN EMOTIONAL SUPPORT. RADHA SUDHAKAR NOTIFIED OF INTERACTION AND SHE VERIFIED UNDERSTANDING. SHE WILL TRY TO SPEAK WITH PATIENT AGAIN IN THE AM. Initialized on 02/15/24 20:12 - END OF NOTE Assessment/Plan (1) Diabetic foot wound Current Visit: No Status: Acute Assessment & Plan: -Bilateral feet/heel -MRI left and right lower extremities showing Left Diffuse cellulitis with posterior heel ulcer. Small focus osteomyelitis posterior calcaneus. 3. Tiny focus osteochondral injury medial talar dome. 4. Incidental heel spurs. Right: Impression: 1. Motion artifact. 2. Diffuse cellulitis. 3. Anterior posterior calcaneal fracture with diffuse bone edema signal/enhancement as detailed. Fracture may be pathologic with superimposed osteomyelitis offered for clinical consideration. 4. Incidental heel spurs. -Podiatry following, S/P debridement 02/15/24, agree with plan to continue vanc/merrem, cultures pending -Blood culture NGTD (2) Cellulitis of both feet Current Visit: Yes Status: Acute Assessment & Plan: -see foot ulcer Code(s): L03.115 - CELLULITIS OF RIGHT LOWER LIMB; L03.116 - CELLULITIS OF LEFT LOWER LIMB (3) Osteomyelitis Current Visit: Yes Status: Acute Assessment & Plan: -see foot ulcer Code(s): M86.9 - OSTEOMYELITIS, UNSPECIFIED (4) Hypokalemia Current Visit: Yes Status: Acute Assessment & Plan: -Potassium at 3.4, will replenish Code(s): E87.6 - HYPOKALEMIA (5) Diabetes mellitus type II, uncontrolled Current Visit: No Status: Chronic Qualifiers: Glycemic state: with hyperglycemia Qualified Code(s): E11.65 - Type 2 diabetes mellitus with hyperglycemia Assessment & Plan: -Poorly controlled, A1c at 10.42 -discussed imported of good glycemic control for healing purposes -ADA diet -SSI -moderate while IP, glucose levels have been stable, may need adjustment while IP, will monitor -Will need adjustments to home meds on discharge Code(s): ABP8044 - (6) Diarrhea Current Visit: Yes Status: Acute Assessment & Plan: -Stool studies pending VTE: ASA per podiatry Dispo: 2-3 days, may need rehab on discharge Code(s): R19.7 - DIARRHEA, UNSPECIFIED (7) Pathologic calcaneal fracture Current Visit: Yes Status: Acute Assessment & Plan: -reviewed podiatry note/MRI noting right fracture to calcaneus, agree with plan "Awaiting bone biopsies to assess if positive will plan for partial calcanectomy and bone debridement application of external fixation with 6-8 weeks of IV abx. If negative will plan for ORIF calcaneus with Acera restrata graft with wound vac application to the right." Code(s): M84.476A - PATHOLOGICAL FRACTURE, UNSP FOOT, INIT ENCNTR FOR FRACTURE
--- NOTE | 2024-02-16 07:54 | PCM.NOTE ---
Date and Time: 02/16/24747 Subjective Assessment: POD #1 patient lethargic at bedside Heels floated on pillows. Resting in bed. No constitutional symptoms of infection. No new complaints. Physical Exam - General General Appearance: mild distress, alert - Neuro Neurologic: Epicritic and protopathic - Vascular Peripheral Pulses: Posterior tibialis: 2+, Dorsalis-Pedis: 2+ Capillary Refill Time: < 3 seconds Varicosities: Positive Edema: Pitting Edema Degree: 2+ Skin: Supple, not atrophic (wound posterior heel R 3cm x 2.8 with positive probe to bone Wound Posterior heel L 4.0 x 5.1 with positive probe to bone.) - Narrative Narrative Physical Exam: Podiatry Physical Exam Objective Data Vital Signs: Vital Signs - 24 hr Temp Pulse Resp BP Pulse Ox 02/16/24 04:33 99.9 F 104 H 20 138/66 91 L 02/15/24 23:47 101.6 F 118 H 18 133/90 91 L 02/15/24 19:44 97.9 F 95 H 18 106/57 98 02/15/24 16:10 98.6 F 93 H 16 107/55 94 L 02/15/24 12:23 98.2 F 98 H 16 157/80 93 L 02/15/24 10:05 97.8 F 86 16 91/54 91 L Pain Assessment - Last Documented Pain Intensity 3 Pain Scale Used 0-10 Pain Scale Intake and Output: Intake & Output 02/13/24 02/14/24 02/15/24 02/16/24 11:59 11:59 11:59 11:59 Intake Total 60 3501 Output Total 650 Balance -590 3501 Weight 72 kg 72 kg Lab Results: Lab Results-Last 24 Hours 02/15/24 02/15/24 02/15/24 Range/Units 07:58 08:05 08:05 WBC 12.7 H (4.0-10.5) x10^3/uL RBC 3.17 L (4.1-5.4) x10^6/uL Hgb 8.4 L (12.0-16.0) g/dL Hct 26.4 L (35-47) % MCV 83.3 (78-100) fL MCH 26.5 (26-32) pg MCHC 31.8 L (32-36) g/dL RDW 13.4 (11.5-14.0) % Plt Count 180 (150-450) x10^3/uL MPV 9.4 (7.5-11.0) fL Gran % 86.1 H (36.0-66.0) % Immature Gran % (Auto) 0.9 H (0.00-0.4) % Nucleat RBC Rel Count 0.0 (0.00-0.1) % Eos # (Auto) 0.06 (0-0.5) x10^3/uL Immature Gran # (Auto) 0.12 H (0.00-0.03) x10^3u/L Absolute Lymphs (auto) 0.69 L (1.0-4.6) x10^3/uL Absolute Monos (auto) 0.87 (0.0-1.3) x10^3/uL Absolute Nucleated RBC 0.00 (0.00-0.01) x10^3u/L Lymphocytes % 5.4 L (24.0-44.0) % Monocytes % 6.8 (0.0-12.0) % Eosinophils % 0.5 (0.00-5.0) % Basophils % 0.3 (0.0-0.4) % Absolute Granulocytes 10.96 H (1.4-6.9) x10^3/uL Basophils # 0.04 (0-0.4) x10^3/uL Sodium 134 L (135-145) mmol/L Potassium 3.5 D (3.5-5.1) mmol/L Chloride 106 (98-107) mmol/L Carbon Dioxide 26 (22-30) mmol/L Anion Gap 6.0 (5-15) MEQ/L BUN 14 (7-17) mg/dL Creatinine 0.63 (0.52-1.04) mg/dL Estimated GFR 99.6 ML/MIN Glucose 185 H (74-106) mg/dL POC Glucometer (74 to 106) mg/dL Hemoglobin A1c 10.42 H (4.5-6.0) % Calcium 7.5 L (8.4-10.2) mg/dL Magnesium (1.6-2.3) mg/dL Total Bilirubin 0.40 (0.2-1.3) mg/dL AST 19 (14-36) U/L ALT 16 (0-35) U/L Alkaline Phosphatase 106 (38-126) U/L Serum Total Protein 5.4 L (6.3-8.2) g/dL Albumin 2.6 L (3.5-5.0) g/dL 02/15/24 02/15/24 02/15/24 Range/Units 10:09 12:09 16:38 WBC (4.0-10.5) x10^3/uL RBC (4.1-5.4) x10^6/uL Hgb (12.0-16.0) g/dL Hct (35-47) % MCV (78-100) fL MCH (26-32) pg MCHC (32-36) g/dL RDW (11.5-14.0) % Plt Count (150-450) x10^3/uL MPV (7.5-11.0) fL Gran % (36.0-66.0) % Immature Gran % (Auto) (0.00-0.4) % Nucleat RBC Rel Count (0.00-0.1) % Eos # (Auto) (0-0.5) x10^3/uL Immature Gran # (Auto) (0.00-0.03) x10^3u/L Absolute Lymphs (auto) (1.0-4.6) x10^3/uL Absolute Monos (auto) (0.0-1.3) x10^3/uL Absolute Nucleated RBC (0.00-0.01) x10^3u/L Lymphocytes % (24.0-44.0) % Monocytes % (0.0-12.0) % Eosinophils % (0.00-5.0) % Basophils % (0.0-0.4) % Absolute Granulocytes (1.4-6.9) x10^3/uL Basophils # (0-0.4) x10^3/uL Sodium (135-145) mmol/L Potassium (3.5-5.1) mmol/L Chloride (98-107) mmol/L Carbon Dioxide (22-30) mmol/L Anion Gap (5-15) MEQ/L BUN (7-17) mg/dL Creatinine (0.52-1.04) mg/dL Estimated GFR ML/MIN Glucose (74-106) mg/dL POC Glucometer 173 H 137 H 84 (74 to 106) mg/dL Hemoglobin A1c (4.5-6.0) % Calcium (8.4-10.2) mg/dL Magnesium (1.6-2.3) mg/dL Total Bilirubin (0.2-1.3) mg/dL AST (14-36) U/L ALT (0-35) U/L Alkaline Phosphatase (38-126) U/L Serum Total Protein (6.3-8.2) g/dL Albumin (3.5-5.0) g/dL 02/15/24 02/16/24 02/16/24 Range/Units 21:30 05:45 05:45 WBC 12.8 H (4.0-10.5) x10^3/uL RBC 3.35 L (4.1-5.4) x10^6/uL Hgb 8.8 L (12.0-16.0) g/dL Hct 28.3 L (35-47) % MCV 84.5 (78-100) fL MCH 26.3 (26-32) pg MCHC 31.1 L (32-36) g/dL RDW 13.3 (11.5-14.0) % Plt Count 189 (150-450) x10^3/uL MPV 9.5 (7.5-11.0) fL Gran % 87.0 H (36.0-66.0) % Immature Gran % (Auto) 0.8 H (0.00-0.4) % Nucleat RBC Rel Count 0.0 (0.00-0.1) % Eos # (Auto) 0.07 (0-0.5) x10^3/uL Immature Gran # (Auto) 0.10 H (0.00-0.03) x10^3u/L Absolute Lymphs (auto) 0.68 L (1.0-4.6) x10^3/uL Absolute Monos (auto) 0.78 (0.0-1.3) x10^3/uL Absolute Nucleated RBC 0.00 (0.00-0.01) x10^3u/L Lymphocytes % 5.3 L (24.0-44.0) % Monocytes % 6.1 (0.0-12.0) % Eosinophils % 0.5 (0.00-5.0) % Basophils % 0.3 (0.0-0.4) % Absolute Granulocytes 11.11 H (1.4-6.9) x10^3/uL Basophils # 0.04 (0-0.4) x10^3/uL Sodium 137 (135-145) mmol/L Potassium 3.4 L (3.5-5.1) mmol/L Chloride 106 (98-107) mmol/L Carbon Dioxide 23 (22-30) mmol/L Anion Gap 10.7 (5-15) MEQ/L BUN 16 (7-17) mg/dL Creatinine 0.71 (0.52-1.04) mg/dL Estimated GFR 95.5 ML/MIN Glucose 117 H (74-106) mg/dL POC Glucometer 92 (74 to 106) mg/dL Hemoglobin A1c (4.5-6.0) % Calcium 8.3 L (8.4-10.2) mg/dL Magnesium 1.5 L (1.6-2.3) mg/dL Total Bilirubin 0.60 (0.2-1.3) mg/dL AST 24 (14-36) U/L ALT 17 (0-35) U/L Alkaline Phosphatase 116 (38-126) U/L Serum Total Protein 5.6 L (6.3-8.2) g/dL Albumin 2.6 L (3.5-5.0) g/dL Radiology Exams: Radiology Procedures Category Date Time Status MRI LOWER EXT WITH CONTRAST [MRI] Stat Exams 02/15/24 09:23 Completed MRI LOWER EXT WITH CONTRAST [MRI] Stat Exams 02/15/24 09:24 Completed Multi-Disciplinary Progress Notes: Multi-Disciplinary Progress Notes 02/15/24 15:30 (created 02/15/24 20:12) Case Management Note by Amparo Barfield ATTEMPTED TO TALK TO PATIENT ABOUT DC NEEDS- POSSIBLE REHAB STAY. PATIENT VERY TEARFUL. PATIENT NOTED PAIN IN COCCYX AREA AFTER MRI. PATIENT UPSET AT THE POSSIBILITY OF REHAB PLACEMENT. SHE VOICED SHE IS DISAPPOINTED THAT SHE HAS 2 DAUGHTERS THAT A NURSES BUT ARE EVIDENTLY UNWILLING TO CARE FOR OR HELP PATIENT AT HOME. PATIENT VOICING FEELINGS HOPELESSNESS. SHE STATED"IM ABOUT TO JUST BE DONE WITH ALL OF THIS, I'M TIRED OF ALL OF THIS". PATIENT GIVEN EMOTIONAL SUPPORT. RADHA SUDHAKAR NOTIFIED OF INTERACTION AND SHE VERIFIED UNDERSTANDING. SHE WILL TRY TO SPEAK WITH PATIENT AGAIN IN THE AM. Initialized on 02/15/24 20:12 - END OF NOTE Assessment/Plan (1) Pathologic calcaneal fracture Current Visit: Yes Status: Acute Assessment & Plan: MRI confirmed pathological fracture at this time to right calcaneus No urgency to proceeding with intervention at this time as complicated with chronic diabetic heel ulcer with potential osteomyelitis Awaiting bone biopsies to assess if positive will plan for partial calcanectomy and bone debridement application of external fixation with 6-8 weeks of IV abx. If negative will plan for ORIF calcaneus with Acera restrata graft with wound vac application to the right. Patient made aware of these options will await bone biopsies and cultures. Code(s): M84.476A - PATHOLOGICAL FRACTURE, UNSP FOOT, INIT ENCNTR FOR FRACTURE (2) Diabetic foot wound Current Visit: No Status: Acute Assessment & Plan: Ulcers debrided post op day #1 (3) Diabetes mellitus type II, uncontrolled Current Visit: No Status: Chronic Qualifiers: Glycemic state: with hyperglycemia Qualified Code(s): E11.65 - Type 2 diabetes mellitus with hyperglycemia Code(s): [id number] - (4) Hyperglycemia Current Visit: No Status: Acute Code(s): R73.9 - HYPERGLYCEMIA, UNSPECIFIED (5) Polysubstance use disorder Current Visit: No Status: Acute Code(s): F19.90 - OTHER PSYCHOACTIVE SUBSTANCE USE, UNSPECIFIED, UNCOMPLICATED (6) Amputated great toe of left foot Current Visit: No Status: Acute Code(s): S98.112A - COMPLETE TRAUMATIC AMPUTATION OF LEFT GREAT TOE, INIT ENCNTR (7) Cellulitis of both feet Current Visit: Yes Status: Acute Code(s): L03.115 - CELLULITIS OF RIGHT LOWER LIMB; L03.116 - CELLULITIS OF LEFT LOWER LIMB (8) Osteomyelitis Current Visit: Yes Status: Acute Assessment & Plan: Awaiting bone biopsies Vancomycin/ Merrem for now Code(s): M86.9 - OSTEOMYELITIS, UNSPECIFIED (9) Diabetic foot ulcers Current Visit: Yes Status: Acute Code(s): E11.621 - TYPE 2 DIABETES MELLITUS WITH FOOT ULCER; L97.509 - NON-PRESSURE CHRONIC ULCER OTH PRT UNSP FOOT W UNSP SEVERITY (10) Leukocytosis Current Visit: Yes Status: Acute Assessment & Plan: Will monitor. Current worsening but possible stress response. Consider additional source of infection if worsening. Code(s): D72.829 - ELEVATED WHITE BLOOD CELL COUNT, UNSPECIFIED
[2024-02-16] MEDS: Ecotrin 325 MG PO SCH (08:37)
[2024-02-16] MEDS: Klor Con PO ONE (08:37)
[2024-02-16] MEDS: VANCOMYCIN 1 GRAM/200 ML BAG 1 GM/200 ML PIGGYBACK IV SCH (09:16)
[2024-02-16 18:41] LABS: 027 TOX PROD PRESUMPTIVE NEGATIVE (NEGATIVE)
[2024-02-16 18:45] LABS: TOXIGENIC C. DIFF ORG POSITIVE (NEGATIVE)
[2024-02-16] MEDS: QUESTRAN Light 4 GM Packet PO SCH (19:18)
[2024-02-16] MEDS: QUESTRAN Light 4 GM Packet PO ONE (19:20)
[2024-02-16] MEDS: HUMALOG SQ PRN (21:26)
[2024-02-17 05:35] LABS: Absolute Neutrophil Ct (ANC) 8.09 x10^3/uL (1.4-6.9); BASOPHIL % 0.2 % (0.0-0.4); Basophil (Absolute #) 0.02 x10^3/uL (0-0.4); Eosinophil % 1.5 % (0.00-5.0); Eosinophil (Absolute #) 0.14 x10^3/uL (0-0.5); Hematocrit 27.2 % (35-47); Hemoglobin 8.5 g/dL (12.0-16.0); IMMATURE GRAN # 0.08 x10^3u/L (0.00-0.03); IMMATURE GRAN % 0.8 % (0.00-0.4); Lymphocyte (Absolute #) 0.77 x10^3/uL (1.0-4.6); Mean Cell Volume 84.5 fL (78-100); Mean Corpuscular Hemoglobin 26.4 pg (26-32); Mean Corpuscular Hgb Concent. 31.3 g/dL (32-36); Mean Platelet Volume 9.4 fL (7.5-11.0); Monocytes % 5.2 % (0.0-12.0); Neutrophil % 84.3 % (36.0-66.0); Platelet Count 195 x10^3/uL (150-450); Red Blood Count 3.22 x10^6/uL (4.1-5.4); Red Cell Distribution Width 13.5 % (11.5-14.0); White Blood Count 9.6 x10^3/uL (4.0-10.5)
[2024-02-17 05:56] LABS: ALBUMIN 2.5 g/dL (3.5-5.0); ANION GAP 8.1 MEQ/L (5-15); BILIRUBIN,TOTAL 0.4 mg/dL (0.2-1.3); Calcium 8.5 mg/dL (8.4-10.2); Creatinine 1 0.64 mg/dL (0.52-1.04); EST GLOMERULAR FILTRATION RATE 99.2 ML/MIN; Potassium 3.6 mmol/L (3.5-5.1); Total Protein 5.5 g/dL (6.3-8.2)
[2024-02-17] MEDS: TROUGH DRUG LEVELS IJ ONE (09:01)
--- NOTE | 2024-02-17 09:50 | PCM.NOTE ---
Date and Time: 02/17/24 0945 Subjective Assessment: Ms. HERNANDEZ is a 63 year old female with a past medical history significant for diabetes, neuropathy and recent loss of her in November who presented to [facility] 02/15/24 experiencing wounds to bilateral feet that have not been improving despite outpatient treatment of Rocephin. Podiatry consulted and patient taken to OR 02/15/24 got debridement and removal of skin graft to left heel. MRI is showing diffuse cellulitis and questionable osteomyelitis to bilteral feet. MRI confirmed pathological fracture to right calcaneus Podiatry plan reviewed, agree with continued antibiotic treatment with vanc/merrem. No plan for surgical intervention to the right calcaneus fractures with current infection. Per po diatry note plan is to wait for final bone biopsies, if positive, partial calcanectomy and bone debridement with external fixation/6-8 weeks of IV abx. If negative, plan for ORIF calcaneus with Acera restrata graft/wound vac application to the right foot. Patient may need rehab placement as she to remain NWB to BLE with exception for transfers. Dressing changes MWF with podiatry. 02/15: Met with patient bedside. Endorses 6/10 to BLE secondary to I&D/foot ulcers. Discussed podiatry's plan of care and the possible need for rehab placement once discharged. Patient would like time to think about this. Will have CM discuss on Sunday. 02/16: Met with patient bedside. Endorses continued pain to BLE rating 4/10 today. Patient states she has been having diarrhea for several weeks now. CDiff testing negative. Questran given yesterday which has helped. Patient is very depressed, tearful, and expressing hopelessness this morning due to her current situation. She would like to return home but knows she needs rehab. CM to discuss placement tomorrow. Denies fever,cough, sob, cp, abdominal pain, CARBALLO, dizziness, N/V/D. - Review of Systems Constitutional: No Symptoms Eyes: No Symptoms Ears, Nose, & Throat: No Symptoms Respiratory: No Symptoms Cardiac: No Symptoms Abdominal/Gastrointestinal: No Symptoms Genitourinary Symptoms: No Symptoms Musculoskeletal: Joint Pain (right ankle, BLE heel pain) Skin: Other (BLE diabetic foot ulcers, Unna boot compression dressing) Psychological: Anxiety, Depression Endocrine: No Symptoms Hematologic/Lymphatic: No Symptoms Immunological/Allergic: No Symptoms Objective Exam General Appearance: no apparent distress Neurologic Exam: alert, oriented x 3, depressed mood/affect Skin Exam: other (BLE diabetic foot ulcers, Unna boot compression dressing) Ears, Nose, Throat Exam: moist mucous membranes Neck Exam: full range of motion Respiratory Exam: normal breath sounds, lungs clear Cardiovascular Exam: regular rate/rhythm, normal heart sounds Gastrointestinal/Abdomen Exam: soft, normal bowel sounds (BLE diabetic foot ulcers, Unna boot compression dressing) Back Exam: normal inspection Pelvic Exam: deferred Rectal Exam: deferred Objective Data Vital Signs: Vital Signs - 24 hr Temp Pulse Resp BP Pulse Ox 02/17/24 08:15 97.6 F 78 20 120/59 98 02/16/24 19:36 98.1 F 85 18 98/54 99 Pain Assessment - Last Documented Pain Intensity 6 Pain Scale Used 0-10 Pain Scale Intake and Output: Intake & Output 02/14/24 02/15/24 02/16/24 02/17/24 11:59 11:59 11:59 11:59 Intake Total 60 3621 1330 Output Total 650 Balance -590 3621 1330 Weight 72 kg 72 kg Lab Results: Lab Results-Last 24 Hours 02/14/24 02/16/24 02/16/24 Range/Units 23:10 10:00 12:25 WBC (4.0-10.5) x10^3/uL RBC (4.1-5.4) x10^6/uL Hgb (12.0-16.0) g/dL Hct (35-47) % MCV (78-100) fL MCH (26-32) pg MCHC (32-36) g/dL RDW (11.5-14.0) % Plt Count (150-450) x10^3/uL MPV (7.5-11.0) fL Gran % (36.0-66.0) % Immature Gran % (Auto) (0.00-0.4) % Nucleat RBC Rel Count (0.00-0.1) % Eos # (Auto) (0-0.5) x10^3/uL Immature Gran # (Auto) (0.00-0.03) x10^3u/L Absolute Lymphs (auto) (1.0-4.6) x10^3/uL Absolute Monos (auto) (0.0-1.3) x10^3/uL Absolute Nucleated RBC (0.00-0.01) x10^3u/L Lymphocytes % (24.0-44.0) % Monocytes % (0.0-12.0) % Eosinophils % (0.00-5.0) % Basophils % (0.0-0.4) % Absolute Granulocytes (1.4-6.9) x10^3/uL Basophils # (0-0.4) x10^3/uL Sodium (135-145) mmol/L Potassium 3.5 (3.5-5.1) mmol/L Chloride (98-107) mmol/L Carbon Dioxide (22-30) mmol/L Anion Gap (5-15) MEQ/L BUN (7-17) mg/dL Creatinine (0.52-1.04) mg/dL Estimated GFR ML/MIN Glucose (74-106) mg/dL POC Glucometer 167 H (74 to 106) mg/dL Calcium (8.4-10.2) mg/dL Total Bilirubin (0.2-1.3) mg/dL AST (14-36) U/L ALT (0-35) U/L Alkaline Phosphatase (38-126) U/L C-Reactive Prot, Quant 100 H (0-10) mg/L Serum Total Protein (6.3-8.2) g/dL Albumin (3.5-5.0) g/dL Vancomycin Trough (10-20) ug/mL C. difficile Screen (NEGATIVE) C.difficile 027-NAP1-B1 (NEGATIVE) 02/16/24 02/16/24 02/16/24 Range/Units 16:47 17:40 21:16 WBC (4.0-10.5) x10^3/uL RBC (4.1-5.4) x10^6/uL Hgb (12.0-16.0) g/dL Hct (35-47) % MCV (78-100) fL MCH (26-32) pg MCHC (32-36) g/dL RDW (11.5-14.0) % Plt Count (150-450) x10^3/uL MPV (7.5-11.0) fL Gran % (36.0-66.0) % Immature Gran % (Auto) (0.00-0.4) % Nucleat RBC Rel Count (0.00-0.1) % Eos # (Auto) (0-0.5) x10^3/uL Immature Gran # (Auto) (0.00-0.03) x10^3u/L Absolute Lymphs (auto) (1.0-4.6) x10^3/uL Absolute Monos (auto) (0.0-1.3) x10^3/uL Absolute Nucleated RBC (0.00-0.01) x10^3u/L Lymphocytes % (24.0-44.0) % Monocytes % (0.0-12.0) % Eosinophils % (0.00-5.0) % Basophils % (0.0-0.4) % Absolute Granulocytes (1.4-6.9) x10^3/uL Basophils # (0-0.4) x10^3/uL Sodium (135-145) mmol/L Potassium (3.5-5.1) mmol/L Chloride (98-107) mmol/L Carbon Dioxide (22-30) mmol/L Anion Gap (5-15) MEQ/L BUN (7-17) mg/dL Creatinine (0.52-1.04) mg/dL Estimated GFR ML/MIN Glucose (74-106) mg/dL POC Glucometer 197 H 233 H (74 to 106) mg/dL Calcium (8.4-10.2) mg/dL Total Bilirubin (0.2-1.3) mg/dL AST (14-36) U/L ALT (0-35) U/L Alkaline Phosphatase (38-126) U/L C-Reactive Prot, Quant (0-10) mg/L Serum Total Protein (6.3-8.2) g/dL Albumin (3.5-5.0) g/dL Vancomycin Trough (10-20) ug/mL C. difficile Screen POSITIVE (NEGATIVE) C.difficile 027-NAP1-B1 PRESUMPTIVE NEGATIVE (NEGATIVE) 02/17/24 02/17/24 02/17/24 Range/Units 05:24 05:24 08:10 WBC 9.6 (4.0-10.5) x10^3/uL RBC 3.22 L (4.1-5.4) x10^6/uL Hgb 8.5 L (12.0-16.0) g/dL Hct 27.2 L (35-47) % MCV 84.5 (78-100) fL MCH 26.4 (26-32) pg MCHC 31.3 L (32-36) g/dL RDW 13.5 (11.5-14.0) % Plt Count 195 (150-450) x10^3/uL MPV 9.4 (7.5-11.0) fL Gran % 84.3 H (36.0-66.0) % Immature Gran % (Auto) 0.8 H (0.00-0.4) % Nucleat RBC Rel Count 0.0 (0.00-0.1) % Eos # (Auto) 0.14 (0-0.5) x10^3/uL Immature Gran # (Auto) 0.08 H (0.00-0.03) x10^3u/L Absolute Lymphs (auto) 0.77 L (1.0-4.6) x10^3/uL Absolute Monos (auto) 0.50 (0.0-1.3) x10^3/uL Absolute Nucleated RBC 0.00 (0.00-0.01) x10^3u/L Lymphocytes % 8.0 L (24.0-44.0) % Monocytes % 5.2 (0.0-12.0) % Eosinophils % 1.5 (0.00-5.0) % Basophils % 0.2 (0.0-0.4) % Absolute Granulocytes 8.09 H (1.4-6.9) x10^3/uL Basophils # 0.02 (0-0.4) x10^3/uL Sodium 136 (135-145) mmol/L Potassium 3.6 (3.5-5.1) mmol/L Chloride 109 H (98-107) mmol/L Carbon Dioxide 22 (22-30) mmol/L Anion Gap 8.1 (5-15) MEQ/L BUN 16 (7-17) mg/dL Creatinine 0.64 (0.52-1.04) mg/dL Estimated GFR 99.2 ML/MIN Glucose 156 H (74-106) mg/dL POC Glucometer 150 H (74 to 106) mg/dL Calcium 8.5 (8.4-10.2) mg/dL Total Bilirubin 0.40 (0.2-1.3) mg/dL AST 20 (14-36) U/L ALT 16 (0-35) U/L Alkaline Phosphatase 118 (38-126) U/L C-Reactive Prot, Quant (0-10) mg/L Serum Total Protein 5.5 L (6.3-8.2) g/dL Albumin 2.5 L (3.5-5.0) g/dL Vancomycin Trough (10-20) ug/mL C. difficile Screen (NEGATIVE) C.difficile 027-NAP1-B1 (NEGATIVE) 02/17/24 Range/Units 08:25 WBC (4.0-10.5) x10^3/uL RBC (4.1-5.4) x10^6/uL Hgb (12.0-16.0) g/dL Hct (35-47) % MCV (78-100) fL MCH (26-32) pg MCHC (32-36) g/dL RDW (11.5-14.0) % Plt Count (150-450) x10^3/uL MPV (7.5-11.0) fL Gran % (36.0-66.0) % Immature Gran % (Auto) (0.00-0.4) % Nucleat RBC Rel Count (0.00-0.1) % Eos # (Auto) (0-0.5) x10^3/uL Immature Gran # (Auto) (0.00-0.03) x10^3u/L Absolute Lymphs (auto) (1.0-4.6) x10^3/uL Absolute Monos (auto) (0.0-1.3) x10^3/uL Absolute Nucleated RBC (0.00-0.01) x10^3u/L Lymphocytes % (24.0-44.0) % Monocytes % (0.0-12.0) % Eosinophils % (0.00-5.0) % Basophils % (0.0-0.4) % Absolute Granulocytes (1.4-6.9) x10^3/uL Basophils # (0-0.4) x10^3/uL Sodium (135-145) mmol/L Potassium (3.5-5.1) mmol/L Chloride (98-107) mmol/L Carbon Dioxide (22-30) mmol/L Anion Gap (5-15) MEQ/L BUN (7-17) mg/dL Creatinine (0.52-1.04) mg/dL Estimated GFR ML/MIN Glucose (74-106) mg/dL POC Glucometer (74 to 106) mg/dL Calcium (8.4-10.2) mg/dL Total Bilirubin (0.2-1.3) mg/dL AST (14-36) U/L ALT (0-35) U/L Alkaline Phosphatase (38-126) U/L C-Reactive Prot, Quant (0-10) mg/L Serum Total Protein (6.3-8.2) g/dL Albumin (3.5-5.0) g/dL Vancomycin Trough 14.42 (10-20) ug/mL C. difficile Screen (NEGATIVE) C.difficile 027-NAP1-B1 (NEGATIVE) Radiology Exams: Radiology Procedures Category Date Time Status MRI LOWER EXT WITH CONTRAST [MRI] Stat Exams 02/15/24 09:23 Completed MRI LOWER EXT WITH CONTRAST [MRI] Stat Exams 02/15/24 09:24 Completed Assessment/Plan (1) Diabetic foot wound Current Visit: No Status: Acute Assessment & Plan: -Bilateral feet/heel -MRI left and right lower extremities showing Left Diffuse cellulitis with posterior heel ulcer. Small focus osteomyelitis posterior calcaneus. 3. Tiny focus osteochondral injury medial talar dome. 4. Incidental heel spurs. Right: Impression: 1. Motion artifact. 2. Diffuse cellulitis. 3. Anterior posterior calcaneal fracture with diffuse bone edema signal/enhancement as detailed. Fracture may be pathologic with superimposed osteomyelitis offered for clinical consideration. 4. Incidental heel spurs. -Podiatry following, S/P debridement 02/15/24, agree with plan to continue vanc/merrem, cultures pending -Blood culture NGTD 02/16: -Podiatry following - plan for continuation of vanc/merrem -Bone biopsy pending - plan for No plan for surgical intervention to the right calcaneus fractures with current infection. Per podiatry note plan is to wait for final bone biopsies, if positive, partial calcanectomy and bone debridement with external fixation/6-8 weeks of IV abx. If negative, plan for ORIF calcaneus with Acera restrata graft/wound vac application to the right foot. -Rehab placement on discharge, patient agreeable, will have CM discuss Sunday -NWB BLE, heels floated -Dressing changes per podiatry (2) Cellulitis of both feet Current Visit: Yes Status: Acute Assessment & Plan: -see foot ulcer Code(s): L03.115 - CELLULITIS OF RIGHT LOWER LIMB; L03.116 - CELLULITIS OF LEFT LOWER LIMB (3) Osteomyelitis Current Visit: Yes Status: Acute Assessment & Plan: -see foot ulcer Code(s): M86.9 - OSTEOMYELITIS, UNSPECIFIED (4) Hypokalemia Current Visit: Yes Status: Acute Assessment & Plan: -Potassium at 3.4, will replenish 02/16: -resolved Code(s): E87.6 - HYPOKALEMIA (5) Diabetes mellitus type II, uncontrolled Current Visit: No Status: Chronic Qualifiers: Glycemic state: with hyperglycemia Qualified Code(s): E11.65 - Type 2 diabetes mellitus with hyperglycemia Assessment & Plan: -Poorly controlled, A1c at 10.42 -discussed imported of good glycemic control for healing purposes -ADA diet -SSI -moderate while IP, glucose levels have been stable, may need adjustment while IP, will monitor -Will need adjustments to home meds on discharge Code(s): USK2463 - (6) Diarrhea Current Visit: Yes Status: Acute Assessment & Plan: -Stool studies pending VTE: ASA per podiatry Dispo: 2-3 days, may need rehab on discharge Code(s): R19.7 - DIARRHEA, UNSPECIFIED (7) Pathologic calcaneal fracture Current Visit: Yes Status: Acute Assessment & Plan: -reviewed podiatry note/MRI noting right fracture to calcaneus, agree with plan "Awaiting bone biopsies to assess if positive will plan for partial calcanectomy and bone debridement application of external fixation with 6-8 weeks of IV abx. If negative will plan for ORIF calcaneus with Acera restrata graft with wound vac application to the right." (8) Situational Depression -Patient would like to start anti-depressant, will start Lexapro 10mg Code(s): M84.476A - PATHOLOGICAL FRACTURE, UNSP FOOT, INIT ENCNTR FOR FRACTURE (2) Cellulitis of both feet Current Visit: Yes Status: Acute Code(s): L03.115 - CELLULITIS OF RIGHT LOWER LIMB; L03.116 - CELLULITIS OF LEFT LOWER LIMB (3) Osteomyelitis Current Visit: Yes Status: Acute Code(s): M86.9 - OSTEOMYELITIS, UNSPECIFIED (4) Hypokalemia Current Visit: Yes Status: Acute Code(s): E87.6 - HYPOKALEMIA (5) Diabetes mellitus type II, uncontrolled Current Visit: No Status: Chronic Qualifiers: Glycemic state: with hyperglycemia Qualified Code(s): E11.65 - Type 2 diabetes mellitus with hyperglycemia Code(s): JTG6176 - (6) Diarrhea Current Visit: Yes Status: Acute Code(s): R19.7 - DIARRHEA, UNSPECIFIED (7) Pathologic calcaneal fracture Current Visit: Yes Status: Acute Code(s): M84.476A - PATHOLOGICAL FRACTURE, UNSP FOOT, INIT ENCNTR FOR FRACTURE (8) Situational depression Current Visit: Yes Status: Acute
--- NOTE | 2024-02-17 10:14 | PCM.NOTE ---
Date and Time: 02/17/24 1004 Subjective Assessment: POD #2 s/p bilateral heel incision and drainage with bone debridement. Labs improving however patient clinically feels miserable with depressive state. Constitutional symmptoms: Fatigue, diarrhea, Nausea. Resolved: Chills/ subjective fevers Physical Exam - General General Appearance: moderate distress, lethargy - Neuro Neurologic: diminished - Vascular Peripheral Pulses: Posterior tibialis: 2+, Dorsalis-Pedis: 2+ Capillary Refill Time: < 3 seconds Hair Growth: Symmetrical and Bilateral Varicosities: Positive Edema: Pitting Edema Degree: 2+ Skin: Supple, not atrophic (Wound posterior left heel 4.0 x 5.1 positive probe to bone Wound posterior right 3.0 x 2.8 positive probe to bone Skin suspected necrosing just superior to fracture site. pressure injury at this time unstagable.) - Narrative Narrative Physical Exam: Podiatry Physical Exam Objective Data Vital Signs: Vital Signs - 24 hr Temp Pulse Resp BP Pulse Ox 02/17/24 08:15 97.6 F 78 20 120/59 98 02/16/24 19:36 98.1 F 85 18 98/54 99 Pain Assessment - Last Documented Pain Intensity 6 Pain Scale Used 0-10 Pain Scale Intake and Output: Intake & Output 02/14/24 02/15/24 02/16/24 02/17/24 11:59 11:59 11:59 11:59 Intake Total 60 3621 1330 Output Total 650 Balance -590 3621 1330 Weight 72 kg 72 kg Lab Results: Lab Results-Last 24 Hours 02/14/24 02/16/24 02/16/24 Range/Units 23:10 10:00 12:25 WBC (4.0-10.5) x10^3/uL RBC (4.1-5.4) x10^6/uL Hgb (12.0-16.0) g/dL Hct (35-47) % MCV (78-100) fL MCH (26-32) pg MCHC (32-36) g/dL RDW (11.5-14.0) % Plt Count (150-450) x10^3/uL MPV (7.5-11.0) fL Gran % (36.0-66.0) % Immature Gran % (Auto) (0.00-0.4) % Nucleat RBC Rel Count (0.00-0.1) % Eos # (Auto) (0-0.5) x10^3/uL Immature Gran # (Auto) (0.00-0.03) x10^3u/L Absolute Lymphs (auto) (1.0-4.6) x10^3/uL Absolute Monos (auto) (0.0-1.3) x10^3/uL Absolute Nucleated RBC (0.00-0.01) x10^3u/L Lymphocytes % (24.0-44.0) % Monocytes % (0.0-12.0) % Eosinophils % (0.00-5.0) % Basophils % (0.0-0.4) % Absolute Granulocytes (1.4-6.9) x10^3/uL Basophils # (0-0.4) x10^3/uL Sodium (135-145) mmol/L Potassium 3.5 (3.5-5.1) mmol/L Chloride (98-107) mmol/L Carbon Dioxide (22-30) mmol/L Anion Gap (5-15) MEQ/L BUN (7-17) mg/dL Creatinine (0.52-1.04) mg/dL Estimated GFR ML/MIN Glucose (74-106) mg/dL POC Glucometer 167 H (74 to 106) mg/dL Calcium (8.4-10.2) mg/dL Total Bilirubin (0.2-1.3) mg/dL AST (14-36) U/L ALT (0-35) U/L Alkaline Phosphatase (38-126) U/L C-Reactive Prot, Quant 100 H (0-10) mg/L Serum Total Protein (6.3-8.2) g/dL Albumin (3.5-5.0) g/dL Vancomycin Trough (10-20) ug/mL C. difficile Screen (NEGATIVE) C.difficile 027-NAP1-B1 (NEGATIVE) 02/16/24 02/16/24 02/16/24 Range/Units 16:47 17:40 21:16 WBC (4.0-10.5) x10^3/uL RBC (4.1-5.4) x10^6/uL Hgb (12.0-16.0) g/dL Hct (35-47) % MCV (78-100) fL MCH (26-32) pg MCHC (32-36) g/dL RDW (11.5-14.0) % Plt Count (150-450) x10^3/uL MPV (7.5-11.0) fL Gran % (36.0-66.0) % Immature Gran % (Auto) (0.00-0.4) % Nucleat RBC Rel Count (0.00-0.1) % Eos # (Auto) (0-0.5) x10^3/uL Immature Gran # (Auto) (0.00-0.03) x10^3u/L Absolute Lymphs (auto) (1.0-4.6) x10^3/uL Absolute Monos (auto) (0.0-1.3) x10^3/uL Absolute Nucleated RBC (0.00-0.01) x10^3u/L Lymphocytes % (24.0-44.0) % Monocytes % (0.0-12.0) % Eosinophils % (0.00-5.0) % Basophils % (0.0-0.4) % Absolute Granulocytes (1.4-6.9) x10^3/uL Basophils # (0-0.4) x10^3/uL Sodium (135-145) mmol/L Potassium (3.5-5.1) mmol/L Chloride (98-107) mmol/L Carbon Dioxide (22-30) mmol/L Anion Gap (5-15) MEQ/L BUN (7-17) mg/dL Creatinine (0.52-1.04) mg/dL Estimated GFR ML/MIN Glucose (74-106) mg/dL POC Glucometer 197 H 233 H (74 to 106) mg/dL Calcium (8.4-10.2) mg/dL Total Bilirubin (0.2-1.3) mg/dL AST (14-36) U/L ALT (0-35) U/L Alkaline Phosphatase (38-126) U/L C-Reactive Prot, Quant (0-10) mg/L Serum Total Protein (6.3-8.2) g/dL Albumin (3.5-5.0) g/dL Vancomycin Trough (10-20) ug/mL C. difficile Screen POSITIVE (NEGATIVE) C.difficile 027-NAP1-B1 PRESUMPTIVE NEGATIVE (NEGATIVE) 02/17/24 02/17/24 02/17/24 Range/Units 05:24 05:24 08:10 WBC 9.6 (4.0-10.5) x10^3/uL RBC 3.22 L (4.1-5.4) x10^6/uL Hgb 8.5 L (12.0-16.0) g/dL Hct 27.2 L (35-47) % MCV 84.5 (78-100) fL MCH 26.4 (26-32) pg MCHC 31.3 L (32-36) g/dL RDW 13.5 (11.5-14.0) % Plt Count 195 (150-450) x10^3/uL MPV 9.4 (7.5-11.0) fL Gran % 84.3 H (36.0-66.0) % Immature Gran % (Auto) 0.8 H (0.00-0.4) % Nucleat RBC Rel Count 0.0 (0.00-0.1) % Eos # (Auto) 0.14 (0-0.5) x10^3/uL Immature Gran # (Auto) 0.08 H (0.00-0.03) x10^3u/L Absolute Lymphs (auto) 0.77 L (1.0-4.6) x10^3/uL Absolute Monos (auto) 0.50 (0.0-1.3) x10^3/uL Absolute Nucleated RBC 0.00 (0.00-0.01) x10^3u/L Lymphocytes % 8.0 L (24.0-44.0) % Monocytes % 5.2 (0.0-12.0) % Eosinophils % 1.5 (0.00-5.0) % Basophils % 0.2 (0.0-0.4) % Absolute Granulocytes 8.09 H (1.4-6.9) x10^3/uL Basophils # 0.02 (0-0.4) x10^3/uL Sodium 136 (135-145) mmol/L Potassium 3.6 (3.5-5.1) mmol/L Chloride 109 H (98-107) mmol/L Carbon Dioxide 22 (22-30) mmol/L Anion Gap 8.1 (5-15) MEQ/L BUN 16 (7-17) mg/dL Creatinine 0.64 (0.52-1.04) mg/dL Estimated GFR 99.2 ML/MIN Glucose 156 H (74-106) mg/dL POC Glucometer 150 H (74 to 106) mg/dL Calcium 8.5 (8.4-10.2) mg/dL Total Bilirubin 0.40 (0.2-1.3) mg/dL AST 20 (14-36) U/L ALT 16 (0-35) U/L Alkaline Phosphatase 118 (38-126) U/L C-Reactive Prot, Quant (0-10) mg/L Serum Total Protein 5.5 L (6.3-8.2) g/dL Albumin 2.5 L (3.5-5.0) g/dL Vancomycin Trough (10-20) ug/mL C. difficile Screen (NEGATIVE) C.difficile 027-NAP1-B1 (NEGATIVE) 02/17/24 Range/Units 08:25 WBC (4.0-10.5) x10^3/uL RBC (4.1-5.4) x10^6/uL Hgb (12.0-16.0) g/dL Hct (35-47) % MCV (78-100) fL MCH (26-32) pg MCHC (32-36) g/dL RDW (11.5-14.0) % Plt Count (150-450) x10^3/uL MPV (7.5-11.0) fL Gran % (36.0-66.0) % Immature Gran % (Auto) (0.00-0.4) % Nucleat RBC Rel Count (0.00-0.1) % Eos # (Auto) (0-0.5) x10^3/uL Immature Gran # (Auto) (0.00-0.03) x10^3u/L Absolute Lymphs (auto) (1.0-4.6) x10^3/uL Absolute Monos (auto) (0.0-1.3) x10^3/uL Absolute Nucleated RBC (0.00-0.01) x10^3u/L Lymphocytes % (24.0-44.0) % Monocytes % (0.0-12.0) % Eosinophils % (0.00-5.0) % Basophils % (0.0-0.4) % Absolute Granulocytes (1.4-6.9) x10^3/uL Basophils # (0-0.4) x10^3/uL Sodium (135-145) mmol/L Potassium (3.5-5.1) mmol/L Chloride (98-107) mmol/L Carbon Dioxide (22-30) mmol/L Anion Gap (5-15) MEQ/L BUN (7-17) mg/dL Creatinine (0.52-1.04) mg/dL Estimated GFR ML/MIN Glucose (74-106) mg/dL POC Glucometer (74 to 106) mg/dL Calcium (8.4-10.2) mg/dL Total Bilirubin (0.2-1.3) mg/dL AST (14-36) U/L ALT (0-35) U/L Alkaline Phosphatase (38-126) U/L C-Reactive Prot, Quant (0-10) mg/L Serum Total Protein (6.3-8.2) g/dL Albumin (3.5-5.0) g/dL Vancomycin Trough 14.42 (10-20) ug/mL C. difficile Screen (NEGATIVE) C.difficile 027-NAP1-B1 (NEGATIVE) Radiology Exams: Radiology Procedures Category Date Time Status MRI LOWER EXT WITH CONTRAST [MRI] Stat Exams 02/15/24 09:23 Completed MRI LOWER EXT WITH CONTRAST [MRI] Stat Exams 02/15/24 09:24 Completed Assessment/Plan (1) Pathologic calcaneal fracture Current Visit: Yes Status: Acute Assessment & Plan: At this time awaiting bone biopsy of right calcaenus prior to definitive fixation vs calacanectomy with external fixation placement of Restrata graft and wound vac application. Dressing consisting of Iodine adaptic 4x4 abd kerlix cast padding a well padded posterior splint flexed into 30-45 degrees of plantar flexion and 4 inch and 6 inch misael applied to the right lower extremity. PICC line in place- Vancomycin Merropenem for now accounting for bone cultures. Pseudomonas on soft tissue cultures. MRI reviewed possible superimposition of OM on Calcnaeal tounge type fracture extending from posterior facet of calcaneus. Anticipated 6-8 weeks of IV abx Possible consult to ID if multibacterial due to chronicity however suspected repeat infection and fracture due to patient non compliance. Code(s): M84.476A - PATHOLOGICAL FRACTURE, UNSP FOOT, INIT ENCNTR FOR FRACTURE (2) Diabetic foot wound Current Visit: No Status: Acute Assessment & Plan: POD #2 s/p debridement, clinically appears to be improving. (3) Diabetes mellitus type II, uncontrolled Current Visit: No Status: Chronic Qualifiers: Qualified Code(s): E11.65 - Type 2 diabetes mellitus with hyperglycemia Assessment & Plan: Discussed tight glycemic regulation and its importance in wound healing A1c 9.99 per last outpatient lab work Code(s): [id number] - (4) Hyperglycemia Current Visit: No Status: Acute Code(s): R73.9 - HYPERGLYCEMIA, UNSPECIFIED (5) Polysubstance use disorder Current Visit: No Status: Acute Code(s): F19.90 - OTHER PSYCHOACTIVE SUBSTANCE USE, UNSPECIFIED, UNCOMPLICATED (6) Amputated great toe of left foot Current Visit: No Status: Acute Code(s): S98.112A - COMPLETE TRAUMATIC AMPUTATION OF LEFT GREAT TOE, INIT ENCNTR (7) Cellulitis of both feet Current Visit: Yes Status: Acute Code(s): L03.115 - CELLULITIS OF RIGHT LOWER LIMB; L03.116 - CELLULITIS OF LEFT LOWER LIMB (8) Osteomyelitis Current Visit: Yes Status: Acute Assessment & Plan: Awaiting bone biopsies. Code(s): M86.9 - OSTEOMYELITIS, UNSPECIFIED (9) Diabetic foot ulcers Current Visit: Yes Status: Acute Assessment & Plan: left awaiting bone biopsy for definitive management. will likely proceed with grafting and vac placement Unna boot applied to the left lower extremity for edema control and venous insufficiency. Code(s): E11.621 - TYPE 2 DIABETES MELLITUS WITH FOOT ULCER; L97.509 - NON- PRESSURE CHRONIC ULCER OTH PRT UNSP FOOT W UNSP SEVERITY (10) Leukocytosis Current Visit: Yes Status: Acute Assessment & Plan: Resolved at this time. Code(s): D72.829 - ELEVATED WHITE BLOOD CELL COUNT, UNSPECIFIED
[2024-02-17] MEDS: Lexapro PO SCH (12:19)
[2024-02-18 04:50] LABS: Absolute Neutrophil Ct (ANC) 3.88 x10^3/uL (1.4-6.9); BASOPHIL % 0.4 % (0.0-0.4); Basophil (Absolute #) 0.02 x10^3/uL (0-0.4); Eosinophil % 2.2 % (0.00-5.0); Eosinophil (Absolute #) 0.12 x10^3/uL (0-0.5); Hematocrit 25.5 % (35-47); IMMATURE GRAN # 0.05 x10^3u/L (0.00-0.03); IMMATURE GRAN % 0.9 % (0.00-0.4); Lymphocytes % 18.3 % (24.0-44.0); Mean Cell Volume 84.7 fL (78-100); Mean Corpuscular Hemoglobin 26.6 pg (26-32); Mean Corpuscular Hgb Concent. 31.4 g/dL (32-36); Mean Platelet Volume 9.5 fL (7.5-11.0); Monocyte (Absolute #) 0.39 x10^3/uL (0.0-1.3); Monocytes % 7.1 % (0.0-12.0); Neutrophil % 71.1 % (36.0-66.0); Platelet Count 184 x10^3/uL (150-450); Red Blood Count 3.01 x10^6/uL (4.1-5.4); Red Cell Distribution Width 13.4 % (11.5-14.0); White Blood Count 5.5 x10^3/uL (4.0-10.5)
[2024-02-18 05:14] LABS: ALBUMIN 2.4 g/dL (3.5-5.0); ANION GAP 6.7 MEQ/L (5-15); BILIRUBIN,TOTAL 0.3 mg/dL (0.2-1.3); Calcium 8.3 mg/dL (8.4-10.2); Creatinine 1 0.57 mg/dL (0.52-1.04); EST GLOMERULAR FILTRATION RATE 102.1 ML/MIN; Potassium 3.7 mmol/L (3.5-5.1); Total Protein 5.3 g/dL (6.3-8.2)
--- NOTE | 2024-02-18 08:39 | XRAY ---
Indication: PICC line placement. Comparison: January 14, 2024 Portable chest again demonstrates withdrawn or replaced left arm PICC line tip projecting over SVC. Lungs demonstrates developing right infrahilar infiltrate versus atelectasis without consolidation/large effusion. Remaining heart and left lung unremarkable.
--- NOTE | 2024-02-18 09:04 | PCM.NOTE ---
Date and Time: 02/18/24 0854 Subjective Assessment: Ms. HERNANDEZ is a 63 year old female with a past medical history significant for diabetes, neuropathy and recent loss of her in November who presented to [facility] 02/15/24 experiencing wounds to bilateral feet that have not been improving despite outpatient treatment of Rocephin. Podiatry consulted and patient taken to OR 02/15/24 got debridement and removal of skin graft to left heel. MRI is showing diffuse cellulitis and questionable osteomyelitis to bilteral feet. MRI confirmed pathological fracture to right calcaneus Podiatry plan reviewed, agree with continued antibiotic treatment with vanc/merrem. No plan for surgical intervention to the right calcaneus fractures with current infection. Per po diatry note plan is to wait for final bone biopsies, if positive, partial calcanectomy and bone debridement with external fixation/6-8 weeks of IV abx. If negative, plan for ORIF calcaneus with Acera restrata graft/wound vac application to the right foot. Patient may need rehab placement as she to remain NWB to BLE with exception for transfers. Dressing changes MWF with podiatry. Pain is well controlled today with narcotic pain medication 0/10 pain. Diarrhea has resolved. Case management to discuss with pt today about rehab placement vs. her wishes. Reportedly she has been stating she does not want anymore procedures done. Her mental health appears stable and she is not tearful today. Per nurse this am, Young, pt appears to have pulled her PICC line out some. Will check with CXR. She denies CP, SOB, abd. pain, N/V/D. - Review of Systems Constitutional: No Fever, No Chills Eyes: No Symptoms Ears, Nose, & Throat: No Symptoms Respiratory: No Cough, No Short Of Breath Cardiac: No Chest Pain, No Edema, No Syncope Abdominal/Gastrointestinal: No Abdominal Pain, No Nausea, No Vomiting, No Diarrhea Genitourinary Symptoms: No Dysuria Musculoskeletal: No Back Pain, No Neck Pain Skin: No Rash Neurological: No Dizziness, No Focal Weakness, No Sensory Changes Psychological: No Symptoms Endocrine: No Symptoms Hematologic/Lymphatic: No Symptoms Immunological/Allergic: No Symptoms Objective Exam General Appearance: no apparent distress, alert Neurologic Exam: alert, oriented x 3, cooperative, normal mood/affect, nml cerebellar function, sensation nml, No motor deficits Skin Exam: normal color, warm, dry, other (BLLE wrapped) Eye Exam: PERRL, EOMI, eyes nml inspection Ears, Nose, Throat Exam: normal ENT inspection, pharynx normal, moist mucous membranes Neck Exam: normal inspection, non-tender, supple, full range of motion Respiratory Exam: normal breath sounds, lungs clear, No respiratory distress Cardiovascular Exam: regular rate/rhythm, normal heart sounds Gastrointestinal/Abdomen Exam: soft, No tenderness, No mass Extremity Exam: normal inspection, normal range of motion Back Exam: normal inspection, normal range of motion, No CVA tenderness, No vertebral tenderness Pelvic Exam: deferred Rectal Exam: deferred Objective Data Vital Signs: Vital Signs - 24 hr Temp Pulse Resp BP Pulse Ox 02/18/24 07:39 97.3 F 80 18 151/69 98 02/17/24 20:00 97.5 F 85 18 138/60 98 Pain Assessment - Last Documented Pain Intensity 4 Pain Scale Used 0-10 Pain Scale Intake and Output: Intake & Output 02/15/24 02/16/24 02/17/24 02/18/24 11:59 11:59 11:59 11:59 Intake Total 60 3621 1330 490 Output Total 650 Balance -590 3621 1330 490 Weight 72 kg 72 kg Lab Results: Lab Results-Last 24 Hours 02/14/24 02/17/24 02/17/24 Range/Units 23:10 08:25 11:50 WBC (4.0-10.5) x10^3/uL RBC (4.1-5.4) x10^6/uL Hgb (12.0-16.0) g/dL Hct (35-47) % MCV (78-100) fL MCH (26-32) pg MCHC (32-36) g/dL RDW (11.5-14.0) % Plt Count (150-450) x10^3/uL MPV (7.5-11.0) fL Gran % (36.0-66.0) % Immature Gran % (Auto) (0.00-0.4) % Nucleat RBC Rel Count (0.00-0.1) % Eos # (Auto) (0-0.5) x10^3/uL Immature Gran # (Auto) (0.00-0.03) x10^3u/L Absolute Lymphs (auto) (1.0-4.6) x10^3/uL Absolute Monos (auto) (0.0-1.3) x10^3/uL Absolute Nucleated RBC (0.00-0.01) x10^3u/L Lymphocytes % (24.0-44.0) % Monocytes % (0.0-12.0) % Eosinophils % (0.00-5.0) % Basophils % (0.0-0.4) % Absolute Granulocytes (1.4-6.9) x10^3/uL Basophils # (0-0.4) x10^3/uL Sodium (135-145) mmol/L Potassium (3.5-5.1) mmol/L Chloride (98-107) mmol/L Carbon Dioxide (22-30) mmol/L Anion Gap (5-15) MEQ/L BUN (7-17) mg/dL Creatinine (0.52-1.04) mg/dL Estimated GFR ML/MIN Glucose (74-106) mg/dL POC Glucometer 215 H (74 to 106) mg/dL Calcium (8.4-10.2) mg/dL Total Bilirubin (0.2-1.3) mg/dL AST (14-36) U/L ALT (0-35) U/L Alkaline Phosphatase (38-126) U/L C-Reactive Prot, Quant 100 H (0-10) mg/L Serum Total Protein (6.3-8.2) g/dL Albumin (3.5-5.0) g/dL Lipase (23-300) U/L Vancomycin Trough 14.42 (10-20) ug/mL 02/17/24 02/17/24 02/18/24 Range/Units 16:38 20:36 04:29 WBC 5.5 (4.0-10.5) x10^3/uL RBC 3.01 L (4.1-5.4) x10^6/uL Hgb 8.0 L (12.0-16.0) g/dL Hct 25.5 L (35-47) % MCV 84.7 (78-100) fL MCH 26.6 (26-32) pg MCHC 31.4 L (32-36) g/dL RDW 13.4 (11.5-14.0) % Plt Count 184 (150-450) x10^3/uL MPV 9.5 (7.5-11.0) fL Gran % 71.1 H (36.0-66.0) % Immature Gran % (Auto) 0.9 H (0.00-0.4) % Nucleat RBC Rel Count 0.0 (0.00-0.1) % Eos # (Auto) 0.12 (0-0.5) x10^3/uL Immature Gran # (Auto) 0.05 H (0.00-0.03) x10^3u/L Absolute Lymphs (auto) 1.00 (1.0-4.6) x10^3/uL Absolute Monos (auto) 0.39 (0.0-1.3) x10^3/uL Absolute Nucleated RBC 0.00 (0.00-0.01) x10^3u/L Lymphocytes % 18.3 L (24.0-44.0) % Monocytes % 7.1 (0.0-12.0) % Eosinophils % 2.2 (0.00-5.0) % Basophils % 0.4 (0.0-0.4) % Absolute Granulocytes 3.88 (1.4-6.9) x10^3/uL Basophils # 0.02 (0-0.4) x10^3/uL Sodium (135-145) mmol/L Potassium (3.5-5.1) mmol/L Chloride (98-107) mmol/L Carbon Dioxide (22-30) mmol/L Anion Gap (5-15) MEQ/L BUN (7-17) mg/dL Creatinine (0.52-1.04) mg/dL Estimated GFR ML/MIN Glucose (74-106) mg/dL POC Glucometer 234 H 247 H (74 to 106) mg/dL Calcium (8.4-10.2) mg/dL Total Bilirubin (0.2-1.3) mg/dL AST (14-36) U/L ALT (0-35) U/L Alkaline Phosphatase (38-126) U/L C-Reactive Prot, Quant (0-10) mg/L Serum Total Protein (6.3-8.2) g/dL Albumin (3.5-5.0) g/dL Lipase (23-300) U/L Vancomycin Trough (10-20) ug/mL 02/18/24 02/18/24 02/18/24 Range/Units 04:29 04:35 07:13 WBC (4.0-10.5) x10^3/uL RBC (4.1-5.4) x10^6/uL Hgb (12.0-16.0) g/dL Hct (35-47) % MCV (78-100) fL MCH (26-32) pg MCHC (32-36) g/dL RDW (11.5-14.0) % Plt Count (150-450) x10^3/uL MPV (7.5-11.0) fL Gran % (36.0-66.0) % Immature Gran % (Auto) (0.00-0.4) % Nucleat RBC Rel Count (0.00-0.1) % Eos # (Auto) (0-0.5) x10^3/uL Immature Gran # (Auto) (0.00-0.03) x10^3u/L Absolute Lymphs (auto) (1.0-4.6) x10^3/uL Absolute Monos (auto) (0.0-1.3) x10^3/uL Absolute Nucleated RBC (0.00-0.01) x10^3u/L Lymphocytes % (24.0-44.0) % Monocytes % (0.0-12.0) % Eosinophils % (0.00-5.0) % Basophils % (0.0-0.4) % Absolute Granulocytes (1.4-6.9) x10^3/uL Basophils # (0-0.4) x10^3/uL Sodium 137 (135-145) mmol/L Potassium 3.7 (3.5-5.1) mmol/L Chloride 110 H (98-107) mmol/L Carbon Dioxide 23 (22-30) mmol/L Anion Gap 6.7 (5-15) MEQ/L BUN 18 H (7-17) mg/dL Creatinine 0.57 (0.52-1.04) mg/dL Estimated GFR 102.1 ML/MIN Glucose 180 H (74-106) mg/dL POC Glucometer 116 H (74 to 106) mg/dL Calcium 8.3 L (8.4-10.2) mg/dL Total Bilirubin 0.30 (0.2-1.3) mg/dL AST 15 (14-36) U/L ALT 15 (0-35) U/L Alkaline Phosphatase 100 (38-126) U/L C-Reactive Prot, Quant (0-10) mg/L Serum Total Protein 5.3 L (6.3-8.2) g/dL Albumin 2.4 L (3.5-5.0) g/dL Lipase 290 (23-300) U/L Vancomycin Trough (10-20) ug/mL Radiology Exams: Radiology Procedures Category Date Time Status CHEST 1 VIEW (PORTABLE) Routine Exams 02/18/24 08:21 Completed Assessment/Plan (1) Diabetic foot wound Current Visit: No Status: Acute Assessment & Plan: - podiatry following- plan for continuation of vanc/merrem -Bone biopsy pending - plan for No plan for surgical intervention to the right calcaneus fractures with current infection. Per podiatry note plan is to wait for final bone biopsies, if positive, partial calcanectomy and bone debridement with external fixation/6-8 weeks of IV abx. If negative, plan for ORIF calcaneus with Acera restrata graft/wound vac application to the right foot. - Rehab placement on discharge, patient agreeable, will have CM discuss Sunday - NWB BLE, heels floated - Dressing changes per podiatry - PICC line in place- XR today confirms correct placement - Wound culture + pseudomonas aeruginosa - BC x2 negative (2) Cellulitis of both feet Current Visit: Yes Status: Acute Assessment & Plan: - See above plan Code(s): L03.115 - CELLULITIS OF RIGHT LOWER LIMB; L03.116 - CELLULITIS OF LEFT LOWER LIMB (3) Osteomyelitis Current Visit: Yes Status: Acute Assessment & Plan: - see DM foot wound plan Code(s): M86.9 - OSTEOMYELITIS, UNSPECIFIED (4) Diarrhea Current Visit: Yes Status: Acute Assessment & Plan: - resolved with Questran light - C-diff negative Code(s): R19.7 - DIARRHEA, UNSPECIFIED (5) Hypokalemia Current Visit: Yes Status: Resolved Assessment & Plan: - resolved Code(s): E87.6 - HYPOKALEMIA (6) Pathologic calcaneal fracture Current Visit: Yes Status: Acute Assessment & Plan: -reviewed podiatry note/MRI noting right fracture to calcaneus, agree with plan "Awaiting bone biopsies to assess if positive will plan for partial calcanectomy and bone debridement application of external fixation with 6-8 weeks of IV abx. If negative will plan for ORIF calcaneus with Acera restrata graft with wound vac application to the right." Code(s): M84.476A - PATHOLOGICAL FRACTURE, UNSP FOOT, INIT ENCNTR FOR FRACTURE (7) Situational depression Current Visit: Yes Status: Acute (8) Diabetes mellitus type II, uncontrolled Current Visit: No Status: Chronic Qualifiers: Glycemic state: with hyperglycemia Qualified Code(s): E11.65 - Type 2 diabetes mellitus with hyperglycemia Assessment & Plan: - Lexapro 10mg- improved VTE: SCD PPI: Protonix Next of KIN: Mathew Zuñiga [phone] Code status: DNR/ SCO D/C plan: pending podiatry recs for rehab Code(s): OSS8399 -
[2024-02-18] MEDS: PROTONIX 40 MG IV IV SCH (10:21)
--- NOTE | 2024-02-18 11:38 | OP ---
THIS REPORT WAS AMENDED ON 02/25/2024 (surgery time). SURGERY DATE: 02/15/2024 SURGERY TIME: 1024 PREOPERATIVE DIAGNOSIS: 1. PATHOLOGIC CALCANEAL FRACTURE RIGHT FOOT. 2. OSTEOMYELITIS. 3. DIABETIC FOOT ULCER. 4. UNCONTROLLED DIABETES. 5. PERIPHERAL NEUROPATHY SECONDARY TO DIABETES MELLITUS. 6. LEFT DECUBITUS ULCER. 7. NONCOMPLIANCE WITH REGIMEN. POSTOPERATIVE DIAGNOSIS: 1. PATHOLOGIC CALCANEAL FRACTURE RIGHT FOOT. 2. OSTEOMYELITIS. 3. DIABETIC FOOT ULCER. 4. UNCONTROLLED DIABETES. 5. PERIPHERAL NEUROPATHY SECONDARY TO DIABETES MELLITUS. 6. LEFT DECUBITUS ULCER. 7. NONCOMPLIANCE WITH REGIMEN. PROCEDURE: 1. Incision and drainage with bone debridement with the bilateral lower extremity as well as bone biopsy right and left heel. SURGEON: Levi Ramirez D.P.M. METAL PRECISION MACHINE ASSEMBLER: None. ANESTHESIA: Monitored anesthesia care with intraoperative ankle block consisting of 20 cc to each ankle bilateral of a 1:1 mixture of 1% Lidocaine plain and 0.5% Bupivacaine plain. HEMOSTASIS: A pressure dressing. ESTIMATED BLOOD LOSS: Approximately 5 cc. MATERIALS: None. INJECTABLES: 20 cc to the right and 20 cc to the left of a 1:1 mixture of 1% Lidocaine plain and 0.5% Bupivacaine plain injected in an ankle block type fashion. INDICATIONS FOR PROCEDURE: Rina is a very pleasant, well-known patient of mine for multiple episodes of uncontrolled diabetes and ulceration. In this current instance, patient has had a complicated medical history in recent times as well as social history. Her recently from cancer with metastases to the brain. She has fallen into a depression. Prior to his , she started developing ulcerations to the posterior aspect of the bilateral heels. However, was left unchecked. Patient presented in November for diabetic foot check which both ulcerations were identified. This was treated conservatively initially. However, patient did develop an infection. Patient was adamant about being independent during this period of time and unfortunately developed an infection. We did get her set-up for surgery for an aggressive debridement as she was sensate at this time likely secondary to pain from the infection. Patient did have a debridement and was doing well initially and went forward with graft placement. Patient then developed another infection once again due to noncompliance. Patient was urged for a stay in the hospital secondary to her depression as well as the infection with SIRS criteria. At this time, the patient had developed a new infection identified to be pseudomonas and E. Coli infection different to the ones that she had developed in the past. The patient at this time understands all risks, complications, and benefits of surgical intervention including, but not limited to, infection; hematoma or seroma; possibility of delayed wound healing, non-wound healing, and possible need for further surgical intervention at a later date. No guarantees were provided as to the outcome of surgical intervention at this time. It is at this time we decided to proceed. DESCRIPTION OF PROCEDURE: The patient was brought in to the OR and placed on the OR table in the supine position. At this time, monitored anesthesia care was administered until the patient was adequately sedated. At this time, attention was directed to the left heel where aggressive debridement took place down to the level of tendon and bone of the calcaneus. At this time, due to the exposure of the bone and recent infection, decision was made to perform bone debridement as well as a bone biopsy. This was performed utilizing a Jamshidi needle and retaining some of the bone for pathology and culture. From this standpoint, attention was directed to the right heel where the bone quality was excessively soft secondary to the pathologic fracture of the calcaneus. Bone biopsies were taken in the exposed bone. The wound was debrided. Following the debridement in both capacities, the left heel measured to be 4.0 X 5.1 with a positive probe to bone and to the right 2.8 X 3.0 with a positive probe to bone as well. Following this, copious amounts of sterile saline and Bactisure were utilized to flush the surgical site. A dressing consisting of Betadine, Adaptic, 4 X 4, Kerlix, ADD, and Tj were applied to the bilateral lower extremity. Patient was then reversed from anesthesia and returned to the PACU with vital signs stable and vascular status intact. The patient handled the anesthesia as well as the procedure without significant complication. Postoperative orders as indicated in the patient's discharge chart.
[2024-02-19 04:54] LABS: Hematocrit 25.8 % (35-47); Mean Cell Volume 84.3 fL (78-100); Mean Corpuscular Hemoglobin 26.1 pg (26-32); Mean Platelet Volume 9.3 fL (7.5-11.0); Platelet Count 197 x10^3/uL (150-450); Red Blood Count 3.06 x10^6/uL (4.1-5.4); Red Cell Distribution Width 13.4 % (11.5-14.0); White Blood Count 5.9 x10^3/uL (4.0-10.5)
[2024-02-19 05:14] LABS: ALBUMIN 2.5 g/dL (3.5-5.0); ANION GAP 5.6 MEQ/L (5-15); BILIRUBIN,TOTAL 0.3 mg/dL (0.2-1.3); Calcium 8.4 mg/dL (8.4-10.2); Creatinine 1 0.62 mg/dL (0.52-1.04); Potassium 3.5 mmol/L (3.5-5.1); Total Protein 5.4 g/dL (6.3-8.2)
[2024-02-19] MEDS ORDERED: Lactated Ringers 1,000 ML IV ONE (08:27)
[2024-02-19] MEDS ORDERED: Xylocaine 1% Vial 30 ML PF IJ ONE (09:20)
[2024-02-19] MEDS ORDERED: Marcaine Mpf 0.5% Vial 30 Ml ONE (09:20)
[2024-02-19] MEDS ORDERED: SUBLIMAZE 100 MCG/2 ML ONE (09:54)
[2024-02-19] MEDS ORDERED: Xylocaine-Mpf 2% 5 Ml Vial ONE (09:54)
[2024-02-19] MEDS ORDERED: Decadron 4 MG INJ ONE (09:54)
[2024-02-19] MEDS ORDERED: BRIDION 200MG/2ML IV ONE (09:54)
[2024-02-19] MEDS ORDERED: ROCURONIUM BROMIDE IV ONE (09:54)
[2024-02-19] MEDS ORDERED: Zofran 4 MG/2 ML VIAL ONE (09:54)
[2024-02-19] MEDS ORDERED: DIPRIVAN 200 MG/20 ML IV ONE (09:54)
[2024-02-19] MEDS ORDERED: Ephedrine Sulfate 50 MG/ML ONE (10:10)
[2024-02-19] MEDS ORDERED: PHENYLEPHRINE HCL ONE (10:16)
--- NOTE | 2024-02-19 11:15 | PCM.NOTE ---
Date and Time: 02/19/24 1109 Subjective Assessment: 02/18/24 Ms. HERNANDEZ is a 63 year old female with a past medical history significant for diabetes, neuropathy and recent loss of her in November who presented to [facility] 02/15/24 experiencing wounds to bilateral feet that have not been improving despite outpatient treatment of Rocephin. Podiatry consulted and patient taken to OR 02/15/24 got debridement and removal of skin graft to left heel. MRI is showing diffuse cellulitis and questionable osteomyelitis to bilteral feet. MRI confirmed pathological fracture to right calcaneus Podiatry plan reviewed, agree with continued antibiotic treatment with vanc/merrem. No plan for surgical intervention to the right calcaneus fractures with current infection. Per podiatry note plan is to wait for final bone biopsies, if positive, partial calcanectomy and bone debridement with external fixation/6-8 weeks of IV abx. If negative, plan for ORIF calcaneus with Acera restrata graft/wound vac application to the right foot. Patient may need rehab placement as she to remain NWB to BLE with exception for transfers. Dressing changes MWF with podiatry. Pain is well controlled today with narcotic pain medication 0/10 pain. Diarrhea has resolved. Case management to discuss with pt today about rehab placement vs. her wishes. Reportedly she has been stating she does not want anymore procedures done. Her mental health appears stable and she is not tearful today. Per nurse this am, Young, pt appears to have pulled her PICC line out some. Will check with CXR. She denies CP, SOB, abd. pain, N/V/D. 02/19/24 Pt sitting up in bed. She reports she is rather frustrated and irritable today and discussed multiple concerns she had in detail. She did speak with podiatry and agreeable to surgery of right foot today. Bone biopsies negative. She is also agreeable to rehab OP but reports she will only go for 4 weeks then she is going home. Mg+ 1.5 and replaced. Continue antibiotics per podiatry recs. Psych consulted yesterday as mood is labile. They recommended OP f/u. She denies homicidal or suicidal ideation. She denies CP, abd. pain, N/V/D. - Review of Systems Constitutional: No Fever, No Chills Eyes: No Symptoms Ears, Nose, & Throat: No Symptoms Respiratory: No Cough, No Short Of Breath Cardiac: No Chest Pain, No Edema, No Syncope Abdominal/Gastrointestinal: No Abdominal Pain, No Nausea, No Vomiting, No Diarrhea Genitourinary Symptoms: No Dysuria Musculoskeletal: No Back Pain, No Neck Pain Skin: Other (BLLE wrapped), No Rash Neurological: No Dizziness, No Focal Weakness, No Sensory Changes Psychological: Emotional Lability, Mood Changes Endocrine: No Symptoms Hematologic/Lymphatic: No Symptoms Immunological/Allergic: No Symptoms Objective Exam General Appearance: no apparent distress, alert Neurologic Exam: alert, oriented x 3, nml cerebellar function, sensation nml, agitation, No motor deficits Skin Exam: normal color, warm, dry Eye Exam: PERRL, EOMI, eyes nml inspection Ears, Nose, Throat Exam: normal ENT inspection, pharynx normal, moist mucous membranes Neck Exam: normal inspection, non-tender, supple, full range of motion Respiratory Exam: normal breath sounds, lungs clear, No respiratory distress Cardiovascular Exam: regular rate/rhythm, normal heart sounds Gastrointestinal/Abdomen Exam: soft, No tenderness, No mass Extremity Exam: normal range of motion, tenderness, other (BLLE wrapped by podiatry) Back Exam: normal inspection, normal range of motion, No CVA tenderness, No vertebral tenderness Pelvic Exam: deferred Rectal Exam: deferred Objective Data Vital Signs: Vital Signs - 24 hr Temp Pulse Resp BP Pulse Ox 02/19/24 08:30 97 F 76 14 148/70 97 02/19/24 08:29 97.0 F 76 14 148/70 97 02/19/24 07:34 92 L 02/19/24 05:09 98.2 F 75 16 129/63 97 02/18/24 19:45 96.7 F 83 18 162/77 Pain Assessment - Last Documented Pain Intensity 2 Pain Scale Used 0-10 Pain Scale Intake and Output: Intake & Output 02/16/24 02/17/24 02/18/24 02/19/24 11:59 11:59 11:59 11:59 Intake Total 3621 6698 764 2555 Output Total 200 Balance 3621 6279 484 9891 Weight 72 kg 72 kg Lab Results: Lab Results-Last 24 Hours 02/15/24 02/18/24 02/18/24 Range/Units 10:58 11:38 16:47 WBC (4.0-10.5) x10^3/uL RBC (4.1-5.4) x10^6/uL Hgb (12.0-16.0) g/dL Hct (35-47) % MCV (78-100) fL MCH (26-32) pg MCHC (32-36) g/dL RDW (11.5-14.0) % Plt Count (150-450) x10^3/uL MPV (7.5-11.0) fL Sodium (135-145) mmol/L Potassium (3.5-5.1) mmol/L Chloride (98-107) mmol/L Carbon Dioxide (22-30) mmol/L Anion Gap (5-15) MEQ/L BUN (7-17) mg/dL Creatinine (0.52-1.04) mg/dL Estimated GFR ML/MIN Glucose (74-106) mg/dL POC Glucometer 187 H 210 H (74 to 106) mg/dL Calcium (8.4-10.2) mg/dL Magnesium (1.6-2.3) mg/dL Total Bilirubin (0.2-1.3) mg/dL AST (14-36) U/L ALT (0-35) U/L Alkaline Phosphatase (38-126) U/L Serum Total Protein (6.3-8.2) g/dL Albumin (3.5-5.0) g/dL Surg PTH Specimen SEE COMMENTS 02/18/24 02/19/24 02/19/24 Range/Units 21:50 04:40 04:40 WBC 5.9 (4.0-10.5) x10^3/uL RBC 3.06 L (4.1-5.4) x10^6/uL Hgb 8.0 L (12.0-16.0) g/dL Hct 25.8 L (35-47) % MCV 84.3 (78-100) fL MCH 26.1 (26-32) pg MCHC 31.0 L (32-36) g/dL RDW 13.4 (11.5-14.0) % Plt Count 197 (150-450) x10^3/uL MPV 9.3 (7.5-11.0) fL Sodium 138 (135-145) mmol/L Potassium 3.5 (3.5-5.1) mmol/L Chloride 110 H (98-107) mmol/L Carbon Dioxide 25 (22-30) mmol/L Anion Gap 5.6 (5-15) MEQ/L BUN 15 (7-17) mg/dL Creatinine 0.62 (0.52-1.04) mg/dL Estimated GFR 100.0 ML/MIN Glucose 183 H (74-106) mg/dL POC Glucometer 193 H (74 to 106) mg/dL Calcium 8.4 (8.4-10.2) mg/dL Magnesium (1.6-2.3) mg/dL Total Bilirubin 0.30 (0.2-1.3) mg/dL AST 17 (14-36) U/L ALT 15 (0-35) U/L Alkaline Phosphatase 106 (38-126) U/L Serum Total Protein 5.4 L (6.3-8.2) g/dL Albumin 2.5 L (3.5-5.0) g/dL Surg PTH Specimen 02/19/24 02/19/24 Range/Units 04:40 07:31 WBC (4.0-10.5) x10^3/uL RBC (4.1-5.4) x10^6/uL Hgb (12.0-16.0) g/dL Hct (35-47) % MCV (78-100) fL MCH (26-32) pg MCHC (32-36) g/dL RDW (11.5-14.0) % Plt Count (150-450) x10^3/uL MPV (7.5-11.0) fL Sodium (135-145) mmol/L Potassium (3.5-5.1) mmol/L Chloride (98-107) mmol/L Carbon Dioxide (22-30) mmol/L Anion Gap (5-15) MEQ/L BUN (7-17) mg/dL Creatinine (0.52-1.04) mg/dL Estimated GFR ML/MIN Glucose (74-106) mg/dL POC Glucometer 175 H (74 to 106) mg/dL Calcium (8.4-10.2) mg/dL Magnesium 1.5 L (1.6-2.3) mg/dL Total Bilirubin (0.2-1.3) mg/dL AST (14-36) U/L ALT (0-35) U/L Alkaline Phosphatase (38-126) U/L Serum Total Protein (6.3-8.2) g/dL Albumin (3.5-5.0) g/dL Surg PTH Specimen Radiology Exams: Radiology Procedures Category Date Time Status CHEST 1 VIEW (PORTABLE) Routine Exams 02/18/24 08:21 Completed FLUOROSCOPY UP TO 1 HR Routine Exams 02/19/24 07:13 Ordered OS CALCIS XRAY Routine Exams 02/19/24 07:13 Ordered Multi-Disciplinary Progress Notes: Multi-Disciplinary Progress Notes 02/19/24 10:19 Physical Therapy Note by Beronica(L#[id number])Ashlee CHART REVIEW COMPLETE. PT. HAVING SX THIS A.M. WILL ASSESS AFTER SX FOR P.T. INTERVENTION. Initialized on 02/19/24 10:19 - END OF NOTE 02/18/24 13:01 Case Management Note by Amparo Barfield OF [place] HAS ACCEPTED AND WILL START AUTH FOR STAY Initialized on 02/18/24 13:01 - END OF NOTE 02/18/24 11:59 Case Management Note by Amparo Barfield Addendum entered by Amparo Barfield 02/18/24 12:02: IF PATIENT GOES TO SNF- THEY WILL JUST NEED NOTIFIED OF WHAT SNF SO THEY CAN FOLLOW UP Original Note: PATIENT HAS [facility]. THEY WERE LEFT A MESSAGE NOTIFYING THEM THAT PATIENT IS HERE INPT. THEY WILL NEED NOTIFIED AT TIME OF DC AT [phone]. THEY WILL NEED FAXED THE DC INSTRUCTIONS, DC MED LIST AND DC SUMMARY TO [phone] Initialized on 02/18/24 11:59 - END OF NOTE 02/18/24 11:30 (created 02/18/24 11:55) Case Management Note by Amparo Barfield PASRR AND LOC COMPLETE- COPIES PLACED IN CHART AND FAXED TO [facility] Initialized on 02/18/24 11:55 - END OF NOTE 02/18/24 11:27 Nutrition Note by Nel Roth F/u Note: 1800Cc diet with [id number] con't with improved po intake; 50-100%. Labs 02/17= BUN 18, glu 116, alb 2.4, hgb 8.0, hct 25.5. goal of po >=25% met - change to >=75% goal of glu wnl not met and ongoing. Will con't to monitor and f/u prn. MONTRELL Lange Initialized on 02/18/24 11:27 - END OF NOTE Assessment/Plan (1) Diabetic foot wound Current Visit: No Status: Acute (2) Cellulitis of both feet Current Visit: Yes Status: Acute Code(s): L03.115 - CELLULITIS OF RIGHT LOWER LIMB; L03.116 - CELLULITIS OF LEFT LOWER LIMB (3) Osteomyelitis Current Visit: Yes Status: Acute Code(s): M86.9 - OSTEOMYELITIS, UNSPECIFIED (4) Diarrhea Current Visit: Yes Status: Acute Code(s): R19.7 - DIARRHEA, UNSPECIFIED (5) Hypokalemia Current Visit: Yes Status: Resolved Code(s): E87.6 - HYPOKALEMIA (6) Pathologic calcaneal fracture Current Visit: Yes Status: Acute Code(s): M84.476A - PATHOLOGICAL FRACTURE, UNSP FOOT, INIT ENCNTR FOR FRACTURE (7) Situational depression Current Visit: Yes Status: Acute (8) Diabetes mellitus type II, uncontrolled Current Visit: No Status: Chronic Qualifiers: Glycemic state: with hyperglycemia Qualified Code(s): E11.65 - Type 2 diabetes mellitus with hyperglycemia Assessment & Plan: (1) Diabetic foot wound Current Visit: No Status: Acute Assessment & Plan: - podiatry following- plan for continuation of vanc/merrem -Bone biopsy pending - plan for No plan for surgical intervention to the right calcaneus fractures with current infection. Per podiatry note plan is to wait for final bone biopsies, if positive, partial calcanectomy and bone debridement with external fixation/6-8 weeks of IV abx. If negative, plan for ORIF calcaneus with Acera restrata graft/wound vac application to the right foot. - Rehab placement on discharge, patient agreeable, will have CM discuss Sunday - NWB BLE, heels floated - Dressing changes per podiatry - PICC line in place- XR today confirms correct placement - Wound culture + pseudomonas aeruginosa - BC x2 negative 02/18 - Bone biopsies negative - + surgery of right foot today per podiatry - pending rehab placement post op (2) Cellulitis of both feet Current Visit: Yes Status: Acute Assessment & Plan: - See above plan Code(s): L03.115 - CELLULITIS OF RIGHT LOWER LIMB; L03.116 - CELLULITIS OF LEFT LOWER LIMB (3) Osteomyelitis Current Visit: Yes Status: Acute Assessment & Plan: - see DM foot wound plan Code(s): M86.9 - OSTEOMYELITIS, UNSPECIFIED (4) Diarrhea Current Visit: Yes Status: Acute Assessment & Plan: - resolved with Questran light - C-diff negative Code(s): R19.7 - DIARRHEA, UNSPECIFIED (5) Hypokalemia Current Visit: Yes Status: Resolved Assessment & Plan: - resolved Code(s): E87.6 - HYPOKALEMIA (6) Pathologic calcaneal fracture Current Visit: Yes Status: Acute Assessment & Plan: -reviewed podiatry note/MRI noting right fracture to calcaneus, agree with plan "Awaiting bone biopsies to assess if positive will plan for partial calcanectomy and bone debridement application of external fixation with 6-8 weeks of IV abx. If negative will plan for ORIF calcaneus with Acera restrata graft with wound vac application to the right." Code(s): M84.476A - PATHOLOGICAL FRACTURE, UNSP FOOT, INIT ENCNTR FOR FRACTURE (7) Situational depression Current Visit: Yes Status: Acute - Psych consult- recommended OP f/u - Lexapro 10mg (8) Diabetes mellitus type II, uncontrolled Current Visit: No Status: Chronic Qualifiers: Glycemic state: with hyperglycemia Qualified Code(s): E11.65 - Type 2 diabetes mellitus with hyperglycemia -Poorly controlled, A1c at 10.42 -discussed imported of good glycemic control for healing purposes -ADA diet -SSI -moderate while IP, glucose levels have been stable, may need adjustment while IP, will monitor -Will need adjustments to home meds on discharge Code(s): [id number] - (9) Hypomagnesemia Current Visit: Yes Status: Acute Assessment & Plan: - Mg+ 1.5- replaced - trend VTE: SCD PPI: Protonix Next of KIN: Mathew Zuñiga [phone] Code status: DNR/ SCO D/C plan: pending podiatry recs for rehab Code(s): E83.42 - HYPOMAGNESEMIA
[2024-02-19] MEDS ORDERED: Naropin 0.5% 30 ML VIAL ONE (11:29)
[2024-02-19] MEDS: Lactated Ringers 1,000 ML IV SCH (11:32)
--- NOTE | 2024-02-19 11:40 | XRAY ---
Indication: Right calcaneal ORIF. Intraoperative fluoroscopy provided for 3 minute 1 seconds. 18 digital spot images submitted for interpretation ultimately demonstrates 3 orthopedic screws fixating calcaneal fracture in good apposition/alignment. Correlate with intraoperative findings/report.
--- NOTE | 2024-02-19 14:02 | XRAY ---
Three minute and 1 second of fluoroscopy was used in surgery for a right calcaneal ORIF.
[2024-02-19] MEDS: MAG-OX 400 PO SCH (15:48)
[2024-02-19] MEDS ORDERED: AMARYL 4 MG PO SCH (17:00)
[2024-02-20] MEDS: NORCO 5/325 MG PO PRN (03:31)
[2024-02-20 05:40] LABS: ALBUMIN 2.5 g/dL (3.5-5.0); ANION GAP 8.5 MEQ/L (5-15); BILIRUBIN,TOTAL 0.3 mg/dL (0.2-1.3); Calcium 8.5 mg/dL (8.4-10.2); Creatinine 1 0.62 mg/dL (0.52-1.04); Potassium 4.1 mmol/L (3.5-5.1); Total Protein 5.2 g/dL (6.3-8.2)
[2024-02-20 06:08] LABS: Hematocrit 26.2 % (35-47); Hemoglobin 8.1 g/dL (12.0-16.0); Mean Cell Volume 84.2 fL (78-100); Mean Corpuscular Hgb Concent. 30.9 g/dL (32-36); Mean Platelet Volume 9.5 fL (7.5-11.0); Platelet Count 220 x10^3/uL (150-450); Red Blood Count 3.11 x10^6/uL (4.1-5.4); Red Cell Distribution Width 13.5 % (11.5-14.0); White Blood Count 7.8 x10^3/uL (4.0-10.5)
--- NOTE | 2024-02-20 10:37 | PCM.DS ---
Discharge Summary Date of Admission: 02/15/24 10:00 Date of Discharge: 02/20/24 Admitting Physician: KYM JONES MD Consults: Consults on Case 02/15/24 08:00 Consult Podiatry ROUTINE 02/18/24 12:27 Consult Tele-Health [Tele-Health Consult] ROUTINE Primary Care Provider: ROSA M MILTON Allergies Allergies shellfish derived Allergy (Intermediate, Verified 02/14/24 22:19) Rash rash bee venom protein (honey bee) Allergy (Unknown, Verified 02/14/24 22:19) metformin [From Glucophage] Allergy (Unknown, Verified 02/14/24 22:19) Penicillins Allergy (Verified 02/14/24 22:19) Hives hives sob Hospital Summary - Hospital Course Hospital Course: 02/18/24 Ms. HERNANDEZ is a 63 year old female with a past medical history significant for diabetes, neuropathy and recent loss of her in November who presented to [facility] 02/15/24 experiencing wounds to bilateral feet that have not been improving despite outpatient treatment of Rocephin. Podiatry consulted and patient taken to OR 02/15/24 got debridement and removal of skin graft to left heel. MRI is showing diffuse cellulitis and questionable osteomyelitis to bilteral feet. MRI confirmed pathological fracture to right calcaneus Podiatry plan reviewed, agree with continued antibiotic treatment with vanc/merrem. No plan for surgical intervention to the right calcaneus fractures with current infection. Per podiatry note plan is to wait for final bone biopsies, if positive, partial calcanectomy and bone debridement with external fixation/6-8 weeks of IV abx. If negative, plan for ORIF calcaneus with Acera restrata graft/wound vac ap plication to the right foot. Patient may need rehab placement as she to remain NWB to BLE with exception for transfers. Dressing changes MWF with podiatry. Pain is well controlled today with narcotic pain medication 0/10 pain. Diarrhea has resolved. Case management to discuss with pt today about rehab placement vs. her wishes. Reportedly she has been stating she does not want anymore procedures done. Her mental health appears stable and she is not tearful today. Per nurse this am, Young, pt appears to have pulled her PICC line out some. Will check with CXR. She denies CP, SOB, abd. pain, N/V/D. 02/19/24 Pt sitting up in bed. She reports she is rather frustrated and irritable today and discussed multiple concerns she had in detail. She did speak with podiatry and agreeable to surgery of right foot today. Bone biopsies negative. She is also agreeable to rehab OP but reports she will only go for 4 weeks then she is going home. Mg+ 1.5 and replaced. Continue antibiotics per podiatry recs. Psych consulted yesterday as mood is labile. They recommended OP f/u. She denies homicidal or suicidal ideation. She denies CP, abd. pain, N/V/D. 02/20/24 Pt resting in bed. She explains she feels much better today. She is ready for d/c to rehab. Her mood has improved and she is optimistic about her future and her health. Podiatry OK with d/c and antibiotics sent over to ECF to continue. W ill d/c with pain medication. She denies any pain today. She also denies CP, SOB, abd. pain, N/V/D. - Vitals & Intake/Output Vital Signs: Vital Signs Temperature 96.9 F 02/20/24 08:40 Pulse Rate 73 02/20/24 08:40 Respiratory Rate 16 02/20/24 08:40 Blood Pressure 148/72 02/20/24 08:40 O2 Sat by Pulse Oximetry 91 L 02/20/24 08:40 Intake & Output: Intake & Output 02/17/24 02/18/24 02/19/24 02/20/24 11:59 11:59 11:59 11:59 Intake Total 8360 716 7450 2925 Output Total 200 Balance 8174 695 0284 2925 Weight 72 kg - Lab Result Diagrams: 02/20/24 04:29 02/20/24 04:29 Lab Results-Last 24 Hrs: Lab Results-Last 24 Hours 02/19/24 02/19/24 02/20/24 Range/Units 16:35 21:35 04:29 WBC 7.8 (4.0-10.5) x10^3/uL RBC 3.11 L (4.1-5.4) x10^6/uL Hgb 8.1 L (12.0-16.0) g/dL Hct 26.2 L (35-47) % MCV 84.2 (78-100) fL MCH 26.0 (26-32) pg MCHC 30.9 L (32-36) g/dL RDW 13.5 (11.5-14.0) % Plt Count 220 (150-450) x10^3/uL MPV 9.5 (7.5-11.0) fL Sodium (135-145) mmol/L Potassium (3.5-5.1) mmol/L Chloride (98-107) mmol/L Carbon Dioxide (22-30) mmol/L Anion Gap (5-15) MEQ/L BUN (7-17) mg/dL Creatinine (0.52-1.04) mg/dL Estimated GFR ML/MIN Glucose (74-106) mg/dL POC Glucometer 253 H 321 H (74 to 106) mg/dL Calcium (8.4-10.2) mg/dL Magnesium (1.6-2.3) mg/dL Total Bilirubin (0.2-1.3) mg/dL AST (14-36) U/L ALT (0-35) U/L Alkaline Phosphatase (38-126) U/L Serum Total Protein (6.3-8.2) g/dL Albumin (3.5-5.0) g/dL 02/20/2402/19/02/20/24 Range/Units 04:29 04:29 07:24 WBC (4.0-10.5) x10^3/uL RBC (4.1-5.4) x10^6/uL Hgb (12.0-16.0) g/dL Hct (35-47) % MCV (78-100) fL MCH (26-32) pg MCHC (32-36) g/dL RDW (11.5-14.0) % Plt Count (150-450) x10^3/uL MPV (7.5-11.0) fL Sodium 137 (135-145) mmol/L Potassium 4.1 (3.5-5.1) mmol/L Chloride 109 H (98-107) mmol/L Carbon Dioxide 24 (22-30) mmol/L Anion Gap 8.5 (5-15) MEQ/L BUN 19 H (7-17) mg/dL Creatinine 0.62 (0.52-1.04) mg/dL Estimated GFR 100.0 ML/MIN Glucose 173 H (74-106) mg/dL POC Glucometer 156 H (74 to 106) mg/dL Calcium 8.5 (8.4-10.2) mg/dL Magnesium 1.6 (1.6-2.3) mg/dL Total Bilirubin 0.30 (0.2-1.3) mg/dL AST 21 (14-36) U/L ALT 17 (0-35) U/L Alkaline Phosphatase 111 (38-126) U/L Serum Total Protein 5.2 L (6.3-8.2) g/dL Albumin 2.5 L (3.5-5.0) g/dL Micro Results-Entire Visit: Microbiology 02/14/24 23:20 Blood Culture - Final Blood 02/14/24 23:10 Blood Culture - Final Blood 02/15/24 11:00 Gram Stain - Final Foot - Right Gram Stain Result 1 - Final Gram Stain Result 2 - Final AFB Specimen Processing - Final Acid Fast Bacilli Smear - Final Tissue Culture - Preliminary Aerobic Culture Result 1 - Preliminary 02/15/24 11:00 Gram Stain - Final Foot - Left Gram Stain Result 1 - Final Gram Stain Result 2 - Final AFB Specimen Processing - Final Acid Fast Bacilli Smear - Final 02/15/24 10:00 Wound Culture - Final Heel - Left Pseudomonas Aeruginosa Accuchecks Date 02/20/24 Date 02/19/24 Time 17:37 - Radiology Exams Ordered Rad Exams-Entire Visit: Radiology Procedures Category Date Time Status FLUOROSCOPY UP TO 1 HR Routine Exams 02/19/24 07:13 Completed OS CALCIS XRAY Routine Exams 02/19/24 07:13 Completed - Procedures and Test Procedures and Tests throughout Hospitalization: Therapy Orders & Screens 02/18/24 09:04 Incentive Spirometry Q1H Comment: Diagnosis: DIABETIC FOOT WOUNDS, FAILED OTPT TREATEMENT 02/18/24 17:48 PT Eval & Treat ( Order) ONCE Reason for Eval:: home needs Diagnosis: DIABETIC FOOT WOUNDS, FAILED OTPT TREATEMENT 02/19/24 07:36 Incentive Spirometry TID Comment: Diagnosis: DIABETIC FOOT WOUNDS, FAILED OTPT TREATEMENT Discharge Exam General Appearance: no apparent distress, alert Neurologic Exam: alert, oriented x 3, cooperative, normal mood/affect, nml cerebellar function, sensation nml, No motor deficits Eye Exam: PERRL, EOMI, eyes nml inspection Ears, Nose, Throat Exam: normal ENT inspection, pharynx normal, moist mucous membranes Neck Exam: normal inspection, non-tender, supple, full range of motion Respiratory Exam: normal breath sounds, lungs clear, No respiratory distress Cardiovascular Exam: regular rate/rhythm, normal heart sounds Gastrointestinal/Abdomen Exam: soft, No tenderness, No mass Pelvic Exam: deferred Rectal Exam: deferred Back Exam: normal inspection, normal range of motion, No CVA tenderness, No vertebral tenderness Extremity Exam: normal inspection, normal range of motion Skin Exam: normal color, warm, dry, other (BLLE wrapped) Final Diagnosis/Problem List - Final Discharge Diagnosis/Problem (1) Diabetic foot wound Current Visit: No Status: Acute (2) Cellulitis of both feet Current Visit: Yes Status: Acute Code(s): L03.115 - CELLULITIS OF RIGHT LOWER LIMB; L03.116 - CELLULITIS OF LEFT LOWER LIMB (3) Osteomyelitis Current Visit: Yes Status: Acute Code(s): M86.9 - OSTEOMYELITIS, UNSPECIFIED (4) Diarrhea Current Visit: Yes Status: Acute Code(s): R19.7 - DIARRHEA, UNSPECIFIED (5) Hypokalemia Current Visit: Yes Status: Resolved Code(s): E87.6 - HYPOKALEMIA (6) Pathologic calcaneal fracture Current Visit: Yes Status: Acute Code(s): M84.476A - PATHOLOGICAL FRACTURE, UNSP FOOT, INIT ENCNTR FOR FRACTURE (7) Situational depression Current Visit: Yes Status: Acute (8) Diabetes mellitus type II, uncontrolled Current Visit: No Status: Chronic Code(s): [id number] - (9) Hypomagnesemia Current Visit: Yes Status: Acute Assessment & Plan: (1) Diabetic foot wound Current Visit: No Status: Acute Assessment & Plan: - podiatry following- plan for continuation of vanc/merrem -Bone biopsy pending - plan for No plan for surgical intervention to the right calcaneus fractures with current infection. Per podiatry note plan is to wait for final bone biopsies, if positive, partial calcanectomy and bone debridement with external fixation/6-8 weeks of IV abx. If negative, plan for ORIF calcaneus with Acera restrata graft/wound vac application to the right foot. - Rehab placement on discharge, patient agreeable, will have CM discuss Sunday - NWB BLE, heels floated - Dressing changes per podiatry - PICC line in place- XR today confirms correct placement - Wound culture + pseudomonas aeruginosa - BC x2 negative 02/18 - Bone biopsies negative - + surgery of right foot today per podiatry - pending rehab placement post op 02/19 - Continue OP antibiotics per podiatry recs (2) Cellulitis of both feet Current Visit: Yes Status: Acute Assessment & Plan: - See above plan Code(s): L03.115 - CELLULITIS OF RIGHT LOWER LIMB; L03.116 - CELLULITIS OF LEFT LOWER LIMB (3) Osteomyelitis Current Visit: Yes Status: Acute Assessment & Plan: - see DM foot wound plan Code(s): M86.9 - OSTEOMYELITIS, UNSPECIFIED (4) Diarrhea Current Visit: Yes Status: Acute Assessment & Plan: - resolved with Questran light - C-diff negative Code(s): R19.7 - DIARRHEA, UNSPECIFIED (5) Hypokalemia Current Visit: Yes Status: Resolved Assessment & Plan: - resolved Code(s): E87.6 - HYPOKALEMIA (6) Pathologic calcaneal fracture Current Visit: Yes Status: Acute Assessment & Plan: -reviewed podiatry note/MRI noting right fracture to calcaneus, agree with plan "Awaiting bone biopsies to assess if positive will plan for partial calcanectomy and bone debridement application of external fixation with 6-8 weeks of IV abx. If negative will plan for ORIF calcaneus with Acera restrata graft with wound vac application to the right." Code(s): M84.476A - PATHOLOGICAL FRACTURE, UNSP FOOT, INIT ENCNTR FOR FRACTURE (7) Situational depression Current Visit: Yes Status: Acute - Psych consult- recommended OP f/u - Lexapro 10mg- continue Op (8) Diabetes mellitus type II, uncontrolled Current Visit: No Status: Chronic Qualifiers: Glycemic state: with hyperglycemia Qualified Code(s): E11.65 - Type 2 diabetes mellitus with hyperglycemia -Poorly controlled, A1c at 10.42 -discussed imported of good glycemic control for healing purposes -ADA diet -SSI -moderate while IP, glucose levels have been stable, may need adjustment while IP, will monitor -Will need adjustments to home meds on discharge Code(s): [id number] - (9) Hypomagnesemia Current Visit: Yes Status: Acute Assessment & Plan: - Mg+ 1.5- replaced - trend 02/19 - resolved Code(s): E83.42 - HYPOMAGNESEMIA - Discharge Discharge Date: 02/20/24 Disposition: Home, Self-Care Condition: Fair Prescriptions: New Escitalopram Oxalate [Lexapro] 10 mg PO DAILY 30 Days #30 tablet Continue Glimepiride 2 mg [Amaryl 2 MG] 4 mg PO BID Gabapentin [Neurontin ] 300 mg PO TID Follow up with: MARCIO HOU DPM [ACTIVE STAFF] - ROSA M MILTON [Primary Care Provider] - 02/25/24 10:15 am
--- NOTE | 2024-02-20 10:42 | OP ---
SURGERY DATE: 02/19/2024 SURGERY TIME: 952 PREOPERATIVE DIAGNOSIS: 1. RIGHT PATHOLOGIC CALCANEAL FRACTURE. 2. NONCOMPLIANCE OF WEIGHT-BEARING STATUS. 3. OSTEOMYELITIS. 4. DIABETIC FOOT ULCERS BILATERAL FEET TO REPEAT INFECTION SECONDARY TO NONCOMPLIANCE. 5. PERIPHERAL NEUROPATHY SECONDARY TO DIABETES. 6. UNCONTROLLED DIABETES. 7. POLYSUBSTANCE ABUSE. POSTOPERATIVE DIAGNOSIS: 1. RIGHT PATHOLOGIC CALCANEAL FRACTURE. 2. NONCOMPLIANCE OF WEIGHT-BEARING STATUS. 3. OSTEOMYELITIS. 4. DIABETIC FOOT ULCERS BILATERAL FEET TO REPEAT INFECTION SECONDARY TO NONCOMPLIANCE. 5. PERIPHERAL NEUROPATHY SECONDARY TO DIABETES. 6. UNCONTROLLED DIABETES. 7. POLYSUBSTANCE ABUSE. PROCEDURE: 1. Tendo-Achilles lengthening. 2. Open reduction internal fixation of calcaneal tongue type fracture. 3. Incision and drainage with bone debridement to bilateral heels, right and left. 4. Application of Restrata synthetic skin substitute. 5. Application of negative wound vac therapy bilateral heels. SURGEON: Levi Ramirez D.P.M. WORM GROWER: None. ANESTHESIA: Monitored anesthesia care. ESTIMATED BLOOD LOSS: Approximately 5 cc. MATERIALS: A Rafi 6.5 X 40 times 2 partially threaded screw with a 6.5 X 40 fully threaded screw times 1, one 5 X 5 cm Restrata skin substitute and a 3.8 X 5 Restrata skin substitute, wound vac through [employer] Med[employer], and 3-0 Nylon. INJECTABLES: See anesthesia report for details. INDICATIONS FOR PROCEDURE: Rina is a very pleasant 63 year-old uncontrolled diabetic who presented to my service with bilateral heel ulcerations. Patient has had further issues with development of the ulcers and worsening as time goes on due to the fact that she wished to remain independent during the postoperative. The patient was informed that early on I recommended a stay at a fpc facility. 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 For that reason, the patient was allowed to maintain some level of independence, but was warned about weight-bearing. With that, patient has failed subsequent attempt at proceeding with healing the wounds and due to her weight-bearing status, has suffered a pathologic fracture to the right calcaneus. At this time, decision was made after obtaining a bone biopsy to make sure that there was no infection within the bone, to proceed with open reduction internal fixation. Due to the fact that there was some delay, decision was made to add the possibility of a Tendo-Achilles lengthening due to contracture as time went on. With that, patient understands all risks, complications, and benefits of surgical intervention. Patient at this time is very resistant to the treatment, but knows she does need help in order to heal these wounds and remain infection free. With that, I have decided to place her in a nursing facility and also apply grafts to cover over the exposed bone as well as a wound vac to provide a non-biological barrier to infection and outside contaminants. The patient is understanding of this at this time. Patient has been made aware of all risks, possible complications. She has an expectation of 4 weeks of healing time from her standpoint. However, she has been made aware that this is likely going to take a number of months to resolve completely. However, she will be allowed to return to her weight-bearing status hopefully within the next 6 weeks. From that standpoint, plenty of time was allowed for the patient to ask questions which were answered to her satisfaction. It is at this time we decided to proceed. DESCRIPTION OF PROCEDURE: The patient was brought in to the OR and placed on the OR table in the supine position. At this time, monitored anesthesia care was administered until the patient was adequately sedated. The bilateral lower extremity was prepped and draped in the typical sterile fashion and lowered onto the surgical field. At this time, attention was directed to the posterior aspect of the calcaneus of the right foot where the tongue type calcaneal fracture was encountered. Under fluoroscopic guidance, a pointed reduction tenaculum was utilized to clamp down the fracture. The fracture would not reduce the whole way, so decision was made to proceed with a Tendo-Achilles lengthening. This was performed utilizing an 11 blade at 3, 5, and 8 cm from the calcaneal insertion of the Tendo-Achilles alternating medial, lateral, medial for these incisions at the central line gaining approximately 1 cm more of dorsiflexion and approximately 20 more degrees of dorsiflexion. This allowed for us to reduce the calcaneal fracture a bit more which gained adequate reduction of the calcaneal fracture. From that standpoint, decision was made to make a small opening at the medial and lateral aspects of the calcaneus where the calcaneus was visualized to reduce the fracture with a freer and manual manipulation. From that standpoint, once this occurred, a 6.5 X 40 times 2 partially threaded was introduced from a dorsal posterior to a plantar anterior inferior orientation avoiding the weight-bearing surface. A fully threaded 6.5 screw was then introduced to gain excellent compression through this site. This was checked making sure there were no screws within the weight-bearing surface of the calcaneus. Anything that was bicortical was directed laterally to maintain the pull of the Achilles tendon as well as avoid any irritants with weight-bearing at a later date. Following this, copious amounts of sterile saline were utilized to flush the surgical site. Following this, debridement took place to the level of bone at the posterior aspect of the calcaneus to the bilateral lower extremity using 2 separate sets of instrumentation. 1000 ml of Bactisure was then utilized to flush the surgical site, then sterile saline at 3 liters. A 5 X 5 Restrata graft was then sutured utilizing Nylon to the left and a 3.8 X 5 was sutured to the right in a continuous stitch type fashion. Following this, a negative wound vac pressure was applied with window draping to the bilateral lower extremity and once placed, the vac was turned on and operating at 125 mm Hg with no appreciated leaks. Following this, a dressing to the left consisting of Adaptic, 4 X 4, Kerlix, and Tj was applied. To the right, a well-padded posterior splint consisting of Iodine, Adaptic, 4 X 4, Kerlix, ABD, a well-padded posterior splint and Tj was applied. The patient was then provided a right popliteal block. See anesthesia report for details. Patient was then reversed from anesthesia and returned to the PACU with vital signs stable and vascular status intact. Patient handled the anesthesia as well as the procedure without significant complication. Postoperative orders as indicated in the patient's discharge chart.
--- NOTE | 2024-02-20 13:34 | PCM.NOTE ---
Date and Time: 02/20/24 1331 Subjective Assessment: 02/18/24 Ms. HERNANDEZ is a 63 year old female with a past medical history significant for diabetes, neuropathy and recent loss of her in November who presented to [facility] 02/15/24 experiencing wounds to bilateral feet that have not been improving despite outpatient treatment of Rocephin. Podiatry consulted and patient taken to OR 02/15/24 got debridement and removal of skin graft to left heel. MRI is showing diffuse cellulitis and questionable osteomyelitis to bilteral feet. MRI confirmed pathological fracture to right calcaneus Podiatry plan reviewed, agree with continued antibiotic treatment with vanc/merrem. No plan for surgical intervention to the right calcaneus fractures with current infection. Per podiatry note plan is to wait for final bone biopsies, if positive, partial calcanectomy and bone debridement with external fixation/6-8 weeks of IV abx. If negative, plan for ORIF calcaneus with Acera restrata graft/wound vac application to the right foot. Patient may need rehab placement as she to remain NWB to BLE with exception for transfers. Dressing changes MWF with podiatry. Pain is well controlled today with narcotic pain medication 0/10 pain. Diarrhea has resolved. Case management to discuss with pt today about rehab placement vs. her wishes. Reportedly she has been stating she does not want anymore procedures done. Her mental health appears stable and she is not tearful today. Per nurse this am, Young, pt appears to have pulled her PICC line out some. Will check with CXR. She denies CP, SOB, abd. pain, N/V/D. 02/19/24 Pt sitting up in bed. She reports she is rather frustrated and irritable today and discussed multiple concerns she had in detail. She did speak with podiatry and agreeable to surgery of right foot today. Bone biopsies negative. She is also agreeable to rehab OP but reports she will only go for 4 weeks then she is going home. Mg+ 1.5 and replaced. Continue antibiotics per podiatry recs. Psych consulted yesterday as mood is labile. They recommended OP f/u. She denies homicidal or suicidal ideation. She denies CP, abd. pain, N/V/D. 02/20/24 Pt resting in bed. She explains she feels much better today. She is ready for d/c to rehab. Her mood has improved and she is optimistic about her future and her health. Podiatry OK to with d/c and antibiotics sent over to [facility] to continue. CM discussed change in plan of antibiotics and will have to wait to d/c until tomorrow since medications were changed by podiatry. Will d/c with pain medication. She denies any pain today. She also denies CP, SOB, abd. pain, N/V/D. - Review of Systems Constitutional: No Fever, No Chills Eyes: No Symptoms Ears, Nose, & Throat: No Symptoms Respiratory: No Cough, No Short Of Breath Cardiac: No Chest Pain, No Edema, No Syncope Abdominal/Gastrointestinal: No Abdominal Pain, No Nausea, No Vomiting, No Diarrhea Genitourinary Symptoms: No Dysuria Musculoskeletal: No Back Pain, No Neck Pain Skin: Other (BLLE wrapped), No Rash Neurological: No Dizziness, No Focal Weakness, No Sensory Changes Psychological: No Symptoms Endocrine: No Symptoms Hematologic/Lymphatic: No Symptoms Immunological/Allergic: No Symptoms Objective Exam General Appearance: no apparent distress, alert Neurologic Exam: alert, oriented x 3, cooperative, normal mood/affect, nml cerebellar function, sensation nml, No motor deficits Skin Exam: normal color, warm, dry, other (BLLE wrapped) Eye Exam: PERRL, EOMI, eyes nml inspection Ears, Nose, Throat Exam: normal ENT inspection, pharynx normal, moist mucous membranes Neck Exam: normal inspection, non-tender, supple, full range of motion Respiratory Exam: normal breath sounds, lungs clear, No respiratory distress Cardiovascular Exam: regular rate/rhythm, normal heart sounds Gastrointestinal/Abdomen Exam: soft, No tenderness, No mass Extremity Exam: normal inspection, normal range of motion Back Exam: normal inspection, normal range of motion, No CVA tenderness, No vertebral tenderness Pelvic Exam: deferred Rectal Exam: deferred Objective Data Vital Signs: Vital Signs - 24 hr Temp Pulse Resp BP Pulse Ox 02/20/24 08:40 96.9 F 73 16 148/72 91 L 02/20/24 04:28 97.7 F 76 18 144/70 95 02/19/24 23:51 97.8 F 90 17 116/65 95 02/19/24 20:00 97.8 F 89 18 171/76 93 L 02/19/24 19:29 94 L 02/19/24 15:30 85 16 176/76 97 02/19/24 15:00 85 16 165/90 97 02/19/24 14:45 80 16 159/85 97 02/19/24 14:30 85 15 164/84 97 02/19/24 14:15 81 16 165/86 97 Pain Assessment - Last Documented Pain Intensity 0 Pain Scale Used 0-10 Pain Scale Intake and Output: Intake & Output 02/18/24 02/19/24 02/20/24 02/21/24 11:59 11:59 11:59 11:59 Intake Total 850 3767 2925 120 Output Total 200 Balance 850 3567 2925 120 Weight 72 kg Lab Results: Lab Results-Last 24 Hours 02/19/24 02/19/24 02/20/24 Range/Units 16:35 21:35 04:29 WBC 7.8 (4.0-10.5) x10^3/uL RBC 3.11 L (4.1-5.4) x10^6/uL Hgb 8.1 L (12.0-16.0) g/dL Hct 26.2 L (35-47) % MCV 84.2 (78-100) fL MCH 26.0 (26-32) pg MCHC 30.9 L (32-36) g/dL RDW 13.5 (11.5-14.0) % Plt Count 220 (150-450) x10^3/uL MPV 9.5 (7.5-11.0) fL Sodium (135-145) mmol/L Potassium (3.5-5.1) mmol/L Chloride (98-107) mmol/L Carbon Dioxide (22-30) mmol/L Anion Gap (5-15) MEQ/L BUN (7-17) mg/dL Creatinine (0.52-1.04) mg/dL Estimated GFR ML/MIN Glucose (74-106) mg/dL POC Glucometer 253 H 321 H (74 to 106) mg/dL Calcium (8.4-10.2) mg/dL Magnesium (1.6-2.3) mg/dL Total Bilirubin (0.2-1.3) mg/dL AST (14-36) U/L ALT (0-35) U/L Alkaline Phosphatase (38-126) U/L Serum Total Protein (6.3-8.2) g/dL Albumin (3.5-5.0) g/dL 02/20/24 02/20/24 02/20/24 Range/Units 04:29 04:29 07:24 WBC (4.0-10.5) x10^3/uL RBC (4.1-5.4) x10^6/uL Hgb (12.0-16.0) g/dL Hct (35-47) % MCV (78-100) fL MCH (26-32) pg MCHC (32-36) g/dL RDW (11.5-14.0) % Plt Count (150-450) x10^3/uL MPV (7.5-11.0) fL Sodium 137 (135-145) mmol/L Potassium 4.1 (3.5-5.1) mmol/L Chloride 109 H (98-107) mmol/L Carbon Dioxide 24 (22-30) mmol/L Anion Gap 8.5 (5-15) MEQ/L BUN 19 H (7-17) mg/dL Creatinine 0.62 (0.52-1.04) mg/dL Estimated GFR 100.0 ML/MIN Glucose 173 H (74-106) mg/dL POC Glucometer 156 H (74 to 106) mg/dL Calcium 8.5 (8.4-10.2) mg/dL Magnesium 1.6 (1.6-2.3) mg/dL Total Bilirubin 0.30 (0.2-1.3) mg/dL AST 21 (14-36) U/L ALT 17 (0-35) U/L Alkaline Phosphatase 111 (38-126) U/L Serum Total Protein 5.2 L (6.3-8.2) g/dL Albumin 2.5 L (3.5-5.0) g/dL 02/20/24 Range/Units 11:38 WBC (4.0-10.5) x10^3/uL RBC (4.1-5.4) x10^6/uL Hgb (12.0-16.0) g/dL Hct (35-47) % MCV (78-100) fL MCH (26-32) pg MCHC (32-36) g/dL RDW (11.5-14.0) % Plt Count (150-450) x10^3/uL MPV (7.5-11.0) fL Sodium (135-145) mmol/L Potassium (3.5-5.1) mmol/L Chloride (98-107) mmol/L Carbon Dioxide (22-30) mmol/L Anion Gap (5-15) MEQ/L BUN (7-17) mg/dL Creatinine (0.52-1.04) mg/dL Estimated GFR ML/MIN Glucose (74-106) mg/dL POC Glucometer 154 H (74 to 106) mg/dL Calcium (8.4-10.2) mg/dL Magnesium (1.6-2.3) mg/dL Total Bilirubin (0.2-1.3) mg/dL AST (14-36) U/L ALT (0-35) U/L Alkaline Phosphatase (38-126) U/L Serum Total Protein (6.3-8.2) g/dL Albumin (3.5-5.0) g/dL Radiology Exams: Radiology Procedures Category Date Time Status FLUOROSCOPY UP TO 1 HR Routine Exams 02/19/24 07:13 Completed OS CALCIS XRAY Routine Exams 02/19/24 07:13 Completed Multi-Disciplinary Progress Notes: Multi-Disciplinary Progress Notes 02/19/24 13:48 Case Management Note by Amparo Barfield OF [facility] RECEIVED APPROVAL FOR PATIENT TO ADMIT THRU 02/26. THEY HAVE ORDERED A WOUND VAC AND WILL ARRIVE TOMORROW. Initialized on 02/19/24 13:48 - END OF NOTE Assessment/Plan (1) Diabetic foot wound Current Visit: No Status: Acute (2) Cellulitis of both feet Current Visit: Yes Status: Acute Code(s): L03.115 - CELLULITIS OF RIGHT LOWER LIMB; L03.116 - CELLULITIS OF LEFT LOWER LIMB (3) Osteomyelitis Current Visit: Yes Status: Acute Code(s): M86.9 - OSTEOMYELITIS, UNSPECIFIED (4) Diarrhea Current Visit: Yes Status: Acute Code(s): R19.7 - DIARRHEA, UNSPECIFIED (5) Hypokalemia Current Visit: Yes Status: Resolved Code(s): E87.6 - HYPOKALEMIA (6) Pathologic calcaneal fracture Current Visit: Yes Status: Acute Code(s): M84.476A - PATHOLOGICAL FRACTURE, UNSP FOOT, INIT ENCNTR FOR FRACTURE (7) Situational depression Current Visit: Yes Status: Acute (8) Diabetes mellitus type II, uncontrolled Current Visit: No Status: Chronic Qualifiers: Glycemic state: with hyperglycemia Qualified Code(s): E11.65 - Type 2 diabetes mellitus with hyperglycemia Code(s): [id number] - (9) Hypomagnesemia Current Visit: Yes Status: Acute Assessment & Plan: (1) Diabetic foot wound Current Visit: No Status: Acute Assessment & Plan: - podiatry following- plan for continuation of vanc/merrem -Bone biopsy pending - plan for No plan for surgical intervention to the right calcaneus fractures with current infection. Per podiatry note plan is to wait for final bone biopsies, if positive, partial calcanectomy and bone debridement with external fixation/6-8 weeks of IV abx. If negative, plan for ORIF calcaneus with Acera restrata graft/wound vac application to the right foot. - Rehab placement on discharge, patient agreeable, will have CM discuss Sunday - NWB BLE, heels floated - Dressing changes per podiatry - PICC line in place- XR today confirms correct placement - Wound culture + pseudomonas aeruginosa - BC x2 negative 02/18 - Bone biopsies negative - + surgery of right foot today per podiatry - pending rehab placement post op 02/19 - Continue OP antibiotics per podiatry recs (2) Cellulitis of both feet Current Visit: Yes Status: Acute Assessment & Plan: - See above plan Code(s): L03.115 - CELLULITIS OF RIGHT LOWER LIMB; L03.116 - CELLULITIS OF LEFT LOWER LIMB (3) Osteomyelitis Current Visit: Yes Status: Acute Assessment & Plan: - see DM foot wound plan Code(s): M86.9 - OSTEOMYELITIS, UNSPECIFIED (4) Diarrhea Current Visit: Yes Status: Acute Assessment & Plan: - resolved with Questran light - C-diff negative Code(s): R19.7 - DIARRHEA, UNSPECIFIED (5) Hypokalemia Current Visit: Yes Status: Resolved Assessment & Plan: - resolved Code(s): E87.6 - HYPOKALEMIA (6) Pathologic calcaneal fracture Current Visit: Yes Status: Acute Assessment & Plan: -reviewed podiatry note/MRI noting right fracture to calcaneus, agree with plan "Awaiting bone biopsies to assess if positive will plan for partial calcanectomy and bone debridement application of external fixation with 6-8 weeks of IV abx. If negative will plan for ORIF calcaneus with Acera restrata graft with wound vac application to the right." Code(s): M84.476A - PATHOLOGICAL FRACTURE, UNSP FOOT, INIT ENCNTR FOR FRACTURE (7) Situational depression Current Visit: Yes Status: Acute - Psych consult- recommended OP f/u - Lexapro 10mg- continue Op (8) Diabetes mellitus type II, uncontrolled Current Visit: No Status: Chronic Qualifiers: Glycemic state: with hyperglycemia Qualified Code(s): E11.65 - Type 2 diabetes mellitus with hyperglycemia -Poorly controlled, A1c at 10.42 -discussed imported of good glycemic control for healing purposes -ADA diet -SSI -moderate while IP, glucose levels have been stable, may need adjustment while IP, will monitor -Will need adjustments to home meds on discharge Code(s): [id number] - (9) Hypomagnesemia Current Visit: Yes Status: Acute Assessment & Plan: - Mg+ 1.5- replaced - trend 02/19 - resolved VTE: SCD PPI: Protonix Next of KIN: Mathew Zuñiga [phone] Code status: DNR/ SCO D/C plan: pending podiatry recs for rehab Code(s): E83.42 - HYPOMAGNESEMIA
[2024-02-20] MEDS: Maxipime 2 GM** 2 G in Sodium Chloride 100ML MINI-BAG PLUS 100 ML IV SCH (22:50)
[2024-02-21 04:47] LABS: Hematocrit 28.2 % (35-47); Hemoglobin 8.2 g/dL (12.0-16.0); Mean Cell Volume 89.5 fL (78-100); Mean Corpuscular Hgb Concent. 29.1 g/dL (32-36); Mean Platelet Volume 9.3 fL (7.5-11.0); Platelet Count 228 x10^3/uL (150-450); Red Blood Count 3.15 x10^6/uL (4.1-5.4); Red Cell Distribution Width 14.2 % (11.5-14.0); White Blood Count 7.9 x10^3/uL (4.0-10.5)
[2024-02-21 05:35] LABS: ALBUMIN 2.9 g/dL (3.5-5.0); ANION GAP 7.9 MEQ/L (5-15); BILIRUBIN,TOTAL 0.3 mg/dL (0.2-1.3); Calcium 8.5 mg/dL (8.4-10.2); Creatinine 1 0.68 mg/dL (0.52-1.04); EST GLOMERULAR FILTRATION RATE 97.8 ML/MIN; Total Protein 5.8 g/dL (6.3-8.2)
--- NOTE | 2024-02-21 08:04 | PCM.DS ---
Discharge Summary Date of Admission: 02/15/24 10:00 Date of Discharge: 02/21/24 Admitting Physician: KYM JONES MD Consults: Consults on Case 02/15/24 08:00 Consult Podiatry ROUTINE 02/18/24 12:27 Consult Tele-Health [Tele-Health Consult] ROUTINE Primary Care Provider: ROSA M MILTON Allergies Allergies shellfish derived Allergy (Intermediate, Verified 02/14/24 22:19) Rash rash bee venom protein (honey bee) Allergy (Unknown, Verified 02/14/24 22:19) metformin [From Glucophage] Allergy (Unknown, Verified 02/14/24 22:19) Penicillins Allergy (Verified 02/14/24 22:19) Hives hives sob Hospital Summary - Hospital Course Hospital Course: 02/18/24 Ms. HERNANDEZ is a 63 year old female with a past medical history significant for diabetes, neuropathy and recent loss of her in November who presented to [facility] 02/15/24 experiencing wounds to bilateral feet that have not been improving despite outpatient treatment of Rocephin. Podiatry consulted and patient taken to OR 02/15/24 got debridement and removal of skin graft to left heel. MRI is showing diffuse cellulitis and questionable osteomyelitis to bilteral feet. MRI confirmed pathological fracture to right calcaneus Podiatry plan reviewed, agree with continued antibiotic treatment with vanc/merrem. No plan for surgical intervention to the right calcaneus fractures with current infection. Per podiatry note plan is to wait for final bone biopsies, if positive, partial calcanectomy and bone debridement with external fixation/6-8 weeks of IV abx. If negative, plan for ORIF calcaneus with Acera restrata graft/wound vac ap plication to the right foot. Patient may need rehab placement as she to remain NWB to BLE with exception for transfers. Dressing changes MWF with podiatry. Pain is well controlled today with narcotic pain medication 0/10 pain. Diarrhea has resolved. Case management to discuss with pt today about rehab placement vs. her wishes. Reportedly she has been stating she does not want anymore procedures done. Her mental health appears stable and she is not tearful today. Per nurse this am, Young, pt appears to have pulled her PICC line out some. Will check with CXR. She denies CP, SOB, abd. pain, N/V/D. 02/19/24 Pt sitting up in bed. She reports she is rather frustrated and irritable today and discussed multiple concerns she had in detail. She did speak with podiatry and agreeable to surgery of right foot today. Bone biopsies negative. She is also agreeable to rehab OP but reports she will only go for 4 weeks then she is going home. Mg+ 1.5 and replaced. Continue antibiotics per podiatry recs. Psych consulted yesterday as mood is labile. They recommended OP f/u. She denies homicidal or suicidal ideation. She denies CP, abd. pain, N/V/D. 02/20/24 Pt resting in bed. She explains she feels much better today. She is ready for d/c to rehab. Her mood has improved and she is optimistic about her future and her health. Podiatry OK to with d/c and antibiotics sent over to [facility] to continue . CM discussed change in plan of antibiotics and will have to wait to d/c until tomorrow since medications were changed by podiatry. Will d/c with pain medication. She denies any pain today. She also denies CP, SOB, abd. pain, N/V/D. 02/21/24 Pt Sitting up in bed. She is ready to go to rehab today. They are scheduled to come and pick her up at 9AM. She denies any further concerns at this time. Podiatry ok with d/c today. - Vitals & Intake/Output Vital Signs: Vital Signs Temperature 96.9 F 02/21/24 07:54 Pulse Rate 69 02/21/24 07:54 Respiratory Rate 16 02/21/24 07:54 Blood Pressure 125/80 02/21/24 07:54 O2 Sat by Pulse Oximetry 92 L 02/21/24 07:54 Intake & Output: Intake & Output 02/18/24 02/19/24 02/20/24 02/21/24 11:59 11:59 11:59 11:59 Intake Total 850 5759 2925 3943 Output Total 200 Balance 850 0968 2922 3945 Weight 72 kg - Lab Result Diagrams: 02/21/24 04:19 02/21/24 04:19 Lab Results-Last 24 Hrs: Lab Results-Last 24 Hours 02/20/24 02/20/24 02/20/24 Range/Units 11:38 16:13 22:03 WBC (4.0-10.5) x10^3/uL RBC (4.1-5.4) x10^6/uL Hgb (12.0-16.0) g/dL Hct (35-47) % MCV (78-100) fL MCH (26-32) pg MCHC (32-36) g/dL RDW (11.5-14.0) % Plt Count (150-450) x10^3/uL MPV (7.5-11.0) fL Sodium (135-145) mmol/L Potassium (3.5-5.1) mmol/L Chloride (98-107) mmol/L Carbon Dioxide (22-30) mmol/L Anion Gap (5-15) MEQ/L BUN (7-17) mg/dL Creatinine (0.52-1.04) mg/dL Estimated GFR ML/MIN Glucose (74-106) mg/dL POC Glucometer 154 H 154 H 207 H (74 to 106) mg/dL Calcium (8.4-10.2) mg/dL Total Bilirubin (0.2-1.3) mg/dL AST (14-36) U/L ALT (0-35) U/L Alkaline Phosphatase (38-126) U/L Serum Total Protein (6.3-8.2) g/dL Albumin (3.5-5.0) g/dL 02/21/24 02/21/24 02/21/24 Range/Units 04:19 04:19 06:59 WBC 7.9 (4.0-10.5) x10^3/uL RBC 3.15 L (4.1-5.4) x10^6/uL Hgb 8.2 L (12.0-16.0) g/dL Hct 28.2 L (35-47) % MCV 89.5 D (78-100) fL MCH 26.0 (26-32) pg MCHC 29.1 L (32-36) g/dL RDW 14.2 H (11.5-14.0) % Plt Count 228 (150-450) x10^3/uL MPV 9.3 (7.5-11.0) fL Sodium 136 (135-145) mmol/L Potassium 4.0 (3.5-5.1) mmol/L Chloride 108 H (98-107) mmol/L Carbon Dioxide 25 (22-30) mmol/L Anion Gap 7.9 (5-15) MEQ/L BUN 20 H (7-17) mg/dL Creatinine 0.68 (0.52-1.04) mg/dL Estimated GFR 97.8 ML/MIN Glucose 174 H (74-106) mg/dL POC Glucometer 185 H (74 to 106) mg/dL Calcium 8.5 (8.4-10.2) mg/dL Total Bilirubin 0.30 (0.2-1.3) mg/dL AST 24 (14-36) U/L ALT 16 (0-35) U/L Alkaline Phosphatase 126 (38-126) U/L Serum Total Protein 5.8 L (6.3-8.2) g/dL Albumin 2.9 L (3.5-5.0) g/dL Micro Results-Entire Visit: Microbiology 02/14/24 23:20 Blood Culture - Final Blood 02/14/24 23:10 Blood Culture - Final Blood 02/15/24 11:00 Gram Stain - Final Foot - Right Gram Stain Result 1 - Final Gram Stain Result 2 - Final AFB Specimen Processing - Final Acid Fast Bacilli Smear - Final Tissue Culture - Preliminary Aerobic Culture Result 1 - Preliminary 02/15/24 11:00 Gram Stain - Final Foot - Left Gram Stain Result 1 - Final Gram Stain Result 2 - Final AFB Specimen Processing - Final Acid Fast Bacilli Smear - Final 02/15/24 10:00 Wound Culture - Final Heel - Left Pseudomonas Aeruginosa Accuchecks Date 02/21/24 Date 02/20/24 Date 02/20/24 - Radiology Exams Ordered Rad Exams-Entire Visit: Radiology Procedures Category Date Time Status FLUOROSCOPY UP TO 1 HR Routine Exams 02/19/24 07:13 Completed OS CALCIS XRAY Routine Exams 02/19/24 07:13 Completed - Procedures and Test Procedures and Tests throughout Hospitalization: Therapy Orders & Screens 02/18/24 09:04 Incentive Spirometry Q1H Comment: Diagnosis: DIABETIC FOOT WOUNDS, FAILED OTPT TREATEMENT 02/18/24 17:48 PT Eval & Treat ( Order) ONCE Reason for Eval:: home needs Diagnosis: DIABETIC FOOT WOUNDS, FAILED OTPT TREATEMENT 02/19/24 07:36 Incentive Spirometry TID Comment: Diagnosis: DIABETIC FOOT WOUNDS, FAILED OTPT TREATEMENT Discharge Exam General Appearance: no apparent distress, alert Neurologic Exam: alert, oriented x 3, cooperative, normal mood/affect, nml cerebellar function, sensation nml, No motor deficits Eye Exam: PERRL, EOMI, eyes nml inspection Ears, Nose, Throat Exam: normal ENT inspection, pharynx normal, moist mucous membranes Neck Exam: normal inspection, non-tender, supple, full range of motion Respiratory Exam: normal breath sounds, lungs clear, No respiratory distress Cardiovascular Exam: regular rate/rhythm, normal heart sounds Gastrointestinal/Abdomen Exam: soft, No tenderness, No mass Pelvic Exam: deferred Rectal Exam: deferred Back Exam: normal inspection, normal range of motion, No CVA tenderness, No vertebral tenderness Extremity Exam: normal inspection, normal range of motion Skin Exam: normal color, warm, dry, other (BLLE wrapped) Final Diagnosis/Problem List - Final Discharge Diagnosis/Problem (1) Diabetic foot wound Current Visit: No Status: Acute (2) Cellulitis of both feet Current Visit: Yes Status: Acute Code(s): L03.115 - CELLULITIS OF RIGHT LOWER LIMB; L03.116 - CELLULITIS OF LEFT LOWER LIMB (3) Osteomyelitis Current Visit: Yes Status: Acute Code(s): M86.9 - OSTEOMYELITIS, UNSPECIFIED (4) Diarrhea Current Visit: Yes Status: Acute Code(s): R19.7 - DIARRHEA, UNSPECIFIED (5) Hypokalemia Current Visit: Yes Status: Resolved Code(s): E87.6 - HYPOKALEMIA (6) Pathologic calcaneal fracture Current Visit: Yes Status: Acute Code(s): M84.476A - PATHOLOGICAL FRACTURE, UNSP FOOT, INIT ENCNTR FOR FRACTURE (7) Situational depression Current Visit: Yes Status: Acute (8) Diabetes mellitus type II, uncontrolled Current Visit: No Status: Chronic Code(s): [id number] - (9) Hypomagnesemia Current Visit: Yes Status: Acute Assessment & Plan: (1) Diabetic foot wound Current Visit: No Status: Acute Assessment & Plan: - podiatry following- plan for continuation of vanc/merrem -Bone biopsy pending - plan for No plan for surgical intervention to the right calcaneus fractures with current infection. Per podiatry note plan is to wait for final bone biopsies, if positive, partial calcanectomy and bone debridement with external fixation/6-8 weeks of IV abx. If negative, plan for ORIF calcaneus with Acera restrata graft/wound vac application to the right foot. - Rehab placement on discharge, patient agreeable, will have CM discuss Sunday - NWB BLE, heels floated - Dressing changes per podiatry - PICC line in place- XR today confirms correct placement - Wound culture + pseudomonas aeruginosa - BC x2 negative 02/18 - Bone biopsies negative - + surgery of right foot today per podiatry - pending rehab placement post op 02/19 - Continue OP antibiotics per podiatry recs (2) Cellulitis of both feet Current Visit: Yes Status: Acute Assessment & Plan: - See above plan Code(s): L03.115 - CELLULITIS OF RIGHT LOWER LIMB; L03.116 - CELLULITIS OF LEFT LOWER LIMB (3) Osteomyelitis Current Visit: Yes Status: Acute Assessment & Plan: - see DM foot wound plan Code(s): M86.9 - OSTEOMYELITIS, UNSPECIFIED (4) Diarrhea Current Visit: Yes Status: Acute Assessment & Plan: - resolved with Questran light - C-diff negative Code(s): R19.7 - DIARRHEA, UNSPECIFIED (5) Hypokalemia Current Visit: Yes Status: Resolved Assessment & Plan: - resolved Code(s): E87.6 - HYPOKALEMIA (6) Pathologic calcaneal fracture Current Visit: Yes Status: Acute Assessment & Plan: -reviewed podiatry note/MRI noting right fracture to calcaneus, agree with plan "Awaiting bone biopsies to assess if positive will plan for partial calcanectomy and bone debridement application of external fixation with 6-8 weeks of IV abx. If negative will plan for ORIF calcaneus with Acera restrata graft with wound vac application to the right." Code(s): M84.476A - PATHOLOGICAL FRACTURE, UNSP FOOT, INIT ENCNTR FOR FRACTURE (7) Situational depression Current Visit: Yes Status: Acute - Psych consult- recommended OP f/u - Lexapro 10mg- continue Op (8) Diabetes mellitus type II, uncontrolled Current Visit: No Status: Chronic Qualifiers: Glycemic state: with hyperglycemia Qualified Code(s): E11.65 - Type 2 diab etes mellitus with hyperglycemia -Poorly controlled, A1c at 10.42 -discussed imported of good glycemic control for healing purposes -ADA diet -SSI -moderate while IP, glucose levels have been stable, may need adjustment while IP, will monitor -Will need adjustments to home meds on discharge Code(s): [id number] - (9) Hypomagnesemia Current Visit: Yes Status: Acute Assessment & Plan: - Mg+ 1.5- replaced - trend 02/19 - resolved Code(s): E83.42 - HYPOMAGNESEMIA - Discharge Discharge Date: 02/21/24 (rehab) Disposition: XFER OTHER Condition: Fair Prescriptions: New Escitalopram Oxalate [Lexapro] 10 mg PO DAILY 30 Days #30 tablet Hydrocodone/Acetaminophen [Hydrocodone-Acetamin 5-325 mg] 1 tab PO Q6HPRN PRN 3 Days #12 tablet MDD 4 PRN Reason: Pain Insulin Lispro [Humalog] 100 unit SQ ACHS PRN 30 Days #100 units PRN Reason: Hyperglycemia Aspirin EC 325 mg [Ecotrin 325 MG] 325 mg PO DAILY #30 tablet Cefepime HCl 2 gm [Maxipime 2 GM] 2 gm IV BID 21 Days Continue Glimepiride 2 mg [Amaryl 2 MG] 4 mg PO BID Gabapentin [Neurontin ] 300 mg PO TID Additional Instructions: LONG-TERM ORDERS: 1800 MESHA ADA DIET ACHS ACCU CHECKS NON WEIGHT BEARING TO RIGHT FOOT PARTIAL WEIGHT BEARING TO LEFT WITH WALKER FOR ASSISTANCE AND FOR TRANSFERS ONLY LEAVE ALL DRESSINGS INTACT WOUND VAC AT CONSTANT PRESSURE OF -125 mmHg CONTINUE ASPIRIN FOR DVT PROPHYLAXIS SEE RX FOR PAIN MEDS SEE ORDERS FOR IV ANTIBIOTICS BID X 21 DAYS ROUTINE PICC LINE CARE SEE ATTACHED MED LIST Follow up with: MARCIO HOU DPM [ACTIVE STAFF] - 02/26/24 1:30 pm ROSA M MILTON [Primary Care Provider] - 02/25/24 10:15 am Forms: Transfer Record Alf
[2024-02-21] MEDS: Tums EX 750 MG PO SCH (09:19)
--- NOTE | 2024-02-21 15:59 | PCM.CONS ---
Podiatry HPI - Consult Date of Consultation Date: 02/15/24 Reason for Consult: Calcaneal fracture, bilateral heel ulcerations Diabetic foot infection bilateral Consulting Provider: MARCIO HOU DPM - [facility] History of Present Illness: Rina is a very pleasant 63-year-old female very well-known to my service for previous amputation to the first great toe of the left foot and now presenting for a approximately 10-week history of bilateral heel ulceration. Patient indicates that she has had significantly complicated history in the last several weeks due to the passing of her secondary to cancer with metastases to the brain. She ignored her own issues to take care of him and developed bilateral heel ulceration secondary to her neuropathy with infection. Patient was adamant during this process to maintain her independence and stay at home during this period of time however she did have subsequent infection due to weightbearing status not being maintained, noncompliance, and difficulty of obtaining care. Patient indicates after application of the synthetic graft she went home and fell forward feeling a pop in the back of her heel. She presented to clinic the day of her scheduled appointment with a severely red hot swollen right lower extremity with gross deformity. Patient was urged to present to the emergency department for admission. Patient wished to first go home and was admitted later on that evening. She currently presents with lethargy and constitutional symptoms of infection including but not limited to chills fever and elevated white blood cell count.She currently denies any other pedal complaints at this time. Medications & Allergies Home Medications: Home Medication List Glimepiride 2 mg [Amaryl 2 MG] 4 mg PO BID 01/14/24 [History Confirmed 02/14/24] Gabapentin [Neurontin ] 300 mg PO TID 01/16/24 [History Confirmed 02/14/24] Aspirin EC 325 mg [Ecotrin 325 MG] 325 mg PO DAILY #30 tablet 02/20/24 [Rx] Cefepime HCl 2 gm [Maxipime 2 GM] 2 gm IV BID 21 Days 02/20/24 [Rx] Escitalopram Oxalate [Lexapro] 10 mg PO DAILY 30 Days #30 tablet 02/20/24 [Rx] Hydrocodone/Acetaminophen [Hydrocodone-Acetamin 5-325 mg] 1 tab PO Q6HPRN PRN 3 Days #12 tablet MDD 4 02/20/24 [Rx] Insulin Lispro [Humalog] 100 unit SQ ACHS PRN 30 Days #100 units 02/20/24 [Rx] Allergies/Adverse Reactions: Allergies Allergy/AdvReac Type Severity Reaction Status Date / Time shellfish derived Allergy Intermediate Rash Verified 02/14/24 22:19 bee venom protein (honey bee) Allergy Unknown Verified 02/14/24 22:19 metformin [From Glucophage] Allergy Unknown Verified 02/14/24 22:19 Penicillins Allergy Hives Verified 02/14/24 22:19 - Past Medical History Past Medical History: No Neurological History: No Pertinent History ENT History: No Pertinent History Cardiac History: High Cholesterol, Hypertension Respiratory History: No Pertinent History Endocrine Medical History: Diabetes Type II, Other Musculoskelatal History: No Pertinent History GI Medical History: No Pertinent History History: No Pertinent History Pyscho-Social History: Depression Reproductive Disorders: No Pertinent History - Female History Are you now?: No - Past Surgical History Past Surgical History: Yes Neuro Surgical History: No Pertinent History Cardiac History: No Pertinent History Respiratory Surgery: No Pertinent History GI Surgical History: Appendectomy, Cholecystectomy Genitourinary Surgical Hx: No Pertinent History Musculskeletal Surgical Hx: Amputation, Other Female Surgical History: Tubal Ligation Other Surgical History: left hip surgery, mass removal. breast biopsy,Lt great toe amputation. debr - Social History Smoking Status: Never smoker Exposure to second hand smoke: No Alcohol: None Drug Use: marijuana - Social Determinants of Health Will the patient participate in the screening: Yes Do you worry about a steady place to live?: No Do you have any problems with any of the following?: No known problems In the past 12 months,have you had to go without utilities?: No Have you or anyone in your house had to go without enough: No Transportation Issues: No Has anyone in your support network made you feel unsafe?: No Does the patient want assistance with any of the above?: No Physical Exam - Narrative Narrative Physical Exam: Podiatry Physical Exam Results - Labs Lab/Micro Results: Lab Results-Last 24 Hours 02/20/24 02/20/24 02/21/24 Range/Units 16:13 22:03 04:19 WBC 7.9 (4.0-10.5) x10^3/uL RBC 3.15 L (4.1-5.4) x10^6/uL Hgb 8.2 L (12.0-16.0) g/dL Hct 28.2 L (35-47) % MCV 89.5 D (78-100) fL MCH 26.0 (26-32) pg MCHC 29.1 L (32-36) g/dL RDW 14.2 H (11.5-14.0) % Plt Count 228 (150-450) x10^3/uL MPV 9.3 (7.5-11.0) fL Sodium (135-145) mmol/L Potassium (3.5-5.1) mmol/L Chloride (98-107) mmol/L Carbon Dioxide (22-30) mmol/L Anion Gap (5-15) MEQ/L BUN (7-17) mg/dL Creatinine (0.52-1.04) mg/dL Estimated GFR ML/MIN Glucose (74-106) mg/dL POC Glucometer 154 H 207 H (74 to 106) mg/dL Calcium (8.4-10.2) mg/dL Total Bilirubin (0.2-1.3) mg/dL AST (14-36) U/L ALT (0-35) U/L Alkaline Phosphatase (38-126) U/L Serum Total Protein (6.3-8.2) g/dL Albumin (3.5-5.0) g/dL 02/21/24 02/21/24 02/21/24 Range/Units 04:19 06:59 11:16 WBC (4.0-10.5) x10^3/uL RBC (4.1-5.4) x10^6/uL Hgb (12.0-16.0) g/dL Hct (35-47) % MCV (78-100) fL MCH (26-32) pg MCHC (32-36) g/dL RDW (11.5-14.0) % Plt Count (150-450) x10^3/uL MPV (7.5-11.0) fL Sodium 136 (135-145) mmol/L Potassium 4.0 (3.5-5.1) mmol/L Chloride 108 H (98-107) mmol/L Carbon Dioxide 25 (22-30) mmol/L Anion Gap 7.9 (5-15) MEQ/L BUN 20 H (7-17) mg/dL Creatinine 0.68 (0.52-1.04) mg/dL Estimated GFR 97.8 ML/MIN Glucose 174 H (74-106) mg/dL POC Glucometer 185 H 208 H (74 to 106) mg/dL Calcium 8.5 (8.4-10.2) mg/dL Total Bilirubin 0.30 (0.2-1.3) mg/dL AST 24 (14-36) U/L ALT 16 (0-35) U/L Alkaline Phosphatase 126 (38-126) U/L Serum Total Protein 5.8 L (6.3-8.2) g/dL Albumin 2.9 L (3.5-5.0) g/dL Microbiology 02/15/24 11:00 Gram Stain - Final Foot - Right Gram Stain Result 1 - Final Gram Stain Result 2 - Final AFB Specimen Processing - Final Acid Fast Bacilli Smear - Final Tissue Culture - Preliminary Aerobic Culture Result 1 - Preliminary 02/14/24 23:20 Blood Culture - Final Blood 02/14/24 23:10 Blood Culture - Final Blood 02/15/24 11:00 Gram Stain - Final Foot - Left Gram Stain Result 1 - Final Gram Stain Result 2 - Final AFB Specimen Processing - Final Acid Fast Bacilli Smear - Final 02/15/24 10:00 Wound Culture - Final Heel - Left Pseudomonas Aeruginosa Accuchecks Date 02/21/24 Date 02/21/24 Date 02/20/24 Assessment/Plan (1) Pathologic calcaneal fracture Current Visit: Yes Status: Acute Assessment & Plan: 2 OR at this time for debridement of clearly infected right heel wound. Patient with pathologic fracture tongue type fracture of calcaneus. Reduction warranted however need to clear that infection has not gotten to bone bone biopsies will be obtained with debridement. MRI to assess following intervention Code(s): M84.476A - PATHOLOGICAL FRACTURE, UNSP FOOT, INIT ENCNTR FOR FRACTURE (2) Diabetic foot wound Current Visit: No Status: Acute Assessment & Plan: Chronic and worsening secondary to patient noncompliance. Patient amenable at this time for placement to rehab facility (3) Diabetes mellitus type II, uncontrolled Current Visit: No Status: Chronic Qualifiers: Glycemic state: with hyperglycemia Qualified Code(s): E11.65 - Type 2 diabetes mellitus with hyperglycemia Code(s): [id number] - (4) Hyperglycemia Current Visit: No Status: Acute Code(s): R73.9 - HYPERGLYCEMIA, UNSPECIFIED (5) Polysubstance use disorder Current Visit: No Status: Acute Code(s): F19.90 - OTHER PSYCHOACTIVE SUBSTANCE USE, UNSPECIFIED, UNCOMPLICATED (6) Amputated great toe of left foot Current Visit: No Status: Acute Code(s): S98.112A - COMPLETE TRAUMATIC AMPUTATION OF LEFT GREAT TOE, INIT ENCNTR (7) Cellulitis of both feet Current Visit: Yes Status: Acute Code(s): L03.115 - CELLULITIS OF RIGHT LOWER LIMB; L03.116 - CELLULITIS OF LEFT LOWER LIMB (8) Osteomyelitis Current Visit: Yes Status: Acute Assessment & Plan: Rule out at this time Code(s): M86.9 - OSTEOMYELITIS, UNSPECIFIED (9) Diabetic foot ulcers Current Visit: Yes Status: Acute Code(s): E11.621 - TYPE 2 DIABETES MELLITUS WITH FOOT ULCER; L97.509 - NON-PRESSURE CHRONIC ULCER OTH PRT UNSP FOOT W UNSP SEVERITY (10) Leukocytosis Current Visit: Yes Status: Acute Code(s): D72.829 - ELEVATED WHITE BLOOD CELL COUNT, UNSPECIFIED
--- NOTE | 2024-02-21 16:02 | PCM.NOTE ---
Date and Time: 02/21/24 1600 Subjective Assessment: POD #3 doing well. Psychologically better however giving unrealistic timeline repeatedly of when wound will be healed. Frustrated with everything. Physical Exam - Narrative Narrative Physical Exam: Podiatry Physical Exam Objective Data Vital Signs: Vital Signs - 24 hr Temp Pulse Resp BP Pulse Ox 02/21/24 12:00 97.6 F 68 16 163/77 93 L 02/21/24 07:54 96.9 F 69 16 125/80 92 L 02/21/24 04:00 97.8 F 89 18 139/86 94 L 02/20/24 23:29 97.3 F 70 18 158/64 96 02/20/24 19:22 97.0 F 72 20 112/55 96 Pain Assessment - Last Documented Pain Intensity 0 Pain Scale Used 0-10 Pain Scale Intake and Output: Intake & Output 02/19/24 02/20/24 02/21/24 02/22/24 11:59 11:59 11:59 11:59 Intake Total 3767 2925 4063 120 Output Total 200 Balance 3567 2925 4063 120 Weight 72 kg Lab Results: Lab Results-Last 24 Hours 02/20/24 02/20/24 02/21/24 Range/Units 16:13 22:03 04:19 WBC 7.9 (4.0-10.5) x10^3/uL RBC 3.15 L (4.1-5.4) x10^6/uL Hgb 8.2 L (12.0-16.0) g/dL Hct 28.2 L (35-47) % MCV 89.5 D (78-100) fL MCH 26.0 (26-32) pg MCHC 29.1 L (32-36) g/dL RDW 14.2 H (11.5-14.0) % Plt Count 228 (150-450) x10^3/uL MPV 9.3 (7.5-11.0) fL Sodium (135-145) mmol/L Potassium (3.5-5.1) mmol/L Chloride (98-107) mmol/L Carbon Dioxide (22-30) mmol/L Anion Gap (5-15) MEQ/L BUN (7-17) mg/dL Creatinine (0.52-1.04) mg/dL Estimated GFR ML/MIN Glucose (74-106) mg/dL POC Glucometer 154 H 207 H (74 to 106) mg/dL Calcium (8.4-10.2) mg/dL Total Bilirubin (0.2-1.3) mg/dL AST (14-36) U/L ALT (0-35) U/L Alkaline Phosphatase (38-126) U/L Serum Total Protein (6.3-8.2) g/dL Albumin (3.5-5.0) g/dL 02/21/24 02/21/24 02/21/24 Range/Units 04:19 06:59 11:16 WBC (4.0-10.5) x10^3/uL RBC (4.1-5.4) x10^6/uL Hgb (12.0-16.0) g/dL Hct (35-47) % MCV (78-100) fL MCH (26-32) pg MCHC (32-36) g/dL RDW (11.5-14.0) % Plt Count (150-450) x10^3/uL MPV (7.5-11.0) fL Sodium 136 (135-145) mmol/L Potassium 4.0 (3.5-5.1) mmol/L Chloride 108 H (98-107) mmol/L Carbon Dioxide 25 (22-30) mmol/L Anion Gap 7.9 (5-15) MEQ/L BUN 20 H (7-17) mg/dL Creatinine 0.68 (0.52-1.04) mg/dL Estimated GFR 97.8 ML/MIN Glucose 174 H (74-106) mg/dL POC Glucometer 185 H 208 H (74 to 106) mg/dL Calcium 8.5 (8.4-10.2) mg/dL Total Bilirubin 0.30 (0.2-1.3) mg/dL AST 24 (14-36) U/L ALT 16 (0-35) U/L Alkaline Phosphatase 126 (38-126) U/L Serum Total Protein 5.8 L (6.3-8.2) g/dL Albumin 2.9 L (3.5-5.0) g/dL Assessment/Plan (1) Pathologic calcaneal fracture Current Visit: Yes Status: Acute Assessment & Plan: monitor for now. Waiting pathology to determine course of intervention. Code(s): M84.476A - PATHOLOGICAL FRACTURE, UNSP FOOT, INIT ENCNTR FOR FRACTURE (2) Diabetic foot wound Current Visit: No Status: Acute (3) Diabetes mellitus type II, uncontrolled Current Visit: No Status: Chronic Qualifiers: Glycemic state: with hyperglycemia Qualified Code(s): E11.65 - Type 2 diabetes mellitus with hyperglycemia Code(s): [id number] - (4) Hyperglycemia Current Visit: No Status: Acute Code(s): R73.9 - HYPERGLYCEMIA, UNSPECIFIED (5) Polysubstance use disorder Current Visit: No Status: Acute Code(s): F19.90 - OTHER PSYCHOACTIVE SUBSTANCE USE, UNSPECIFIED, UNCOMPLICATED (6) Amputated great toe of left foot Current Visit: No Status: Acute Code(s): S98.112A - COMPLETE TRAUMATIC AMPUTATION OF LEFT GREAT TOE, INIT ENCNTR (7) Cellulitis of both feet Current Visit: Yes Status: Acute Code(s): L03.115 - CELLULITIS OF RIGHT LOWER LIMB; L03.116 - CELLULITIS OF LEFT LOWER LIMB (8) Osteomyelitis Current Visit: Yes Status: Acute Code(s): M86.9 - OSTEOMYELITIS, UNSPECIFIED (9) Diabetic foot ulcers Current Visit: Yes Status: Acute Code(s): E11.621 - TYPE 2 DIABETES MELLITUS WITH FOOT ULCER; L97.509 - NON-PRESSURE CHRONIC ULCER OTH PRT UNSP FOOT W UNSP SEVERITY (10) Leukocytosis Current Visit: Yes Status: Acute Code(s): D72.829 - ELEVATED WHITE BLOOD CELL COUNT, UNSPECIFIED
--- NOTE | 2024-02-21 16:04 | PCM.NOTE ---
Date and Time: 02/21/24 1603 Subjective Assessment: Doing well Physical Exam - Narrative Narrative Physical Exam: Podiatry Physical Exam Objective Data Vital Signs: Vital Signs - 24 hr Temp Pulse Resp BP Pulse Ox 02/21/24 12:00 97.6 F 68 16 163/77 93 L 02/21/24 07:54 96.9 F 69 16 125/80 92 L 02/21/24 04:00 97.8 F 89 18 139/86 94 L 02/20/24 23:29 97.3 F 70 18 158/64 96 02/20/24 19:22 97.0 F 72 20 112/55 96 Pain Assessment - Last Documented Pain Intensity 0 Pain Scale Used 0-10 Pain Scale Intake and Output: Intake & Output 02/19/24 02/20/24 02/21/24 02/22/24 11:59 11:59 11:59 11:59 Intake Total 3767 2925 4063 120 Output Total 200 Balance 3567 2925 4063 120 Weight 72 kg Lab Results: Lab Results-Last 24 Hours 02/20/24 02/20/24 02/21/24 Range/Units 16:13 22:03 04:19 WBC 7.9 (4.0-10.5) x10^3/uL RBC 3.15 L (4.1-5.4) x10^6/uL Hgb 8.2 L (12.0-16.0) g/dL Hct 28.2 L (35-47) % MCV 89.5 D (78-100) fL MCH 26.0 (26-32) pg MCHC 29.1 L (32-36) g/dL RDW 14.2 H (11.5-14.0) % Plt Count 228 (150-450) x10^3/uL MPV 9.3 (7.5-11.0) fL Sodium (135-145) mmol/L Potassium (3.5-5.1) mmol/L Chloride (98-107) mmol/L Carbon Dioxide (22-30) mmol/L Anion Gap (5-15) MEQ/L BUN (7-17) mg/dL Creatinine (0.52-1.04) mg/dL Estimated GFR ML/MIN Glucose (74-106) mg/dL POC Glucometer 154 H 207 H (74 to 106) mg/dL Calcium (8.4-10.2) mg/dL Total Bilirubin (0.2-1.3) mg/dL AST (14-36) U/L ALT (0-35) U/L Alkaline Phosphatase (38-126) U/L Serum Total Protein (6.3-8.2) g/dL Albumin (3.5-5.0) g/dL 02/21/24 02/21/24 02/21/24 Range/Units 04:19 06:59 11:16 WBC (4.0-10.5) x10^3/uL RBC (4.1-5.4) x10^6/uL Hgb (12.0-16.0) g/dL Hct (35-47) % MCV (78-100) fL MCH (26-32) pg MCHC (32-36) g/dL RDW (11.5-14.0) % Plt Count (150-450) x10^3/uL MPV (7.5-11.0) fL Sodium 136 (135-145) mmol/L Potassium 4.0 (3.5-5.1) mmol/L Chloride 108 H (98-107) mmol/L Carbon Dioxide 25 (22-30) mmol/L Anion Gap 7.9 (5-15) MEQ/L BUN 20 H (7-17) mg/dL Creatinine 0.68 (0.52-1.04) mg/dL Estimated GFR 97.8 ML/MIN Glucose 174 H (74-106) mg/dL POC Glucometer 185 H 208 H (74 to 106) mg/dL Calcium 8.5 (8.4-10.2) mg/dL Total Bilirubin 0.30 (0.2-1.3) mg/dL AST 24 (14-36) U/L ALT 16 (0-35) U/L Alkaline Phosphatase 126 (38-126) U/L Serum Total Protein 5.8 L (6.3-8.2) g/dL Albumin 2.9 L (3.5-5.0) g/dL Assessment/Plan (1) Pathologic calcaneal fracture Current Visit: Yes Status: Acute Assessment & Plan: Biopsies returned negative for OM Proceed with ORIF right calcaneal fracture with application of graft bilateral heels and application of negative pressure wound vac therapy. Will follow up following procedure. Code(s): M84.476A - PATHOLOGICAL FRACTURE, UNSP FOOT, INIT ENCNTR FOR FRACTURE (2) Diabetic foot wound Current Visit: No Status: Acute (3) Diabetes mellitus type II, uncontrolled Current Visit: No Status: Chronic Qualifiers: Glycemic state: with hyperglycemia Qualified Code(s): E11.65 - Type 2 diabetes mellitus with hyperglycemia Code(s): [id number] - (4) Hyperglycemia Current Visit: No Status: Acute Code(s): R73.9 - HYPERGLYCEMIA, UNSPECIFIED (5) Polysubstance use disorder Current Visit: No Status: Acute Code(s): F19.90 - OTHER PSYCHOACTIVE SUBSTANCE USE, UNSPECIFIED, UNCOMPLICATED (6) Amputated great toe of left foot Current Visit: No Status: Acute Code(s): S98.112A - COMPLETE TRAUMATIC AMPUTATION OF LEFT GREAT TOE, INIT ENCNTR (7) Cellulitis of both feet Current Visit: Yes Status: Acute Code(s): L03.115 - CELLULITIS OF RIGHT LOWER LIMB; L03.116 - CELLULITIS OF LEFT LOWER LIMB (8) Osteomyelitis Current Visit: Yes Status: Acute Code(s): M86.9 - OSTEOMYELITIS, UNSPECIFIED (9) Diabetic foot ulcers Current Visit: Yes Status: Acute Code(s): E11.621 - TYPE 2 DIABETES MELLITUS WITH FOOT ULCER; L97.509 - NON-PRESSURE CHRONIC ULCER OTH PRT UNSP FOOT W UNSP SEVERITY (10) Leukocytosis Current Visit: Yes Status: Acute Code(s): D72.829 - ELEVATED WHITE BLOOD CELL COUNT, UNSPECIFIED
--- NOTE | 2024-02-21 16:08 | PCM.NOTE ---
Date and Time: 02/21/24 1604 Subjective Assessment: POD #1 s/p calcaneal fracture ORIF Bone debirdement and application of synthetic skin substitute with negative wound vaccum assissted therapy. Doing well. Ready for D/c to SNF Physical Exam - Narrative Narrative Physical Exam: Podiatry Physical Exam Objective Data Vital Signs: Vital Signs - 24 hr Temp Pulse Resp BP Pulse Ox 02/21/24 12:00 97.6 F 68 16 163/77 93 L 02/21/24 07:54 96.9 F 69 16 125/80 92 L 02/21/24 04:00 97.8 F 89 18 139/86 94 L 02/20/24 23:29 97.3 F 70 18 158/64 96 02/20/24 19:22 97.0 F 72 20 112/55 96 Pain Assessment - Last Documented Pain Intensity 0 Pain Scale Used 0-10 Pain Scale Intake and Output: Intake & Output 02/19/24 02/20/24 02/21/24 02/22/24 11:59 11:59 11:59 11:59 Intake Total 3767 2925 4063 120 Output Total 200 Balance 3567 2925 4063 120 Weight 72 kg Lab Results: Lab Results-Last 24 Hours 02/20/24 02/20/24 02/21/24 Range/Units 16:13 22:03 04:19 WBC 7.9 (4.0-10.5) x10^3/uL RBC 3.15 L (4.1-5.4) x10^6/uL Hgb 8.2 L (12.0-16.0) g/dL Hct 28.2 L (35-47) % MCV 89.5 D (78-100) fL MCH 26.0 (26-32) pg MCHC 29.1 L (32-36) g/dL RDW 14.2 H (11.5-14.0) % Plt Count 228 (150-450) x10^3/uL MPV 9.3 (7.5-11.0) fL Sodium (135-145) mmol/L Potassium (3.5-5.1) mmol/L Chloride (98-107) mmol/L Carbon Dioxide (22-30) mmol/L Anion Gap (5-15) MEQ/L BUN (7-17) mg/dL Creatinine (0.52-1.04) mg/dL Estimated GFR ML/MIN Glucose (74-106) mg/dL POC Glucometer 154 H 207 H (74 to 106) mg/dL Calcium (8.4-10.2) mg/dL Total Bilirubin (0.2-1.3) mg/dL AST (14-36) U/L ALT (0-35) U/L Alkaline Phosphatase (38-126) U/L Serum Total Protein (6.3-8.2) g/dL Albumin (3.5-5.0) g/dL 02/21/24 02/21/24 02/21/24 Range/Units 04:19 06:59 11:16 WBC (4.0-10.5) x10^3/uL RBC (4.1-5.4) x10^6/uL Hgb (12.0-16.0) g/dL Hct (35-47) % MCV (78-100) fL MCH (26-32) pg MCHC (32-36) g/dL RDW (11.5-14.0) % Plt Count (150-450) x10^3/uL MPV (7.5-11.0) fL Sodium 136 (135-145) mmol/L Potassium 4.0 (3.5-5.1) mmol/L Chloride 108 H (98-107) mmol/L Carbon Dioxide 25 (22-30) mmol/L Anion Gap 7.9 (5-15) MEQ/L BUN 20 H (7-17) mg/dL Creatinine 0.68 (0.52-1.04) mg/dL Estimated GFR 97.8 ML/MIN Glucose 174 H (74-106) mg/dL POC Glucometer 185 H 208 H (74 to 106) mg/dL Calcium 8.5 (8.4-10.2) mg/dL Total Bilirubin 0.30 (0.2-1.3) mg/dL AST 24 (14-36) U/L ALT 16 (0-35) U/L Alkaline Phosphatase 126 (38-126) U/L Serum Total Protein 5.8 L (6.3-8.2) g/dL Albumin 2.9 L (3.5-5.0) g/dL Assessment/Plan (1) Pathologic calcaneal fracture Current Visit: Yes Status: Acute Assessment & Plan: Patient examination and evaluation at this time Radiographs reviewed and discussed with patient demonstrating intact orthopedic hardware without any backing out or failure. good apposition of fracture alignment Wound vac operating at 125 mm hg without complication Monitor In/outs Ok for d/c from my standpoint if all medical criteria met. Code(s): M84.476A - PATHOLOGICAL FRACTURE, UNSP FOOT, INIT ENCNTR FOR FRACTURE (2) Diabetic foot wound Current Visit: No Status: Acute (3) Diabetes mellitus type II, uncontrolled Current Visit: No Status: Chronic Qualifiers: Glycemic state: with hyperglycemia Qualified Code(s): E11.65 - Type 2 diabetes mellitus with hyperglycemia Code(s): [id number] - (4) Hyperglycemia Current Visit: No Status: Acute Code(s): R73.9 - HYPERGLYCEMIA, UNSPECIFIED (5) Polysubstance use disorder Current Visit: No Status: Acute Code(s): F19.90 - OTHER PSYCHOACTIVE SUBSTANCE USE, UNSPECIFIED, UNCOMPLICATED (6) Amputated great toe of left foot Current Visit: No Status: Acute Code(s): S98.112A - COMPLETE TRAUMATIC AMPUTATION OF LEFT GREAT TOE, INIT ENCNTR (7) Cellulitis of both feet Current Visit: Yes Status: Acute Code(s): L03.115 - CELLULITIS OF RIGHT LOWER LIMB; L03.116 - CELLULITIS OF LEFT LOWER LIMB (8) Osteomyelitis Current Visit: Yes Status: Acute Code(s): M86.9 - OSTEOMYELITIS, UNSPECIFIED (9) Diabetic foot ulcers Current Visit: Yes Status: Acute Code(s): E11.621 - TYPE 2 DIABETES MELLITUS WITH FOOT ULCER; L97.509 - NON-PRESSURE CHRONIC ULCER OTH PRT UNSP FOOT W UNSP SEVERITY (10) Leukocytosis Current Visit: Yes Status: Acute Code(s): D72.829 - ELEVATED WHITE BLOOD CELL COUNT, UNSPECIFIED
[2024-02-22 04:41] LABS: Hematocrit 25.7 % (35-47); Mean Cell Volume 83.4 fL (78-100); Mean Corpuscular Hgb Concent. 31.1 g/dL (32-36); Mean Platelet Volume 9.4 fL (7.5-11.0); Platelet Count 227 x10^3/uL (150-450); Red Blood Count 3.08 x10^6/uL (4.1-5.4); Red Cell Distribution Width 14.2 % (11.5-14.0); White Blood Count 7.1 x10^3/uL (4.0-10.5)
[2024-02-22 05:07] LABS: ALBUMIN 2.6 g/dL (3.5-5.0); ANION GAP 7.2 MEQ/L (5-15); BILIRUBIN,TOTAL 0.5 mg/dL (0.2-1.3); Calcium 8.6 mg/dL (8.4-10.2); Creatinine 1 0.57 mg/dL (0.52-1.04); EST GLOMERULAR FILTRATION RATE 102.1 ML/MIN; Potassium 3.7 mmol/L (3.5-5.1); Total Protein 5.5 g/dL (6.3-8.2)
[2024-02-22 07:04] VITALS: BP 148/65; PULSE 80; RESP 19; TEMP 97.1; O2SAT 93
--- NOTE | 2024-02-22 08:08 | PCM.DS ---
Discharge Summary Date of Admission: 02/15/24 10:00 Date of Discharge: 02/22/24 Admitting Physician: KYM JONES MD Consults: Consults on Case 02/15/24 08:00 Consult Podiatry ROUTINE 02/18/24 12:27 Consult Tele-Health [Tele-Health Consult] ROUTINE Primary Care Provider: ROSA M MILTON Allergies Allergies shellfish derived Allergy (Intermediate, Verified 02/14/24 22:19) Rash rash bee venom protein (honey bee) Allergy (Unknown, Verified 02/14/24 22:19) metformin [From Glucophage] Allergy (Unknown, Verified 02/14/24 22:19) Penicillins Allergy (Verified 02/14/24 22:19) Hives hives sob Hospital Summary - Hospital Course Hospital Course: 02/18/24 Ms. HERNANDEZ is a 63 year old female with a past medical history significant for diabetes, neuropathy and recent loss of her in November who presented to [facility] 02/15/24 experiencing wounds to bilateral feet that have not been improving despite outpatient treatment of Rocephin. Podiatry consulted and patient taken to OR 02/15/24 got debridement and removal of skin graft to left heel. MRI is showing diffuse cellulitis and questionable osteomyelitis to bilteral feet. MRI confirmed pathological fracture to right calcaneus Podiatry plan reviewed, agree with continued antibiotic treatment with vanc/merrem. No plan for surgical intervention to the right calcaneus fractures with current infection. Per podiatry note plan is to wait for final bone biopsies, if positive, partial calcanectomy and bone debridement with external fixation/6-8 weeks of IV abx. If negative, plan for ORIF calcaneus with Acera restrata graft/wound vac ap plication to the right foot. Patient may need rehab placement as she to remain NWB to BLE with exception for transfers. Dressing changes MWF with podiatry. Pain is well controlled today with narcotic pain medication 0/10 pain. Diarrhea has resolved. Case management to discuss with pt today about rehab placement vs. her wishes. Reportedly she has been stating she does not want anymore procedures done. Her mental health appears stable and she is not tearful today. Per nurse this am, Young, pt appears to have pulled her PICC line out some. Will check with CXR. She denies CP, SOB, abd. pain, N/V/D. 02/19/24 Pt sitting up in bed. She reports she is rather frustrated and irritable today and discussed multiple concerns she had in detail. She did speak with podiatry and agreeable to surgery of right foot today. Bone biopsies negative. She is also agreeable to rehab OP but reports she will only go for 4 weeks then she is going home. Mg+ 1.5 and replaced. Continue antibiotics per podiatry recs. Psych consulted yesterday as mood is labile. They recommended OP f/u. She denies homicidal or suicidal ideation. She denies CP, abd. pain, N/V/D. 02/20/24 Pt resting in bed. She explains she feels much better today. She is ready for d/c to rehab. Her mood has improved and she is optimistic about her future and her health. Podiatry OK to with d/c and antibiotics sent over to [facility] to continue . CM discussed change in plan of antibiotics and will have to wait to d/c until tomorrow since medications were changed by podiatry. Will d/c with pain medication. She denies any pain today. She also denies CP, SOB, abd. pain, N/V/D. 02/21/24 Pt Sitting up in bed. She is ready to go to rehab today. They are scheduled to come and pick her up at 9AM. She denies any further concerns at this time. Podiatry ok with d/c today. 02/22/24 Pt was to leave yesterday but apparently there was a wound vac part that was missing and she could not leave until this arrives. The piece is to arrive this morning and then she will be able to d/c. No new overnight events or concerns. She reports feeling much better overall. - Vitals & Intake/Output Vital Signs: Vital Signs Temperature 97.1 F 02/22/24 07:03 Pulse Rate 80 02/22/24 07:03 Respiratory Rate 19 02/22/24 07:03 Blood Pressure 148/65 02/22/24 07:03 O2 Sat by Pulse Oximetry 93 L 02/22/24 07:03 Intake & Output: Intake & Output 02/19/24 02/20/24 02/21/24 02/22/24 11:59 11:59 11:59 11:59 Intake Total 3839 1614 4063 960 Output Total 200 Balance 6267 6140 4062 968 Weight 72 kg - Lab Result Diagrams: 02/22/24 04:05 02/22/24 04:05 Lab Results-Last 24 Hrs: Lab Results-Last 24 Hours 02/21/24 02/21/24 02/21/24 Range/Units 11:16 17:00 21:07 WBC (4.0-10.5) x10^3/uL RBC (4.1-5.4) x10^6/uL Hgb (12.0-16.0) g/dL Hct (35-47) % MCV (78-100) fL MCH (26-32) pg MCHC (32-36) g/dL RDW (11.5-14.0) % Plt Count (150-450) x10^3/uL MPV (7.5-11.0) fL Sodium (135-145) mmol/L Potassium (3.5-5.1) mmol/L Chloride (98-107) mmol/L Carbon Dioxide (22-30) mmol/L Anion Gap (5-15) MEQ/L BUN (7-17) mg/dL Creatinine (0.52-1.04) mg/dL Estimated GFR ML/MIN Glucose (74-106) mg/dL POC Glucometer 208 H 204 H 233 H (74 to 106) mg/dL Calcium (8.4-10.2) mg/dL Total Bilirubin (0.2-1.3) mg/dL AST (14-36) U/L ALT (0-35) U/L Alkaline Phosphatase (38-126) U/L Serum Total Protein (6.3-8.2) g/dL Albumin (3.5-5.0) g/dL 02/22/24 02/22/24 02/22/24 Range/Units 04:05 04:05 06:38 WBC 7.1 (4.0-10.5) x10^3/uL RBC 3.08 L (4.1-5.4) x10^6/uL Hgb 8.0 L (12.0-16.0) g/dL Hct 25.7 L (35-47) % MCV 83.4 D (78-100) fL MCH 26.0 (26-32) pg MCHC 31.1 L (32-36) g/dL RDW 14.2 H (11.5-14.0) % Plt Count 227 (150-450) x10^3/uL MPV 9.4 (7.5-11.0) fL Sodium 137 (135-145) mmol/L Potassium 3.7 (3.5-5.1) mmol/L Chloride 105 (98-107) mmol/L Carbon Dioxide 29 (22-30) mmol/L Anion Gap 7.2 (5-15) MEQ/L BUN 17 (7-17) mg/dL Creatinine 0.57 (0.52-1.04) mg/dL Estimated GFR 102.1 ML/MIN Glucose 148 H (74-106) mg/dL POC Glucometer 151 H (74 to 106) mg/dL Calcium 8.6 (8.4-10.2) mg/dL Total Bilirubin 0.50 (0.2-1.3) mg/dL AST 18 (14-36) U/L ALT 15 (0-35) U/L Alkaline Phosphatase 111 (38-126) U/L Serum Total Protein 5.5 L (6.3-8.2) g/dL Albumin 2.6 L (3.5-5.0) g/dL Micro Results-Entire Visit: Microbiology 02/15/24 11:00 Gram Stain - Final Foot - Right Gram Stain Result 1 - Final Gram Stain Result 2 - Final AFB Specimen Processing - Final Acid Fast Bacilli Smear - Final Tissue Culture - Preliminary Aerobic Culture Result 1 - Preliminary 02/15/24 11:00 Gram Stain - Final Foot - Left Gram Stain Result 1 - Final Gram Stain Result 2 - Final AFB Specimen Processing - Final Acid Fast Bacilli Smear - Final 02/14/24 23:20 Blood Culture - Final Blood 02/14/24 23:10 Blood Culture - Final Blood 02/15/24 10:00 Wound Culture - Final Heel - Left Pseudomonas Aeruginosa Accuchecks Date 02/22/24 Date 02/21/24 Date 02/21/24 Date 02/21/24 Time 07:03 Time 22:00 - Procedures and Test Procedures and Tests throughout Hospitalization: Therapy Orders & Screens 02/18/24 09:04 Incentive Spirometry Q1H Comment: Diagnosis: DIABETIC FOOT WOUNDS, FAILED OTPT TREATEMENT 02/18/24 17:48 PT Eval & Treat ( Order) ONCE Reason for Eval:: home needs Diagnosis: DIABETIC FOOT WOUNDS, FAILED OTPT TREATEMENT 02/19/24 07:36 Incentive Spirometry TID Comment: Diagnosis: DIABETIC FOOT WOUNDS, FAILED OTPT TREATEMENT Discharge Exam General Appearance: no apparent distress, alert Neurologic Exam: alert, oriented x 3, cooperative, normal mood/affect, nml cerebellar function, sensation nml, No motor deficits Eye Exam: PERRL, EOMI, eyes nml inspection Ears, Nose, Throat Exam: normal ENT inspection, pharynx normal, moist mucous membranes Neck Exam: normal inspection, non-tender, supple, full range of motion Respiratory Exam: normal breath sounds, lungs clear, No respiratory distress Cardiovascular Exam: regular rate/rhythm, normal heart sounds Gastrointestinal/Abdomen Exam: soft, No tenderness, No mass Pelvic Exam: deferred Rectal Exam: deferred Back Exam: normal inspection, normal range of motion, No CVA tenderness, No vertebral tenderness Extremity Exam: normal inspection, normal range of motion Skin Exam: normal color, warm, dry, other (BLLE wrapped)) Final Diagnosis/Problem List - Final Discharge Diagnosis/Problem (1) Diabetic foot wound Current Visit: No Status: Acute (2) Cellulitis of both feet Current Visit: Yes Status: Acute Code(s): L03.115 - CELLULITIS OF RIGHT LOWER LIMB; L03.116 - CELLULITIS OF LEFT LOWER LIMB (3) Osteomyelitis Current Visit: Yes Status: Acute Code(s): M86.9 - OSTEOMYELITIS, UNSPECIFIED (4) Diarrhea Current Visit: Yes Status: Acute Code(s): R19.7 - DIARRHEA, UNSPECIFIED (5) Hypokalemia Current Visit: Yes Status: Resolved Code(s): E87.6 - HYPOKALEMIA (6) Pathologic calcaneal fracture Current Visit: Yes Status: Acute Code(s): M84.476A - PATHOLOGICAL FRACTURE, UNSP FOOT, INIT ENCNTR FOR FRACTURE (7) Situational depression Current Visit: Yes Status: Acute (8) Diabetes mellitus type II, uncontrolled Current Visit: No Status: Chronic Code(s): MEG1002 - (9) Hypomagnesemia Current Visit: Yes Status: Acute Assessment & Plan: (1) Diabetic foot wound Current Visit: No Status: Acute Assessment & Plan: - podiatry following- plan for continuation of vanc/merrem -Bone biopsy pending - plan for No plan for surgical intervention to the right calcaneus fractures with current infection. Per podiatry note plan is to wait for final bone biopsies, if positive, partial calcanectomy and bone debridement with external fixation/6-8 weeks of IV abx. If negative, plan for ORIF calcaneus with Acera restrata graft/wound vac application to the right foot. - Rehab placement on discharge, patient agreeable, will have CM discuss Sunday - NWB BLE, heels floated - Dressing changes per podiatry - PICC line in place- XR today confirms correct placement - Wound culture + pseudomonas aeruginosa - BC x2 negative 02/18 - Bone biopsies negative - + surgery of right foot today per podiatry - pending rehab placement post op 02/19 - Continue OP antibiotics per podiatry recs - Narcotic pain med sent in. (2) Cellulitis of both feet Current Visit: Yes Status: Acute Assessment & Plan: - See above plan Code(s): L03.115 - CELLULITIS OF RIGHT LOWER LIMB; L03.116 - CELLULITIS OF LEFT LOWER LIMB (3) Osteomyelitis Current Visit: Yes Status: Acute Assessment & Plan: - see DM foot wound plan Code(s): M86.9 - OSTEOMYELITIS, UNSPECIFIED (4) Diarrhea Current Visit: Yes Status: Acute Assessment & Plan: - resolved with Questran light - C-diff negative Code(s): R19.7 - DIARRHEA, UNSPECIFIED (5) Hypokalemia Current Visit: Yes Status: Resolved Assessment & Plan: - resolved Code(s): E87.6 - HYPOKALEMIA (6) Pathologic calcaneal fracture Current Visit: Yes Status: Acute Assessment & Plan: -reviewed podiatry note/MRI noting right fracture to calcaneus, agree with plan "Awaiting bone biopsies to assess if positive will plan for partial calcanectomy and bone debridement application of external fixation with 6-8 weeks of IV abx. If negative will plan for ORIF calcaneus with Acera restrata graft with wound vac application to the right." Code(s): M84.476A - PATHOLOGICAL FRACTURE, UNSP FOOT, INIT ENCNTR FOR FRACTURE (7) Situational depression Current Visit: Yes Status: Acute - Psych consult- recommended OP f/u - Lexapro 10mg- continue Op (8) Diabetes mellitus type II, uncontrolled Current Visit: No Status: Chronic Qualifiers: Glycemic state: with hyperglycemia Qualified Code(s): E11.65 - Type 2 diabetes mellitus with hyperglycemia -Poorly controlled, A1c at 10.42 -discussed imported of good glycemic control for healing purposes -ADA diet -SSI -moderate while IP, glucose levels have been stable, may need adjustment while IP, will monitor -Will need adjustments to home meds on discharge - S/S insulin for d/c Code(s): [id number] - (9) Hypomagnesemia Current Visit: Yes Status: Acute Assessment & Plan: - Mg+ 1.5- replaced - trend 02/19 - resolved Code(s): E83.42 - HYPOMAGNESEMIA - Discharge Discharge Date: 02/22/24 Disposition: XFER OTHER Condition: Fair Prescriptions: New Escitalopram Oxalate [Lexapro] 10 mg PO DAILY 30 Days #30 tablet Hydrocodone/Acetaminophen [Hydrocodone-Acetamin 5-325 mg] 1 tab PO Q6HPRN PRN 3 Days #12 tablet MDD 4 PRN Reason: Pain Insulin Lispro [Humalog] 100 unit SQ ACHS PRN 30 Days #100 units PRN Reason: Hyperglycemia Aspirin EC 325 mg [Ecotrin 325 MG] 325 mg PO DAILY #30 tablet Cefepime HCl 2 gm [Maxipime 2 GM] 2 gm IV BID 21 Days Continue Glimepiride 2 mg [Amaryl 2 MG] 4 mg PO BID Gabapentin [Neurontin ] 300 mg PO TID Additional Instructions: HALFWAY ORDERS: 1800 M[address] ADA DIET ACHS ACCU CHECKS NON WEIGHT BEARING TO RIGHT FOOT PARTIAL WEIGHT BEARING TO LEFT WITH WALKER FOR ASSISTANCE AND FOR TRANSFERS ONLY LEAVE ALL DRESSINGS INTACT WOUND VAC AT CONSTANT PRESSURE OF -125 mmHg CONTINUE ASPIRIN FOR DVT PROPHYLAXIS SEE RX FOR PAIN MEDS SEE ORDERS FOR IV ANTIBIOTICS BID X 21 DAYS ROUTINE PICC LINE CARE SEE ATTACHED MED LIST Follow up with: MARCIO HOU DPM [ACTIVE STAFF] - 02/26/24 1:30 pm ROSA M MILTON [Primary Care Provider] - 02/25/24 10:15 am Forms: Transfer Record [facility]
== END 2024-02-22 09:24 | DRG 629 ==
LOC: ED 21:58 → MED SURG 02-15 01:30 → OBSVTOIN 02-15 10:00
PROVIDERS: ADMIT Internal Medicine Nephrology; ATTEND Internal Medicine Nephrology
PROC: 0J9P0ZZ Drainage of Left Lower Leg Subcutaneous Tissue and Fascia, Open Approach (ICD-10-PCS; principal; 2024-02-15)
PROC: 0Q9 Lower Bones, Drainage (ICD-10-PCS; 2024-02-15)
PROC: 0Q9 Lower Bones, Drainage (ICD-10-PCS; 2024-02-15)
PROC: 0K8 Muscles, Division (ICD-10-PCS; 2024-02-15)
PROC: 0QSL04Z Reposition Right Tarsal with Internal Fixation Device, Open Approach (ICD-10-PCS; 2024-02-19)
PROC: 0HRKXK3 Replacement of Right Lower Leg Skin with Nonautologous Tissue Substitute, Full Thickness, External Approach (ICD-10-PCS; 2024-02-19)
PROC: 0J9N0ZZ Drainage of Right Lower Leg Subcutaneous Tissue and Fascia, Open Approach (ICD-10-PCS; 2024-02-19)
DX: E11.621 Type 2 diabetes mellitus with foot ulcer (principal); L03.115 Cellulitis of right lower limb; M84.471A Pathological fracture, right ankle, initial encounter for fracture; L03.116 Cellulitis of left lower limb; M86.9 Osteomyelitis, unspecified; E11.65 Type 2 diabetes mellitus with hyperglycemia; F19.90 Other psychoactive substance use, unspecified, uncomplicated; S98.112A Complete traumatic amputation of left great toe, initial encounter; L97.519 Non-pressure chronic ulcer of other part of right foot with unspecified severity; D72.829 Elevated white blood cell count, unspecified; R19.7 Diarrhea, unspecified; E87.6 Hypokalemia; F32.A Depression, unspecified; E83.42 Hypomagnesemia; Z79.899 Other long term (current) drug therapy; E11.42 Type 2 diabetes mellitus with diabetic polyneuropathy; L89.629 Pressure ulcer of left heel, unspecified stage; Z91.148 Patient's other noncompliance with medication regimen for other reason; Z89.412 Acquired absence of left great toe
CPT/HCPCS: 11042; 15275; 20240; 27685; 28005; 28415; 29515; 29580; 36000; 36415; 71045; 73650; 73719; 76000; 80053; 80202; 81001; 82570; 82947; 83036; 83605; 83690; 83735; 84132; 84300; 85025; 85027; 85652; 86140; 87040; 87046; 87070; 87075; 87077; 87116; 87186; 87205; 87206; 87493; 90791; 94760; 97605; 99024; 99213; 99285; A2007; A6260; C1713; J0692; J1100; J1642; J1650; J1817; J2001; J2371; J2405; J2704; J2795; J3010; J3480; Q3014; 97110-GP; A9270-GY; J3370; Q4158

== ENCOUNTER 2024-04-11 19:26 | Inpatient (IN) | payer OTHER ==
[2024-04-11] MEDS ORDERED: DEXTROSE 10% 250 ML 250 ML IV ONE (19:32)
[2024-04-11] MEDS: DEXTROSE 10% 250 ML 250 ML IV SCH (19:36)
[2024-04-11] MEDS ORDERED: Sodium Chloride 0.9% 1000 ML 1,000 ML ONE ×3 (19:40→22:04)
[2024-04-11] MEDS: Sodium Chloride 0.9% 1000 ML 1,000 ML IV STA (19:40)
[2024-04-11] MEDS ORDERED: Zofran 4 MG/2 ML VIAL ONE (19:47)
[2024-04-11] MEDS: Zofran 4 MG/2 ML VIAL IV ONE (19:50)
[2024-04-11 20:08] LABS: Hematocrit 18.5 % (34.1-44.9); Mean Cell Volume 83.7 fL (79.4-94.8); Mean Corpuscular Hemoglobin 25.8 pg (25.6-32.2); Mean Corpuscular Hgb Concent. 30.8 g/dL (32.2-35.5); Mean Platelet Volume 9.7 fL (9.4-12.3); Platelet Count 115 x10^3/uL (182-369); Red Blood Count 2.21 x10^6/uL (3.93-5.22); Red Cell Distribution Width 15.1 % (11.7-14.4)
[2024-04-11 20:11] LABS: Hemoglobin 5.7 g/dL (11.2-15.7)
--- NOTE | 2024-04-11 20:17 | ERPHSYRPT ---
- History of Present Illness Time Seen by Provider: 04/11/24 19:40 Source: EMS, skilled nursing records Exam Limitations: clinical condition Physician History: 63-year-old female resident of skilled nursing with history of hemiplegia, diabetes mellitus, hypertension, bilateral heel osteomyelitis is brought in the ER after patient was found to be unresponsive while sitting on the wheelchair at suppertime. Patient glucose was 39, was given symptomatic care at skilled nursing with glucagon gel with no improvement. On EMS arrival patient was unresponsive, minimal response to verbal stimuli and sternal rub, oxygen saturation in upper 80s. Placed on 2 L oxygen. Patient is given amp of D50 with improvement of glucose to 370 which on presentation is dropped to 145 and after 15 minutes of in here it is 115. Patient is on D10 at a rate of 50 mL/h. Patient has minimal response to verbal stimuli and sternal rub. Moving extremities to painful stimuli. No fever reported but patient is taking Levaquin for osteomyelitis of the heels. History is limited. Allergies/Adverse Reactions: shellfish derived Allergy (Intermediate, Verified 02/14/24 22:19) Rash rash bee venom protein (honey bee) Allergy (Unknown, Verified 02/14/24 22:19) metformin [From Glucophage] Allergy (Unknown, Verified 02/14/24 22:19) Penicillins Allergy (Verified 02/14/24 22:19) Hives hives sob Home Medications: Glimepiride 2 mg [Amaryl 2 MG] 4 mg PO BID 01/14/24 [History] Gabapentin [Neurontin ] 300 mg PO TID 01/16/24 [History] Hx Tetanus, Diphtheria Vaccination/Date Given: Yes Hx Influenza Vaccination/Date Given: Yes Hx Pneumococcal Vaccination/Date Given: Yes Travel Risk - Emerging Infectious Disease Are you exhibiting symptoms associated with any current EIDs: No - Review of Systems All Other Systems: Unable due to condition - Past Medical History Pertinent Past Medical History: No Neurological History: No Pertinent History ENT History: No Pertinent History Cardiac History: High Cholesterol, Hypertension Respiratory History: No Pertinent History Endocrine Medical History: Diabetes Type II, Other Musculoskeletal History: No Pertinent History GI Medical History: No Pertinent History History: No Pertinent History Psycho-Social History: Depression Female Reproductive Disorders: No Pertinent History - Past Surgical History Past Surgical History: Yes Neuro Surgical History: No Pertinent History Cardiac: No Pertinent History Respiratory: No Pertinent History Gastrointestinal: Appendectomy, Cholecystectomy Genitourinary: No Pertinent History Musculoskeletal: Amputation, Other Female Surgical History: Tubal Ligation Other Surgical History: left hip surgery, mass removal. breast biopsy,Lt great toe amputation. debr - Social History Smoking Status: Never smoker Exposure to second hand smoke: No Drug Use: marijuana Patient Lives Alone: Yes - Social Determinants of Health Will the patient participate in the screening: Yes Do you worry about a steady place to live?: No In the past 12 months,have you had to go without utilities?: No Transportation Issues: No Has anyone in your support network made you feel unsafe?: No Have you or anyone in your house had to go without enough: No - Nursing Vital Signs Nursing Vital Signs: Initial Vital Signs Pulse Rate 50 L 04/11/24 19:50 Respiratory Rate 8 L 04/11/24 19:50 Blood Pressure 78/47 04/11/24 19:50 O2 Sat by Pulse Oximetry 100 04/11/24 19:50 - Physical Exam General Appearance: moderate distress, other (Generalized pallor) Eye Exam: eyes nml inspection Ears, Nose, Throat Exam: pharynx normal, dry mucous membranes Neck Exam: normal inspection, non-tender, supple Respiratory Exam: diminished breath sounds, crackles/rales Cardiovascular Exam: normal heart sounds, bradycardia Gastrointestinal/Abdomen Exam: soft, normal bowel sounds, No tenderness Back Exam: other (Stage III decubitus) Extremity Exam: other (Bilateral heels/feet and lower legs wrapped.) Skin Exam: pale SpO2 Interpretation: O2 applied SpO2: 100 O2 Delivery: Nasal Cannula - Course EKG Interpreted by Me: RATE (53), Sinus Raad, NORMAL AXIS, NORMAL INTERVALS, NORMAL QRS Ordered Tests: Active Orders 24 hr Category Date Time Status Shuttle Spotter STAT Care 04/11/24 19:41 Active EKG-ER Only STAT Care 04/11/24 19:40 Active Goode [Catheter-Vista Goode] STAT Care 04/11/24 20:57 Active IV Insertion STAT Care 04/11/24 19:40 Active IV Insertion STAT Care 04/11/24 22:18 Active IV Insertion-2nd Peripheral STAT Care 04/11/24 19:40 Active NPO (ED) STAT Care 04/11/24 19:40 Active POCT Glucose Check STAT Care 04/11/24 19:40 Active Pulse Oximetry (ED) STAT Care 04/11/24 19:40 Active Re-Check Vital Signs STAT Care 04/11/24 19:40 Active CHEST 1 VIEW (PORTABLE) Stat Exams 04/11/24 19:41 Taken HEAD WITHOUT CONTRAST [CT] Stat Exams 04/11/24 19:41 Taken ABG [ARTERIAL BLOOD GASES] Stat Lab 04/11/24 20:23 Results BLOOD CULTURE Stat Lab 04/11/24 19:59 Received CBC W DIFF Stat Lab 04/11/24 19:52 Completed CMP Stat Lab 04/11/24 19:52 Completed CULTURE,URINE Stat Lab 04/11/24 20:44 Received Lactic Acid Stat Lab 04/11/24 19:40 Completed MAGNESIUM Stat Lab 04/11/24 19:52 Completed Manual Differential NC Stat Lab 04/11/24 19:52 Completed NT PRO BNPII Stat Lab 04/11/24 19:52 Completed POCT GLUCOSE Stat Lab 04/11/24 19:28 Completed POCT GLUCOSE Stat Lab 04/11/24 19:58 Completed POCT GLUCOSE Stat Lab 04/11/24 20:13 Completed POCT GLUCOSE Stat Lab 04/11/24 20:28 Completed POCT GLUCOSE Stat Lab 04/11/24 21:19 Completed PROTIME WITH INR Stat Lab 04/11/24 19:52 Completed PTT Stat Lab 04/11/24 19:52 Completed TROPONIN Q3H Lab 04/11/24 19:52 Completed TROPONIN Q3H Lab 04/11/24 22:20 Received TROPONIN Q3H Lab 04/12/24 01:45 Ordered TROPONIN Q3H Lab 04/12/24 04:45 Ordered UA W/RFX UR CULTURE Stat Lab 04/11/24 20:44 Completed Transfer Order Routine Transfer 04/11/24 Ordered Medication Summary Generic Name Dose Route Start Last Admin Trade Name Freq PRN Reason Stop Dose Admin Dextrose 250 mls @ 30 mls/hr 04/11/24 20:00 04/11/24 19:36 Dextrose 10% 250 Ml IV 05/11/24 19:59 30 mls/hr .Q8H20M LM Administration Pantoprazole Sodium 80 mg/ 500 mls @ 50 mls/hr 04/11/24 21:45 04/11/24 21:42 Sodium Chloride IV 05/11/24 21:44 50 mls/hr .Q10H LM 50 mls/hr Administration Norepinephrine/Dextrose 8 mg in 250 mls @ 15 mls/hr 04/11/24 21:38 04/11/24 20:54 Norepinephrine 8 Mg/250 Ml-D5w IV 05/11/24 21:37 8 mcg/min .[id number] PRN 15 mls/hr HYPOTENSION Administration Protocol 8 MCG/MIN Sodium Chloride 1,000 mls @ 50 mls/hr 04/11/24 22:15 04/11/24 22:22 Sodium Chloride 0.9% 1000 Ml IV 05/11/24 22:14 30 mls/hr .Q20H LM Administration Levofloxacin/Dextrose 750 mg in 150 mls @ 100 mls/hr 04/11/24 22:41 Levofloxacin 750mg/150ml D5w IV 04/12/24 00:10 STAT ONE Aztreonam 2 gm/ Sodium 100 mls @ 200 mls/hr 04/11/24 22:41 Chloride IV 04/11/24 23:10 STAT ONE Discontinued Medications Generic Name Dose Route Start Last Admin Trade Name Freq PRN Reason Stop Dose Admin Dextrose Confirm 04/11/24 19:32 Dextrose 10% 250 Ml Administered 04/11/24 19:33 Dose 250 mls @ ud IV .STK-MED ONE Sodium Chloride Confirm 04/11/24 19:40 Sodium Chloride 0.9% 1000 Ml Administered 04/11/24 19:41 Dose 1,000 mls @ ud .ROUTE .STK-MED ONE Sodium Chloride 1,000 mls @ 999 mls/hr 04/11/24 19:40 04/11/24 21:21 Sodium Chloride 0.9% 1000 Ml IV 04/11/24 20:40 Infused .Q1H1M STA Infusion Sodium Chloride Confirm 04/11/24 20:46 Sodium Chloride 0.9% 1000 Ml Administered 04/11/24 20:47 Dose 1,000 mls @ ud .ROUTE .STK-MED ONE Norepinephrine/Dextrose Confirm 04/11/24 20:46 Norepinephrine 8 Mg/250 Ml-D5w Administered 04/11/24 20:47 Dose 8 mg in 250 mls @ ud IV .STK-MED ONE Sodium Chloride Confirm 04/11/24 21:40 Sodium Chloride 0.9% 500 Ml Administered 04/11/24 21:41 Dose 500 mls @ ud IV .STK-MED ONE Ondansetron HCl 4 mg 04/11/24 19:49 04/11/24 19:50 Ondansetron Hcl 4 Mg/2 Ml Vial IV 04/11/24 19:50 4 mg STAT ONE Administration Ondansetron HCl Confirm 04/11/24 19:47 Ondansetron Hcl 4 Mg/2 Ml Vial Administered 04/11/24 19:48 Dose 4 mg .ROUTE .STK-MED ONE Pantoprazole Sodium 40 mg 04/11/24 21:36 04/11/24 21:42 Pantoprazole 40 Mg Vial IV 04/11/24 21:37 40 mg STAT ONE Administration Pantoprazole Sodium Confirm 04/11/24 21:40 Pantoprazole 40 Mg Vial Administered 04/11/24 21:41 Dose 120 mg IV .STK-MED ONE Lab/Rad Data: Laboratory Result Diagrams 04/11/24 19:52 04/11/24 19:52 Laboratory Results 04/11/24 04/11/24 04/11/24 Range/Units 21:19 20:44 20:28 WBC (3.98-10.04) x10^3/uL RBC (3.93-5.22) x10^6/uL Hgb (11.2-15.7) g/dL Hct (34.1-44.9) % MCV (79.4-94.8) fL MCH (25.6-32.2) pg MCHC (32.2-35.5) g/dL RDW (11.7-14.4) % Plt Count (182-369) x10^3/uL MPV (9.4-12.3) fL Segmented Neutrophils (1.56-6.13) % Lymphocytes (Manual) (24-44) % Monocytes (Manual) (0.0-12.0) % Platelet Estimate (NORMAL) RBC Morphology Microcytosis Smear Path Review PT (9.4-12.5) SECONDS INR (0.8-3.0) APTT (25.1-36.5) SECONDS Puncture Site pCO2 (35-45) mmHg pO2 (75-100) mmHg Base Excess (-2.0-2.0) O2 Saturation (94-100) g/dF ABG pH (7.35-7.45) ABG HCO3 (22-28) ABG O2 Sat (Measured) (95-100) % Oliverio Test A-a Gradient a/A Ratio Hemoglobin Carboxyhemoglobin (0.0-6.9) % THgb Methemoglobin (1.4-1.5) % Temperature C POC O2 Flow Rate % Sodium (135-145) mmol/L Potassium (3.5-5.1) mmol/L Chloride (98-107) mmol/L Carbon Dioxide (22-30) mmol/L Anion Gap (5-15) MEQ/L BUN (7-17) mg/dL Creatinine (0.52-1.04) mg/dL Estimated GFR ML/MIN Glucose (74-106) mg/dL POC Glucometer 117 H 114 H (74 to 106) mg/dL Lactic Acid (0.4-2.0) Calcium (8.4-10.2) mg/dL Magnesium (1.6-2.3) mg/dL Total Bilirubin (0.2-1.3) mg/dL AST (14-36) U/L ALT (0-35) U/L Alkaline Phosphatase (38-126) U/L Troponin I (0.000-0.033) ng/mL NT-Pro-B Natriuret Pep (<300) pg/mL Serum Total Protein (6.3-8.2) g/dL Albumin (3.5-5.0) g/dL Urine Color Yellow (Yellow) Urine Appearance Clear (Clear) Urine pH 7.0 (4.6-8.0) Ur Specific [place] 1.015 (1.005-1.030) Urine Protein Trace A (Negative) Urine Glucose (UA) Negative (Negative) mg/dL Urine Ketones Negative (Negative) Urine Blood Negative (Negative) Urine Nitrite Negative (Negative) Urine Bilirubin Negative (Negative) Urine Urobilinogen 1.0 A (0.2) mg/dL Ur Leukocyte Esterase Trace A (Negative) U Hyaline Cast (Auto) None Seen (0-2) /LPF Urine Microscopic RBC 0-2 (0-5) /HPF Urine Microscopic WBC 3-5 (0-5) /HPF Ur Epithelial Cells Few (None Seen) /HPF Urine Bacteria Many A (None Seen) /HPF Urine Culture Reflexed YES (NO) ABO Group Rh Factor Antibody Screen (NEGATIVE) Crossmatch (COMPATIBLE) 04/11/24 04/11/24 04/11/24 Range/Units 20:25 20:25 20:25 WBC (3.98-10.04) x10^3/uL RBC (3.93-5.22) x10^6/uL Hgb (11.2-15.7) g/dL Hct (34.1-44.9) % MCV (79.4-94.8) fL MCH (25.6-32.2) pg MCHC (32.2-35.5) g/dL RDW (11.7-14.4) % Plt Count (182-369) x10^3/uL MPV (9.4-12.3) fL Segmented Neutrophils (1.56-6.13) % Lymphocytes (Manual) (24-44) % Monocytes (Manual) (0.0-12.0) % Platelet Estimate (NORMAL) RBC Morphology Microcytosis Smear Path Review PT (9.4-12.5) SECONDS INR (0.8-3.0) APTT (25.1-36.5) SECONDS Puncture Site pCO2 (35-45) mmHg pO2 (75-100) mmHg Base Excess (-2.0-2.0) O2 Saturation (94-100) g/dF ABG pH (7.35-7.45) ABG HCO3 (22-28) ABG O2 Sat (Measured) (95-100) % Oliverio Test A-a Gradient a/A Ratio Hemoglobin Carboxyhemoglobin (0.0-6.9) % THgb Methemoglobin (1.4-1.5) % Temperature C POC O2 Flow Rate % Sodium (135-145) mmol/L Potassium (3.5-5.1) mmol/L Chloride (98-107) mmol/L Carbon Dioxide (22-30) mmol/L Anion Gap (5-15) MEQ/L BUN (7-17) mg/dL Creatinine (0.52-1.04) mg/dL Estimated GFR ML/MIN Glucose (74-106) mg/dL POC Glucometer (74 to 106) mg/dL Lactic Acid (0.4-2.0) Calcium (8.4-10.2) mg/dL Magnesium (1.6-2.3) mg/dL Total Bilirubin (0.2-1.3) mg/dL AST (14-36) U/L ALT (0-35) U/L Alkaline Phosphatase (38-126) U/L Troponin I (0.000-0.033) ng/mL NT-Pro-B Natriuret Pep (<300) pg/mL Serum Total Protein (6.3-8.2) g/dL Albumin (3.5-5.0) g/dL Urine Color (Yellow) Urine Appearance (Clear) Urine pH (4.6-8.0) Ur Specific [place] (1.005-1.030) Urine Protein (Negative) Urine Glucose (UA) (Negative) mg/dL Urine Ketones (Negative) Urine Blood (Negative) Urine Nitrite (Negative) Urine Bilirubin (Negative) Urine Urobilinogen (0.2) mg/dL Ur Leukocyte Esterase (Negative) U Hyaline Cast (Auto) (0-2) /LPF Urine Microscopic RBC (0-5) /HPF Urine Microscopic WBC (0-5) /HPF Ur Epithelial Cells (None Seen) /HPF Urine Bacteria (None Seen) /HPF Urine Culture Reflexed (NO) ABO Group O Rh Factor POSITIVE Antibody Screen NEGATIVE (NEGATIVE) Crossmatch COMPATIBLE COMPATIBLE (COMPATIBLE) 04/11/24 04/11/24 04/11/24 Range/Units 20:23 20:13 19:58 WBC (3.98-10.04) x10^3/uL RBC (3.93-5.22) x10^6/uL Hgb (11.2-15.7) g/dL Hct (34.1-44.9) % MCV (79.4-94.8) fL MCH (25.6-32.2) pg MCHC (32.2-35.5) g/dL RDW (11.7-14.4) % Plt Count (182-369) x10^3/uL MPV (9.4-12.3) fL Segmented Neutrophils (1.56-6.13) % Lymphocytes (Manual) (24-44) % Monocytes (Manual) (0.0-12.0) % Platelet Estimate (NORMAL) RBC Morphology Microcytosis Smear Path Review PT (9.4-12.5) SECONDS INR (0.8-3.0) APTT (25.1-36.5) SECONDS Puncture Site Pending pCO2 37 (35-45) mmHg pO2 156 H* (75-100) mmHg Base Excess 0.9 (-2.0-2.0) O2 Saturation 97.0 (94-100) g/dF ABG pH 7.44 (7.35-7.45) ABG HCO3 25.1 (22-28) ABG O2 Sat (Measured) 99.4 (95-100) % Oliverio Test Pending A-a Gradient 154 a/A Ratio 0.50 Hemoglobin 5.7 L* Carboxyhemoglobin 0.9 (0.0-6.9) % THgb Methemoglobin 1.5 (1.4-1.5) % Temperature 37.0 C POC O2 Flow Rate 50 % Sodium (135-145) mmol/L Potassium 3.4 L (3.5-5.1) mmol/L Chloride (98-107) mmol/L Carbon Dioxide (22-30) mmol/L Anion Gap (5-15) MEQ/L BUN (7-17) mg/dL Creatinine (0.52-1.04) mg/dL Estimated GFR ML/MIN Glucose (74-106) mg/dL POC Glucometer 118 H 115 H (74 to 106) mg/dL Lactic Acid (0.4-2.0) Calcium (8.4-10.2) mg/dL Magnesium (1.6-2.3) mg/dL Total Bilirubin (0.2-1.3) mg/dL AST (14-36) U/L ALT (0-35) U/L Alkaline Phosphatase (38-126) U/L Troponin I (0.000-0.033) ng/mL NT-Pro-B Natriuret Pep (<300) pg/mL Serum Total Protein (6.3-8.2) g/dL Albumin (3.5-5.0) g/dL Urine Color (Yellow) Urine Appearance (Clear) Urine pH (4.6-8.0) Ur Specific [place] (1.005-1.030) Urine Protein (Negative) Urine Glucose (UA) (Negative) mg/dL Urine Ketones (Negative) Urine Blood (Negative) Urine Nitrite (Negative) Urine Bilirubin (Negative) Urine Urobilinogen (0.2) mg/dL Ur Leukocyte Esterase (Negative) U Hyaline Cast (Auto) (0-2) /LPF Urine Microscopic RBC (0-5) /HPF Urine Microscopic WBC (0-5) /HPF Ur Epithelial Cells (None Seen) /HPF Urine Bacteria (None Seen) /HPF Urine Culture Reflexed (NO) ABO Group Rh Factor Antibody Screen (NEGATIVE) Crossmatch (COMPATIBLE) 04/11/24 04/11/24 04/11/24 Range/Units 19:52 19:52 19:52 WBC (3.98-10.04) x10^3/uL RBC (3.93-5.22) x10^6/uL Hgb (11.2-15.7) g/dL Hct (34.1-44.9) % MCV (79.4-94.8) fL MCH (25.6-32.2) pg MCHC (32.2-35.5) g/dL RDW (11.7-14.4) % Plt Count (182-369) x10^3/uL MPV (9.4-12.3) fL Segmented Neutrophils (1.56-6.13) % Lymphocytes (Manual) (24-44) % Monocytes (Manual) (0.0-12.0) % Platelet Estimate (NORMAL) RBC Morphology Microcytosis Smear Path Review PT 12.4 (9.4-12.5) SECONDS INR 1.15 (0.8-3.0) APTT 30.8 (25.1-36.5) SECONDS Puncture Site pCO2 (35-45) mmHg pO2 (75-100) mmHg Base Excess (-2.0-2.0) O2 Saturation (94-100) g/dF ABG pH (7.35-7.45) ABG HCO3 (22-28) ABG O2 Sat (Measured) (95-100) % Oliverio Test A-a Gradient a/A Ratio Hemoglobin Carboxyhemoglobin (0.0-6.9) % THgb Methemoglobin (1.4-1.5) % Temperature C POC O2 Flow Rate % Sodium 137 (135-145) mmol/L Potassium 3.6 (3.5-5.1) mmol/L Chloride 105 (98-107) mmol/L Carbon Dioxide 24 (22-30) mmol/L Anion Gap 11.8 (5-15) MEQ/L BUN 34 H (7-17) mg/dL Creatinine 0.93 (0.52-1.04) mg/dL Estimated GFR 69.1 ML/MIN Glucose 131 H (74-106) mg/dL POC Glucometer (74 to 106) mg/dL Lactic Acid (0.4-2.0) Calcium 8.5 (8.4-10.2) mg/dL Magnesium 1.6 (1.6-2.3) mg/dL Total Bilirubin 0.30 (0.2-1.3) mg/dL AST 37 H (14-36) U/L ALT 35 (0-35) U/L Alkaline Phosphatase 99 (38-126) U/L Troponin I 0.072 H* (0.000-0.033) ng/mL NT-Pro-B Natriuret Pep 894 (<300) pg/mL Serum Total Protein 5.9 L (6.3-8.2) g/dL Albumin 2.7 L (3.5-5.0) g/dL Urine Color (Yellow) Urine Appearance (Clear) Urine pH (4.6-8.0) Ur Specific [place] (1.005-1.030) Urine Protein (Negative) Urine Glucose (UA) (Negative) mg/dL Urine Ketones (Negative) Urine Blood (Negative) Urine Nitrite (Negative) Urine Bilirubin (Negative) Urine Urobilinogen (0.2) mg/dL Ur Leukocyte Esterase (Negative) U Hyaline Cast (Auto) (0-2) /LPF Urine Microscopic RBC (0-5) /HPF Urine Microscopic WBC (0-5) /HPF Ur Epithelial Cells (None Seen) /HPF Urine Bacteria (None Seen) /HPF Urine Culture Reflexed (NO) ABO Group Rh Factor Antibody Screen (NEGATIVE) Crossmatch (COMPATIBLE) 04/11/24 04/11/24 04/11/24 Range/Units 19:52 19:40 19:28 WBC 9.0 (3.98-10.04) x10^3/uL RBC 2.21 L (3.93-5.22) x10^6/uL Hgb 5.7 L* (11.2-15.7) g/dL Hct 18.5 L (34.1-44.9) % MCV 83.7 (79.4-94.8) fL MCH 25.8 (25.6-32.2) pg MCHC 30.8 L (32.2-35.5) g/dL RDW 15.1 H (11.7-14.4) % Plt Count 115 L (182-369) x10^3/uL MPV 9.7 (9.4-12.3) fL Segmented Neutrophils 92 H (1.56-6.13) % Lymphocytes (Manual) 7 L (24-44) % Monocytes (Manual) 1 (0.0-12.0) % Platelet Estimate DECREASED (NORMAL) RBC Morphology ABNORMAL Microcytosis 1+ Smear Path Review Cancelled PT (9.4-12.5) SECONDS INR (0.8-3.0) APTT (25.1-36.5) SECONDS Puncture Site pCO2 (35-45) mmHg pO2 (75-100) mmHg Base Excess (-2.0-2.0) O2 Saturation (94-100) g/dF ABG pH (7.35-7.45) ABG HCO3 (22-28) ABG O2 Sat (Measured) (95-100) % Oliverio Test A-a Gradient a/A Ratio Hemoglobin Carboxyhemoglobin (0.0-6.9) % THgb Methemoglobin (1.4-1.5) % Temperature C POC O2 Flow Rate % Sodium (135-145) mmol/L Potassium (3.5-5.1) mmol/L Chloride (98-107) mmol/L Carbon Dioxide (22-30) mmol/L Anion Gap (5-15) MEQ/L BUN (7-17) mg/dL Creatinine (0.52-1.04) mg/dL Estimated GFR ML/MIN Glucose (74-106) mg/dL POC Glucometer 148 H (74 to 106) mg/dL Lactic Acid 0.6 (0.4-2.0) Calcium (8.4-10.2) mg/dL Magnesium (1.6-2.3) mg/dL Total Bilirubin (0.2-1.3) mg/dL AST (14-36) U/L ALT (0-35) U/L Alkaline Phosphatase (38-126) U/L Troponin I (0.000-0.033) ng/mL NT-Pro-B Natriuret Pep (<300) pg/mL Serum Total Protein (6.3-8.2) g/dL Albumin (3.5-5.0) g/dL Urine Color (Yellow) Urine Appearance (Clear) Urine pH (4.6-8.0) Ur Specific [place] (1.005-1.030) Urine Protein (Negative) Urine Glucose (UA) (Negative) mg/dL Urine Ketones (Negative) Urine Blood (Negative) Urine Nitrite (Negative) Urine Bilirubin (Negative) Urine Urobilinogen (0.2) mg/dL Ur Leukocyte Esterase (Negative) U Hyaline Cast (Auto) (0-2) /LPF Urine Microscopic RBC (0-5) /HPF Urine Microscopic WBC (0-5) /HPF Ur Epithelial Cells (None Seen) /HPF Urine Bacteria (None Seen) /HPF Urine Culture Reflexed (NO) ABO Group Rh Factor Antibody Screen (NEGATIVE) Crossmatch (COMPATIBLE) - Progress Progress: improved, re-examined Progress Note: 04/11/24 22:35 63-year-old is evaluated for altered mental status, hypoglycemia, given D50 prior to arrival which improved initially to 370s but on presentation was in 145, then dropped to 115, started on D10 at a rate of 50 mL/h along with normal saline boluses. Patient remained hypotensive with blood pressure in 70s and 80s and started on Levophed which improved blood pressure and currently on 4 mics Levophed with pressure in 120s. Patient was not very responsive initially and placed on oxygen followed by BiPAP as she was having some agonal breathing, her oxygen saturation improved independent in upper 90s. BiPAP is removed and currently she is on room air, awake alert and close to her baseline with saturation in mid 90s. Workup showed normal white count but hemoglobin of 5.7 with a baseline of 8.0. Discussed with daughter/sister, reviewed history, presentation and current situation, recommended DNR/DNI but continue to medically manage. Went over risk and benefits of transfusion and daughter is okay with that. She would be given 2 units of blood. Chemistries showed mildly elevated troponin of 0.07 and an EKG of sinus bradycardia with no ST elevation. I believe this is secondary to hypotension/anemia/respiratory driven and less likely cardiac etiology. Will continue to trend it. Chest x-ray showed improve ment in right lower infiltrative process when compared with the previous reviewed by me, official report is pending. CT head is obtained which showed old ischemic/infarcts but no acute findings on a preliminary report, official report is pending. Patient has no obvious source of bleeding, could be GI, started on Protonix. Since patient has bilateral heel wounds and taking Levaquin, I will continue with Levaquin and aztreonam. Discussed with Dr. Verduzco, reviewed history, workup and patient is being admitted to ICU. 0 Discussed with : Florence Will see patient in: hospital (full admit) Counseled pt/family regarding: lab results, diagnosis, rad results Medical Desision Making - Independent Historian Additional History obtained from: Child, Family, Relative/friend - External Record(s) Reviewed Records reviewed as a part of evaluation & management: senior care - Discussion of managment Care discussed with:: hospitalist (Dr. Verduzco) Reviewed:: Test results Agreed on:: Treatment plan, decision to admit Will see patient: in hospital - Diagnostic Testing Diagnostic test were ordered, analyzed, and reviewed by me: Yes Radiological Interpretation: Interpreted by me, Reviewed by me, Teleradiologist Report - Risk of complications The pt has a mod risk of morbidity or mortality based on: Need for prescription drug management The pt has a high risk of morbidity or mortality based on: Drug therapy requiring intensive monitoring for toxicity, Decision regarding hospitilization or escalation of hosp level of care - Departure Departure Disposition: In-patient Admission Clinical Impression: Cellulitis of both feet, Hypoglycemia, Acute anemia, Altered mental status Condition: Critical Critical Care Time: Yes Critical Care Time(excluding separately billable procedures): Critical 75-104 mins Referrals: VALERIE LANGLEY OF [Primary Care Provider] - Follow up/PCP as directed
[2024-04-11 20:29] LABS: ALBUMIN 2.7 g/dL (3.5-5.0); ANION GAP 11.8 MEQ/L (5-15); BILIRUBIN,TOTAL 0.3 mg/dL (0.2-1.3); Calcium 8.5 mg/dL (8.4-10.2); Creatinine 1 0.93 mg/dL (0.52-1.04); EST GLOMERULAR FILTRATION RATE 69.1 ML/MIN; MAGNESIUM 1.6 mg/dL (1.6-2.3); Potassium 3.6 mmol/L (3.5-5.1); Total Protein 5.9 g/dL (6.3-8.2)
[2024-04-11 20:30] LABS: A-aADO2 154; ABG POTASSIUM 3.4 (3.5-5.1); ARTERIAL BLD GAS O2 SATURATION 99.4 % (95-100); ARTERIAL BLOOD GAS BASE EXCESS 0.9 (-2.0-2.0); ARTERIAL BLOOD GAS FIO2 50 %; ARTERIAL BLOOD GAS PCO2 37 mmHg (35-45); ARTERIAL BLOOD GAS PO2 156 mmHg (75-100); ARTERIAL BLOOD GAS pH 7.44 (7.35-7.45); CARBOXYHEMOGLOBIN 0.9 % THgb (0.0-6.9); HCO3- 25.1 (22-28); Methhemoglobin 1.5 % (1.4-1.5)
[2024-04-11 20:32] LABS: ABG HEMOGLOBIN 5.7
[2024-04-11 20:37] LABS: Lymphocytes 7 % (24-44); Monocyte 1 % (0.0-12.0); Neutrophils 92 % (1.56-6.13); Platelet Estimate DECREASED (NORMAL); Total Cells Counted 100
[2024-04-11 20:38] LABS: Microcytosis 1+
[2024-04-11] MEDS ORDERED: NOREPINEPHRINE 8 MG/250 ML-D5W 8 MG/250 ML PLAST..BAG IV ONE (20:46)
[2024-04-11 20:49] LABS: INR 1.15 (0.8-3.0); PROTIME 12.4 SECONDS (9.4-12.5); PTT 30.8 SECONDS (25.1-36.5)
[2024-04-11] MEDS: NOREPINEPHRINE 8 MG/250 ML-D5W 8 MG/250 ML PLAST..BAG IV PRN (20:54)
[2024-04-11 21:03] LABS: Appearance Clear (Clear); Bacteria Many /HPF (None Seen); Bilirubin Negative (Negative); Blood Negative (Negative); Epithelial Cells Few /HPF (None Seen); Glucose, Urine Negative (Negative); Ketones Negative (Negative); Leukocyte Esterase Trace (Negative); Nitrite Negative (Negative); Protein,Urine Dip Trace (Negative); RBC 0-2 /HPF (0-5); Specific Gravity 1.015 (1.005-1.030)
[2024-04-11 21:04] LABS: ADD URINE CULTURE? YES (NO); Hyaline Casts None Seen /LPF (0-2)
[2024-04-11 21:40] LABS: ABO TYPING O; Antibody Screen NEGATIVE (NEGATIVE); RH TYPING POSITIVE
[2024-04-11] MEDS ORDERED: PROTONIX 40 MG IV IV ONE (21:40)
[2024-04-11] MEDS ORDERED: Sodium Chloride 0.9% 500 ML 500 ML IV ONE (21:40)
[2024-04-11] MEDS: PROTONIX 40 MG IV IV ONE (21:42)
[2024-04-11] MEDS: PROTONIX 40 MG IV*** 80 MG in Sodium Chloride 0.9% 500 ML 500 ML IV SCH (21:42)
[2024-04-11 21:52] LABS: CROSS MATCH (PRBC) COMPATIBLE (COMPATIBLE)
[2024-04-11 21:54] LABS: CROSS MATCH (PRBC) COMPATIBLE (COMPATIBLE)
[2024-04-11] MEDS: Sodium Chloride 0.9% 1000 ML 1,000 ML IV SCH (22:22)
[2024-04-11] MEDS ORDERED: LEVOFLOXACIN 750MG/150ML D5W 750 MG/150 ML BAG IV ONE (23:16)
[2024-04-12] MEDS: LEVOFLOXACIN 750MG/150ML D5W 750 MG/150 ML BAG IV ONE (00:37)
--- NOTE | 2024-04-12 02:37 | PCM.HP ---
History of Present Illness - Chief Complaint Chief Complaint: Altered mental status, anemia, hypotension Date: 04/12/24 History of Present Illness: Ms. Espinosa is a 63 year-old female with hemiplegia, HTN, HLD, and DM2 who presents with altered mental status, hypotension, and hypoglycemia. [facility] the [facility] unresponsive with a blood sugar in the 30s. En route and in ED at [facility], she was given multiple amps of D50 prior to being started on D10 and levophed. Laboratory data was remarkable for a Hgb of 5.7 and elevated cardiac enzymes, while imaging was unremarkable. On my examination, she is more awake and denies any current fevers, chills, nausea, vomiting, diarrhea, syncope, presyncope, visual changes, orthopnea, PND, odynophagia, dysphagia, chest pain, shortness of breath, belly pain, dysuria, hematuria, melena, hematoc hezia, or neurological changes. All other systems were reviewed and were negative. - Review of Systems Constitutional: Other ( PER HPI) Medications & Allergies Home Medications: Home Medication List Gabapentin [Neurontin ] 300 mg PO TID 01/16/24 [History Confirmed 04/12/24] Aspirin EC 325 mg [Ecotrin 325 MG] 325 mg PO DAILY #30 tablet 02/20/24 [Rx Confirmed 04/12/24] Escitalopram Oxalate [Lexapro] 10 mg PO DAILY 30 Days #30 tablet 02/20/24 [Rx Confirmed 04/12/24] Amlodipine Besylate [Norvasc] 10 mg PO DAILY 04/12/24 [History Confirmed 04/12/24] Atorvastatin Calcium [Lipitor 40Mg] 40 mg PO HS 04/12/24 [History Confirmed 04/12/24] Fluconazole 150 mg PO DAILY 04/12/24 [History Confirmed 04/12/24] Glyburide 5 mg [Micronase 5 MG] 5 mg PO HS 04/12/24 [History Confirmed 04/12/24] Hydrocodone/Acetaminophen [Hydrocodone-Acetamin 5-325 mg] 1 tab PO Q4H PRN PRN MDD 4 04/12/24 [History Confirmed 04/12/24] Hydrophilic Cream [Triad] 71 gm TP BID 04/12/24 [History Confirmed 04/12/24] Levofloxacin/D5w [Levofloxacin 750 mg/150 ml-D5w] 750 mg IV HS 04/12/24 [History Confirmed 04/12/24] Lisinopril 20 mg [Zestril 20 MG] 40 mg PO DAILY 04/12/24 [History Confirmed 04/12/24] Metoprolol Succinate 25 mg Xl* [Toprol-Xl 25MG Tablets] 25 mg PO DAILY 04/12/24 [History Confirmed 04/12/24] Miconazole Nitrate 85 gm TP BID 04/12/24 [History Confirmed 04/12/24] Allergies/Adverse Reactions: Allergies Allergy/AdvReac Type Severity Reaction Status Date / Time shellfish derived Allergy Intermediate Rash Verified 02/14/24 22:19 bee venom protein (honey bee) Allergy Unknown Verified 02/14/24 22:19 metformin [From Glucophage] Allergy Unknown Verified 02/14/24 22:19 Penicillins Allergy Hives Verified 02/14/24 22:19 - Past Medical History Past Medical History: No Neurological History: Stroke ENT History: Cataracts Cardiac History: High Cholesterol, Hypertension Respiratory History: No Pertinent History Endocrine Medical History: Diabetes Type II, Other Musculoskelatal History: Arthritis GI Medical History: Other History: Other Pyscho-Social History: Anxiety, Depression Reproductive Disorders: No Pertinent History Comment: kidney stones, gallstones - Past Surgical History Past Surgical History: Yes Neuro Surgical History: No Pertinent History Cardiac History: No Pertinent History Respiratory Surgery: No Pertinent History GI Surgical History: Appendectomy, Cholecystectomy Genitourinary Surgical Hx: No Pertinent History Musculskeletal Surgical Hx: Amputation, Other Female Surgical History: Tubal Ligation Other Surgical History: left hip surgery, mass removal. breast biopsy,Lt great toe amputation. debr Significant Family History: no pertinent family hx - Social History Smoking Status: Never smoker Exposure to second hand smoke: No Alcohol: None Drug Use: marijuana - Social Determinants of Health Will the patient participate in the screening: Yes Do you worry about a steady place to live?: No Do you have any problems with any of the following?: No known problems In the past 12 months,have you had to go without utilities?: No Have you or anyone in your house had to go without enough: No Transportation Issues: No Has anyone in your support network made you feel unsafe?: No Does the patient want assistance with any of the above?: No - Physical Exam Vital Signs: Vital Signs - 24 hr Temp Pulse Pulse Resp BP BP Pulse Ox 04/12/24 00:00 66 10 L 109/60 99 04/11/24 23:55 66 12 110/59 96 04/11/24 23:50 68 9 L 124/65 97 04/11/24 23:45 67 11 L 92/61 98 04/11/24 23:40 66 10 L 101/56 04/11/24 23:35 67 10 L 110/61 04/11/24 23:25 69 10 L 94/50 04/11/24 23:20 68 14 111/58 96 04/11/24 23:15 67 8 L 114/58 04/11/24 23:10 67 10 L 114/60 04/11/24 23:05 68 11 L 110/58 96 04/11/24 23:00 96.4 F 70 9 L 120/62 04/11/24 22:55 70 13 129/61 97 04/11/24 22:50 72 15 102/78 96 04/11/24 22:45 100 04/11/24 22:45 71 11 L 127/61 04/11/24 22:40 70 11 L 123/67 04/11/24 22:35 70 10 L 125/69 98 04/11/24 22:30 67 7 L 102/74 96 04/11/24 22:25 69 10 L 123/86 97 04/11/24 22:20 71 12 129/69 99 04/11/24 22:15 69 15 120/67 100 04/11/24 22:11 70 24 112/56 04/11/24 22:05 68 20 97/55 04/11/24 22:01 63 12 97/58 100 04/11/24 21:55 61 14 127/70 04/11/24 21:50 62 12 130/65 04/11/24 21:47 60 13 108/61 100 04/11/24 21:40 72 16 119/67 100 04/11/24 21:35 59 L 16 127/57 04/11/24 21:30 58 L 11 L 124/63 99 04/11/24 21:25 57 L 5 L 148/67 04/11/24 21:20 61 21 127/77 04/11/24 21:18 49 L 10 L 76/55 99 04/11/24 21:16 50 L 19 156/61 100 04/11/24 21:15 52 L 14 100 04/11/24 21:11 50 L 10 L 95 04/11/24 20:20 47 L 13 80/48 100 04/11/24 20:00 96.8 F 49 L 54 L 9 L 83/50 100 04/11/24 19:53 100 04/11/24 19:50 50 L 8 L 78/47 100 General Appearance: no apparent distress, alert Neurologic Exam: alert, oriented x 3, cooperative, normal mood/affect, sensation nml, motor deficits, other (HEMIPLEGIA) Eye Exam: PERRL/EOMI, eyes nml inspection Ears, Nose, Throat Exam: normal ENT inspection, TMs normal, pharynx normal, moist mucous membranes Neck Exam: normal inspection, non-tender, supple, full range of motion Respiratory Exam: normal breath sounds, lungs clear, No respiratory distress Cardiovascular Exam: regular rate/rhythm, normal heart sounds, normal peripheral pulses Gastrointestinal/Abdomen Exam: soft, normal bowel sounds, No tenderness, No mass Back Exam: normal inspection, normal range of motion, No CVA tenderness, No vertebral tenderness Extremity Exam: normal inspection, normal range of motion, pelvis stable Skin Exam: normal color, warm, dry, No rash Lymphatic Exam: No adenopathy Results - Labs Lab/Micro Results: Lab Results-Last 24 Hours 04/11/24 04/11/24 04/11/24 Range/Units 19:28 19:40 19:52 WBC 9.0 (3.98-10.04) x10^3/uL RBC 2.21 L (3.93-5.22) x10^6/uL Hgb 5.7 L* (11.2-15.7) g/dL Hct 18.5 L (34.1-44.9) % MCV 83.7 (79.4-94.8) fL MCH 25.8 (25.6-32.2) pg MCHC 30.8 L (32.2-35.5) g/dL RDW 15.1 H (11.7-14.4) % Plt Count 115 L (182-369) x10^3/uL MPV 9.7 (9.4-12.3) fL Segmented Neutrophils 92 H (1.56-6.13) % Lymphocytes (Manual) 7 L (24-44) % Monocytes (Manual) 1 (0.0-12.0) % Platelet Estimate DECREASED (NORMAL) RBC Morphology ABNORMAL Microcytosis 1+ Smear Path Review Cancelled PT (9.4-12.5) SECONDS INR (0.8-3.0) APTT (25.1-36.5) SECONDS Puncture Site pCO2 (35-45) mmHg pO2 (75-100) mmHg Base Excess (-2.0-2.0) O2 Saturation (94-100) g/dF ABG pH (7.35-7.45) ABG HCO3 (22-28) ABG O2 Sat (Measured) (95-100) % Oliverio Test A-a Gradient a/A Ratio Hemoglobin Carboxyhemoglobin (0.0-6.9) % THgb Methemoglobin (1.4-1.5) % Temperature C POC O2 Flow Rate % Sodium (135-145) mmol/L Potassium (3.5-5.1) mmol/L Chloride (98-107) mmol/L Carbon Dioxide (22-30) mmol/L Anion Gap (5-15) MEQ/L BUN (7-17) mg/dL Creatinine (0.52-1.04) mg/dL Estimated GFR ML/MIN Glucose (74-106) mg/dL POC Glucometer 148 H (74 to 106) mg/dL Lactic Acid 0.6 (0.4-2.0) Calcium (8.4-10.2) mg/dL Magnesium (1.6-2.3) mg/dL Total Bilirubin (0.2-1.3) mg/dL AST (14-36) U/L ALT (0-35) U/L Alkaline Phosphatase (38-126) U/L Troponin I (0.000-0.033) ng/mL NT-Pro-B Natriuret Pep (<300) pg/mL Serum Total Protein (6.3-8.2) g/dL Albumin (3.5-5.0) g/dL Urine Color (Yellow) Urine Appearance (Clear) Urine pH (4.6-8.0) Ur Specific [place] (1.005-1.030) Urine Protein (Negative) Urine Glucose (UA) (Negative) mg/dL Urine Ketones (Negative) Urine Blood (Negative) Urine Nitrite (Negative) Urine Bilirubin (Negative) Urine Urobilinogen (0.2) mg/dL Ur Leukocyte Esterase (Negative) U Hyaline Cast (Auto) (0-2) /LPF Urine Microscopic RBC (0-5) /HPF Urine Microscopic WBC (0-5) /HPF Ur Epithelial Cells (None Seen) /HPF Urine Bacteria (None Seen) /HPF Urine Culture Reflexed (NO) ABO Group Rh Factor Antibody Screen (NEGATIVE) Crossmatch (COMPATIBLE) 04/11/24 04/11/24 04/11/24 Range/Units 19:52 19:52 19:52 WBC (3.98-10.04) x10^3/uL RBC (3.93-5.22) x10^6/uL Hgb (11.2-15.7) g/dL Hct (34.1-44.9) % MCV (79.4-94.8) fL MCH (25.6-32.2) pg MCHC (32.2-35.5) g/dL RDW (11.7-14.4) % Plt Count (182-369) x10^3/uL MPV (9.4-12.3) fL Segmented Neutrophils (1.56-6.13) % Lymphocytes (Manual) (24-44) % Monocytes (Manual) (0.0-12.0) % Platelet Estimate (NORMAL) RBC Morphology Microcytosis Smear Path Review PT 12.4 (9.4-12.5) SECONDS INR 1.15 (0.8-3.0) APTT 30.8 (25.1-36.5) SECONDS Puncture Site pCO2 (35-45) mmHg pO2 (75-100) mmHg Base Excess (-2.0-2.0) O2 Saturation (94-100) g/dF ABG pH (7.35-7.45) ABG HCO3 (22-28) ABG O2 Sat (Measured) (95-100) % Oliverio Test A-a Gradient a/A Ratio Hemoglobin Carboxyhemoglobin (0.0-6.9) % THgb Methemoglobin (1.4-1.5) % Temperature C POC O2 Flow Rate % Sodium 137 (135-145) mmol/L Potassium 3.6 (3.5-5.1) mmol/L Chloride 105 (98-107) mmol/L Carbon Dioxide 24 (22-30) mmol/L Anion Gap 11.8 (5-15) MEQ/L BUN 34 H (7-17) mg/dL Creatinine 0.93 (0.52-1.04) mg/dL Estimated GFR 69.1 ML/MIN Glucose 131 H (74-106) mg/dL POC Glucometer (74 to 106) mg/dL Lactic Acid (0.4-2.0) Calcium 8.5 (8.4-10.2) mg/dL Magnesium 1.6 (1.6-2.3) mg/dL Total Bilirubin 0.30 (0.2-1.3) mg/dL AST 37 H (14-36) U/L ALT 35 (0-35) U/L Alkaline Phosphatase 99 (38-126) U/L Troponin I 0.072 H* (0.000-0.033) ng/mL NT-Pro-B Natriuret Pep 894 (<300) pg/mL Serum Total Protein 5.9 L (6.3-8.2) g/dL Albumin 2.7 L (3.5-5.0) g/dL Urine Color (Yellow) Urine Appearance (Clear) Urine pH (4.6-8.0) Ur Specific [place] (1.005-1.030) Urine Protein (Negative) Urine Glucose (UA) (Negative) mg/dL Urine Ketones (Negative) Urine Blood (Negative) Urine Nitrite (Negative) Urine Bilirubin (Negative) Urine Urobilinogen (0.2) mg/dL Ur Leukocyte Esterase (Negative) U Hyaline Cast (Auto) (0-2) /LPF Urine Microscopic RBC (0-5) /HPF Urine Microscopic WBC (0-5) /HPF Ur Epithelial Cells (None Seen) /HPF Urine Bacteria (None Seen) /HPF Urine Culture Reflexed (NO) ABO Group Rh Factor Antibody Screen (NEGATIVE) Crossmatch (COMPATIBLE) 04/11/24 04/11/24 04/11/24 Range/Units 19:58 20:13 20:23 WBC (3.98-10.04) x10^3/uL RBC (3.93-5.22) x10^6/uL Hgb (11.2-15.7) g/dL Hct (34.1-44.9) % MCV (79.4-94.8) fL MCH (25.6-32.2) pg MCHC (32.2-35.5) g/dL RDW (11.7-14.4) % Plt Count (182-369) x10^3/uL MPV (9.4-12.3) fL Segmented Neutrophils (1.56-6.13) % Lymphocytes (Manual) (24-44) % Monocytes (Manual) (0.0-12.0) % Platelet Estimate (NORMAL) RBC Morphology Microcytosis Smear Path Review PT (9.4-12.5) SECONDS INR (0.8-3.0) APTT (25.1-36.5) SECONDS Puncture Site Pending pCO2 37 (35-45) mmHg pO2 156 H* (75-100) mmHg Base Excess 0.9 (-2.0-2.0) O2 Saturation 97.0 (94-100) g/dF ABG pH 7.44 (7.35-7.45) ABG HCO3 25.1 (22-28) ABG O2 Sat (Measured) 99.4 (95-100) % Oliverio Test Pending A-a Gradient 154 a/A Ratio 0.50 Hemoglobin 5.7 L* Carboxyhemoglobin 0.9 (0.0-6.9) % THgb Methemoglobin 1.5 (1.4-1.5) % Temperature 37.0 C POC O2 Flow Rate 50 % Sodium (135-145) mmol/L Potassium 3.4 L (3.5-5.1) mmol/L Chloride (98-107) mmol/L Carbon Dioxide (22-30) mmol/L Anion Gap (5-15) MEQ/L BUN (7-17) mg/dL Creatinine (0.52-1.04) mg/dL Estimated GFR ML/MIN Glucose (74-106) mg/dL POC Glucometer 115 H 118 H (74 to 106) mg/dL Lactic Acid (0.4-2.0) Calcium (8.4-10.2) mg/dL Magnesium (1.6-2.3) mg/dL Total Bilirubin (0.2-1.3) mg/dL AST (14-36) U/L ALT (0-35) U/L Alkaline Phosphatase (38-126) U/L Troponin I (0.000-0.033) ng/mL NT-Pro-B Natriuret Pep (<300) pg/mL Serum Total Protein (6.3-8.2) g/dL Albumin (3.5-5.0) g/dL Urine Color (Yellow) Urine Appearance (Clear) Urine pH (4.6-8.0) Ur Specific [place] (1.005-1.030) Urine Protein (Negative) Urine Glucose (UA) (Negative) mg/dL Urine Ketones (Negative) Urine Blood (Negative) Urine Nitrite (Negative) Urine Bilirubin (Negative) Urine Urobilinogen (0.2) mg/dL Ur Leukocyte Esterase (Negative) U Hyaline Cast (Auto) (0-2) /LPF Urine Microscopic RBC (0-5) /HPF Urine Microscopic WBC (0-5) /HPF Ur Epithelial Cells (None Seen) /HPF Urine Bacteria (None Seen) /HPF Urine Culture Reflexed (NO) ABO Group Rh Factor Antibody Screen (NEGATIVE) Crossmatch (COMPATIBLE) 04/11/24 04/11/24 04/11/24 Range/Units 20:25 20:25 20:25 WBC (3.98-10.04) x10^3/uL RBC (3.93-5.22) x10^6/uL Hgb (11.2-15.7) g/dL Hct (34.1-44.9) % MCV (79.4-94.8) fL MCH (25.6-32.2) pg MCHC (32.2-35.5) g/dL RDW (11.7-14.4) % Plt Count (182-369) x10^3/uL MPV (9.4-12.3) fL Segmented Neutrophils (1.56-6.13) % Lymphocytes (Manual) (24-44) % Monocytes (Manual) (0.0-12.0) % Platelet Estimate (NORMAL) RBC Morphology Microcytosis Smear Path Review PT (9.4-12.5) SECONDS INR (0.8-3.0) APTT (25.1-36.5) SECONDS Puncture Site pCO2 (35-45) mmHg pO2 (75-100) mmHg Base Excess (-2.0-2.0) O2 Saturation (94-100) g/dF ABG pH (7.35-7.45) ABG HCO3 (22-28) ABG O2 Sat (Measured) (95-100) % Oliverio Test A-a Gradient a/A Ratio Hemoglobin Carboxyhemoglobin (0.0-6.9) % THgb Methemoglobin (1.4-1.5) % Temperature C POC O2 Flow Rate % Sodium (135-145) mmol/L Potassium (3.5-5.1) mmol/L Chloride (98-107) mmol/L Carbon Dioxide (22-30) mmol/L Anion Gap (5-15) MEQ/L BUN (7-17) mg/dL Creatinine (0.52-1.04) mg/dL Estimated GFR ML/MIN Glucose (74-106) mg/dL POC Glucometer (74 to 106) mg/dL Lactic Acid (0.4-2.0) Calcium (8.4-10.2) mg/dL Magnesium (1.6-2.3) mg/dL Total Bilirubin (0.2-1.3) mg/dL AST (14-36) U/L ALT (0-35) U/L Alkaline Phosphatase (38-126) U/L Troponin I (0.000-0.033) ng/mL NT-Pro-B Natriuret Pep (<300) pg/mL Serum Total Protein (6.3-8.2) g/dL Albumin (3.5-5.0) g/dL Urine Color (Yellow) Urine Appearance (Clear) Urine pH (4.6-8.0) Ur Specific [place] (1.005-1.030) Urine Protein (Negative) Urine Glucose (UA) (Negative) mg/dL Urine Ketones (Negative) Urine Blood (Negative) Urine Nitrite (Negative) Urine Bilirubin (Negative) Urine Urobilinogen (0.2) mg/dL Ur Leukocyte Esterase (Negative) U Hyaline Cast (Auto) (0-2) /LPF Urine Microscopic RBC (0-5) /HPF Urine Microscopic WBC (0-5) /HPF Ur Epithelial Cells (None Seen) /HPF Urine Bacteria (None Seen) /HPF Urine Culture Reflexed (NO) ABO Group O Rh Factor POSITIVE Antibody Screen NEGATIVE (NEGATIVE) Crossmatch COMPATIBLE COMPATIBLE (COMPATIBLE) 04/11/24 04/11/24 04/11/24 Range/Units 20:28 20:44 21:19 WBC (3.98-10.04) x10^3/uL RBC (3.93-5.22) x10^6/uL Hgb (11.2-15.7) g/dL Hct (34.1-44.9) % MCV (79.4-94.8) fL MCH (25.6-32.2) pg MCHC (32.2-35.5) g/dL RDW (11.7-14.4) % Plt Count (182-369) x10^3/uL MPV (9.4-12.3) fL Segmented Neutrophils (1.56-6.13) % Lymphocytes (Manual) (24-44) % Monocytes (Manual) (0.0-12.0) % Platelet Estimate (NORMAL) RBC Morphology Microcytosis Smear Path Review PT (9.4-12.5) SECONDS INR (0.8-3.0) APTT (25.1-36.5) SECONDS Puncture Site pCO2 (35-45) mmHg pO2 (75-100) mmHg Base Excess (-2.0-2.0) O2 Saturation (94-100) g/dF ABG pH (7.35-7.45) ABG HCO3 (22-28) ABG O2 Sat (Measured) (95-100) % Oliverio Test A-a Gradient a/A Ratio Hemoglobin Carboxyhemoglobin (0.0-6.9) % THgb Methemoglobin (1.4-1.5) % Temperature C POC O2 Flow Rate % Sodium (135-145) mmol/L Potassium (3.5-5.1) mmol/L Chloride (98-107) mmol/L Carbon Dioxide (22-30) mmol/L Anion Gap (5-15) MEQ/L BUN (7-17) mg/dL Creatinine (0.52-1.04) mg/dL Estimated GFR ML/MIN Glucose (74-106) mg/dL POC Glucometer 114 H 117 H (74 to 106) mg/dL Lactic Acid (0.4-2.0) Calcium (8.4-10.2) mg/dL Magnesium (1.6-2.3) mg/dL Total Bilirubin (0.2-1.3) mg/dL AST (14-36) U/L ALT (0-35) U/L Alkaline Phosphatase (38-126) U/L Troponin I (0.000-0.033) ng/mL NT-Pro-B Natriuret Pep (<300) pg/mL Serum Total Protein (6.3-8.2) g/dL Albumin (3.5-5.0) g/dL Urine Color Yellow (Yellow) Urine Appearance Clear (Clear) Urine pH 7.0 (4.6-8.0) Ur Specific [place] 1.015 (1.005-1.030) Urine Protein Trace A (Negative) Urine Glucose (UA) Negative (Negative) mg/dL Urine Ketones Negative (Negative) Urine Blood Negative (Negative) Urine Nitrite Negative (Negative) Urine Bilirubin Negative (Negative) Urine Urobilinogen 1.0 A (0.2) mg/dL Ur Leukocyte Esterase Trace A (Negative) U Hyaline Cast (Auto) None Seen (0-2) /LPF Urine Microscopic RBC 0-2 (0-5) /HPF Urine Microscopic WBC 3-5 (0-5) /HPF Ur Epithelial Cells Few (None Seen) /HPF Urine Bacteria Many A (None Seen) /HPF Urine Culture Reflexed YES (NO) ABO Group Rh Factor Antibody Screen (NEGATIVE) Crossmatch (COMPATIBLE) 04/11/24 04/11/24 04/12/24 Range/Units 22:20 23:24 01:00 WBC (3.98-10.04) x10^3/uL RBC (3.93-5.22) x10^6/uL Hgb (11.2-15.7) g/dL Hct (34.1-44.9) % MCV (79.4-94.8) fL MCH (25.6-32.2) pg MCHC (32.2-35.5) g/dL RDW (11.7-14.4) % Plt Count (182-369) x10^3/uL MPV (9.4-12.3) fL Segmented Neutrophils (1.56-6.13) % Lymphocytes (Manual) (24-44) % Monocytes (Manual) (0.0-12.0) % Platelet Estimate (NORMAL) RBC Morphology Microcytosis Smear Path Review PT (9.4-12.5) SECONDS INR (0.8-3.0) APTT (25.1-36.5) SECONDS Puncture Site pCO2 (35-45) mmHg pO2 (75-100) mmHg Base Excess (-2.0-2.0) O2 Saturation (94-100) g/dF ABG pH (7.35-7.45) ABG HCO3 (22-28) ABG O2 Sat (Measured) (95-100) % Oliverio Test A-a Gradient a/A Ratio Hemoglobin Carboxyhemoglobin (0.0-6.9) % THgb Methemoglobin (1.4-1.5) % Temperature C POC O2 Flow Rate % Sodium (135-145) mmol/L Potassium (3.5-5.1) mmol/L Chloride (98-107) mmol/L Carbon Dioxide (22-30) mmol/L Anion Gap (5-15) MEQ/L BUN (7-17) mg/dL Creatinine (0.52-1.04) mg/dL Estimated GFR ML/MIN Glucose (74-106) mg/dL POC Glucometer 169 H (74 to 106) mg/dL Lactic Acid (0.4-2.0) Calcium (8.4-10.2) mg/dL Magnesium (1.6-2.3) mg/dL Total Bilirubin (0.2-1.3) mg/dL AST (14-36) U/L ALT (0-35) U/L Alkaline Phosphatase (38-126) U/L Troponin I 0.067 H* 0.056 H* (0.000-0.033) ng/mL NT-Pro-B Natriuret Pep (<300) pg/mL Serum Total Protein (6.3-8.2) g/dL Albumin (3.5-5.0) g/dL Urine Color (Yellow) Urine Appearance (Clear) Urine pH (4.6-8.0) Ur Specific [place] (1.005-1.030) Urine Protein (Negative) Urine Glucose (UA) (Negative) mg/dL Urine Ketones (Negative) Urine Blood (Negative) Urine Nitrite (Negative) Urine Bilirubin (Negative) Urine Urobilinogen (0.2) mg/dL Ur Leukocyte Esterase (Negative) U Hyaline Cast (Auto) (0-2) /LPF Urine Microscopic RBC (0-5) /HPF Urine Microscopic WBC (0-5) /HPF Ur Epithelial Cells (None Seen) /HPF Urine Bacteria (None Seen) /HPF Urine Culture Reflexed (NO) ABO Group Rh Factor Antibody Screen (NEGATIVE) Crossmatch (COMPATIBLE) Accuchecks Date 04/11/24 Time 19:28 - Radiology Impressions Radiology Exams & Impressions: Radiology Procedures Category Date Time Status CHEST 1 VIEW (PORTABLE) Stat Exams 04/11/24 19:41 Taken HEAD WITHOUT CONTRAST [CT] Stat Exams 04/11/24 19:41 Taken - Other Procedures and Tests Respiratory Therapy 04/12/24 01:19 Oxygen Nasal Cannula 3 lpm Respiratory Therapy Consult ONCE Assessment/Plan (1) Hypoglycemia Current Visit: Yes Status: Acute Assessment & Plan: ASSESSMENT 1. Altered Mental Status 2. Hypotension 3. Hypoglycemia 4. Acute on Chronic Anemia 5. Non-ST Elevation Myocardial Infarction Type I vs. II 6. Hypertension 7. Hyperlipidemia 8. Type II Diabetes Mellitus 9. Hemiplegia PLAN 1. Mental status improved 2. Blood pressure improved - off levophed; hold all antihypertensives 3. Blood sugar improved; off D10 for now; hold all oral hypoglycemics 4. Transfuse 2U PRBC; no active bleeding; noted some black stools a week ago; needs outpatient GI evaluation 5. Echo as outpatient; troponins trending down; most likely from demand SCDs Critical Care Time: 60 Minutes The entirety of this encounter was done via telemedicine with audio and visual. Consent was obtained for a telemedicine encounter. Hernandez Verduzco MD Pulmonary and Critical Care Medicine Code(s): E16.2 - HYPOGLYCEMIA, UNSPECIFIED Telemedicine Encounter - Telemedicine Encounter Telemedicine Encounter: The entirety of this encounter was performed via Telemedicine"
[2024-04-12] MEDS: AZACTAM 1 GM*** 2 GM in Sodium Chloride 0.9% 100 ML IV ONE (03:06)
[2024-04-12] MEDS: TYLENOL EXTRA STRENGTH 500 MG PO PRN (03:16)
[2024-04-12] MEDS ORDERED: Sodium Chloride 0.9% 500 ML 500 ML IV ONE (05:01)
[2024-04-12 06:31] LABS: ALBUMIN 2.8 g/dL (3.5-5.0); ANION GAP 12.4 MEQ/L (5-15); BILIRUBIN,TOTAL 0.5 mg/dL (0.2-1.3); Calcium 8.6 mg/dL (8.4-10.2); Creatinine 1 0.65 mg/dL (0.52-1.04); EST GLOMERULAR FILTRATION RATE 98.9 ML/MIN; Potassium 3.6 mmol/L (3.5-5.1); Total Protein 5.8 g/dL (6.3-8.2)
--- NOTE | 2024-04-12 08:03 | XRAY ---
Indication: Unresponsive. Comparison: February 18, 2024 Portable chest is now clear. Heart not enlarged again with mitral valve calcifications. Bony thorax intact again with osteopenia and degenerative changes. Impression: Nonacute chest with chronic features.
--- NOTE | 2024-04-12 08:05 | XRAY ---
Indication: Unconscious. Stroke. Multiple contiguous axial images obtained through the head without contrast. Comparison: None Age-appropriate global atrophy, minimal periventricular degenerative micro-ischemia bilaterally, remote lacunar infarct right basal ganglia, 1 cm remote infarct left centrum semiovale, and large remote infarct right mid parietal lobe. No acute intracranial hemorrhage, hydrocephalus, or mass effect. Fourth ventricle is midline. Bony calvarium intact. Visualized paranasal sinuses clear. Partial opacification inferior right mastoid air cells presumed inflammatory. Impression: Nonacute senile brain. Remote infarcts right parietal lobe, left centrum semiovale, and right basal ganglia. Incidental partial opacification right mastoid air cells presumed inflammatory.
[2024-04-12] MEDS ORDERED: GlucaGen 1 MG IM PRN (08:23)
[2024-04-12] MEDS: Glutose 15 GM ORAL GEL PO PRN (08:36)
[2024-04-12] MEDS: D50W 50 ml Abboject IV PRN (09:05)
[2024-04-12 09:40] LABS: Hematocrit 29.2 % (34.1-44.9); Hemoglobin 9.5 g/dL (11.2-15.7)
[2024-04-12] MEDS: Protonix 40MG Tablet PO SCH (11:05)
[2024-04-12 11:36] LABS: Iron 43 ug/dL (37-170); Iron Saturation 21 % (20-39); TIBC 202 ug/dL (265-462)
[2024-04-12] MEDS: Ecotrin 325 MG PO SCH (12:32)
[2024-04-12 12:34] LABS: Folate (Folic Acid) 3.97 ng/mL (2.76 - >20)
[2024-04-12] MEDS ORDERED: MEDICATION INTERVENTION MC SCH (13:30)
[2024-04-12] MEDS: NEURONTIN PO SCH (16:05)
[2024-04-12 17:03] LABS: ABG SITE RIGHT BRACHIAL
--- NOTE | 2024-04-12 17:57 | PCM.NOTE ---
Ms. Espinosa is a 63 year-old female with hemiplegia, HTN, HLD, and DM2 who presents with altered mental status, hypotension, and hypoglycemia. She was found at the correction unresponsive with a blood sugar in the 30s. En route and in ED at [facility], she was given multiple amps of D50 prior to being started on D10 and levophed. Laboratory data was remarkable for a Hgb of 5.7 and eleva dale cardiac enzymes, while imaging was unremarkable. Patient received 2 units of LPRBCs today with noted improvement of hgb at 9.5. Mental status improved. She is A&O x 3 during interview. Family is at bedside and report that patient recently had hematemesis about a month ago and would like surgery consult for EGD/Colonoscopy if possible. They are also requesting psych consult for competency. Levophed discontinued with stable BP. Blood glucose levels are stable and D10 has been discontinued. Plan for occult stools. Pt admits black stools one week ago . Iron saturation is at 21%. Surgery consult. 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 Recent wound culture with stentrophomonas maltophilis and staph aureus. Podiatry consulted.
[2024-04-12] MEDS: Magnesium 1 Gm / 100 Ml D5W*** 100 ML IV ONE (20:21)
[2024-04-12] MEDS: PROTONIX 40 MG IV*** 80 MG in Sodium Chloride 0.9% 500 ML 500 ML IV SCH (20:52)
[2024-04-12] MEDS: PROTONIX 40 MG IV IV SCH (21:39)
[2024-04-12] MEDS: LEVOFLOXACIN 750MG/150ML D5W 750 MG/150 ML BAG IV SCH (21:39)
[2024-04-12] MEDS ORDERED: MICONAZOLE NITRATE 85 GM TP SCH (22:00)
[2024-04-12] MEDS ORDERED: LIPITOR 40MG PO SCH (22:00)
[2024-04-12] MEDS ORDERED: LEVOFLOXACIN IV SCH (22:00)
[2024-04-12] MEDS ORDERED: DEXTROSE IV SCH (22:00)
[2024-04-12] MEDS ORDERED: [UNRECOGNIZED DRUG - OTHER] IV SCH (22:00)
[2024-04-12] MEDS: ZOCOR 20MG PO SCH (22:12)
--- NOTE | 2024-04-13 06:07 | PCM.NOTE ---
Date and Time: 04/13/24604 Subjective Assessment: Ms. Espinosa is a 63 year-old female with hemiplegia, HTN, HLD, and DM2 who presents with altered mental status, hypotension, and hypoglycemia. [facility] with a blood sugar in the 30s. En route and in ED at [place], she was given multiple amps of D50 prior to being started on D10 and levophed. Laboratory data was remarkable for a Hgb of 5.7 and elevated cardiac enzymes, while imaging was unremarkable. Patient received 2 units of LPRBCs today with noted improvement of hgb at 9.5. Mental status improved. She is A&O x 3 during interview. Family is at bedside and report that patient recently had hematemesis about a month ago and would like surgery consult for EGD/Colonoscopy if possible. They are also requesting psych consult for competency. Levophed discontinued with stable BP. Blood glucose levels are stable and D10 has been discontinued. Plan for occult stools. Pt admits black stools one week ago . Iron saturation is at 21%. Surgery consulted and plan for EGD/colonoscopy. 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 Recent wound culture with stentrophomonas maltophilis and staph aureus. Podiatry consulted. 04/13: Met with patient bedside. Alert and orientated to self and president. More confused this morning. Endorses nausea and hip pain. Goode cath was discontinued yesterday, patient retaining urine overnight with 800ml on bladder scanner, 1000mls with cath. Goode re-anchored. Hemoglobin stable at 9.4, surgery consulted with plans for EGD/Colonoscopy tomorrow. - Review of Systems Constitutional: No Symptoms Eyes: No Symptoms Ears, Nose, & Throat: No Symptoms Respiratory: Cough, Short Of Breath Cardiac: No Symptoms Abdominal/Gastrointestinal: Abdominal Pain, Nausea Genitourinary Symptoms: Urinary Retention Musculoskeletal: Joint Pain Skin: Other (sacral wound and BL heel wounds ) Neurological: Other (hemiplagia right ) Psychological: Memory Loss Endocrine: No Symptoms Hematologic/Lymphatic: Anemia Immunological/Allergic: No Symptoms Objective Exam General Appearance: no apparent distress Neurologic Exam: alert, cooperative Skin Exam: pale Wound Assessment: Skin/Wound Assessment Wound/Incision Assessment Start: 04/12/24 02:58 Text: Status: Active Freq: Q6H Protocol: Document 04/13/24 04:00 AK (Rec: 04/13/24 04:35 AK [id number]) Wound/Incision Assessment Right Heel Wound Assessment Shift Assessment Wound Type Pressure Ulcer Wound Stage Unstageable Dressing Status Dry & Intact Drainage Amount None Drainage Odor Foul Odor General Appearance Blackened Wound Bed Greatest Portion Black (Eschar) Surrounding Tissue Chalybeate,Dark Red Primary Dressing Mepilex Comment 6.5 cm x 4 cm; flaking skin along edges Left Heel Wound Assessment Shift Assessment Wound Type Pressure Ulcer Wound Stage Unstageable Dressing Status Dry & Intact Drainage Amount Minimal Drainage Description Sanguineous Drainage Odor Foul Odor General Appearance Blackened,Necrotic Wound Bed Greatest Portion Black (Eschar) Wound Bed Lesser Portion Dusky Red Surrounding Tissue Chalybeate,Purple Primary Dressing Mepilex Comment 4cm x 5 cm Sacrum Wound Assessment Shift Assessment Wound Type Pressure Ulcer Wound Stage Stage II Dressing Status Dry & Intact,Changed Drainage Amount Moderate Drainage Description Sanguineous General Appearance Reddened,Draining Wound Bed Greatest Portion Red (Granulation) Wound Bed Lesser Portion Red (Granulation) Surrounding Tissue Dark Red,Purple Primary Dressing Mepilex Comment Superior wound - 1cm x 1 cm; Inferior wound - 2.2 cm x 1.5 cm Large area of dark purple discoloration around inferior wound - area of strikethrough sanguinous drainage noted on mepilex - new mepilex applied Buttock Wound Assessment Shift Assessment Wound Type Redness Wound Stage Non Pressure Wound Drainage Amount None General Appearance Open to air,Reddened Left Medial Toe Wound Assessment Shift Assessment Wound Type Amputation Drainage Amount None General Appearance Well Approximated,Open to air Right Breast Wound Assessment Shift Assessment Wound Type Bruise Wound Stage Non Pressure Wound Drainage Amount None General Appearance Open to air Eye Exam: PERRL Ears, Nose, Throat Exam: normal ENT inspection Neck Exam: normal inspection Respiratory Exam: normal breath sounds, lungs clear Cardiovascular Exam: regular rate/rhythm, normal heart sounds Gastrointestinal/Abdomen Exam: soft, normal bowel sounds Extremity Exam: other (Bilateral heel wounds/osteomyelitis) Back Exam: normal inspection, other (sacral wound) Pelvic Exam: deferred Rectal Exam: deferred Objective Data Vital Signs: Vital Signs - 24 hr Temp Pulse Resp BP BP Pulse Ox 04/13/24 05:00 79 16 133/62 97 04/13/24 04:00 98.7 F 76 14 124/49 97 04/13/24 03:00 75 15 131/59 92 L 04/13/24 02:00 75 129/72 94 L 04/13/24 01:00 78 126/62 94 L 04/13/24 00:00 97.8 F 77 138/77 93 L 04/12/24 23:00 78 12 132/61 95 04/12/24 22:00 80 18 126/68 94 L 04/12/24 21:00 75 19 118/54 04/12/24 20:00 98.7 F 76 9 L 133/67 95 04/12/24 19:56 94 L 04/12/24 19:30 77 21 122/57 04/12/24 19:00 78 13 133/52 04/12/24 18:30 79 16 129/64 04/12/24 17:30 77 14 130/67 04/12/24 16:30 78 10 L 128/61 04/12/24 16:00 98.1 F 79 12 115/54 04/12/24 15:30 72 13 120/55 04/12/24 15:00 73 5 L 126/60 04/12/24 14:00 78 17 133/69 04/12/24 13:30 75 12 128/66 04/12/24 12:30 74 13 119/66 04/12/24 12:00 98.1 F 72 15 126/71 126/71 99 04/12/24 11:30 77 12 115/59 04/12/24 11:00 77 23 124/66 04/12/24 10:30 79 24 139/77 04/12/24 10:00 79 22 123/61 04/12/24 09:30 70 12 121/72 04/12/24 08:00 97.6 F 62 6 L 116/62 99 04/12/24 07:56 95 04/12/24 07:00 61 10 L 118/65 94 L Pain Assessment - Last Documented Pain Intensity 0 Pain Scale Used 0-10 Pain Scale Intake and Output: Intake & Output 04/10/24 04/11/24 04/12/24 04/13/24 11:59 11:59 11:59 11:59 Intake Total 785 1673 Output Total 2950 1225 Balance -2165 448 Weight 62.2 kg Lab Results: Lab Results-Last 24 Hours 04/11/24 04/12/24 04/12/24 Range/Units 20:23 06:00 06:00 Hgb (11.2-15.7) g/dL Hct (34.1-44.9) % Puncture Site RIGHT BRACHIAL Oliverio Test NOT APPLICABLE Sodium 140 (135-145) mmol/L Potassium 3.6 (3.5-5.1) mmol/L Chloride 111 H (98-107) mmol/L Carbon Dioxide 21 L (22-30) mmol/L Anion Gap 12.4 (5-15) MEQ/L BUN 27 H (7-17) mg/dL Creatinine 0.65 (0.52-1.04) mg/dL Estimated GFR 98.9 ML/MIN Glucose 80 (74-106) mg/dL POC Glucometer (74 to 106) mg/dL Calcium 8.6 (8.4-10.2) mg/dL Magnesium 1.5 L (1.6-2.3) mg/dL Iron (37-170) ug/dL TIBC (265-462) ug/dL Iron Saturation (20-39) % Ferritin (11.1-264) ng/mL Total Bilirubin 0.50 (0.2-1.3) mg/dL AST 42 H (14-36) U/L ALT 39 H (0-35) U/L Alkaline Phosphatase 130 H (38-126) U/L Serum Total Protein 5.8 L (6.3-8.2) g/dL Albumin 2.8 L (3.5-5.0) g/dL Prealbumin (17.6-36.0) mg/dL Vitamin B12 (239-931) pg/mL Folic Acid (2.76 - >20) ng/mL 04/12/24 04/12/24 04/12/24 Range/Units 06:00 06:00 06:12 Hgb (11.2-15.7) g/dL Hct (34.1-44.9) % Puncture Site Oliverio Test Sodium (135-145) mmol/L Potassium (3.5-5.1) mmol/L Chloride (98-107) mmol/L Carbon Dioxide (22-30) mmol/L Anion Gap (5-15) MEQ/L BUN (7-17) mg/dL Creatinine (0.52-1.04) mg/dL Estimated GFR ML/MIN Glucose (74-106) mg/dL POC Glucometer 59 L (74 to 106) mg/dL Calcium (8.4-10.2) mg/dL Magnesium (1.6-2.3) mg/dL Iron (37-170) ug/dL TIBC (265-462) ug/dL Iron Saturation (20-39) % Ferritin 413 H (11.1-264) ng/mL Total Bilirubin (0.2-1.3) mg/dL AST (14-36) U/L ALT (0-35) U/L Alkaline Phosphatase (38-126) U/L Serum Total Protein (6.3-8.2) g/dL Albumin (3.5-5.0) g/dL Prealbumin 8.64 L (17.6-36.0) mg/dL Vitamin B12 487 (239-931) pg/mL Folic Acid 3.97 (2.76 - >20) ng/mL 04/12/24 04/12/24 04/12/24 Range/Units 07:00 07:29 08:26 Hgb (11.2-15.7) g/dL Hct (34.1-44.9) % Puncture Site Oliverio Test Sodium (135-145) mmol/L Potassium (3.5-5.1) mmol/L Chloride (98-107) mmol/L Carbon Dioxide (22-30) mmol/L Anion Gap (5-15) MEQ/L BUN (7-17) mg/dL Creatinine (0.52-1.04) mg/dL Estimated GFR ML/MIN Glucose (74-106) mg/dL POC Glucometer 60 L 54 L (74 to 106) mg/dL Calcium (8.4-10.2) mg/dL Magnesium (1.6-2.3) mg/dL Iron 43 (37-170) ug/dL TIBC 202 L (265-462) ug/dL Iron Saturation 21 (20-39) % Ferritin (11.1-264) ng/mL Total Bilirubin (0.2-1.3) mg/dL AST (14-36) U/L ALT (0-35) U/L Alkaline Phosphatase (38-126) U/L Serum Total Protein (6.3-8.2) g/dL Albumin (3.5-5.0) g/dL Prealbumin (17.6-36.0) mg/dL Vitamin B12 (239-931) pg/mL Folic Acid (2.76 - >20) ng/mL 04/12/24 04/12/24 04/12/24 Range/Units 08:55 09:30 09:37 Hgb 9.5 L D (11.2-15.7) g/dL Hct 29.2 L (34.1-44.9) % Puncture Site Oliverio Test Sodium (135-145) mmol/L Potassium (3.5-5.1) mmol/L Chloride (98-107) mmol/L Carbon Dioxide (22-30) mmol/L Anion Gap (5-15) MEQ/L BUN (7-17) mg/dL Creatinine (0.52-1.04) mg/dL Estimated GFR ML/MIN Glucose (74-106) mg/dL POC Glucometer 56 L 128 H (74 to 106) mg/dL Calcium (8.4-10.2) mg/dL Magnesium (1.6-2.3) mg/dL Iron (37-170) ug/dL TIBC (265-462) ug/dL Iron Saturation (20-39) % Ferritin (11.1-264) ng/mL Total Bilirubin (0.2-1.3) mg/dL AST (14-36) U/L ALT (0-35) U/L Alkaline Phosphatase (38-126) U/L Serum Total Protein (6.3-8.2) g/dL Albumin (3.5-5.0) g/dL Prealbumin (17.6-36.0) mg/dL Vitamin B12 (239-931) pg/mL Folic Acid (2.76 - >20) ng/mL 04/12/24 04/12/24 04/12/24 Range/Units 11:17 13:40 16:07 Hgb (11.2-15.7) g/dL Hct (34.1-44.9) % Puncture Site Oliverio Test Sodium (135-145) mmol/L Potassium (3.5-5.1) mmol/L Chloride (98-107) mmol/L Carbon Dioxide (22-30) mmol/L Anion Gap (5-15) MEQ/L BUN (7-17) mg/dL Creatinine (0.52-1.04) mg/dL Estimated GFR ML/MIN Glucose (74-106) mg/dL POC Glucometer 199 H 162 H 182 H (74 to 106) mg/dL Calcium (8.4-10.2) mg/dL Magnesium (1.6-2.3) mg/dL Iron (37-170) ug/dL TIBC (265-462) ug/dL Iron Saturation (20-39) % Ferritin (11.1-264) ng/mL Total Bilirubin (0.2-1.3) mg/dL AST (14-36) U/L ALT (0-35) U/L Alkaline Phosphatase (38-126) U/L Serum Total Protein (6.3-8.2) g/dL Albumin (3.5-5.0) g/dL Prealbumin (17.6-36.0) mg/dL Vitamin B12 (239-931) pg/mL Folic Acid (2.76 - >20) ng/mL 04/12/24 04/12/24 04/13/24 Range/Units 20:12 23:41 04:18 Hgb (11.2-15.7) g/dL Hct (34.1-44.9) % Puncture Site Oliverio Test Sodium (135-145) mmol/L Potassium (3.5-5.1) mmol/L Chloride (98-107) mmol/L Carbon Dioxide (22-30) mmol/L Anion Gap (5-15) MEQ/L BUN (7-17) mg/dL Creatinine (0.52-1.04) mg/dL Estimated GFR ML/MIN Glucose (74-106) mg/dL POC Glucometer 218 H 231 H 121 H (74 to 106) mg/dL Calcium (8.4-10.2) mg/dL Magnesium (1.6-2.3) mg/dL Iron (37-170) ug/dL TIBC (265-462) ug/dL Iron Saturation (20-39) % Ferritin (11.1-264) ng/mL Total Bilirubin (0.2-1.3) mg/dL AST (14-36) U/L ALT (0-35) U/L Alkaline Phosphatase (38-126) U/L Serum Total Protein (6.3-8.2) g/dL Albumin (3.5-5.0) g/dL Prealbumin (17.6-36.0) mg/dL Vitamin B12 (239-931) pg/mL Folic Acid (2.76 - >20) ng/mL Radiology Exams: Radiology Procedures Category Date Time Status CHEST 1 VIEW (PORTABLE) Stat Exams 04/11/24 19:41 Completed HEAD WITHOUT CONTRAST [CT] Stat Exams 04/11/24 19:41 Completed Multi-Disciplinary Progress Notes: Multi-Disciplinary Progress Notes 04/12/24 18:08 Respiratory Note by Felicitas Raymond Late entry 04/11/241954 Rec'd pt in ER on 5lpm nasal cannula, SpO2 100%. Pt very pale with shallow breathing. Verbal orders rec'd to place pt on bipap per Dr. Olsen. Bipap settings: 14/6, f14, 50% via medium full-face mask. Pt tolerated well, ABG's drawn and reported to Dr. Olsen. Initialized on 04/12/24 18:08 - END OF NOTE Assessment/Plan (1) Acute anemia Current Visit: Yes Status: Acute Assessment & Plan: -Received 2 units LPRBC 04/12/24 - hgb stable at 9.4 -Surgery consulted- plan for EGD/Colonoscopy tomorrow -Iron sat at 21% ferritin at 413 -Protonix -Monitor hgb, transfuse if <7 -occult stools pending collection -Hold ASA Code(s): D64.9 - ANEMIA, UNSPECIFIED (2) Type 2 diabetes mellitus Current Visit: Yes Status: Acute Assessment & Plan: -Hypoglycemia on arrival - D10 discontinued -Resume ADA diet -SSI for now (3) HTN (hypertension) Current Visit: Yes Status: Acute Assessment & Plan: -stable -continue to hold anti-hypertensives Code(s): I10 - ESSENTIAL (PRIMARY) HYPERTENSION (4) HLD (hyperlipidemia) Current Visit: Yes Status: Acute Assessment & Plan: -continue statin Code(s): E78.5 - HYPERLIPIDEMIA, UNSPECIFIED (5) Hemiplegia affecting right dominant side Current Visit: Yes Status: Acute Assessment & Plan: -noted Code(s): G81.91 - HEMIPLEGIA, UNSPECIFIED AFFECTING RIGHT DOMINANT SIDE (6) Altered mental status Current Visit: Yes Status: Acute Assessment & Plan: -improved with bouts of confusion - head CT with no acute findings -Delirium protocol -TSH Code(s): R41.82 - ALTERED MENTAL STATUS, UNSPECIFIED (7) Cellulitis of both feet Current Visit: Yes Status: Acute Assessment & Plan: -Follow with podiatry - on levaquin will continue - podiatry to follow while IP -History of osteomyelitis bilateral heels Code(s): L03.115 - CELLULITIS OF RIGHT LOWER LIMB; L03.116 - CELLULITIS OF LEFT LOWER LIMB (8) Hypoglycemia Current Visit: Yes Status: Acute Assessment & Plan: -Resolved Code(s): E16.2 - HYPOGLYCEMIA, UNSPECIFIED
[2024-04-13 07:06] LABS: BASOPHIL % 0.2 % (0.1-1.2); Basophil (Absolute #) 0.02 x10^3/uL (0.01-0.08); Eosinophil % 0.5 % (0.7-5.8); Eosinophil (Absolute #) 0.06 x10^3/uL (0.04-0.36); Hematocrit 28.8 % (34.1-44.9); Hemoglobin 9.4 g/dL (11.2-15.7); IMMATURE GRAN # 0.11 x10^3u/L (0.001-0.031); IMMATURE GRAN % 0.9 % (0.001-0.429); Lymphocyte (Absolute #) 1.53 x10^3/uL (1.18-3.74); Lymphocytes % 13.2 % (19.3-51.7); Mean Corpuscular Hemoglobin 27.7 pg (25.6-32.2); Mean Corpuscular Hgb Concent. 32.6 g/dL (32.2-35.5); Mean Platelet Volume 9.5 fL (9.4-12.3); Monocyte (Absolute #) 0.89 x10^3/uL (0.24-0.86); Monocytes % 7.7 % (4.7-12.5); Neutrophil % 77.5 % (34.0-71.1); Platelet Count 121 x10^3/uL (182-369); Red Blood Count 3.39 x10^6/uL (3.93-5.22); Red Cell Distribution Width 14.6 % (11.7-14.4); White Blood Count 11.6 x10^3/uL (3.98-10.04)
[2024-04-13 07:17] LABS: ALBUMIN 2.5 g/dL (3.5-5.0); ANION GAP 11.9 MEQ/L (5-15); BILIRUBIN,TOTAL 0.6 mg/dL (0.2-1.3); Calcium 8.8 mg/dL (8.4-10.2); Creatinine 1 0.56 mg/dL (0.52-1.04); EST GLOMERULAR FILTRATION RATE 102.5 ML/MIN; MAGNESIUM 1.6 mg/dL (1.6-2.3); Potassium 3.7 mmol/L (3.5-5.1); Total Protein 5.7 g/dL (6.3-8.2)
[2024-04-13] MEDS: Zestril 20 MG PO SCH (09:49)
[2024-04-13] MEDS: Toprol-Xl 25MG Tablets PO SCH (09:49)
[2024-04-13] MEDS: Lexapro PO SCH (09:49)
[2024-04-13] MEDS: NORVASC 5 MG PO SCH (09:49)
[2024-04-13] MEDS ORDERED: NON-FORMULARY ITEM (Amlodipine Besylate [Norvasc] 10 MG Tablet) PO SCH (10:00)
[2024-04-13] MEDS ORDERED: FLUCONAZOLE 150 MG PO SCH (10:00)
[2024-04-13] MEDS: Golytely Solution 4000 ML PO ONE (14:39)
[2024-04-14] MEDS ORDERED: Sterile H2O 10 ml IJ ONE (01:03)
[2024-04-14] MEDS: Geodon 20 MG INJ IM ONE (01:11)
[2024-04-14 07:14] LABS: Absolute Neutrophil Ct (ANC) 8.44 x10^3/uL (1.56-6.13); BASOPHIL % 0.4 % (0.1-1.2); Basophil (Absolute #) 0.04 x10^3/uL (0.01-0.08); Eosinophil % 0.5 % (0.7-5.8); Eosinophil (Absolute #) 0.05 x10^3/uL (0.04-0.36); Hematocrit 32.2 % (34.1-44.9); Hemoglobin 10.3 g/dL (11.2-15.7); IMMATURE GRAN % 0.9 % (0.001-0.429); Lymphocyte (Absolute #) 1.35 x10^3/uL (1.18-3.74); Lymphocytes % 12.7 % (19.3-51.7); Mean Corpuscular Hemoglobin 27.2 pg (25.6-32.2); Monocyte (Absolute #) 0.65 x10^3/uL (0.24-0.86); Monocytes % 6.1 % (4.7-12.5); Neutrophil % 79.4 % (34.0-71.1); Platelet Count 125 x10^3/uL (182-369); Red Blood Count 3.79 x10^6/uL (3.93-5.22); Red Cell Distribution Width 14.7 % (11.7-14.4); White Blood Count 10.6 x10^3/uL (3.98-10.04)
[2024-04-14 08:06] LABS: ALBUMIN 2.9 g/dL (3.5-5.0); ANION GAP 15.4 MEQ/L (5-15); BILIRUBIN,TOTAL 0.8 mg/dL (0.2-1.3); Calcium 9.6 mg/dL (8.4-10.2); Creatinine 1 0.52 mg/dL (0.52-1.04); EST GLOMERULAR FILTRATION RATE 104.3 ML/MIN; MAGNESIUM 1.8 mg/dL (1.6-2.3); Total Protein 6.3 g/dL (6.3-8.2)
[2024-04-14] MEDS ORDERED: Lactated Ringers 1,000 ML IV ONE (12:30)
[2024-04-14] MEDS: Zyvox 600 MG IV PREMIX*** 300 ML IV SCH (12:31)
[2024-04-14] MEDS: Lactated Ringers 1,000 ML IV SCH (13:27)
[2024-04-14] MEDS ORDERED: DIPRIVAN 200 MG/20 ML IV ONE (14:46)
--- NOTE | 2024-04-14 15:23 | PCM.NOTE ---
Date and Time: 04/14/24 1516 Subjective Assessment: Ms. Espinosa is a 63 year-old female with hemiplegia, HTN, HLD, and DM2. She presented 04/12/24 with altered mental status, hypotension, and hypoglycemia. [facility] un[facility] with a blood sugar in the 30s. En route and in ED at [place], she was given multiple amps of D50 prior to being started on D10 and levophed. Laboratory data was remarkable for a Hgb of 5.7 and elevated cardiac enzymes, while imaging was unremarkable. Patient received 2 units of LPRBCs 04/12 with noted improvement of hgb at 9.5. Mental status improved. She is A&O x 3 during interview. Family reported that patient recently had hematemesis about a month ago and wanted surgery consult for EGD/Colonoscopy if possible. Levophed discontinued with stable BP. Blood glucose levels are stable and D10 has been discontinued. Plan for occult stools. Pt admits black stools one week ago . Iron saturation is at 21%. Surgery consulted and plan for EGD/colonoscopy. 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 Recent wound culture with stentrophomonas maltophilis and staph aureus. Podiatry consulted. EGD completed today and showed gastritis, will continue PPI. She refused bowel prep and therefore did not have colonoscopy today. She is rather sleepy today. Goode in place for acute urinary retention per note yesterday. Pt lives at [facility] and will liekly d/c there tomorrow. She is not competent to make her own decisions at this time. - Review of Systems Constitutional: Weakness, No Fever, No Chills Eyes: No Symptoms Ears, Nose, & Throat: No Symptoms Respiratory: No Cough, No Short Of Breath Cardiac: No Chest Pain, No Edema, No Syncope Abdominal/Gastrointestinal: No Abdominal Pain, No Nausea, No Vomiting, No Diarrhea Genitourinary Symptoms: No Dysuria Musculoskeletal: No Back Pain, No Neck Pain Skin: No Rash Neurological: Other (fatigued), No Dizziness, No Focal Weakness, No Sensory Changes Psychological: No Symptoms, Other (altered mental status) Endocrine: No Symptoms Hematologic/Lymphatic: No Symptoms Immunological/Allergic: No Symptoms Objective Exam General Appearance: no apparent distress, alert Neurologic Exam: alert, normal mood/affect, nml cerebellar function, sensation nml, uncooperative, motor weakness, other (oriented to self only.), No motor deficits Skin Exam: normal color, warm, dry Wound Assessment: Skin/Wound Assessment Wound/Incision Assessment Start: 04/12/24 02:58 Text: Status: Active Freq: Q6H Protocol: Document 04/14/24 10:00 AW (Rec: 04/14/24 12:07 AW [id number]) Wound/Incision Assessment Right Heel Wound Assessment Shift Assessment Wound Type Pressure Ulcer Wound Stage Unstageable Dressing Status Dry & Intact Drainage Amount None Drainage Odor Foul Odor Wound Bed Greatest Portion Black (Eschar) Surrounding Tissue Washam,Dark Red Primary Dressing Mepilex Comment 6.5 cm x 4 cm; flaking skin along edges Left Heel Wound Assessment Shift Assessment Wound Type Pressure Ulcer Wound Stage Unstageable Dressing Status Changed Drainage Amount Minimal Drainage Description Sanguineous Drainage Odor Foul Odor General Appearance Blackened,Bleeding,Necrotic Wound Bed Greatest Portion Black (Eschar) Surrounding Tissue Washam,Purple Primary Dressing mepilex Comment 4cm x 5 cm Sacrum Wound Assessment Shift Assessment Wound Type Pressure Ulcer Wound Stage Stage II Dressing Status Dry & Intact Drainage Amount Moderate Drainage Description Sanguineous Drainage Odor None/Absent General Appearance Reddened,Draining Wound Bed Greatest Portion Red (Granulation) Surrounding Tissue Dark Red,Purple Primary Dressing Mepilex Comment mepilex dressing with strikethrough on 3 edges, mepilex peeled back to assess wound and replaced - no mepilex available to change dressing at this time Buttock Wound Assessment Shift Assessment Wound Type Redness Wound Stage Non Pressure Wound Drainage Amount None General Appearance Open to air,Reddened Surrounding Tissue Washam Left Medial Toe Wound Assessment Shift Assessment Wound Type Amputation Wound Stage Non Pressure Wound Drainage Amount None Comment CADD DRAFTER, skin clean, dry, intact Right Breast Wound Assessment Shift Assessment Wound Type bruise Wound Stage Non Pressure Wound Comment large green bruise to right breast Wound Photo Photo Taken Yes Date: 04/12/24 Time: 01:10 Eye Exam: PERRL, EOMI, eyes nml inspection Ears, Nose, Throat Exam: normal ENT inspection, pharynx normal, moist mucous membranes Neck Exam: normal inspection, non-tender, supple, full range of motion Respiratory Exam: normal breath sounds, lungs clear, No respiratory distress Cardiovascular Exam: regular rate/rhythm, normal heart sounds Gastrointestinal/Abdomen Exam: soft, No tenderness, No mass Extremity Exam: normal inspection, normal range of motion, other (BLLE wrapped) Back Exam: normal inspection, normal range of motion, No CVA tenderness, No vertebral tenderness Pelvic Exam: deferred Rectal Exam: deferred Objective Data Vital Signs: Vital Signs - 24 hr Temp Pulse Resp BP BP Pulse Ox 04/14/24 14:00 102/53 04/14/24 13:00 69 10 L 133/66 100 04/14/24 12:00 97.9 F 77 11 L 109/55 119/61 99 04/14/24 11:57 70 12 119/61 99 04/14/24 11:19 78 13 108/55 96 04/14/24 11:00 100/56 04/14/24 10:00 72 0 L 112/52 04/14/24 09:00 99.0 F 69 8 L 122/58 112/52 92 L 04/14/24 08:00 78 12 140/65 100 04/14/24 07:16 99.0 F 72 16 95/58 92 L 04/14/24 07:09 95 04/14/24 07:00 89 4 L 95/58 100 04/14/24 06:00 90 13 127/74 97 04/14/24 05:00 90 13 143/68 98 04/14/24 04:00 98.3 F 88 8 L 139/73 98 04/14/24 03:01 95 H 14 134/71 98 04/14/24 02:00 83 10 L 123/65 96 04/14/24 01:00 84 22 129/47 99 04/14/24 00:00 97.3 F 81 9 L 147/83 99 04/13/24 23:00 80 10 L 119/71 97 04/13/24 22:00 84 12 151/69 96 04/13/24 21:00 80 9 L 131/58 97 04/13/24 20:00 98.1 F 80 5 L 116/59 97 04/13/24 19:51 99 04/13/24 19:00 66 5 L 139/58 98 04/13/24 18:00 75 13 133/61 96 04/13/24 17:00 68 12 134/65 97 04/13/24 16:00 97.8 F 67 12 136/44 134/65 99 Pain Assessment - Last Documented Pain Intensity 5 Pain Scale Used 0-10 Pain Scale Intake and Output: Intake & Output 04/12/24 04/13/24 04/14/24 04/15/24 11:59 11:59 11:59 11:59 Intake Total 782 5 270 Output Total 2951999 3200 Balance -2165 23 -2930 Weight 62.2 kg Lab Results: Lab Results-Last 24 Hours 04/13/24 04/13/24 04/13/24 Range/Units 16:38 20:30 22:09 WBC (3.98-10.04) x10^3/uL RBC (3.93-5.22) x10^6/uL Hgb (11.2-15.7) g/dL Hct (34.1-44.9) % MCV (79.4-94.8) fL MCH (25.6-32.2) pg MCHC (32.2-35.5) g/dL RDW (11.7-14.4) % Plt Count (182-369) x10^3/uL MPV (9.4-12.3) fL Gran % (34.0-71.1) % Immature Gran % (Auto) (0.001-0.429) % Nucleat RBC Rel Count (0.00-0.2) % Eos # (Auto) (0.04-0.36) x10^3/uL Immature Gran # (Auto) (0.001-0.031) x10^3u/L Absolute Lymphs (auto) (1.18-3.74) x10^3/uL Absolute Monos (auto) (0.24-0.86) x10^3/uL Absolute Nucleated RBC (0.00-0.012) x10^3u/L Lymphocytes % (19.3-51.7) % Monocytes % (4.7-12.5) % Eosinophils % (0.7-5.8) % Basophils % (0.1-1.2) % Absolute Granulocytes (1.56-6.13) x10^3/uL Basophils # (0.01-0.08) x10^3/uL Sodium (135-145) mmol/L Potassium (3.5-5.1) mmol/L Chloride (98-107) mmol/L Carbon Dioxide (22-30) mmol/L Anion Gap (5-15) MEQ/L BUN (7-17) mg/dL Creatinine (0.52-1.04) mg/dL Estimated GFR ML/MIN Glucose (74-106) mg/dL POC Glucometer 108 H 96 91 (74 to 106) mg/dL Calcium (8.4-10.2) mg/dL Magnesium (1.6-2.3) mg/dL Total Bilirubin (0.2-1.3) mg/dL AST (14-36) U/L ALT (0-35) U/L Alkaline Phosphatase (38-126) U/L Serum Total Protein (6.3-8.2) g/dL Albumin (3.5-5.0) g/dL 04/14/24 04/14/24 04/14/24 Range/Units 00:03 03:59 06:40 WBC (3.98-10.04) x10^3/uL RBC (3.93-5.22) x10^6/uL Hgb (11.2-15.7) g/dL Hct (34.1-44.9) % MCV (79.4-94.8) fL MCH (25.6-32.2) pg MCHC (32.2-35.5) g/dL RDW (11.7-14.4) % Plt Count (182-369) x10^3/uL MPV (9.4-12.3) fL Gran % (34.0-71.1) % Immature Gran % (Auto) (0.001-0.429) % Nucleat RBC Rel Count (0.00-0.2) % Eos # (Auto) (0.04-0.36) x10^3/uL Immature Gran # (Auto) (0.001-0.031) x10^3u/L Absolute Lymphs (auto) (1.18-3.74) x10^3/uL Absolute Monos (auto) (0.24-0.86) x10^3/uL Absolute Nucleated RBC (0.00-0.012) x10^3u/L Lymphocytes % (19.3-51.7) % Monocytes % (4.7-12.5) % Eosinophils % (0.7-5.8) % Basophils % (0.1-1.2) % Absolute Granulocytes (1.56-6.13) x10^3/uL Basophils # (0.01-0.08) x10^3/uL Sodium 145 D (135-145) mmol/L Potassium 4.0 (3.5-5.1) mmol/L Chloride 114 H (98-107) mmol/L Carbon Dioxide 20 L (22-30) mmol/L Anion Gap 15.4 H (5-15) MEQ/L BUN 11 (7-17) mg/dL Creatinine 0.52 (0.52-1.04) mg/dL Estimated GFR 104.3 ML/MIN Glucose 78 (74-106) mg/dL POC Glucometer 88 113 H (74 to 106) mg/dL Calcium 9.6 (8.4-10.2) mg/dL Magnesium 1.8 (1.6-2.3) mg/dL Total Bilirubin 0.80 (0.2-1.3) mg/dL AST 44 H (14-36) U/L ALT 43 H (0-35) U/L Alkaline Phosphatase 145 H (38-126) U/L Serum Total Protein 6.3 (6.3-8.2) g/dL Albumin 2.9 L (3.5-5.0) g/dL 04/14/24 04/14/24 04/14/24 Range/Units 07:15 07:29 11:56 WBC 10.6 H (3.98-10.04) x10^3/uL RBC 3.79 L (3.93-5.22) x10^6/uL Hgb 10.3 L (11.2-15.7) g/dL Hct 32.2 L (34.1-44.9) % MCV 85.0 (79.4-94.8) fL MCH 27.2 (25.6-32.2) pg MCHC 32.0 L (32.2-35.5) g/dL RDW 14.7 H (11.7-14.4) % Plt Count 125 L (182-369) x10^3/uL MPV 9.0 L (9.4-12.3) fL Gran % 79.4 H (34.0-71.1) % Immature Gran % (Auto) 0.9 H (0.001-0.429) % Nucleat RBC Rel Count 0.0 (0.00-0.2) % Eos # (Auto) 0.05 (0.04-0.36) x10^3/uL Immature Gran # (Auto) 0.10 H (0.001-0.031) x10^3u/L Absolute Lymphs (auto) 1.35 (1.18-3.74) x10^3/uL Absolute Monos (auto) 0.65 (0.24-0.86) x10^3/uL Absolute Nucleated RBC 0.00 (0.00-0.012) x10^3u/L Lymphocytes % 12.7 L (19.3-51.7) % Monocytes % 6.1 (4.7-12.5) % Eosinophils % 0.5 L (0.7-5.8) % Basophils % 0.4 (0.1-1.2) % Absolute Granulocytes 8.44 H (1.56-6.13) x10^3/uL Basophils # 0.04 (0.01-0.08) x10^3/uL Sodium (135-145) mmol/L Potassium (3.5-5.1) mmol/L Chloride (98-107) mmol/L Carbon Dioxide (22-30) mmol/L Anion Gap (5-15) MEQ/L BUN (7-17) mg/dL Creatinine (0.52-1.04) mg/dL Estimated GFR ML/MIN Glucose (74-106) mg/dL POC Glucometer 85 97 (74 to 106) mg/dL Calcium (8.4-10.2) mg/dL Magnesium (1.6-2.3) mg/dL Total Bilirubin (0.2-1.3) mg/dL AST (14-36) U/L ALT (0-35) U/L Alkaline Phosphatase (38-126) U/L Serum Total Protein (6.3-8.2) g/dL Albumin (3.5-5.0) g/dL Multi-Disciplinary Progress Notes: Multi-Disciplinary Progress Notes 04/14/24 13:38 Case Management Note by Amparo Barfield S/W DAUGHTER FRANDY MALDONADO- SHE REPORTS SHE HAS S/W HER SIBLINGS- NONE OF THEM HAVE POA AND SHE IS HER NEXT OF KIN SHE IS HER OLDEST CHILD Initialized on 04/14/24 13:38 - END OF NOTE Assessment/Plan (1) Acute anemia Current Visit: Yes Status: Acute Assessment & Plan: -Received 2 units LPRBC 04/12/24 - hgb stable - trend -Surgery consulted- EGD today showed gastritis -She refused bowel prep - unable to do colonoscopy - Hold blood thinner as not safe to resume - Iron sat at 21% ferritin at 413 - Protonix - Monitor hgb, transfuse if <7 - occult stools pending collection - Hold ASA Code(s): D64.9 - ANEMIA, UNSPECIFIED (2) Altered mental status Current Visit: Yes Status: Acute Assessment & Plan: - improved with bouts of confusion - head CT with no acute findings - Delirium protocol - TSH 2.490 - Not competent to make her own decisions - Lives at [facility] Code(s): R41.82 - ALTERED MENTAL STATUS, UNSPECIFIED (3) Cellulitis of both feet Current Visit: Yes Status: Acute Assessment & Plan: -Follow with podiatry - on levaquin will continue - podiatry to follow while IP -History of osteomyelitis bilateral heels Code(s): L03.115 - CELLULITIS OF RIGHT LOWER LIMB; L03.116 - CELLULITIS OF LEFT LOWER LIMB (4) HTN (hypertension) Current Visit: Yes Status: Acute Code(s): I10 - ESSENTIAL (PRIMARY) HYPERTENSION (5) Hypoglycemia Current Visit: Yes Status: Acute Assessment & Plan: -Resolved Code(s): E16.2 - HYPOGLYCEMIA, UNSPECIFIED (6) Type 2 diabetes mellitus Current Visit: Yes Status: Acute Assessment & Plan: -Hypoglycemia on arrival - D10 discontinued -Resume ADA diet -SSI for now - A1C 02/15/24 10.42- uncontrolled (7) Hemiplegia affecting right dominant side Current Visit: Yes Status: Chronic Assessment & Plan: -noted Code(s): G81.91 - HEMIPLEGIA, UNSPECIFIED AFFECTING RIGHT DOMINANT SIDE (8) HLD (hyperlipidemia) Current Visit: Yes Status: Chronic Assessment & Plan: -continue statin Code(s): E78.5 - HYPERLIPIDEMIA, UNSPECIFIED (9) Gastritis Current Visit: Yes Status: Acute Assessment & Plan: - as seen on EGD per GS - Continue PPI VTE: On hold, SCD PPI: Protonix Next of KIN: daughters D/C plan: Tomorrow if OK with podiatry Code(s): K29.70 - GASTRITIS, UNSPECIFIED, WITHOUT BLEEDING
[2024-04-15 05:16] LABS: Hematocrit 29.4 % (34.1-44.9); Hemoglobin 9.5 g/dL (11.2-15.7); Mean Cell Volume 84.2 fL (79.4-94.8); Mean Corpuscular Hemoglobin 27.2 pg (25.6-32.2); Mean Corpuscular Hgb Concent. 32.3 g/dL (32.2-35.5); Mean Platelet Volume 9.2 fL (9.4-12.3); Platelet Count 138 x10^3/uL (182-369); Red Blood Count 3.49 x10^6/uL (3.93-5.22); Red Cell Distribution Width 14.6 % (11.7-14.4); White Blood Count 12.1 x10^3/uL (3.98-10.04)
[2024-04-15 05:33] LABS: ALBUMIN 2.8 g/dL (3.5-5.0); BILIRUBIN,TOTAL 0.6 mg/dL (0.2-1.3); Calcium 8.8 mg/dL (8.4-10.2); Creatinine 1 0.63 mg/dL (0.52-1.04); EST GLOMERULAR FILTRATION RATE 99.6 ML/MIN; Potassium 3.1 mmol/L (3.5-5.1); Total Protein 6.2 g/dL (6.3-8.2)
--- NOTE | 2024-04-15 09:37 | OP ---
SURGERY DATE/TIME: 04/14/2024 9729 - 3515 PREOPERATIVE DIAGNOSIS: The patient is seen for Dr. Schroeder who was consulted over the weekend for known severe anemia, multiple co-morbidities, need for endoscopy. Patient refused to take colonoscopy prep. Dr. Schroeder asked me to see the patient about upper endoscopy. Risks were explained of bleeding, infection, risks of bowel injury, perforation, but not limited to. Dr. Parsons had talked to the daughter previously. POSTOPERATIVE DIAGNOSES: 1) Gastritis. 2) No visible active ulcers currently. PROCEDURE: Subsequent gastroduodenoscopy, cold biopsy of antrum. SURGEON: Mickey Bah M.D. ANESTHESIA: MAC. ESTIMATED BLOOD LOSS: Minimal. INDICATION: As noted above. Consent obtained. DESCRIPTION OF PROCEDURE AND FINDINGS: The patient was taken to the endoscopy room. MAC anesthesia induced. After official time-out and no disagreement with planned procedure, the gastroscope easily passed down the esophagus through the patent pylorus, to the junction of the third and fourth portion of duodenum. This was grossly unremarkable. Scope was carefully withdrawn. No signs of any ulcers. There was some minimal erythema of the duodenal bulb, but no munira erosion. No visible ulcers on endoscopic view. Scope pulled back in the stomach. He had some mild gastritis. Cold biopsy taken to evaluate for H pylori. Good hemostasis noted. Otherwise, cold biopsies taken for H pylori. On retroflex, the GE junction snug against the scope. The scope was straightened. Again, no signs of any visible old or fresh blood. No signs of any ulcers or any deep erosions. Scope pulled back to GE junction about 37 to 38 cm. Z-line was fairly crisp. No signs of any erosions or ulcers. No signs of any active upper GI bleeding at this time. Findings were discussed with power of workers compensation attorney, daughter, over the phone. Disposition per medical physician. If desire followup colonoscopy or further workup for anemia, can follow up in the office with Dr. Schroeder, who was consulted over the weekend and saw the patient.
[2024-04-15] MEDS: K-LYTE PO SCH (12:26)
--- NOTE | 2024-04-15 13:09 | PCM.DS ---
Discharge Summary Date of Admission: 04/12/24 01:02 Date of Discharge: 04/15/24 Admitting Physician: TO MELO MD Consults: Consults on Case 04/12/24 02:58 Case Management SDOH DC Needs Assessment ROUTINE 04/12/24 12:57 Consult Podiatry ROUTINE 04/12/24 17:57 Consult Surgery ROUTINE Primary Care Provider: [facility] Allergies Allergies shellfish derived Allergy (Intermediate, Verified 02/14/24 22:19) Rash rash bee venom protein (honey bee) Allergy (Unknown, Verified 02/14/24 22:19) metformin [From Glucophage] Allergy (Unknown, Verified 02/14/24 22:19) Penicillins Allergy (Verified 02/14/24 22:19) [facility] Summary - Hospital Course Hospital Course: 04/14/24 Ms. Espinosa is a 63 year-old female with hemiplegia, HTN, HLD, and DM2. She presented 04/12/24 with altered mental status, hypotension, and hypoglycemia. [facility] unresponsive with a blood sugar in the 30s. En route and in ED at [facility], she was given multiple amps of D50 prior to being started on D10 and levophed. Laboratory data was remarkable for a Hgb of 5.7 and elevated cardiac enzymes, while imaging was unremarkable. Patient received 2 units of LPRBCs 04/12 with noted improvement of hgb at 9.5. Mental status improved. She is A&O x 3 during interview. Family reported that patient recently had hematemesis about a month ago and wanted surgery consult for EGD/Colonoscopy if possible. Levophed discontinued with stable BP. Blood glucose levels are stable and D10 has been discontinued. Plan for occult stools. Pt admits black stools one week ago . Iron saturation is at 21%. Surgery consulted and plan for EGD/colonoscopy. 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 Recent wound culture with stentrophomonas maltophilis and staph aureus. Podiatry consulted. EGD completed today and showed gastritis, will continue PPI. She refused bowel prep and therefore did not have colonoscopy today. She is rather sleepy today. Goode in place for acute urinary retention per note yesterday. Pt lives at [facility] and will liekly d/c there tomorrow. She is not competent to make her own decisions at this time. 04/15/24 Pt resting in bed. She is awake, alert, and calm today. UC showed enterococcus yesterday and antibiotic changed to Zyvox as she is resistant to Levaquin per sensitivity results. Podiatry evaluated pt today and explained there is not more more he can do for the patient. Pt has a wound on her sacrum that appears to have gotten worse with dark eschar regions. Pt reports no pain in area of concern. Nursing staff are rotating pt position often per report. Will have PT eval wound for further recommendations. Goode left in place to aide in wound healing as she incontinent of bowel and bladder. She staying at [facility] for jail care. Attempted to discuss pt case with family as she would benefit from hospice services. However, I was unable to reach them. She not capable of making her own decisions at this time. Discussed pt case with case management. Will d/c with antibiotics and if pt's family would like to transition to hospice services they can do so at the facility. She denies CP, SOB, Abd. pain, N/V/D. - Vitals & Intake/Output Vital Signs: Vital Signs Temperature 98.6 F 04/15/24 04:00 Pulse Rate 69 04/15/24 11:00 Respiratory Rate 6 L 04/15/24 11:00 Blood Pressure 97/55 04/15/24 11:00 O2 Sat by Pulse Oximetry 98 04/15/24 11:00 Intake & Output: Intake & Output 04/13/24 04/14/24 04/15/24 04/16/24 11:59 11:59 11:59 11:59 Intake Total 2022 270 1470 Output Total 1999 3200 700 Balance 23 2930 770 Weight 62.2 kg - Lab Result Diagrams: 04/15/24 05:00 04/15/24 05:00 Lab Results-Last 24 Hrs: Lab Results-Last 24 Hours 04/14/24 04/14/24 04/14/24 Range/Units 16:31 20:54 22:12 WBC (3.98-10.04) x10^3/uL RBC (3.93-5.22) x10^6/uL Hgb (11.2-15.7) g/dL Hct (34.1-44.9) % MCV (79.4-94.8) fL MCH (25.6-32.2) pg MCHC (32.2-35.5) g/dL RDW (11.7-14.4) % Plt Count (182-369) x10^3/uL MPV (9.4-12.3) fL Sodium (135-145) mmol/L Potassium (3.5-5.1) mmol/L Chloride (98-107) mmol/L Carbon Dioxide (22-30) mmol/L Anion Gap (5-15) MEQ/L BUN (7-17) mg/dL Creatinine (0.52-1.04) mg/dL Estimated GFR ML/MIN Glucose (74-106) mg/dL POC Glucometer 116 H 69 L 120 H (74 to 106) mg/dL Calcium (8.4-10.2) mg/dL Total Bilirubin (0.2-1.3) mg/dL AST (14-36) U/L ALT (0-35) U/L Alkaline Phosphatase (38-126) U/L Serum Total Protein (6.3-8.2) g/dL Albumin (3.5-5.0) g/dL 04/15/24 04/15/24 04/15/24 Range/Units 00:42 04:13 05:00 WBC 12.1 H (3.98-10.04) x10^3/uL RBC 3.49 L (3.93-5.22) x10^6/uL Hgb 9.5 L (11.2-15.7) g/dL Hct 29.4 L (34.1-44.9) % MCV 84.2 (79.4-94.8) fL MCH 27.2 (25.6-32.2) pg MCHC 32.3 (32.2-35.5) g/dL RDW 14.6 H (11.7-14.4) % Plt Count 138 L (182-369) x10^3/uL MPV 9.2 L (9.4-12.3) fL Sodium (135-145) mmol/L Potassium (3.5-5.1) mmol/L Chloride (98-107) mmol/L Carbon Dioxide (22-30) mmol/L Anion Gap (5-15) MEQ/L BUN (7-17) mg/dL Creatinine (0.52-1.04) mg/dL Estimated GFR ML/MIN Glucose (74-106) mg/dL POC Glucometer 220 H 126 H (74 to 106) mg/dL Calcium (8.4-10.2) mg/dL Total Bilirubin (0.2-1.3) mg/dL AST (14-36) U/L ALT (0-35) U/L Alkaline Phosphatase (38-126) U/L Serum Total Protein (6.3-8.2) g/dL Albumin (3.5-5.0) g/dL 04/15/24 04/15/24 04/15/24 Range/Units 05:00 07:50 11:58 WBC (3.98-10.04) x10^3/uL RBC (3.93-5.22) x10^6/uL Hgb (11.2-15.7) g/dL Hct (34.1-44.9) % MCV (79.4-94.8) fL MCH (25.6-32.2) pg MCHC (32.2-35.5) g/dL RDW (11.7-14.4) % Plt Count (182-369) x10^3/uL MPV (9.4-12.3) fL Sodium 135 D (135-145) mmol/L Potassium 3.1 L D (3.5-5.1) mmol/L Chloride 104 (98-107) mmol/L Carbon Dioxide 24 (22-30) mmol/L Anion Gap 10.0 (5-15) MEQ/L BUN 16 (7-17) mg/dL Creatinine 0.63 (0.52-1.04) mg/dL Estimated GFR 99.6 ML/MIN Glucose 96 (74-106) mg/dL POC Glucometer 91 200 H (74 to 106) mg/dL Calcium 8.8 (8.4-10.2) mg/dL Total Bilirubin 0.60 (0.2-1.3) mg/dL AST 30 (14-36) U/L ALT 32 (0-35) U/L Alkaline Phosphatase 123 (38-126) U/L Serum Total Protein 6.2 L (6.3-8.2) g/dL Albumin 2.8 L (3.5-5.0) g/dL Micro Results-Entire Visit: Microbiology 04/13/24 10:45 Urine Culture - Final Urine, Indwelling Catheter NO GROWTH 04/11/24 20:44 Urine Culture - Final Catherized Enterococcus Faecium 04/11/24 19:52 Blood Culture - Preliminary Blood 04/11/24 19:59 Blood Culture - Preliminary Blood Accuchecks Date 04/15/24 Date 04/15/24 Date 04/15/24 Date 04/14/24 Date 04/14/24 Time 07:56 Time 04:13 Time 00:42 Time 20:54 Time 16:58 - Procedures and Test Procedures and Tests throughout Hospitalization: Therapy Orders & Screens 04/11/24 19:55 BiPap/CPAP STAT Comment: Diagnosis: Altered mental status, anemia, hypotension 04/12/24 01:19 Oxygen Nasal Cannula 3 lpm Comment: Respiratory Therapy Consult ONCE Comment: Reason For Exam: 04/12/24 02:58 OT Screen per Nursing Assess ONCE Comment: Protocol Order Physician Instructions: Greater than 3 points order OT Admission Screening Reason For Exam: Triggered on Admission Diagnosis: Altered mental status, anemia, hypotension Open Wound/Cellutlitis/Pressure Ulcers: Yes Acute Fx/ORIF/Change in wt bearing status: No Severe MUSCULOSKELETAL pain: No ADL Dysfunction: Yes Acute CVA w/Hemiparesis/Hemiplegia: No Decreased Functional Mobility/Strength: Yes Sprain/Strain: No Acute Post-op Mobility Dysfunction: No Total Points: 9 PT Screen per Nursing Assess ONCE Comment: Protocol Order Physician Instructions: Greater than 3 points order PT Admission Screenin Reason For Exam: Triggered on Admission Diagnosis: Altered mental status, anemia, hypotension Open Wound/Cellutlitis/Pressure Ulcers: Yes Acute Fx/ORIF/Change in wt bearing status: No Severe MUSCULOSKELETAL pain: No ADL Dysfunction: Yes Acute CVA w/Hemiparesis/Hemiplegia: No Decreased Functional Mobility/Strength: Yes Sprain/Strain: No Acute Post-op Mobility Dysfunction: No Total Points: 9 ST Screen per Nursing Assess ONCE Comment: Protocol Order Physician Instructions: Greater than [address] Admission Screening Reason For Exam: Triggered on Admission Diagnosis: Altered mental status, anemia, hypotension CVA/Dyshpagia/Aphasia: No Cognitive Deficits: Yes Dehydration/Nutrition Deficit: No Reflux: No Oral-Motor Difficulties: No Pneumonia: No Halfway Resident: Yes Total Points: 8 04/15/24 09:23 PT Eval & Treat (MD Order) ONCE Reason for Eval:: wound sacrum, weakness Diagnosis: Altered mental status, anemia, hypotension Discharge Exam General Appearance: no apparent distress, alert Neurologic Exam: alert, oriented x 3, cooperative, normal mood/affect, nml cerebellar function, sensation nml, No motor deficits Eye Exam: PERRL, EOMI, eyes nml inspection Ears, Nose, Throat Exam: normal ENT inspection, pharynx normal, moist mucous membranes Neck Exam: normal inspection, non-tender, supple, full range of motion Respiratory Exam: normal breath sounds, lungs clear, No respiratory distress Cardiovascular Exam: regular rate/rhythm, normal heart sounds Gastrointestinal/Abdomen Exam: soft, No tenderness, No mass Pelvic Exam: deferred Rectal Exam: deferred Back Exam: normal inspection, normal range of motion, No CVA tenderness, No vertebral tenderness Extremity Exam: normal inspection, normal range of motion, other (BLLE extremities wrapped, wound on sacrum wound appears worse today with new eschar. See pics in chart by nursing.) Skin Exam: normal color, warm, dry Wound Assessment: Skin/Wound Assessment Wound/Incision Assessment Start: 04/12/24 02:58 Text: Status: Active Freq: Q6H Protocol: Document 04/15/24 06:00 KD (Rec: 04/15/24 09:14 KD [id number]) Wound/Incision Assessment Right Heel Wound Assessment Shift Assessment Wound Type Pressure Ulcer Wound Stage Unstageable Dressing Status Dry & Intact General Appearance Necrotic Surrounding Tissue Herron,Dark Red Primary Dressing mepilex Left Heel Wound Assessment Shift Assessment Wound Type Pressure Ulcer Wound Stage Unstageable Dressing Status Dry & Intact General Appearance Necrotic Surrounding Tissue Herron,Purple Primary Dressing Mepilex Sacrum Wound Assessment Shift Assessment Wound Type Pressure Ulcer Wound Stage Unstageable Dressing Status Dry & Intact Drainage Amount Copious Drainage Description Serosanguineous Drainage Odor Foul Odor General Appearance Reddened,Draining,Necrotic, Unapproximated Wound Bed Greatest Portion Black (Eschar) Wound Bed Lesser Portion Red (Granulation),Pale Herron Surrounding Tissue Herron Comment Melgisorb Plus dressing, covered with mix of Barrier Cream & Zinc Ointment. Bordered Gauze as a cover dressing, edges reinforced with silk tape. Buttock Wound Assessment Shift Assessment Wound Type Redness Wound Stage Non Pressure Wound Drainage Amount None General Appearance Open to air,Reddened Surrounding Tissue Herron Comment Redness improving from previous shift. Left Medial Toe Wound Assessment Shift Assessment Wound Type Amputation Wound Stage Non Pressure Wound Drainage Amount None Comment JUAN CARLOS, skin clean, dry, intact Right Breast Wound Assessment Shift Assessment Wound Type bruise Wound Stage Non Pressure Wound Comment large bruise to right breast Wound Photo Photo Taken Yes Date: 04/12/24 Time: 01:10 Comment: New photos taken of heels & sacrum on 04/15/24 @ 0035. Final Diagnosis/Problem List - Final Discharge Diagnosis/Problem (1) Acute anemia Current Visit: Yes Status: Acute Code(s): D64.9 - ANEMIA, UNSPECIFIED (2) Altered mental status Current Visit: Yes Status: Acute Code(s): R41.82 - ALTERED MENTAL STATUS, UNSPECIFIED (3) Cellulitis of both feet Current Visit: Yes Status: Acute Code(s): L03.115 - CELLULITIS OF RIGHT LOWER LIMB; L03.116 - CELLULITIS OF LEFT LOWER LIMB (4) HTN (hypertension) Current Visit: Yes Status: Acute Code(s): I10 - ESSENTIAL (PRIMARY) HYPERTENSION (5) Hypoglycemia Current Visit: Yes Status: Acute Code(s): E16.2 - HYPOGLYCEMIA, UNSPECIFIED (6) Type 2 diabetes mellitus Current Visit: Yes Status: Acute (7) Hemiplegia affecting right dominant side Current Visit: Yes Status: Chronic Code(s): G81.91 - HEMIPLEGIA, UNSPECIFIED AFFECTING RIGHT DOMINANT SIDE (8) HLD (hyperlipidemia) Current Visit: Yes Status: Chronic Code(s): E78.5 - HYPERLIPIDEMIA, UNSPECIFIED (9) Gastritis Current Visit: Yes Status: Acute Assessment & Plan: (1) Acute anemia Current Visit: Yes Status: Acute Assessment & Plan: -Received 2 units LPRBC 04/12/24 - hgb stable - trend -Surgery consulted- EGD today showed gastritis -She refused bowel prep - unable to do colonoscopy - Hold blood thinner as not safe to resume - Iron sat at 21% ferritin at 413 - Protonix - Monitor hgb, transfuse if <7 - occult stools pending collection - Hold ASA 04/15 - Hgb 9.8- stable - EGD showed acute gastritis- continue PPI - refused to do bowel prep for Colonoscopy Code(s): D64.9 - ANEMIA, UNSPECIFIED (2) Altered mental status Current Visit: Yes Status: Acute Assessment & Plan: - improved with bouts of confusion - head CT with no acute findings - Delirium protocol - TSH 2.490 - Not competent to make her own decisions - skilled care at [facility] 04/15 - Awake and alert today - night before gave geodon d/t anxiety and confusion Code(s): R41.82 - ALTERED MENTAL STATUS, UNSPECIFIED (3) Cellulitis of both feet Current Visit: Yes Status: Acute Assessment & Plan: -Follow with podiatry - on levaquin will continue - podiatry to follow while IP -History of osteomyelitis bilateral heels 04/15 - per podiatry nothing more he can do at this time. Code(s): L03.115 - CELLULITIS OF RIGHT LOWER LIMB; L03.116 - CELLULITIS OF LEFT LOWER LIMB (4) HTN (hypertension) Current Visit: Yes Status: Acute Code(s): I10 - ESSENTIAL (PRIMARY) HYPERTENSION - BP stable - May hold meds if needed (5) Hypoglycemia Current Visit: Yes Status: Acute Assessment & Plan: -Resolved Code(s): E16.2 - HYPOGLYCEMIA, UNSPECIFIED (6) Type 2 diabetes mellitus Current Visit: Yes Status: Acute Assessment & Plan: -Hypoglycemia on arrival - D10 discontinued -Resume ADA diet -SSI for now - A1C 02/15/24 10.42- uncontrolled (7) Hemiplegia affecting right dominant side Current Visit: Yes Status: Chronic Assessment & Plan: -noted Code(s): G81.91 - HEMIPLEGIA, UNSPECIFIED AFFECTING RIGHT DOMINANT SIDE (8) HLD (hyperlipidemia) Current Visit: Yes Status: Chronic Assessment & Plan: -continue statin Code(s): E78.5 - HYPERLIPIDEMIA, UNSPECIFIED (9) Gastritis Current Visit: Yes Status: Acute Assessment & Plan: - as seen on EGD per - Continue PPI Code(s): K29.70 - GASTRITIS, UNSPECIFIED, WITHOUT BLEEDING (10) UTI (urinary tract infection) Current Visit: Yes Status: Acute Assessment & Plan: - Zyvox - UC + enterococcus - Resistant to Levaquin Code(s): N39.0 - URINARY TRACT INFECTION, SITE NOT SPECIFIED - Discharge Discharge Date: 04/15/24 ([facility]) Disposition: XFER OTHER Condition: Critical Prescriptions: New Pantoprazole 20 mg [Protonix 20MG Tablet] 20 mg PO BID 30 Days #60 tab Linezolid [Zyvox] 600 mg PO BID 7 Days #14 tablet Continue Gabapentin [Neurontin ] 300 mg PO TID Escitalopram Oxalate [Lexapro] 10 mg PO DAILY 30 Days #30 tablet Aspirin EC 325 mg [Ecotrin 325 MG] 325 mg PO DAILY #30 tablet Hydrocodone/Acetaminophen [Hydrocodone-Acetamin 5-325 mg] 1 tab PO Q4H PRN PRN MDD 4 PRN Reason: Pain Amlodipine Besylate [Norvasc] 10 mg PO DAILY Atorvastatin Calcium [Lipitor 40Mg] 40 mg PO HS Glyburide 5 mg [Micronase 5 MG] 5 mg PO HS Lisinopril 20 mg [Zestril 20 MG] 40 mg PO DAILY Metoprolol Succinate 25 mg Xl* [Toprol-Xl 25MG Tablets] 25 mg PO DAILY Miconazole Nitrate 85 gm TP BID Hydrophilic Cream [Triad] 71 gm TP BID Levofloxacin/D5w [Levofloxacin 750 mg/150 ml-D5w] 750 mg IV HS Fluconazole 150 mg PO DAILY Follow up with: VALERIE LANGLEY OF [Primary Care Provider] -
[2024-04-15] MEDS: Klor Con PO SCH (16:17)
[2024-04-15] MEDS ORDERED: Klor Con ONE (21:06)
[2024-04-15] MEDS: Klor Con PO ONE (21:13)
[2024-04-16 04:54] LABS: Hematocrit 31.9 % (34.1-44.9); Hemoglobin 10.3 g/dL (11.2-15.7); Mean Cell Volume 83.5 fL (79.4-94.8); Mean Corpuscular Hgb Concent. 32.3 g/dL (32.2-35.5); Mean Platelet Volume 9.2 fL (9.4-12.3); Platelet Count 144 x10^3/uL (182-369); Red Blood Count 3.82 x10^6/uL (3.93-5.22); Red Cell Distribution Width 14.6 % (11.7-14.4)
[2024-04-16 05:27] LABS: ANION GAP 10.5 MEQ/L (5-15); BILIRUBIN,TOTAL 0.6 mg/dL (0.2-1.3); Calcium 8.9 mg/dL (8.4-10.2); Creatinine 1 0.67 mg/dL (0.52-1.04); EST GLOMERULAR FILTRATION RATE 98.2 ML/MIN; Potassium 3.9 mmol/L (3.5-5.1); Total Protein 6.4 g/dL (6.3-8.2)
[2024-04-16] MEDS: LEVOFLOXACIN 750MG/150ML D5W 750 MG/150 ML BAG IV SCH (09:01)
--- NOTE | 2024-04-16 13:06 | PCM.DS ---
Discharge Summary Date of Admission: 04/12/24 01:02 Date of Discharge: 04/16/24 Admitting Physician: TO MELO MD Consults: Consults on Case 04/12/24 02:58 Case Management SDOH DC Needs Assessment ROUTINE 04/12/24 12:57 Consult Podiatry ROUTINE 04/12/24 17:57 Consult Surgery ROUTINE Primary Care Provider: [facility] Allergies Allergies shellfish derived Allergy (Intermediate, Verified 02/14/24 22:19) Rash rash bee venom protein (honey bee) Allergy (Unknown, Verified 02/14/24 22:19) metformin [From Glucophage] Allergy (Unknown, Verified 02/14/24 22:19) Penicillins Allergy (Verified 02/14/24 22:19) [facility] Summary - Hospital Course Hospital Course: 04/14/24 Ms. Espinosa is a 63 year-old female with hemiplegia, HTN, HLD, and DM2. She presented 04/12/24 with altered mental status, hypotension, and hypoglycemia. She was found at the assisted unresponsive with a blood sugar in the 30s. En route and in ED at [facility], she was given multiple amps of D50 prior to being started on D10 and levophed. Laboratory data was remarkable for a Hgb of 5.7 and elevated cardiac enzymes, while imaging was unremarkable. Patient received 2 units of LPRBCs 04/12 with noted improvement of hgb at 9.5. Mental status improved. She is A&O x 3 during interview. Family reported that patient recently had hematemesis about a month ago and wanted surgery consult for EGD/Colonoscopy if possible. Levophed discontinued with stable BP. Blood glucose levels are stable and D10 has been discontinued. Plan for occult stools. Pt admits black stools one week ago . Iron saturation is at 21%. Surgery consulted and plan for EGD/colonoscopy. 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 Recent wound culture with stentrophomonas maltophilis and staph aureus. Podiatry consulted. EGD completed today and showed gastritis, will continue PPI. She refused bowel prep and therefore did not have colonoscopy today. She is rather sleepy today. Goode in place for acute urinary retention per note yesterday. Pt lives at [facility] and will liekly d/c there tomorrow. She is not competent to make her own decisions at this time. 04/15/24 Pt resting in bed. She is awake, alert, and calm today. UC showed enterococcus yesterday and antibiotic changed to Zyvox as she is resistant to Levaquin per sensitivity results. Podiatry evaluated pt today and explained there is not more more he can do for the patient. Pt has a wound on her sacrum that appears to have gotten worse with dark eschar regions. Pt reports no pain in area of concern. Nursing staff are rotating pt position often per report. Will have PT eval wound for further recommendations. Goode left in place to aide in wound healing as she incontinent of bowel and bladder. She staying at [facility] for senior living care. Attempted to discuss pt case with family as she would benefit from hospice services. However, I was unable to reach them. She not capable of making her own decisions at this time. Discussed pt case with case management. Will d/c with antibiotics and if pt's family would like to transition to hospice services they can do so at the facility. She denies CP, SOB, Abd. pain, N/V/D. 04/16/24 Pt is awake and alert in bed. She was unable to be discharged last night as insurance had not approved readmission to facility she was previously at. Plan is for her to be accepted today. She denies any new concerns and continued plan if care in place. She denies CP, SOB, abd. pain, N/V/D. - Vitals & Intake/Output Vital Signs: Vital Signs Temperature 97.2 F 04/16/24 11:56 Pulse Rate 68 04/16/24 11:56 Respiratory Rate 16 04/16/24 11:56 Blood Pressure 125/69 04/16/24 11:56 O2 Sat by Pulse Oximetry 96 04/16/24 11:56 Intake & Output: Intake & Output 04/14/24 04/15/24 04/16/24 04/17/24 11:59 11:59 11:59 11:59 Intake Total 270 1470 720 Output Total 3200 700 2125 Balance -2930 770 -1405 Weight 62.2 kg - Lab Result Diagrams: 04/16/24 04:11 04/16/24 04:11 Lab Results-Last 24 Hrs: Lab Results-Last 24 Hours 04/15/24 04/15/24 04/15/24 Range/Units 00:30 05:00 16:54 WBC (3.98-10.04) x10^3/uL RBC (3.93-5.22) x10^6/uL Hgb (11.2-15.7) g/dL Hct (34.1-44.9) % MCV (79.4-94.8) fL MCH (25.6-32.2) pg MCHC (32.2-35.5) g/dL RDW (11.7-14.4) % Plt Count (182-369) x10^3/uL MPV (9.4-12.3) fL Sodium 135 D (135-145) mmol/L Potassium 3.9 3.1 L D (3.5-5.1) mmol/L Chloride 104 (98-107) mmol/L Carbon Dioxide 24 (22-30) mmol/L Anion Gap 10.0 (5-15) MEQ/L BUN 16 (7-17) mg/dL Creatinine 0.63 (0.52-1.04) mg/dL Estimated GFR 99.6 ML/MIN Glucose 96 (74-106) mg/dL POC Glucometer 195 H (74 to 106) mg/dL Calcium 8.8 (8.4-10.2) mg/dL Total Bilirubin 0.60 (0.2-1.3) mg/dL AST 30 (14-36) U/L ALT 32 (0-35) U/L Alkaline Phosphatase 123 (38-126) U/L Serum Total Protein 6.2 L (6.3-8.2) g/dL Albumin 2.8 L (3.5-5.0) g/dL 04/15/24 04/16/24 04/16/24 Range/Units 21:37 02:10 04:04 WBC (3.98-10.04) x10^3/uL RBC (3.93-5.22) x10^6/uL Hgb (11.2-15.7) g/dL Hct (34.1-44.9) % MCV (79.4-94.8) fL MCH (25.6-32.2) pg MCHC (32.2-35.5) g/dL RDW (11.7-14.4) % Plt Count (182-369) x10^3/uL MPV (9.4-12.3) fL Sodium (135-145) mmol/L Potassium (3.5-5.1) mmol/L Chloride (98-107) mmol/L Carbon Dioxide (22-30) mmol/L Anion Gap (5-15) MEQ/L BUN (7-17) mg/dL Creatinine (0.52-1.04) mg/dL Estimated GFR ML/MIN Glucose (74-106) mg/dL POC Glucometer 154 H 173 H 139 H (74 to 106) mg/dL Calcium (8.4-10.2) mg/dL Total Bilirubin (0.2-1.3) mg/dL AST (14-36) U/L ALT (0-35) U/L Alkaline Phosphatase (38-126) U/L Serum Total Protein (6.3-8.2) g/dL Albumin (3.5-5.0) g/dL 04/16/24 04/16/24 04/16/24 Range/Units 04:11 04:11 07:37 WBC 11.0 H (3.98-10.04) x10^3/uL RBC 3.82 L (3.93-5.22) x10^6/uL Hgb 10.3 L (11.2-15.7) g/dL Hct 31.9 L (34.1-44.9) % MCV 83.5 (79.4-94.8) fL MCH 27.0 (25.6-32.2) pg MCHC 32.3 (32.2-35.5) g/dL RDW 14.6 H (11.7-14.4) % Plt Count 144 L (182-369) x10^3/uL MPV 9.2 L (9.4-12.3) fL Sodium 135 (135-145) mmol/L Potassium 3.9 D (3.5-5.1) mmol/L Chloride 103 (98-107) mmol/L Carbon Dioxide 26 (22-30) mmol/L Anion Gap 10.5 (5-15) MEQ/L BUN 12 (7-17) mg/dL Creatinine 0.67 (0.52-1.04) mg/dL Estimated GFR 98.2 ML/MIN Glucose 145 H (74-106) mg/dL POC Glucometer 132 H (74 to 106) mg/dL Calcium 8.9 (8.4-10.2) mg/dL Total Bilirubin 0.60 (0.2-1.3) mg/dL AST 22 (14-36) U/L ALT 28 (0-35) U/L Alkaline Phosphatase 128 H (38-126) U/L Serum Total Protein 6.4 (6.3-8.2) g/dL Albumin 3.0 L (3.5-5.0) g/dL 04/16/24 Range/Units 11:26 WBC (3.98-10.04) x10^3/uL RBC (3.93-5.22) x10^6/uL Hgb (11.2-15.7) g/dL Hct (34.1-44.9) % MCV (79.4-94.8) fL MCH (25.6-32.2) pg MCHC (32.2-35.5) g/dL RDW (11.7-14.4) % Plt Count (182-369) x10^3/uL MPV (9.4-12.3) fL Sodium (135-145) mmol/L Potassium (3.5-5.1) mmol/L Chloride (98-107) mmol/L Carbon Dioxide (22-30) mmol/L Anion Gap (5-15) MEQ/L BUN (7-17) mg/dL Creatinine (0.52-1.04) mg/dL Estimated GFR ML/MIN Glucose (74-106) mg/dL POC Glucometer 218 H (74 to 106) mg/dL Calcium (8.4-10.2) mg/dL Total Bilirubin (0.2-1.3) mg/dL AST (14-36) U/L ALT (0-35) U/L Alkaline Phosphatase (38-126) U/L Serum Total Protein (6.3-8.2) g/dL Albumin (3.5-5.0) g/dL Micro Results-Entire Visit: Microbiology 04/11/24 19:59 Blood Culture - Final Blood 04/11/24 19:52 Blood Culture - Final Blood 04/13/24 10:45 Urine Culture - Final Urine, Indwelling Catheter NO GROWTH 04/11/24 20:44 Urine Culture - Final Catherized Enterococcus Faecium Accuchecks Date 04/16/24 Date 04/15/24 Date 04/15/24 Date 04/15/24 Time 11:55 Time 21:37 Time 17:28 - Procedures and Test Procedures and Tests throughout Hospitalization: Therapy Orders & Screens 04/11/24 19:55 BiPap/CPAP STAT Comment: Diagnosis: Altered mental status, anemia, hypotension 04/12/24 01:19 Oxygen Nasal Cannula 3 lpm Comment: Respiratory Therapy Consult ONCE Comment: Reason For Exam: 04/12/24 02:58 OT Screen per Nursing Assess ONCE Comment: Protocol Order Physician Instructions: Greater than 3 points order OT Admission Screening Reason For Exam: Triggered on Admission Diagnosis: Altered mental status, anemia, hypotension Open Wound/Cellutlitis/Pressure Ulcers: Yes Acute Fx/ORIF/Change in wt bearing status: No Severe MUSCULOSKELETAL pain: No ADL Dysfunction: Yes Acute CVA w/Hemiparesis/Hemiplegia: No Decreased Functional Mobility/Strength: Yes Sprain/Strain: No Acute Post-op Mobility Dysfunction: No Total Points: 9 PT Screen per Nursing Assess ONCE Comment: Protocol Order Physician Instructions: Greater than 3 points order PT Admission Screenin Reason For Exam: Triggered on Admission Diagnosis: Altered mental status, anemia, hypotension Open Wound/Cellutlitis/Pressure Ulcers: Yes Acute Fx/ORIF/Change in wt bearing status: No Severe MUSCULOSKELETAL pain: No ADL Dysfunction: Yes Acute CVA w/Hemiparesis/Hemiplegia: No Decreased Functional Mobility/Strength: Yes Sprain/Strain: No Acute Post-op Mobility Dysfunction: No Total Points: 9 ST Screen per Nursing Assess ONCE Comment: Protocol Order Physician Instructions: Greater than [address] Admission Screening Reason For Exam: Triggered on Admission Diagnosis: Altered mental status, anemia, hypotension CVA/Dyshpagia/Aphasia: No Cognitive Deficits: Yes Dehydration/Nutrition Deficit: No Reflux: No Oral-Motor Difficulties: No Pneumonia: No Chcf Resident: Yes Total Points: 8 04/15/24 09:23 PT Eval & Treat (MD Order) ONCE Reason for Eval:: wound sacrum, weakness Diagnosis: Altered mental status, anemia, hypotension Discharge Exam General Appearance: no apparent distress, alert Neurologic Exam: alert, oriented x 3, cooperative, normal mood/affect, nml cerebellar function, sensation nml, No motor deficits Eye Exam: PERRL, EOMI, eyes nml inspection Ears, Nose, Throat Exam: normal ENT inspection, pharynx normal, moist mucous membranes Neck Exam: normal inspection, non-tender, supple, full range of motion Respiratory Exam: normal breath sounds, lungs clear, No respiratory distress Cardiovascular Exam: regular rate/rhythm, normal heart sounds Gastrointestinal/Abdomen Exam: soft, No tenderness, No mass Pelvic Exam: deferred Rectal Exam: deferred Back Exam: normal inspection, normal range of motion, No CVA tenderness, No vertebral tenderness Extremity Exam: normal inspection, normal range of motion Skin Exam: normal color, warm, dry Wound Assessment: Skin/Wound Assessment Wound/Incision Assessment Start: 04/12/24 02:58 Text: Status: Active Freq: Q6H Protocol: Document 04/16/24 08:05 FARIDA (Rec: 04/16/24 08:18 FARIDA [id number]) Wound/Incision Assessment Right Heel Wound Assessment Shift Assessment Wound Type Pressure Ulcer Dressing Status Dry & Intact Comment DRESSING IN PLACE, UNABLE TO ASSESS Left Heel Wound Assessment Shift Assessment Wound Type Pressure Ulcer Dressing Status Dry & Intact Comment DRESSING IN PLACE, UNABLE TO ASSESS Sacrum Wound Assessment Shift Assessment Wound Type Pressure Ulcer Dressing Status Dry & Intact Comment DRESSING IN PLACE, UNABLE TO ASSESS Buttock Wound Assessment Shift Assessment Wound Type REDNESS Drainage Amount None General Appearance Open to air Surrounding Tissue Elbert Left Medial Toe Wound Assessment Shift Assessment Wound Type Amputation Wound Stage Non Pressure Wound Drainage Amount None Right Breast Wound Assessment Shift Assessment Wound Type bruise Wound Stage Non Pressure Wound Final Diagnosis/Problem List - Final Discharge Diagnosis/Problem (1) Acute anemia Current Visit: Yes Status: Acute Code(s): D64.9 - ANEMIA, UNSPECIFIED (2) Altered mental status Current Visit: Yes Status: Acute Code(s): R41.82 - ALTERED MENTAL STATUS, UNSPECIFIED (3) Cellulitis of both feet Current Visit: Yes Status: Acute Code(s): L03.115 - CELLULITIS OF RIGHT LOWER LIMB; L03.116 - CELLULITIS OF LEFT LOWER LIMB (4) HTN (hypertension) Current Visit: Yes Status: Acute Code(s): I10 - ESSENTIAL (PRIMARY) HYPERTENSION (5) Hypoglycemia Current Visit: Yes Status: Acute Code(s): E16.2 - HYPOGLYCEMIA, UNSPECIFIED (6) Type 2 diabetes mellitus Current Visit: Yes Status: Acute (7) Hemiplegia affecting right dominant side Current Visit: Yes Status: Chronic Code(s): G81.91 - HEMIPLEGIA, UNSPECIFIED AFFECTING RIGHT DOMINANT SIDE (8) HLD (hyperlipidemia) Current Visit: Yes Status: Chronic Code(s): E78.5 - HYPERLIPIDEMIA, UNSPECIFIED (9) Gastritis Current Visit: Yes Status: Acute Code(s): K29.70 - GASTRITIS, UNSPECIFIED, WITHOUT BLEEDING (10) UTI (urinary tract infection) Current Visit: Yes Status: Acute Assessment & Plan: (1) Acute anemia Current Visit: Yes Status: Acute Assessment & Plan: -Received 2 units LPRBC 04/12/24 - hgb stable - trend -Surgery consulted- EGD today showed gastritis -She refused bowel prep - unable to do colonoscopy - Hold blood thinner as not safe to resume - Iron sat at 21% ferritin at 413 - Protonix - Monitor hgb, transfuse if <7 - occult stools pending collection - Hold ASA 04/15 - Hgb 9.8- stable - EGD showed acute gastritis- continue PPI - refused to do bowel prep for Colonoscopy 04/16 - Hgb stable 10.3 Code(s): D64.9 - ANEMIA, UNSPECIFIED (2) Altered mental status Current Visit: Yes Status: Acute Assessment & Plan: - improved with bouts of confusion - head CT with no acute findings - Delirium protocol - TSH 2.490 - Not competent to make her own decisions - skilled care at [facility] 04/15 - Awake and alert today - night before gave kianadon d/t anxiety and confusion 04/16 - resolved Code(s): R41.82 - ALTERED MENTAL STATUS, UNSPECIFIED (3) Cellulitis of both feet Current Visit: Yes Status: Acute Assessment & Plan: -Follow with podiatry - on levaquin will continue - podiatry to follow while IP -History of osteomyelitis bilateral heels 04/15 - per podiatry nothing more he can do at this time. - Continue Levaquin 04/16 - WBC 11- improved Code(s): L03.115 - CELLULITIS OF RIGHT LOWER LIMB; L03.116 - CELLULITIS OF LEFT LOWER LIMB (4) HTN (hypertension) Current Visit: Yes Status: Acute Code(s): I10 - ESSENTIAL (PRIMARY) HYPERTENSION - BP stable - May hold meds if needed (5) Hypoglycemia Current Visit: Yes Status: Acute Assessment & Plan: -Resolved Code(s): E16.2 - HYPOGLYCEMIA, UNSPECIFIED (6) Type 2 diabetes mellitus Current Visit: Yes Status: Acute Assessment & Plan: -Hypoglycemia on arrival - D10 discontinued -Resume ADA diet -SSI for now - A1C 02/15/24 10.42- uncontrolled (7) Hemiplegia affecting right dominant side Current Visit: Yes Status: Chronic Assessment & Plan: -noted Code(s): G81.91 - HEMIPLEGIA, UNSPECIFIED AFFECTING RIGHT DOMINANT SIDE (8) HLD (hyperlipidemia) Current Visit: Yes Status: Chronic Assessment & Plan: -continue statin Code(s): E78.5 - HYPERLIPIDEMIA, UNSPECIFIED (9) Gastritis Current Visit: Yes Status: Acute Assessment & Plan: - as seen on EGD per GS - Continue PPI Code(s): K29.70 - GASTRITIS, UNSPECIFIED, WITHOUT BLEEDING (10) UTI (urinary tract infection) Current Visit: Yes Status: Acute Assessment & Plan: - Zyvox - UC + enterococcus - Resistant to Levaquin Code(s): N39.0 - URINARY TRACT INFECTION, SITE NOT SPECIFIED Code(s): N39.0 - URINARY TRACT INFECTION, SITE NOT SPECIFIED - Discharge Discharge Date: 04/16/24 Disposition: XFER OTHER Condition: Critical Prescriptions: New Pantoprazole 20 mg [Protonix 20MG Tablet] 20 mg PO BID 30 Days #60 tab Linezolid [Zyvox] 600 mg PO BID 7 Days #14 tablet Continue Gabapentin [Neurontin ] 300 mg PO TID Escitalopram Oxalate [Lexapro] 10 mg PO DAILY 30 Days #30 tablet Aspirin EC 325 mg [Ecotrin 325 MG] 325 mg PO DAILY #30 tablet Hydrocodone/Acetaminophen [Hydrocodone-Acetamin 5-325 mg] 1 tab PO Q4H PRN PRN MDD 4 PRN Reason: Pain Amlodipine Besylate [Norvasc] 10 mg PO DAILY Atorvastatin Calcium [Lipitor 40Mg] 40 mg PO HS Glyburide 5 mg [Micronase 5 MG] 5 mg PO HS Lisinopril 20 mg [Zestril 20 MG] 40 mg PO DAILY Metoprolol Succinate 25 mg Xl* [Toprol-Xl 25MG Tablets] 25 mg PO DAILY Miconazole Nitrate 85 gm TP BID Hydrophilic Cream [Triad] 71 gm TP BID Levofloxacin/D5w [Levofloxacin 750 mg/150 ml-D5w] 750 mg IV HS Fluconazole 150 mg PO DAILY Follow up with: VALERIE LANGLEY OF [Primary Care Provider] -
[2024-04-17 04:57] LABS: Hematocrit 30.9 % (34.1-44.9); Mean Cell Volume 83.5 fL (79.4-94.8); Mean Corpuscular Hgb Concent. 32.4 g/dL (32.2-35.5); Mean Platelet Volume 9.5 fL (9.4-12.3); Platelet Count 146 x10^3/uL (182-369); Red Cell Distribution Width 14.6 % (11.7-14.4); White Blood Count 8.9 x10^3/uL (3.98-10.04)
[2024-04-17 05:22] LABS: ANION GAP 10.9 MEQ/L (5-15); BILIRUBIN,TOTAL 0.6 mg/dL (0.2-1.3); Calcium 9.2 mg/dL (8.4-10.2); Creatinine 1 0.63 mg/dL (0.52-1.04); EST GLOMERULAR FILTRATION RATE 99.6 ML/MIN; Potassium 3.8 mmol/L (3.5-5.1); Total Protein 6.5 g/dL (6.3-8.2)
--- NOTE | 2024-04-17 11:25 | PCM.DS ---
Discharge Summary Date of Admission: 04/12/24 01:02 Date of Discharge: 04/17/24 Admitting Physician: TO MELO MD Consults: Consults on Case 04/12/24 02:58 Case Management SDOH DC Needs Assessment ROUTINE 04/12/24 12:57 Consult Podiatry ROUTINE 04/12/24 17:57 Consult Surgery ROUTINE Primary Care Provider: [facility] Allergies Allergies shellfish derived Allergy (Intermediate, Verified 02/14/24 22:19) Rash rash bee venom protein (honey bee) Allergy (Unknown, Verified 02/14/24 22:19) metformin [From Glucophage] Allergy (Unknown, Verified 02/14/24 22:19) Penicillins Allergy (Verified 02/14/24 22:19) [facility] Summary - Hospital Course Hospital Course: 04/14/24 Ms. Espinosa is a 63 year-old female with hemiplegia, HTN, HLD, and DM2. She presented 04/12/24 with altered mental status, hypotension, and hypoglycemia. [facility] with a blood sugar in the 30s. En route and in ED at [place], she was given multiple amps of D50 prior to being started on D10 and levophed. Laboratory data was remarkable for a Hgb of 5.7 and elevated cardiac enzymes, while imaging was unremarkable. Patient received 2 units of LPRBCs 04/12 with noted improvement of hgb at 9.5. Mental status improved. She is A&O x 3 during interview. Family reported that patient recently had hematemesis about a month ago and wanted surgery consult for EGD/Colonoscopy if possible. Levophed discontinued with stable BP. Blood glucose levels are stable and D10 has been discontinued. Plan for occult stools. Pt admits black stools one week ago . Iron saturation is at 21%. Surgery consulted and plan for EGD/colonoscopy. 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 Recent wound culture with stentrophomonas maltophilis and staph aureus. Podiatry consulted. EGD completed today and showed gastritis, will continue PPI. She refused bowel prep and therefore did not have colonoscopy today. She is rather sleepy today. Goode in place for acute urinary retention per note yesterday. Pt lives at [facility] and will liekly d/c there tomorrow. She is not competent to make her own decisions at this time. 04/15/24 Pt resting in bed. She is awake, alert, and calm today. UC showed enterococcus yesterday and antibiotic changed to Zyvox as she is resistant to Levaquin per sensitivity results. Podiatry evaluated pt today and explained there is not more more he can do for the patient. Pt has a wound on her sacrum that appears to have gotten worse with dark eschar regions. Pt reports no pain in area of concern. Nursing staff are rotating pt position often per report. Will have PT eval wound for further recommendations. Goode left in place to aide in wound healing as she incontinent of bowel and bladder. She staying at [facility] for care home care. Attempted to discuss pt case with family as she would benefit from hospice services. However, I was unable to reach them. She not capable of making her own decisions at this time. Discussed pt case with case management. Will d/c with antibiotics and if pt's family would like to transition to hospice services they can do so at the facility. She denies CP, SOB, Abd. pain, N/V/D. 04/16/24 Pt is awake and alert in bed. She was unable to be discharged last night as insurance had not approved readmission to facility she was previously at. Plan is for her to be accepted today. She denies any new concerns and continued plan if care in place. She denies CP, SOB, abd. pain, N/V/D. 04/17/24 Pt resting in bed. Labs have improved. She is awake and alert w/o complaints. Still awaiting insurance approval for d/c back to [facility]. She was to d/c the previous 2 days but insurance did not approve as expected. Case management working on this with hopes to leave today. She denies any concerns at this time. - Vitals & Intake/Output Vital Signs: Vital Signs Temperature 98.2 F 04/17/24 08:00 Pulse Rate 72 04/17/24 09:42 Respiratory Rate 18 04/17/24 08:00 Blood Pressure 94/55 04/17/24 09:42 O2 Sat by Pulse Oximetry 98 04/17/24 08:00 Intake & Output: Intake & Output 04/14/24 04/15/24 04/16/24 04/17/24 11:59 11:59 11:59 11:59 Intake Total 270 2080 720 839 Output Total 3113 893 2120 1125 Balance -2930 770 -1405 -286 Weight 62.2 kg - Lab Result Diagrams: 04/17/24 04:10 04/17/24 04:10 Lab Results-Last 24 Hrs: Lab Results-Last 24 Hours 04/14/24 04/16/24 04/16/24 Range/Units 14:52 11:26 17:20 WBC (3.98-10.04) x10^3/uL RBC (3.93-5.22) x10^6/uL Hgb (11.2-15.7) g/dL Hct (34.1-44.9) % MCV (79.4-94.8) fL MCH (25.6-32.2) pg MCHC (32.2-35.5) g/dL RDW (11.7-14.4) % Plt Count (182-369) x10^3/uL MPV (9.4-12.3) fL Sodium (135-145) mmol/L Potassium (3.5-5.1) mmol/L Chloride (98-107) mmol/L Carbon Dioxide (22-30) mmol/L Anion Gap (5-15) MEQ/L BUN (7-17) mg/dL Creatinine (0.52-1.04) mg/dL Estimated GFR ML/MIN Glucose (74-106) mg/dL POC Glucometer 218 H 143 H (74 to 106) mg/dL Calcium (8.4-10.2) mg/dL Total Bilirubin (0.2-1.3) mg/dL AST (14-36) U/L ALT (0-35) U/L Alkaline Phosphatase (38-126) U/L Serum Total Protein (6.3-8.2) g/dL Albumin (3.5-5.0) g/dL Surg PTH Specimen SEE COMMENTS 04/16/24 04/17/24 04/17/24 Range/Units 20:48 02:32 04:10 WBC 8.9 (3.98-10.04) x10^3/uL RBC 3.70 L (3.93-5.22) x10^6/uL Hgb 10.0 L (11.2-15.7) g/dL Hct 30.9 L (34.1-44.9) % MCV 83.5 (79.4-94.8) fL MCH 27.0 (25.6-32.2) pg MCHC 32.4 (32.2-35.5) g/dL RDW 14.6 H (11.7-14.4) % Plt Count 146 L (182-369) x10^3/uL MPV 9.5 (9.4-12.3) fL Sodium (135-145) mmol/L Potassium (3.5-5.1) mmol/L Chloride (98-107) mmol/L Carbon Dioxide (22-30) mmol/L Anion Gap (5-15) MEQ/L BUN (7-17) mg/dL Creatinine (0.52-1.04) mg/dL Estimated GFR ML/MIN Glucose (74-106) mg/dL POC Glucometer 113 H 124 H (74 to 106) mg/dL Calcium (8.4-10.2) mg/dL Total Bilirubin (0.2-1.3) mg/dL AST (14-36) U/L ALT (0-35) U/L Alkaline Phosphatase (38-126) U/L Serum Total Protein (6.3-8.2) g/dL Albumin (3.5-5.0) g/dL Surg PTH Specimen 04/17/24 04/17/24 Range/Units 04:10 07:08 WBC (3.98-10.04) x10^3/uL RBC (3.93-5.22) x10^6/uL Hgb (11.2-15.7) g/dL Hct (34.1-44.9) % MCV (79.4-94.8) fL MCH (25.6-32.2) pg MCHC (32.2-35.5) g/dL RDW (11.7-14.4) % Plt Count (182-369) x10^3/uL MPV (9.4-12.3) fL Sodium 137 (135-145) mmol/L Potassium 3.8 (3.5-5.1) mmol/L Chloride 104 (98-107) mmol/L Carbon Dioxide 25 (22-30) mmol/L Anion Gap 10.9 (5-15) MEQ/L BUN 11 (7-17) mg/dL Creatinine 0.63 (0.52-1.04) mg/dL Estimated GFR 99.6 ML/MIN Glucose 124 H (74-106) mg/dL POC Glucometer 106 (74 to 106) mg/dL Calcium 9.2 (8.4-10.2) mg/dL Total Bilirubin 0.60 (0.2-1.3) mg/dL AST 23 (14-36) U/L ALT 26 (0-35) U/L Alkaline Phosphatase 117 (38-126) U/L Serum Total Protein 6.5 (6.3-8.2) g/dL Albumin 3.0 L (3.5-5.0) g/dL Surg PTH Specimen Micro Results-Entire Visit: Microbiology 04/15/24 10:57 Wound Culture - Preliminary Heel - Left GRAM NEGATIVE ID AND SENSITIVITY PENDING 04/11/24 19:59 Blood Culture - Final Blood 04/11/24 19:52 Blood Culture - Final Blood 04/13/24 10:45 Urine Culture - Final Urine, Indwelling Catheter NO GROWTH 04/11/24 20:44 Urine Culture - Final Catherized Enterococcus Faecium Accuchecks Date 04/17/24 Date 04/16/24 Date 04/16/24 Time 17:34 Time 11:55 - Procedures and Test Procedures and Tests throughout Hospitalization: Therapy Orders & Screens 04/11/24 19:55 BiPap/CPAP STAT Comment: Diagnosis: Altered mental status, anemia, hypotension 04/12/24 01:19 Oxygen Nasal Cannula 3 lpm Comment: Respiratory Therapy Consult ONCE Comment: Reason For Exam: 04/12/24 02:58 OT Screen per Nursing Assess ONCE Comment: Protocol Order Physician Instructions: Greater than 3 points order OT Admission Screening Reason For Exam: Triggered on Admission Diagnosis: Altered mental status, anemia, hypotension Open Wound/Cellutlitis/Pressure Ulcers: Yes Acute Fx/ORIF/Change in wt bearing status: No Severe MUSCULOSKELETAL pain: No ADL Dysfunction: Yes Acute CVA w/Hemiparesis/Hemiplegia: No Decreased Functional Mobility/Strength: Yes Sprain/Strain: No Acute Post-op Mobility Dysfunction: No Total Points: 9 PT Screen per Nursing Assess ONCE Comment: Protocol Order Physician Instructions: Greater than 3 points order PT Admission Screenin Reason For Exam: Triggered on Admission Diagnosis: Altered mental status, anemia, hypotension Open Wound/Cellutlitis/Pressure Ulcers: Yes Acute Fx/ORIF/Change in wt bearing status: No Severe MUSCULOSKELETAL pain: No ADL Dysfunction: Yes Acute CVA w/Hemiparesis/Hemiplegia: No Decreased Functional Mobility/Strength: Yes Sprain/Strain: No Acute Post-op Mobility Dysfunction: No Total Points: 9 ST Screen per Nursing Assess ONCE Comment: Protocol Order Physician Instructions: Greater than [address] Admission Screening Reason For Exam: Triggered on Admission Diagnosis: Altered mental status, anemia, hypotension CVA/Dyshpagia/Aphasia: No Cognitive Deficits: Yes Dehydration/Nutrition Deficit: No Reflux: No Oral-Motor Difficulties: No Pneumonia: No Snf Resident: Yes Total Points: 8 04/15/24 09:23 PT Eval & Treat (MD Order) ONCE Reason for Eval:: wound sacrum, weakness Diagnosis: Altered mental status, anemia, hypotension Discharge Exam General Appearance: no apparent distress, alert Neurologic Exam: alert, oriented x 3, cooperative, normal mood/affect, nml cerebellar function, sensation nml, No motor deficits Eye Exam: PERRL, EOMI, eyes nml inspection Ears, Nose, Throat Exam: normal ENT inspection, pharynx normal, moist mucous membranes Neck Exam: normal inspection, non-tender, supple, full range of motion Respiratory Exam: normal breath sounds, lungs clear, No respiratory distress Cardiovascular Exam: regular rate/rhythm, normal heart sounds Gastrointestinal/Abdomen Exam: soft, No tenderness, No mass Pelvic Exam: deferred Rectal Exam: deferred Back Exam: normal inspection, normal range of motion, No CVA tenderness, No vertebral tenderness Extremity Exam: normal inspection, normal range of motion, other (BLLE wrapped,) Skin Exam: normal color, warm, dry, other (wound to sacrum- see pics in chart and nursing charting regarding staging.) Wound Assessment: Skin/Wound Assessment Wound/Incision Assessment Start: 04/12/24 02:58 Text: Status: Active Freq: Q6H Protocol: Document 04/17/24 08:00 VERONICA (Rec: 04/17/24 10:19 SYLVIESG [id number]) Wound/Incision Assessment Right Heel Wound Assessment Shift Assessment Wound Type Pressure Ulcer Dressing Status Dry & Intact Comment bulky dressings in place - dressings clean, dry, intact - Left Heel Wound Assessment Shift Assessment Wound Type Pressure Ulcer Dressing Status Dry & Intact Comment bulky dressings in place - dressings clean, dry, intact - Sacrum Wound Assessment Shift Assessment Wound Type Pressure Ulcer Dressing Status Dry & Intact Drainage Amount Moderate Drainage Description Serosanguineous Comment dressing placed by PT - dressing dry and intact - moderate amount of shadowing with no strikethrough - SATNAM wound Buttock Wound Assessment Shift Assessment Wound Type REDNESS Drainage Amount None General Appearance Open to air Surrounding Tissue [place] Left Medial Toe Wound Assessment Shift Assessment Wound Type Amputation Wound Stage Non Pressure Wound Drainage Amount None Comment skin clean, dry, intact Right Breast Wound Assessment Shift Assessment Wound Type bruise Wound Stage Non Pressure Wound General Appearance Open to air Comment bruise Wound Photo Photo Taken No Final Diagnosis/Problem List - Final Discharge Diagnosis/Problem (1) Acute anemia Current Visit: Yes Status: Acute Code(s): D64.9 - ANEMIA, UNSPECIFIED (2) Altered mental status Current Visit: Yes Status: Acute Code(s): R41.82 - ALTERED MENTAL STATUS, UNSPECIFIED (3) Cellulitis of both feet Current Visit: Yes Status: Acute Code(s): L03.115 - CELLULITIS OF RIGHT LOWER LIMB; L03.116 - CELLULITIS OF LEFT LOWER LIMB (4) HTN (hypertension) Current Visit: Yes Status: Acute Code(s): I10 - ESSENTIAL (PRIMARY) HYPERTENSION (5) Hypoglycemia Current Visit: Yes Status: Acute Code(s): E16.2 - HYPOGLYCEMIA, UNSPECIFIED (6) Type 2 diabetes mellitus Current Visit: Yes Status: Acute (7) Hemiplegia affecting right dominant side Current Visit: Yes Status: Chronic Code(s): G81.91 - HEMIPLEGIA, UNSPECIFIED AFFECTING RIGHT DOMINANT SIDE (8) HLD (hyperlipidemia) Current Visit: Yes Status: Chronic Code(s): E78.5 - HYPERLIPIDEMIA, UN SPECIFIED (9) Gastritis Current Visit: Yes Status: Acute Code(s): K29.70 - GASTRITIS, UNSPECIFIED, WITHOUT BLEEDING (10) UTI (urinary tract infection) Current Visit: Yes Status: Acute Assessment & Plan: (1) Acute anemia Current Visit: Yes Status: Acute Assessment & Plan: -Received 2 units LPRBC 04/12/24 - hgb stable - trend -Surgery consulted- EGD today showed gastritis -She refused bowel prep - unable to do colonoscopy - Hold blood thinner as not safe to resume - Iron sat at 21% ferritin at 413 - Protonix - Monitor hgb, transfuse if <7 - occult stools pending collection - Hold ASA 04/15 - Hgb 9.8- stable - EGD showed acute gastritis- continue PPI - refused to do bowel prep for Colonoscopy 04/16 - Hgb stable 10.3 04/17 - Hgb 10 Code(s): D64.9 - ANEMIA, UNSPECIFIED (2) Altered mental status Current Visit: Yes Status: Acute Assessment & Plan: - improved with bouts of confusion - head CT with no acute findings - Delirium protocol - TSH 2.490 - Not competent to make her own decisions - skilled care at [facility] 04/15 - Awake and alert today - night before gave kianadon d/t anxiety and confusion 04/16 - resolved Code(s): R41.82 - ALTERED MENTAL STATUS, UNSPECIFIED (3) Cellulitis of both feet Current Visit: Yes Status: Acute Assessment & Plan: -Follow with podiatry - on levaquin will continue - podiatry to follow while IP -History of osteomyelitis bilateral heels 04/15 - per podiatry nothing more he can do at this time. - Continue Levaquin 04/16 - WBC 11- improved 04/17 - WBC 8.9 Code(s): L03.115 - CELLULITIS OF RIGHT LOWER LIMB; L03.116 - CELLULITIS OF LEFT LOWER LIMB (4) HTN (hypertension) Current Visit: Yes Status: Acute Code(s): I10 - ESSENTIAL (PRIMARY) HYPERTENSION - BP stable - May hold meds if needed (5) Hypoglycemia Current Visit: Yes Status: Acute Assessment & Plan: -Resolved Code(s): E16.2 - HYPOGLYCEMIA, UNSPECIFIED (6) Type 2 diabetes mellitus Current Visit: Yes Status: Acute Assessment & Plan: -Hypoglycemia on arrival - D10 discontinued -Resume ADA diet -SSI for now - A1C 02/15/24 10.42- uncontrolled (7) Hemiplegia affecting right dominant side Current Visit: Yes Status: Chronic Assessment & Plan: -noted Code(s): G81.91 - HEMIPLEGIA, UNSPECIFIED AFFECTING RIGHT DOMINANT SIDE (8) HLD (hyperlipidemia) Current Visit: Yes Status: Chronic Assessment & Plan: -continue statin Code(s): E78.5 - HYPERLIPIDEMIA, UNSPECIFIED (9) Gastritis Current Visit: Yes Status: Acute Assessment & Plan: - as seen on EGD per GS - Continue PPI Code(s): K29.70 - GASTRITIS, UNSPECIFIED, WITHOUT BLEEDING (10) UTI (urinary tract infection) Current Visit: Yes Status: Acute Assessment & Plan: - Zyvox - UC + enterococcus - Resistant to Levaquin Code(s): N39.0 - URINARY TRACT INFECTION, SITE NOT SPECIFIED Code(s): N39.0 - URINARY TRACT INFECTION, SITE NOT SPECIFIED Code(s): N39.0 - URINARY TRACT INFECTION, SITE NOT SPECIFIED - Discharge Discharge Date: 04/17/24 (Rehab) Disposition: XFER OTHER Condition: Critical Prescriptions: New Pantoprazole 20 mg [Protonix 20MG Tablet] 20 mg PO BID 30 Days #60 tab Linezolid [Zyvox] 600 mg PO BID 7 Days #14 tablet Continue Gabapentin [Neurontin ] 300 mg PO TID Escitalopram Oxalate [Lexapro] 10 mg PO DAILY 30 Days #30 tablet Aspirin EC 325 mg [Ecotrin 325 MG] 325 mg PO DAILY #30 tablet Hydrocodone/Acetaminophen [Hydrocodone-Acetamin 5-325 mg] 1 tab PO Q4H PRN PRN MDD 4 PRN Reason: Pain Amlodipine Besylate [Norvasc] 10 mg PO DAILY Atorvastatin Calcium [Lipitor 40Mg] 40 mg PO HS Glyburide 5 mg [Micronase 5 MG] 5 mg PO HS Lisinopril 20 mg [Zestril 20 MG] 40 mg PO DAILY Metoprolol Succinate 25 mg Xl* [Toprol-Xl 25MG Tablets] 25 mg PO DAILY Miconazole Nitrate 85 gm TP BID Hydrophilic Cream [Triad] 71 gm TP BID Levofloxacin/D5w [Levofloxacin 750 mg/150 ml-D5w] 750 mg IV HS Fluconazole 150 mg PO DAILY Additional Instructions: RESUME PREVIOUS ORDERS SEE ATTACHED MED LIST Follow up with: VALERIE LANGLEY OF [Primary Care Provider] -
--- NOTE | 2024-04-17 16:25 | PCM.CONS ---
Podiatry HPI - Consult Date of Consultation Date: 04/15/24 Consulting Provider: MARCIO HOU DPM - HPI History of Present Illness: seen at bedside this am. Medications & Allergies Home Medications: Home Medication List Gabapentin [Neurontin ] 300 mg PO TID 01/16/24 [History Confirmed 04/12/24] Aspirin EC 325 mg [Ecotrin 325 MG] 325 mg PO DAILY #30 tablet 02/20/24 [Rx Confirmed 04/12/24] Escitalopram Oxalate [Lexapro] 10 mg PO DAILY 30 Days #30 tablet 02/20/24 [Rx Confirmed 04/12/24] Amlodipine Besylate [Norvasc] 10 mg PO DAILY 04/12/24 [History Confirmed 04/12/24] Atorvastatin Calcium [Lipitor 40Mg] 40 mg PO HS 04/12/24 [History Confirmed 04/12/24] Fluconazole 150 mg PO DAILY 04/12/24 [History Confirmed 04/12/24] Glyburide 5 mg [Micronase 5 MG] 5 mg PO HS 04/12/24 [History Confirmed 04/12/24] Hydrocodone/Acetaminophen [Hydrocodone-Acetamin 5-325 mg] 1 tab PO Q4H PRN PRN MDD 4 04/12/24 [History Confirmed 04/12/24] Hydrophilic Cream [Triad] 71 gm TP BID 04/12/24 [History Confirmed 04/12/24] Levofloxacin/D5w [Levofloxacin 750 mg/150 ml-D5w] 750 mg IV HS 04/12/24 [History Confirmed 04/12/24] Lisinopril 20 mg [Zestril 20 MG] 40 mg PO DAILY 04/12/24 [History Confirmed 04/12/24] Metoprolol Succinate 25 mg Xl* [Toprol-Xl 25MG Tablets] 25 mg PO DAILY 04/12/24 [History Confirmed 04/12/24] Miconazole Nitrate 85 gm TP BID 04/12/24 [History Confirmed 04/12/24] Linezolid [Zyvox] 600 mg PO BID 7 Days #14 tablet 04/15/24 [Rx] Pantoprazole 20 mg [Protonix 20MG Tablet] 20 mg PO BID 30 Days #60 tab 04/15/24 [Rx] Allergies/Adverse Reactions: Allergies Allergy/AdvReac Type Severity Reaction Status Date / Time shellfish derived Allergy Intermediate Rash Verified 02/14/24 22:19 bee venom protein (honey bee) Allergy Unknown Verified 02/14/24 22:19 metformin [From Glucophage] Allergy Unknown Verified 02/14/24 22:19 Penicillins Allergy Hives Verified 02/14/24 22:19 - Past Medical History Past Medical History: No Neurological History: Stroke ENT History: Cataracts Cardiac History: High Cholesterol, Hypertension Respiratory History: No Pertinent History Endocrine Medical History: Diabetes Type II, Other Musculoskelatal History: Arthritis GI Medical History: Other History: Other Pyscho-Social History: Anxiety, Depression Reproductive Disorders: No Pertinent History Comment: kidney stones, gallstones - Past Surgical History Past Surgical History: Yes Neuro Surgical History: No Pertinent History Cardiac History: No Pertinent History Respiratory Surgery: No Pertinent History GI Surgical History: Appendectomy, Cholecystectomy Genitourinary Surgical Hx: No Pertinent History Musculskeletal Surgical Hx: Amputation, Other Female Surgical History: Tubal Ligation Other Surgical History: left hip surgery, mass removal. breast biopsy,Lt great toe amputation. debr Significant Family History: no pertinent family hx - Social History Smoking Status: Never smoker Exposure to second hand smoke: No Alcohol: None Drug Use: marijuana - Social Determinants of Health Will the patient participate in the screening: Yes Do you worry about a steady place to live?: No Do you have any problems with any of the following?: No known problems In the past 12 months,have you had to go without utilities?: No Have you or anyone in your house had to go without enough: No Transportation Issues: No Has anyone in your support network made you feel unsafe?: No Does the patient want assistance with any of the above?: No Physical Exam - Narrative Narrative Physical Exam: Podiatry Physical Exam Results - Labs Lab/Micro Results: Lab Results-Last 24 Hours 04/14/24 04/16/24 04/16/24 Range/Units 14:52 17:20 20:48 WBC (3.98-10.04) x10^3/uL RBC (3.93-5.22) x10^6/uL Hgb (11.2-15.7) g/dL Hct (34.1-44.9) % MCV (79.4-94.8) fL MCH (25.6-32.2) pg MCHC (32.2-35.5) g/dL RDW (11.7-14.4) % Plt Count (182-369) x10^3/uL MPV (9.4-12.3) fL Sodium (135-145) mmol/L Potassium (3.5-5.1) mmol/L Chloride (98-107) mmol/L Carbon Dioxide (22-30) mmol/L Anion Gap (5-15) MEQ/L BUN (7-17) mg/dL Creatinine (0.52-1.04) mg/dL Estimated GFR ML/MIN Glucose (74-106) mg/dL POC Glucometer 143 H 113 H (74 to 106) mg/dL Calcium (8.4-10.2) mg/dL Total Bilirubin (0.2-1.3) mg/dL AST (14-36) U/L ALT (0-35) U/L Alkaline Phosphatase (38-126) U/L Serum Total Protein (6.3-8.2) g/dL Albumin (3.5-5.0) g/dL Surg PTH Specimen SEE COMMENTS 04/17/24 04/17/24 04/17/24 Range/Units 02:32 04:10 04:10 WBC 8.9 (3.98-10.04) x10^3/uL RBC 3.70 L (3.93-5.22) x10^6/uL Hgb 10.0 L (11.2-15.7) g/dL Hct 30.9 L (34.1-44.9) % MCV 83.5 (79.4-94.8) fL MCH 27.0 (25.6-32.2) pg MCHC 32.4 (32.2-35.5) g/dL RDW 14.6 H (11.7-14.4) % Plt Count 146 L (182-369) x10^3/uL MPV 9.5 (9.4-12.3) fL Sodium 137 (135-145) mmol/L Potassium 3.8 (3.5-5.1) mmol/L Chloride 104 (98-107) mmol/L Carbon Dioxide 25 (22-30) mmol/L Anion Gap 10.9 (5-15) MEQ/L BUN 11 (7-17) mg/dL Creatinine 0.63 (0.52-1.04) mg/dL Estimated GFR 99.6 ML/MIN Glucose 124 H (74-106) mg/dL POC Glucometer 124 H (74 to 106) mg/dL Calcium 9.2 (8.4-10.2) mg/dL Total Bilirubin 0.60 (0.2-1.3) mg/dL AST 23 (14-36) U/L ALT 26 (0-35) U/L Alkaline Phosphatase 117 (38-126) U/L Serum Total Protein 6.5 (6.3-8.2) g/dL Albumin 3.0 L (3.5-5.0) g/dL Surg PTH Specimen 04/17/24 04/17/24 Range/Units 07:08 11:55 WBC (3.98-10.04) x10^3/uL RBC (3.93-5.22) x10^6/uL Hgb (11.2-15.7) g/dL Hct (34.1-44.9) % MCV (79.4-94.8) fL MCH (25.6-32.2) pg MCHC (32.2-35.5) g/dL RDW (11.7-14.4) % Plt Count (182-369) x10^3/uL MPV (9.4-12.3) fL Sodium (135-145) mmol/L Potassium (3.5-5.1) mmol/L Chloride (98-107) mmol/L Carbon Dioxide (22-30) mmol/L Anion Gap (5-15) MEQ/L BUN (7-17) mg/dL Creatinine (0.52-1.04) mg/dL Estimated GFR ML/MIN Glucose (74-106) mg/dL POC Glucometer 106 205 H (74 to 106) mg/dL Calcium (8.4-10.2) mg/dL Total Bilirubin (0.2-1.3) mg/dL AST (14-36) U/L ALT (0-35) U/L Alkaline Phosphatase (38-126) U/L Serum Total Protein (6.3-8.2) g/dL Albumin (3.5-5.0) g/dL Surg PTH Specimen Microbiology 04/15/24 10:57 Wound Culture - Preliminary Heel - Left GRAM NEGATIVE ID AND SENSITIVITY PENDING 04/11/24 19:59 Blood Culture - Final Blood 04/11/24 19:52 Blood Culture - Final Blood 04/13/24 10:45 Urine Culture - Final Urine, Indwelling Catheter NO GROWTH 04/11/24 20:44 Urine Culture - Final Catherized Enterococcus Faecium Accuchecks Date 04/17/24 Date 04/17/24 Assessment/Plan (1) Pressure injury of heel, stage 4 Current Visit: Yes Status: Acute Assessment & Plan: Aggressive offloading recommended with prevlon boots while in bed no debirdement today Right with significant eschar no drainage Left heel with partial closure. Mild maceration with possible purulent draiange which was cultured. Will monitor at this time for worsening multilayer compression dressing applied to the left and right. Code(s): L89.604 - PRESSURE ULCER OF UNSPECIFIED HEEL, STAGE 4 (2) Diabetes mellitus type II, uncontrolled Current Visit: No Status: Chronic Qualifiers: Glycemic state: with hyperglycemia Qualified Code(s): E11.65 - Type 2 diabetes mellitus with hyperglycemia Assessment & Plan: Patient's most recent hemoglobin A1c is measured outpatient as 9.99 Aggressive control recommended at this time Code(s): QUK9325 - (3) Amputated great toe of left foot Current Visit: No Status: Acute Code(s): S98.112A - COMPLETE TRAUMATIC AMPUTATION OF LEFT GREAT TOE, INIT ENCNTR (4) Osteomyelitis Current Visit: No Status: Acute Assessment & Plan: ruled out with bone biopsies on last intervention Patient has since had stroke and repetitive compression of heels into bed resulted in graft failure. Patient's medical picture complicated at this time. Code(s): M86.9 - OSTEOMYELITIS, UNSPECIFIED (5) Diabetic foot ulcers Current Visit: No Status: Acute Assessment & Plan: Graft to right and left lower extremity failed secondary to tremor and micromotion to this area. Code(s): E11.621 - TYPE 2 DIABETES MELLITUS WITH FOOT ULCER; L97.509 - NON- PRESSURE CHRONIC ULCER OTH PRT UNSP FOOT W UNSP SEVERITY (6) Pathologic calcaneal fracture Current Visit: No Status: Acute Assessment & Plan: healing without complication. Radiographs reviewed and discussed with patient demonstrating intact orthopedic hardware with screws and fracture in stable alignment. PT may begin working with patient on weight bearing if tolerated. Have not been able to assess since stroke. Code(s): M84.476A - PATHOLOGICAL FRACTURE, UNSP FOOT, INIT ENCNTR FOR FRACTURE
--- NOTE | 2024-04-17 16:31 | PCM.CONS ---
Podiatry HPI - Consult Date of Consultation Date: 04/17/24 Consulting Provider: MARCIO HOU DPM - HPI History of Present Illness: seen at bedside Medications & Allergies Home Medications: Home Medication List Gabapentin [Neurontin ] 300 mg PO TID 01/16/24 [History Confirmed 04/12/24] Aspirin EC 325 mg [Ecotrin 325 MG] 325 mg PO DAILY #30 tablet 02/20/24 [Rx Confirmed 04/12/24] Escitalopram Oxalate [Lexapro] 10 mg PO DAILY 30 Days #30 tablet 02/20/24 [Rx Confirmed 04/12/24] Amlodipine Besylate [Norvasc] 10 mg PO DAILY 04/12/24 [History Confirmed 04/12/24] Atorvastatin Calcium [Lipitor 40Mg] 40 mg PO HS 04/12/24 [History Confirmed 04/12/24] Fluconazole 150 mg PO DAILY 04/12/24 [History Confirmed 04/12/24] Glyburide 5 mg [Micronase 5 MG] 5 mg PO HS 04/12/24 [History Confirmed 04/12/24] Hydrocodone/Acetaminophen [Hydrocodone-Acetamin 5-325 mg] 1 tab PO Q4H PRN PRN MDD 4 04/12/24 [History Confirmed 04/12/24] Hydrophilic Cream [Triad] 71 gm TP BID 04/12/24 [History Confirmed 04/12/24] Levofloxacin/D5w [Levofloxacin 750 mg/150 ml-D5w] 750 mg IV HS 04/12/24 [History Confirmed 04/12/24] Lisinopril 20 mg [Zestril 20 MG] 40 mg PO DAILY 04/12/24 [History Confirmed 04/12/24] Metoprolol Succinate 25 mg Xl* [Toprol-Xl 25MG Tablets] 25 mg PO DAILY 04/12/24 [History Confirmed 04/12/24] Miconazole Nitrate 85 gm TP BID 04/12/24 [History Confirmed 04/12/24] Linezolid [Zyvox] 600 mg PO BID 7 Days #14 tablet 04/15/24 [Rx] Pantoprazole 20 mg [Protonix 20MG Tablet] 20 mg PO BID 30 Days #60 tab 04/15/24 [Rx] Allergies/Adverse Reactions: Allergies Allergy/AdvReac Type Severity Reaction Status Date / Time shellfish derived Allergy Intermediate Rash Verified 02/14/24 22:19 bee venom protein (honey bee) Allergy Unknown Verified 02/14/24 22:19 metformin [From Glucophage] Allergy Unknown Verified 02/14/24 22:19 Penicillins Allergy Hives Verified 02/14/24 22:19 - Past Medical History Past Medical History: No Neurological History: Stroke ENT History: Cataracts Cardiac History: High Cholesterol, Hypertension Respiratory History: No Pertinent History Endocrine Medical History: Diabetes Type II, Other Musculoskelatal History: Arthritis GI Medical History: Other History: Other Pyscho-Social History: Anxiety, Depression Reproductive Disorders: No Pertinent History Comment: kidney stones, gallstones - Past Surgical History Past Surgical History: Yes Neuro Surgical History: No Pertinent History Cardiac History: No Pertinent History Respiratory Surgery: No Pertinent History GI Surgical History: Appendectomy, Cholecystectomy Genitourinary Surgical Hx: No Pertinent History Musculskeletal Surgical Hx: Amputation, Other Female Surgical History: Tubal Ligation Other Surgical History: left hip surgery, mass removal. breast biopsy,Lt great toe amputation. debr Significant Family History: no pertinent family hx - Social History Smoking Status: Never smoker Exposure to second hand smoke: No Alcohol: None Drug Use: marijuana - Social Determinants of Health Will the patient participate in the screening: Yes Do you worry about a steady place to live?: No Do you have any problems with any of the following?: No known problems In the past 12 months,have you had to go without utilities?: No Have you or anyone in your house had to go without enough: No Transportation Issues: No Has anyone in your support network made you feel unsafe?: No Does the patient want assistance with any of the above?: No Physical Exam - Narrative Narrative Physical Exam: Podiatry Physical Exam Results - Labs Lab/Micro Results: Lab Results-Last 24 Hours 04/14/24 04/16/24 04/16/24 Range/Units 14:52 17:20 20:48 WBC (3.98-10.04) x10^3/uL RBC (3.93-5.22) x10^6/uL Hgb (11.2-15.7) g/dL Hct (34.1-44.9) % MCV (79.4-94.8) fL MCH (25.6-32.2) pg MCHC (32.2-35.5) g/dL RDW (11.7-14.4) % Plt Count (182-369) x10^3/uL MPV (9.4-12.3) fL Sodium (135-145) mmol/L Potassium (3.5-5.1) mmol/L Chloride (98-107) mmol/L Carbon Dioxide (22-30) mmol/L Anion Gap (5-15) MEQ/L BUN (7-17) mg/dL Creatinine (0.52-1.04) mg/dL Estimated GFR ML/MIN Glucose (74-106) mg/dL POC Glucometer 143 H 113 H (74 to 106) mg/dL Calcium (8.4-10.2) mg/dL Total Bilirubin (0.2-1.3) mg/dL AST (14-36) U/L ALT (0-35) U/L Alkaline Phosphatase (38-126) U/L Serum Total Protein (6.3-8.2) g/dL Albumin (3.5-5.0) g/dL Surg PTH Specimen SEE COMMENTS 04/17/24 04/17/24 04/17/24 Range/Units 02:32 04:10 04:10 WBC 8.9 (3.98-10.04) x10^3/uL RBC 3.70 L (3.93-5.22) x10^6/uL Hgb 10.0 L (11.2-15.7) g/dL Hct 30.9 L (34.1-44.9) % MCV 83.5 (79.4-94.8) fL MCH 27.0 (25.6-32.2) pg MCHC 32.4 (32.2-35.5) g/dL RDW 14.6 H (11.7-14.4) % Plt Count 146 L (182-369) x10^3/uL MPV 9.5 (9.4-12.3) fL Sodium 137 (135-145) mmol/L Potassium 3.8 (3.5-5.1) mmol/L Chloride 104 (98-107) mmol/L Carbon Dioxide 25 (22-30) mmol/L Anion Gap 10.9 (5-15) MEQ/L BUN 11 (7-17) mg/dL Creatinine 0.63 (0.52-1.04) mg/dL Estimated GFR 99.6 ML/MIN Glucose 124 H (74-106) mg/dL POC Glucometer 124 H (74 to 106) mg/dL Calcium 9.2 (8.4-10.2) mg/dL Total Bilirubin 0.60 (0.2-1.3) mg/dL AST 23 (14-36) U/L ALT 26 (0-35) U/L Alkaline Phosphatase 117 (38-126) U/L Serum Total Protein 6.5 (6.3-8.2) g/dL Albumin 3.0 L (3.5-5.0) g/dL Surg PTH Specimen 04/17/24 04/17/24 04/17/24 Range/Units 07:08 11:55 16:25 WBC (3.98-10.04) x10^3/uL RBC (3.93-5.22) x10^6/uL Hgb (11.2-15.7) g/dL Hct (34.1-44.9) % MCV (79.4-94.8) fL MCH (25.6-32.2) pg MCHC (32.2-35.5) g/dL RDW (11.7-14.4) % Plt Count (182-369) x10^3/uL MPV (9.4-12.3) fL Sodium (135-145) mmol/L Potassium (3.5-5.1) mmol/L Chloride (98-107) mmol/L Carbon Dioxide (22-30) mmol/L Anion Gap (5-15) MEQ/L BUN (7-17) mg/dL Creatinine (0.52-1.04) mg/dL Estimated GFR ML/MIN Glucose (74-106) mg/dL POC Glucometer 106 205 H 167 H (74 to 106) mg/dL Calcium (8.4-10.2) mg/dL Total Bilirubin (0.2-1.3) mg/dL AST (14-36) U/L ALT (0-35) U/L Alkaline Phosphatase (38-126) U/L Serum Total Protein (6.3-8.2) g/dL Albumin (3.5-5.0) g/dL Surg PTH Specimen Microbiology 04/15/24 10:57 Wound Culture - Preliminary Heel - Left GRAM NEGATIVE ID AND SENSITIVITY PENDING 04/11/24 19:59 Blood Culture - Final Blood 04/11/24 19:52 Blood Culture - Final Blood 04/13/24 10:45 Urine Culture - Final Urine, Indwelling Catheter NO GROWTH 04/11/24 20:44 Urine Culture - Final Catherized Enterococcus Faecium Accuchecks Date 04/17/24 Date 04/17/24 Assessment/Plan (1) Pressure injury of heel, stage 4 Current Visit: Yes Status: Acute Assessment & Plan: Patient examination and evaluation Aggressive offloading recommended with prevlon boots while in bed Right with significant eschar no drainage Will monitor at this time for worsening multilayer compression dressing applied to the bilateral lower extremity. Will plan for santyl wet to dry bilaterally and keep conservative at this time. type II diabetes mellitus uncontrolled Patient's most recent hemoglobin A1c is measured to be 9.99 which is [id number] for this patient. 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 venous insufficiency of leg compression dressings applied bilaterally to stop venous insufficiency closed fracture of calcaneus (Right) Radiographs reviewed and discussed with patient demonstrating intact orthopedic hardware with screws and fracture in stable alignment. Patient has been advised to call with any concerns regarding edema, erythema, drainage, or any other local or constitutional signs of infection. Code(s): L89.604 - PRESSURE ULCER OF UNSPECIFIED HEEL, STAGE 4 (2) Diabetes mellitus type II, uncontrolled Current Visit: No Status: Chronic Qualifiers: Glycemic state: with hyperglycemia Qualified Code(s): E11.65 - Type 2 diabetes mellitus with hyperglycemia Code(s): [id number] - (3) Amputated great toe of left foot Current Visit: No Status: Acute Code(s): S98.112A - COMPLETE TRAUMATIC AMPUTATION OF LEFT GREAT TOE, INIT ENCNTR (4) Osteomyelitis Current Visit: No Status: Acute Code(s): M86.9 - OSTEOMYELITIS, UNSPECIFIED (5) Diabetic foot ulcers Current Visit: No Status: Acute Code(s): E11.621 - TYPE 2 DIABETES MELLITUS WITH FOOT ULCER; L97.509 - NON-PRESSURE CHRONIC ULCER OTH PRT UNSP FOOT W UNSP SEVERITY (6) Pathologic calcaneal fracture Current Visit: No Status: Acute Code(s): M84.476A - PATHOLOGICAL FRACTURE, UNSP FOOT, INIT ENCNTR FOR FRACTURE
[2024-04-18 05:17] LABS: Hematocrit 29.5 % (34.1-44.9); Hemoglobin 9.4 g/dL (11.2-15.7); Mean Corpuscular Hemoglobin 26.8 pg (25.6-32.2); Mean Corpuscular Hgb Concent. 31.9 g/dL (32.2-35.5); Mean Platelet Volume 9.4 fL (9.4-12.3); Platelet Count 139 x10^3/uL (182-369); Red Blood Count 3.51 x10^6/uL (3.93-5.22); Red Cell Distribution Width 14.6 % (11.7-14.4); White Blood Count 9.4 x10^3/uL (3.98-10.04)
[2024-04-18 05:59] LABS: ALBUMIN 2.9 g/dL (3.5-5.0); ANION GAP 10.5 MEQ/L (5-15); BILIRUBIN,TOTAL 0.4 mg/dL (0.2-1.3); Creatinine 1 0.78 mg/dL (0.52-1.04); EST GLOMERULAR FILTRATION RATE 85.3 ML/MIN; Potassium 3.6 mmol/L (3.5-5.1); Total Protein 6.3 g/dL (6.3-8.2)
--- NOTE | 2024-04-18 12:14 | PCM.DS ---
Discharge Summary Date of Admission: 04/12/24 01:02 Date of Discharge: 04/16/24 Admitting Physician: TO MELO MD Consults: Consults on Case 04/12/24 02:58 Case Management SDOH DC Needs Assessment ROUTINE 04/12/24 12:57 Consult Podiatry ROUTINE 04/12/24 17:57 Consult Surgery ROUTINE Primary Care Provider: [facility] Allergies Allergies shellfish derived Allergy (Intermediate, Verified 02/14/24 22:19) Rash rash bee venom protein (honey bee) Allergy (Unknown, Verified 02/14/24 22:19) metformin [From Glucophage] Allergy (Unknown, Verified 02/14/24 22:19) Penicillins Allergy (Verified 02/14/24 22:19) [facility] Summary - Hospital Course Hospital Course: 04/14/24 Ms. Espinosa is a 63 year-old female with hemiplegia, HTN, HLD, and DM2. She presented 04/12/24 with altered mental status, hypotension, and hypoglycemia. [facility] un[facility] with a blood sugar in the 30s. En route and in ED at [facility], she was given multiple amps of D50 prior to being started on D10 and levophed. Laboratory data was remarkable for a Hgb of 5.7 and elevated cardiac enzymes, while imaging was unremarkable. Patient received 2 units of LPRBCs 04/12 with noted improvement of hgb at 9.5. Mental status improved. She is A&O x 3 during interview. Family reported that patient recently had hematemesis about a month ago and wanted surgery consult for EGD/Colonoscopy if possible. Levophed discontinued with stable BP. Blood glucose levels are stable and D10 has been discontinued. Plan for occult stools. Pt admits black stools one week ago . Iron saturation is at 21%. Surgery consulted and plan for EGD/colonoscopy. 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 Recent wound culture with stentrophomonas maltophilis and staph aureus. Podiatry consulted. EGD completed today and showed gastritis, will continue PPI. She refused bowel prep and therefore did not have colonoscopy today. She is rather sleepy today. Goode in place for acute urinary retention per note yesterday. Pt lives at [facility] and will liekly d/c there tomorrow. She is not competent to make her own decisions at this time. 04/15/24 Pt resting in bed. She is awake, alert, and calm today. UC showed enterococcus yesterday and antibiotic changed to Zyvox as she is resistant to Levaquin per sensitivity results. Podiatry evaluated pt today and explained there is not more more he can do for the patient. Pt has a wound on her sacrum that appears to have gotten worse with dark eschar regions. Pt reports no pain in area of concern. Nursing staff are rotating pt position often per report. Will have PT eval wound for further recommendations. Goode left in place to aide in wound healing as she incontinent of bowel and bladder. She staying at [facility] for longterm care. Attempted to discuss pt case with family as she would benefit from hospice services. However, I was unable to reach them. She not capable of making her own decisions at this time. Discussed pt case with case management. Will d/c with antibiotics and if pt's family would like to transition to hospice services they can do so at the facility. She denies CP, SOB, Abd. pain, N/V/D. 04/16/24 Pt is awake and alert in bed. She was unable to be discharged last night as insurance had not approved readmission to facility she was previously at. Plan is for her to be accepted today. She denies any new concerns and continued plan if care in place. She denies CP, SOB, abd. pain, N/V/D. 04/17/24 Pt resting in bed. Labs have improved. She is awake and alert w/o complaints. Still awaiting insurance approval for d/c back to [facility]. She was to d/c the previous 2 days but insurance did not approve as expected. Case management working on this with hopes to leave today. She denies any concerns at this time. 04/18/24 Pt resting in bed. Per nursing she was constipated last night and had to be digitally disimpacted. She feels she is still constipated. KUB ordered. Insurance has approved acceptance to [facility]. Wound culture of foot came back today and nurse discussed with podiatry. Podiatry changed meds to doxycycline from Levaquin. Pt states she otherwise feels fine and ready to d/c today. She denies CP, Abd. pain, SOB, N/V/D. - Vitals & Intake/Output Vital Signs: Vital Signs Temperature 97.6 F 04/18/24 07:35 Pulse Rate 66 04/18/24 07:35 Respiratory Rate 19 04/18/24 07:35 Blood Pressure 103/54 04/18/24 07:35 O2 Sat by Pulse Oximetry 96 04/18/24 07:35 Intake & Output: Intake & Output 04/16/24 04/17/24 04/18/24 04/19/24 11:59 11:59 11:59 11:59 Intake Total 720 839 690 Output Total 0188 1128 1300 Balance -1405 -286 -610 - Lab Result Diagrams: 04/18/24 04:37 04/18/24 04:37 Lab Results-Last 24 Hrs: Lab Results-Last 24 Hours 04/17/24 04/17/24 04/18/24 Range/Units 16:25 22:29 04:37 WBC 9.4 (3.98-10.04) x10^3/uL RBC 3.51 L (3.93-5.22) x10^6/uL Hgb 9.4 L (11.2-15.7) g/dL Hct 29.5 L (34.1-44.9) % MCV 84.0 (79.4-94.8) fL MCH 26.8 (25.6-32.2) pg MCHC 31.9 L (32.2-35.5) g/dL RDW 14.6 H (11.7-14.4) % Plt Count 139 L (182-369) x10^3/uL MPV 9.4 (9.4-12.3) fL Sodium (135-145) mmol/L Potassium (3.5-5.1) mmol/L Chloride (98-107) mmol/L Carbon Dioxide (22-30) mmol/L Anion Gap (5-15) MEQ/L BUN (7-17) mg/dL Creatinine (0.52-1.04) mg/dL Estimated GFR ML/MIN Glucose (74-106) mg/dL POC Glucometer 167 H 128 H (74 to 106) mg/dL Calcium (8.4-10.2) mg/dL Total Bilirubin (0.2-1.3) mg/dL AST (14-36) U/L ALT (0-35) U/L Alkaline Phosphatase (38-126) U/L Serum Total Protein (6.3-8.2) g/dL Albumin (3.5-5.0) g/dL 04/18/24 04/18/24 04/18/24 Range/Units 04:37 07:16 11:54 WBC (3.98-10.04) x10^3/uL RBC (3.93-5.22) x10^6/uL Hgb (11.2-15.7) g/dL Hct (34.1-44.9) % MCV (79.4-94.8) fL MCH (25.6-32.2) pg MCHC (32.2-35.5) g/dL RDW (11.7-14.4) % Plt Count (182-369) x10^3/uL MPV (9.4-12.3) fL Sodium 138 (135-145) mmol/L Potassium 3.6 (3.5-5.1) mmol/L Chloride 105 (98-107) mmol/L Carbon Dioxide 26 (22-30) mmol/L Anion Gap 10.5 (5-15) MEQ/L BUN 13 (7-17) mg/dL Creatinine 0.78 (0.52-1.04) mg/dL Estimated GFR 85.3 ML/MIN Glucose 111 H (74-106) mg/dL POC Glucometer 101 162 H (74 to 106) mg/dL Calcium 9.0 (8.4-10.2) mg/dL Total Bilirubin 0.40 (0.2-1.3) mg/dL AST 22 (14-36) U/L ALT 24 (0-35) U/L Alkaline Phosphatase 107 (38-126) U/L Serum Total Protein 6.3 (6.3-8.2) g/dL Albumin 2.9 L (3.5-5.0) g/dL Micro Results-Entire Visit: Microbiology 04/15/24 10:57 Wound Culture - Final Heel - Left Stentrophomonas Maltophilis Methicillin Resist Staph Aur 04/11/24 19:59 Blood Culture - Final Blood 04/11/24 19:52 Blood Culture - Final Blood 04/13/24 10:45 Urine Culture - Final Urine, Indwelling Catheter NO GROWTH 04/11/24 20:44 Urine Culture - Final Catherized Enterococcus Faecium Accuchecks Date 04/18/24 Date 04/17/24 - Radiology Exams Ordered Rad Exams-Entire Visit: Radiology Procedures Category Date Time Status KUB Stat Exams 04/18/24 09:08 Taken - Procedures and Test Procedures and Tests throughout Hospitalization: Therapy Orders & Screens 04/11/24 19:55 BiPap/CPAP STAT Comment: Diagnosis: Altered mental status, anemia, hypotension 04/12/24 01:19 Oxygen Nasal Cannula 3 lpm Comment: Respiratory Therapy Consult ONCE Comment: Reason For Exam: 04/12/24 02:58 OT Screen per Nursing Assess ONCE Comment: Protocol Order Physician Instructions: Greater than 3 points order OT Admission Screening Reason For Exam: Triggered on Admission Diagnosis: Altered mental status, anemia, hypotension Open Wound/Cellutlitis/Pressure Ulcers: Yes Acute Fx/ORIF/Change in wt bearing status: No Severe MUSCULOSKELETAL pain: No ADL Dysfunction: Yes Acute CVA w/Hemiparesis/Hemiplegia: No Decreased Functional Mobility/Strength: Yes Sprain/Strain: No Acute Post-op Mobility Dysfunction: No Total Points: 9 PT Screen per Nursing Assess ONCE Comment: Protocol Order Physician Instructions: Greater than 3 points order PT Admission Screenin Reason For Exam: Triggered on Admission Diagnosis: Altered mental status, anemia, hypotension Open Wound/Cellutlitis/Pressure Ulcers: Yes Acute Fx/ORIF/Change in wt bearing status: No Severe MUSCULOSKELETAL pain: No ADL Dysfunction: Yes Acute CVA w/Hemiparesis/Hemiplegia: No Decreased Functional Mobility/Strength: Yes Sprain/Strain: No Acute Post-op Mobility Dysfunction: No Total Points: 9 ST Screen per Nursing Assess ONCE Comment: Protocol Order Physician Instructions: Greater than [address] Admission Screening Reason For Exam: Triggered on Admission Diagnosis: Altered mental status, anemia, hypotension CVA/Dyshpagia/Aphasia: No Cognitive Deficits: Yes Dehydration/Nutrition Deficit: No Reflux: No Oral-Motor Difficulties: No Pneumonia: No Prison Resident: Yes Total Points: 8 04/15/24 09:23 PT Eval & Treat (MD Order) ONCE Reason for Eval:: wound sacrum, weakness Diagnosis: Altered mental status, anemia, hypotension 04/18/24 08:31 EKG STAT Comment: Diagnosis: Altered mental status, anemia, hypotension Discharge Exam General Appearance: no apparent distress, alert Neurologic Exam: alert, oriented x 3, cooperative, normal mood/affect, nml cerebellar function, sensation nml, No motor deficits Eye Exam: PERRL, EOMI, eyes nml inspection Ears, Nose, Throat Exam: normal ENT inspection, pharynx normal, moist mucous membranes Neck Exam: normal inspection, non-tender, supple, full range of motion Respiratory Exam: normal breath sounds, lungs clear, No respiratory distress Cardiovascular Exam: regular rate/rhythm, normal heart sounds Gastrointestinal/Abdomen Exam: soft, No tenderness, No mass Pelvic Exam: deferred Rectal Exam: deferred Back Exam: normal inspection, normal range of motion, No CVA tenderness, No vertebral tenderness Extremity Exam: normal inspection, normal range of motion Skin Exam: normal color, warm, dry Wound Assessment: Skin/Wound Assessment Wound/Incision Assessment Start: 04/12/24 02:58 Text: Status: Active Freq: Q6H Protocol: Document 04/18/24 08:00 [facility] (Rec: 04/18/24 11:20 [facility] [id number]) Wound/Incision Assessment Right Heel Wound Assessment Shift Assessment Wound Type Pressure Ulcer Dressing Status Dry & Intact Comment bulky dressings in place - dressings clean, dry, intact - heel protectors in place Left Heel Wound Assessment Shift Assessment Wound Type Pressure Ulcer Dressing Status Dry & Intact Comment bulky dressings in place - dressings clean, dry, intact - heel protectors in place Sacrum Wound Assessment Shift Assessment Wound Type Pressure Ulcer Dressing Status Changed Drainage Amount Moderate Drainage Description Serosanguineous Comment dressing changed per PT - dressing dry and intact Buttock Wound Assessment Shift Assessment Wound Type REDNESS Drainage Amount None General Appearance Open to air Surrounding Tissue [place] Comment moisture barrier/skin protectant applied with turns Left Medial Toe Wound Assessment Shift Assessment Wound Type Amputation Wound Stage Non Pressure Wound Drainage Amount None Comment skin clean, dry, intact Right Breast Wound Assessment Shift Assessment Wound Type bruise Wound Stage Non Pressure Wound General Appearance Open to air Comment bruise Wound Photo Photo Taken No Final Diagnosis/Problem List - Final Discharge Diagnosis/Problem (1) Acute anemia Current Visit: Yes Status: Acute Code(s): D64.9 - ANEMIA, UNSPECIFIED (2) Altered mental status Current Visit: Yes Status: Acute Code(s): R41.82 - ALTERED MENTAL STATUS, U NSPECIFIED (3) Cellulitis of both feet Current Visit: Yes Status: Acute Code(s): L03.115 - CELLULITIS OF RIGHT LOWER LIMB; L03.116 - CELLULITIS OF LEFT LOWER LIMB (4) HTN (hypertension) Current Visit: Yes Status: Acute Code(s): I10 - ESSENTIAL (PRIMARY) HYPERTENSION (5) Hypoglycemia Current Visit: Yes Status: Acute Code(s): E16.2 - HYPOGLYCEMIA, UNSPECIFIED (6) Type 2 diabetes mellitus Current Visit: Yes Status: Acute (7) Hemiplegia affecting right dominant side Current Visit: Yes Status: Chronic Code(s): G81.91 - HEMIPLEGIA, UNSPECIFIED AFFECTING RIGHT DOMINANT SIDE (8) HLD (hyperlipidemia) Current Visit: Yes Status: Chronic Code(s): E78.5 - HYPERLIPIDEMIA, UNSPECIFIED (9) Gastritis Current Visit: Yes Status: Acute Code(s): K29.70 - GASTRITIS, UNSPECIFIED, WITHOUT BLEEDING (10) UTI (urinary tract infection) Current Visit: Yes Status: Acute Assessment & Plan: (1) Acute anemia Current Visit: Yes Status: Acute Assessment & Plan: -Received 2 units LPRBC 04/12/24 - hgb stable - trend -Surgery consulted- EGD today showed gastritis -She refused bowel prep - unable to do colonoscopy - Hold blood thinner as not safe to resume - Iron sat at 21% ferritin at 413 - Protonix - Monitor hgb, transfuse if <7 - occult stools pending collection - Hold ASA 04/15 - Hgb 9.8- stable - EGD showed acute gastritis- continue PPI - refused to do bowel prep for Colonoscopy 04/16 - Hgb stable 10.3 04/17 - Hgb 10 04/18 - Hgb 9.4 Code(s): D64.9 - ANEMIA, UNSPECIFIED (2) Altered mental status Current Visit: Yes Status: Acute Assessment & Plan: - improved with bouts of confusion - head CT with no acute findings - Delirium protocol - TSH 2.490 - Not competent to make her own decisions - skilled care at [facility] 04/15 - Awake and alert today - night before gave kianadon d/t anxiety and confusion 04/16 - resolved Code(s): R41.82 - ALTERED MENTAL STATUS, UNSPECIFIED (3) Cellulitis of both feet Current Visit: Yes Status: Acute Assessment & Plan: -Follow with podiatry - on levaquin will continue - podiatry to follow while IP -History of osteomyelitis bilateral heels 04/15 - per podiatry nothing more he can do at this time. - Continue Levaquin 04/16 - WBC 11- improved 04/17 - WBC 8.9 04/18 - Antibiotic changed from Levaquin to doxycycline based on culture results- per podiatry Code(s): L03.115 - CELLULITIS OF RIGHT LOWER LIMB; L03.116 - CELLULITIS OF LEFT LOWER LIMB (4) HTN (hypertension) Current Visit: Yes Status: Acute Code(s): I10 - ESSENTIAL (PRIMARY) HYPERTENSION - BP stable - May hold meds if needed (5) Hypoglycemia Current Visit: Yes Status: Acute Assessment & Plan: -Resolved Code(s): E16.2 - HYPOGLYCEMIA, UNSPECIFIED (6) Type 2 diabetes mellitus Current Visit: Yes Status: Acute Assessment & Plan: -Hypoglycemia on arrival - D10 discontinued -Resume ADA diet -SSI for now - A1C 02/15/24 10.42- uncontrolled (7) Hemiplegia affecting right dominant side Current Visit: Yes Status: Chronic Assessment & Plan: -noted Code(s): G81.91 - HEMIPLEGIA, UNSPECIFIED AFFECTING RIGHT DOMINANT SIDE (8) HLD (hyperlipidemia) Current Visit: Yes Status: Chronic Assessment & Plan: -continue statin Code(s): E78.5 - HYPERLIPIDEMIA, UNSPECIFIED (9) Gastritis Current Visit: Yes Status: Acute Assessment & Plan: - as seen on EGD per GS - Continue PPI Code(s): K29.70 - GASTRITIS, UNSPECIFIED, WITHOUT BLEEDING (10) UTI (urinary tract infection) Current Visit: Yes Status: Acute Assessment & Plan: - Zyvox - UC + enterococcus - Resistant to Levaquin Code(s): N39.0 - URINARY TRACT INFECTION, SITE NOT SPECIFIED Code(s): N39.0 - URINARY TRACT INFECTION, SITE NOT SPECIFIED Code(s): N39.0 - URINARY TRACT INFECTION, SITE NOT SPECIFIED Code(s): N39.0 - URINARY TRACT INFECTION, SITE NOT SPECIFIED (11) Constipation Current Visit: Yes Status: Acute Assessment & Plan: - KUB IMPRESSION: 1. Fecal loaded large bowel noted obscuring details. 2. Few small coarse hyperdensities are noted overlying right renal area, could be fecaliths however the possibility of renal calculi cannot be excluded. Few small rounded areas with peripheral calcification seen in the left hypochondriac region, could be vascular calcifications. 3. Would recommend CT KUB or sonography for further evaluation. 4. Significant degenerative changes noted at bilateral hip articulations. - digitally disimpacted last night by nursing staff - Pt still feel constipated. - Soap suds enema - Daily miralax added - After pt has BM february D/C Code(s): K59.00 - CONSTIPATION, UNSPECIFIED - Discharge Discharge Date: 04/18/24 (F) Disposition: XFER OTHER Condition: Critical Prescriptions: New Pantoprazole 20 mg [Protonix 20MG Tablet] 20 mg PO BID 30 Days #60 tab Linezolid [Zyvox] 600 mg PO BID 7 Days #14 tablet RX: Doxycycline Hyclate 100 mg [Vibramycin 100 MG] 100 mg PO BID 10 Days #20 tab RX: Polyethylene Glycol 3350 17 gm [Miralax Powder 17GM PACKET] 17 gm PO DAILY 30 Days #30 pkt Continue RX: Gabapentin [Neurontin ] 300 mg PO TID RX: Escitalopram Oxalate [Lexapro] 10 mg PO DAILY 30 Days #30 tablet RX: Aspirin EC 325 mg [Ecotrin 325 MG] 325 mg PO DAILY #30 tablet RX: Hydrocodone/Acetaminophen [Hydrocodone-Acetamin 5-325 mg] 1 tab PO Q4H PRN PRN MDD 4 PRN Reason: Pain RX: Amlodipine Besylate [Norvasc] 10 mg PO DAILY RX: Atorvastatin Calcium [Lipitor 40Mg] 40 mg PO HS RX: Glyburide 5 mg [Micronase 5 MG] 5 mg PO HS RX: Lisinopril 20 mg [Zestril 20 MG] 40 mg PO DAILY RX: Metoprolol Succinate 25 mg Xl* [Toprol-Xl 25MG Tablets] 25 mg PO DAILY RX: Miconazole Nitrate 85 gm TP BID RX: Hydrophilic Cream [Triad] 71 gm TP BID RX: Fluconazole 150 mg PO DAILY Discontinued RX: Levofloxacin/D5w [Levofloxacin 750 mg/150 ml-D5w] 750 mg IV HS Additional Instructions: SEE ATTACHED MED LIST Follow up with: MARCIO HOU DPM [ACTIVE STAFF] - 04/23/24 9:30 am
--- NOTE | 2024-04-18 12:36 | XRAY ---
CLINICAL HISTORY: abd pain COMPARISON: None TECHNIQUE: X-ray of abdomen was performed in 1 view: AP supine view. FINDINGS: Fecal loaded large bowel noted obscuring details. Few coarse hyperdensities are noted overlying right renal area, could be fecaliths however the possibility of renal calculi cannot be excluded. Few small rounded areas with peripheral calcification seen in the left hypochondriac region, could be vascular calcifications. The stomach, small bowel, and colon gas patterns are all normal and there is no free air around the falciform ligament. Significant degenerative changes noted at bilateral hip articulations with osteophyte formation, reduced joint space and subchondral sclerosis. Mild degenerative changes also noted in the lumbar spine. Scanned rest of the osseous structures are unremarkable. Bilateral sacroiliac joints appear grossly unremarkable. IMPRESSION: 1. Fecal loaded large bowel noted obscuring details. 2. Few small coarse hyperdensities are noted overlying right renal area, could be fecaliths however the possibility of renal calculi cannot be excluded. Few small rounded areas with peripheral calcification seen in the left hypochondriac region, could be vascular calcifications. 3. Would recommend CT KUB or sonography for further evaluation. 4. Significant degenerative changes noted at bilateral hip articulations. Electronically Signed by: Jenifer Panchal MD. (04/18/2024 12:31:28 EDT)
[2024-04-18] MEDS: Miralax Powder 17GM PACKET PO SCH (13:40)
[2024-04-18 14:01] VITALS: PULSE 68
[2024-04-18 16:16] VITALS: BP 109/55; RESP 20; TEMP 96.4; O2SAT 93
== END 2024-04-18 18:45 | DRG 812 ==
LOC: ED 19:26 → ICU 04-12 01:02 → MED SURG 04-16 09:41
PROVIDERS: ADMIT Internal Medicine Critical Care Medicine; ATTEND Internal Medicine Critical Care Medicine
PROC: 0DB68ZX Excision of Stomach, Via Natural or Artificial Opening Endoscopic, Diagnostic (ICD-10-PCS; principal; 2024-04-14)
PROC: 2W1MX6Z Compression of Left Lower Extremity using Pressure Dressing (ICD-10-PCS; 2024-04-15)
PROC: 2W1LX6Z Compression of Right Lower Extremity using Pressure Dressing (ICD-10-PCS; 2024-04-15)
DX: D64.9 Anemia, unspecified (principal); L03.115 Cellulitis of right lower limb; L03.116 Cellulitis of left lower limb; G81.91 Hemiplegia, unspecified affecting right dominant side; N39.0 Urinary tract infection, site not specified; M86.9 Osteomyelitis, unspecified; R41.82 Altered mental status, unspecified; I10 Essential (primary) hypertension; E11.649 Type 2 diabetes mellitus with hypoglycemia without coma; E78.5 Hyperlipidemia, unspecified; K29.70 Gastritis, unspecified, without bleeding; Z79.899 Other long term (current) drug therapy; L89.159 Pressure ulcer of sacral region, unspecified stage; E11.621 Type 2 diabetes mellitus with foot ulcer; K59.00 Constipation, unspecified; R33.9 Retention of urine, unspecified
CPT/HCPCS: 29580; 36000; 36415; 36430; 36600; 51702; 70450; 71045; 74018; 80053; 81001; 82375; 82607; 82728; 82746; 82803; 82947; 83540; 83550; 83605; 83735; 83880; 84132; 84134; 84443; 84484; 85014; 85018; 85025; 85027; 85610; 85730; 86850; 86900; 86901; 86922; 87040; 87070; 87077; 87086; 87186; 93005; 93041; 94002; 94760; 94762; 96360; 96374; 96375; 99222; 99285; 99291; 99292; J1956; J2020; J2405; J2704; J3475; J3486; P9016; Q3014; A9270-GY

== ENCOUNTER 2024-04-29 08:49 | Day surgery (SDC) | payer OTHER ==
[2024-04-29 09:53] LABS: ANION GAP 13.2 MEQ/L (5-15); Calcium 10.5 mg/dL (8.4-10.2); Creatinine 1 0.71 mg/dL (0.52-1.04); EST GLOMERULAR FILTRATION RATE 95.5 ML/MIN
[2024-04-29] MEDS: Invanz *** 1 G in Sodium Chloride 100ML MINI-BAG PLUS 100 ML IV SCH (10:15)
[2024-04-29] MEDS: D50W 50 ml Abboject IV ONE (10:15)
[2024-04-29] MEDS: Sodium Chloride 0.9% 1000 ML 1,000 ML IV SCH (10:23)
[2024-04-29] MEDS ORDERED: Pepcid 20 MG VIAL IV ONE (10:24)
[2024-04-29] MEDS ORDERED: Reglan 10 MG/2 ML ONE (10:24)
[2024-04-29] MEDS: Reglan 10 MG/2 ML IV ONE (10:25)
[2024-04-29] MEDS: Pepcid 20 MG VIAL IV ONE (10:25)
[2024-04-29] MEDS ORDERED: DIPRIVAN 200 MG/20 ML IV ONE (11:17)
[2024-04-29] MEDS ORDERED: SUBLIMAZE 100 MCG/2 ML ONE (11:18)
[2024-04-29] MEDS ORDERED: ROCURONIUM BROMIDE IV ONE (11:18)
[2024-04-29] MEDS ORDERED: Versed 2 MG/2 ML Injection ONE (11:18)
[2024-04-29] MEDS ORDERED: Naropin 0.5% 30 ML VIAL ONE (11:19)
[2024-04-29] MEDS ORDERED: Marcaine 0.5%/Epinephrine 10 ML ONE (11:19)
[2024-04-29] MEDS ORDERED: Sodium Chloride 0.9% 1000 ML 1,000 ML ONE (12:17)
--- NOTE | 2024-04-29 12:29 | XRAY ---
Indication: PICC insertion for right foot infection. PICC insertion right upper extremity was performed using fluoroscopic and ultrasound guidance. Only 2 visualized veins were identified above the elbow both appearing tiny in caliber. Multiple attempts at percutaneous access using a micropuncture needle were unsuccessful. A cephalic vein was finally percutaneously accessed. Difficulty advancing 0.018 floppy-tipped guidewire and PICC catheter pass axilla. Approximately 5 cc Isovue 370 contrast was then injected demonstrating guidewire/catheter in a tiny vein. Site was aborted. No larger caliber veins were available. Procedure was terminated. Approximately 2.6 minutes fluoroscopy used.
[2024-04-29] MEDS: D50W 50ML Vial IV ONE (12:37)
[2024-04-29 12:39] LABS: Hematocrit 31.9 % (34.1-44.9); Hemoglobin 10.1 g/dL (11.2-15.7); Mean Cell Volume 85.3 fL (79.4-94.8); Mean Corpuscular Hgb Concent. 31.7 g/dL (32.2-35.5); Mean Platelet Volume 8.6 fL (9.4-12.3); Platelet Count 95 x10^3/uL (182-369); Red Blood Count 3.74 x10^6/uL (3.93-5.22); Red Cell Distribution Width 13.9 % (11.7-14.4); White Blood Count 6.8 x10^3/uL (3.98-10.04)
[2024-04-29 15:08] VITALS: BP 120/95; PULSE 86; RESP 16; TEMP 98.6; O2SAT 99
== END 2024-04-29 15:15 | disposition home or self-care (01) ==
LOC: SDC 08:49
PROVIDERS: ATTEND Podiatrist Foot & Ankle Surgery
DX: E11.621 Type 2 diabetes mellitus with foot ulcer (principal); M86.9 Osteomyelitis, unspecified
CPT/HCPCS: 36415; 77001; 80048; 82947; 83036; 85027; J1335; J1642; J2250; J2704; J2795; J3010

== ENCOUNTER 2024-05-06 05:53 | Day surgery (SDC) | payer OTHER ==
[2024-05-06] MEDS ORDERED: Thrombin-JMI 5000 UNITS TP ONE (05:54)
[2024-05-06] MEDS: Sodium Chloride 0.9% 1000 ML 1,000 ML IV SCH (06:39)
[2024-05-06] MEDS: CLINDAMYCIN-D5W 900 MG/50 ML*** 900 MG/50 ML BAG IV SCH (06:39)
[2024-05-06] MEDS: celeBREX 100 MG PO ONE (06:40)
[2024-05-06] MEDS: TYLENOL EXTRA STRENGTH 500 MG PO ONE (06:41)
[2024-05-06] MEDS: Decadron 4 MG PO ONE (06:42)
[2024-05-06] MEDS: NEURONTIN PO ONE (06:42)
[2024-05-06 06:45] LABS: Absolute Neutrophil Ct (ANC) 6.25 x10^3/uL (1.56-6.13); BASOPHIL % 0.3 % (0.1-1.2); Basophil (Absolute #) 0.03 x10^3/uL (0.01-0.08); Eosinophil % 2.6 % (0.7-5.8); Eosinophil (Absolute #) 0.24 x10^3/uL (0.04-0.36); Hematocrit 31.4 % (34.1-44.9); Hemoglobin 10.2 g/dL (11.2-15.7); IMMATURE GRAN # 0.18 x10^3u/L (0.001-0.031); IMMATURE GRAN % 1.9 % (0.001-0.429); Lymphocyte (Absolute #) 1.94 x10^3/uL (1.18-3.74); Lymphocytes % 20.7 % (19.3-51.7); Mean Cell Volume 83.7 fL (79.4-94.8); Mean Corpuscular Hemoglobin 27.2 pg (25.6-32.2); Mean Corpuscular Hgb Concent. 32.5 g/dL (32.2-35.5); Mean Platelet Volume 10.1 fL (9.4-12.3); Monocyte (Absolute #) 0.73 x10^3/uL (0.24-0.86); Monocytes % 7.8 % (4.7-12.5); Neutrophil % 66.7 % (34.0-71.1); Platelet Count 137 x10^3/uL (182-369); Red Blood Count 3.75 x10^6/uL (3.93-5.22); Red Cell Distribution Width 14.4 % (11.7-14.4); White Blood Count 9.4 x10^3/uL (3.98-10.04)
[2024-05-06] MEDS ORDERED: MINERAL OIL LIGHT 10 ML FOR SURGERY ONE (06:54)
[2024-05-06] MEDS ORDERED: Marcaine 0.5%/Epinephrine 10 ML ONE (07:02)
[2024-05-06] MEDS ORDERED: Naropin 0.5% 30 ML VIAL ONE (07:03)
[2024-05-06] MEDS ORDERED: Versed 2 MG/2 ML Injection ONE (07:03)
[2024-05-06] MEDS ORDERED: SUBLIMAZE 100 MCG/2 ML ONE (07:03)
[2024-05-06] MEDS ORDERED: Xylocaine-Mpf 2% 5 Ml Vial ONE (07:04)
[2024-05-06 07:20] LABS: ALBUMIN 3.4 g/dL (3.5-5.0); ANION GAP 10.4 MEQ/L (5-15); BILIRUBIN,TOTAL 0.5 mg/dL (0.2-1.3); Creatinine 1 0.63 mg/dL (0.52-1.04); EST GLOMERULAR FILTRATION RATE 99.6 ML/MIN; Potassium 4.1 mmol/L (3.5-5.1); Total Protein 6.9 g/dL (6.3-8.2)
[2024-05-06] MEDS ORDERED: Marcaine Mpf 0.5% Vial 30 Ml ONE (07:28)
[2024-05-06] MEDS ORDERED: Xylocaine 1% Vial 30 ML PF IJ ONE (07:28)
[2024-05-06] MEDS ORDERED: Sodium Chloride 0.9% 250 ML 250 ML IV ONE (07:52)
[2024-05-06] MEDS ORDERED: DIPRIVAN 200 MG/20 ML IV ONE ×4 (08:05→10:18)
[2024-05-06] MEDS ORDERED: PHENYLEPHRINE HCL ONE (08:15)
[2024-05-06] MEDS ORDERED: XYLOCAINE 1%/Epi 1:100000 MDV 20 ML ONE (08:31)
[2024-05-06] MEDS ORDERED: VANCOCIN INJECTION IV ONE (09:03)
--- NOTE | 2024-05-06 10:38 | XRAY ---
Indication: Partial left calcanectomy with ORIF and synthetic skin graft. Intraoperative fluoroscopy provided for 37 seconds. 21 digital spot images submitted for interpretation ultimately demonstrates surgical excision posterior calcaneus with external fixation device placement. Correlate with intraoperative findings/report.
[2024-05-06] MEDS ORDERED: Sodium Chloride 0.9% 1000 ML 1,000 ML ONE (11:28)
--- NOTE | 2024-05-06 12:13 | XRAY ---
37 seconds of fluoroscopy was used in surgery for a partial left calcanectomy with ORIF and synthetic skin graft.
[2024-05-06 12:44] VITALS: RESP 18
[2024-05-06 12:56] VITALS: BP 119/70; PULSE 91; TEMP 98.7; O2SAT 97
--- NOTE | 2024-05-07 12:45 | OP ---
SURGERY DATE/TIME: 05/06/2024 [id number] PREOPERATIVE DIAGNOSES: 1) Osteomyelitis, left calcaneus. 2) Chronic diabetic wound. 3) Stroke with left lower extremity symptoms. 4) Noncompliance. 5) Uncontrolled diabetes. 6) Peripheral neuropathy. 7) Right foot diabetic foot ulcer/pressure ulcer to the level of subcutaneous tissue. POSTOPERATIVE DIAGNOSES: 1) Osteomyelitis, left calcaneus. 2) Chronic diabetic wound. 3) Stroke with left lower extremity symptoms. 4) Noncompliance. 5) Uncontrolled diabetes. 6) Peripheral neuropathy. 7) Achilles tendon infection. PROCEDURES: 1) Incision and drainage with bone debridement, left calcaneus. 2) Partial calcanectomy, left. 3) Achilles tendon resection/excision. 4) Application of synthetic skin substitute. 5) Application of split-thickness skin graft harvested from left thigh to left rear foot. 6) Application of multilevel external fixation. 7) Right incision and drainage with debridement to level of subcutaneous tissue and application of synthetic skin substitute. SURGEON: Levi Ramirez MD INSULATOR CUTTER AND FORMER: None. ANESTHESIA: Monitored anesthesia care with a popliteal and adductor canal block. See Anesthesia report for details to the left lower extremity. Local block at the level of the right ankle. HEMOSTASIS: Pressure dressing. ESTIMATED BLOOD LOSS: Approximately 30 mL. MATERIALS: 1) Two 7.5 x 7.5 Acera graft. 2) Orthofix multilevel external fixator. 3) 4-0 nylon. 4) 4-0 Monocryl. INJECTABLES: 30 mL of a 1:1 mixture of 1% lidocaine plain and 0.5% bupivacaine plain injected in a right ankle block type fashion. See Anesthesia report for details for the popliteal and saphenous block to the left lower extremity. INDICATIONS FOR PROCEDURE: The patient is a very pleasant, 63-year-old female very well known to my service for multiple episodes of osteomyelitis to the bilateral lower extremity. In recent history, earlier this year, patient's did pass away as a result of cancer metastasizing to his brain. As a result, she neglected her health and 2 heel wounds developed secondary to her peripheral neuropathy. This was difficult to control initially secondary to the patient's unwillingness to remain nonweightbearing as well as noncompliance as well as her uncontrolled diabetes. Multiple attempts were made. As a result, the patient did suffer a pathological fracture through the right calcaneus which was fixated with an open reduction and internal fixation to the right calcaneus. Shortly thereafter, the patient's medical history became significantly more complicated with a stroke and multiple GI bleeds that led to her failing the grafting process, however, healing out her fracture to the right lower extremity. As a result, the patient does have significant bone infection to the right lower extremity. There is exposed calcaneus to the left lower extremity, significantly more complicated resulting in repetitive motions to the left heel that resulted in failure of a synthetic skin substitute to the left heel. As a result, patient has developed osteomyelitis to the left calcaneus and further progression of her illness. Discussion with her daughter and herself, patient is willing to go forward in order to get these wounds healed and prevent the possibility of a below-knee amputation or a possibility of by sepsis. Patient and daughter understand all risks, complications, and benefits of surgical intervention at this time including but not limited to infection, hematoma, seroma, possibility of delayed wound healing, wound nonhealing, possibility of failure of surgical intervention, possible loss of function, and possibility of loss of limb or loss of life. No guarantees were provided as to the outcome. Patient is currently on IV antibiotics at this time and will continue to be so throughout the wound healing process. She understands this. Plenty of time was allowed for the patient to ask questions, which were answered to her apparent satisfaction. At this time, we decided to proceed. DESCRIPTION OF PROCEDURE AND FINDINGS: The patient was brought into the PACU prior to the procedure and the left lower extremity was provided a popliteal and saphenous block. See Anesthesia report for details. Following this, patient was brought into the operating room, placed on the operating room table in supine position. Bilateral lower extremity was prepped and draped in the typical sterile fashion and lowered onto the surgical field. At this time, attention was directed to the left calcaneus where there was a significant eschar over the calcaneus. All soft tissues including the plantar fascia and intrinsic muscles were necrotic at the origination site. From that standpoint, a 10 blade was utilized to resect all necrotic tissue off of the bone, revealing diseased bone at the least with indications of periosteal necrosis. From that standpoint, the decision was made to proceed with a partial calcanectomy. This calcanectomy took place, demonstrating healthy bleeding bone at the level of resection. The bone was then handed off the field for pathological assessment and culture. At this time, the attachment of the Achilles tendon was resected as diseased tendon did seem to extend into the proximal segment of the Achilles tendon as well as nonviable tendon from that standpoint. This was also handed off the field for pathological assessment. At this time, Bactisure was utilized to flush the calcaneus and the surrounding rim margins. Any necrotic or nonviable tissue was then excised and removed from the field. Following this, healthy bleeding edge was incised around the edge. Measurements were taken at this time and determined that a 7.5 x 7.5 Acera graft was useful in gaining closure of the exposed bone. This was sutured in multiple locations utilizing 4-0 Monocryl. Following this, a split-thickness skin graft was harvested utilizing a 2-inch dermatome at 0.016 inch. A 10 mL injection consisting of 1% lidocaine plain was then injected proximal to the harvest site and a long harvest was taken. At this time, it was run through the 1 x 1.5 mesher. Once meshed, the appropriate side was lined up and this was sutured to the base of the wound. Following this, an external fixator was applied to the left lower extremity with the foot orthogonal relative to the longitudinal axis. It was made notable that there was some external rotation of the leg in patient's natural position in order to offload effectively and as to not make the patient uncomfortable while lying in her chair. This was checked under multiple views of fluoroscopic guidance. The tibial pins were lined up perpendicular to the longitudinal axis of the leg. The forefoot was slightly externally rotated floating the heel. Following this, a dressing consisting of bolster, Adaptic, 4 x 4, Kerlix, ABD and Tj was applied to the left lower extremity. Following this, attention was directed to the right lower extremity where a 30 mL block consisting of a 1:1 mixture of 1% lidocaine plain and 0.5% bupivacaine plain was injected in an ankle block type fashion. Following this, a 10 blade was utilized to resect the necrotic tissue at the posterior aspect of the right heel. From that standpoint, significant amount of adipose tissue was exposed and healthy bleeding was identified at this level. From that standpoint, decision was made to proceed with an additional 7.5 x 7.5 Acera graft, which was sutured utilizing 2-0 PDS in an interlocking type fashion. Following this, a dressing consisting of Adaptic, 4 x 4, Kerlix, ABD and Tj was applied to the right lower extremity. Patient was then reversed from anesthesia and returned to the postoperative anesthesia care unit with vital signs stable and vascular status intact. Patient handled the anesthesia as well as the procedure without significant complication. Postoperative orders indicated in the patient's discharge chart.
== END 2024-05-06 13:17 ==
LOC: SDC 05:53
PROVIDERS: ATTEND Podiatrist Foot & Ankle Surgery
DX: M86.9 Osteomyelitis, unspecified (principal); E11.621 Type 2 diabetes mellitus with foot ulcer; I69.354 Hemiplegia and hemiparesis following cerebral infarction affecting left non-dominant side; Z91.148 Patient's other noncompliance with medication regimen for other reason; E11.65 Type 2 diabetes mellitus with hyperglycemia; E11.42 Type 2 diabetes mellitus with diabetic polyneuropathy; M76.62 Achilles tendinitis, left leg
CPT/HCPCS: 11042; 11044; 15150; 15271; 20692; 27650; 28120; 36415; 73650; 76000; 76937; 80053; 82947; 83036; 85025; A2007; A6260; C1713; J2250; J2371; J2704; J2795; J3010; J3370; A9270-GY

== ENCOUNTER 2024-06-12 11:43 | Emergency (ER) | payer OTHER ==
[2024-06-12] MEDS: Lactated Ringers 1,000 ML IV SCH ×2 (10:49→12:42)
[2024-06-12 10:51] LABS: Hematocrit 26.8 % (34.1-44.9); Hemoglobin 8.3 g/dL (11.2-15.7); Mean Cell Volume 86.5 fL (79.4-94.8); Mean Corpuscular Hemoglobin 26.8 pg (25.6-32.2); Platelet Count 173 x10^3/uL (182-369); Red Cell Distribution Width 14.8 % (11.7-14.4); White Blood Count 15.6 x10^3/uL (3.98-10.04)
[2024-06-12 11:03] LABS: ALBUMIN 3.4 g/dL (3.5-5.0); ANION GAP 14.4 MEQ/L (5-15); BILIRUBIN,TOTAL 0.4 mg/dL (0.2-1.3); Calcium 10.3 mg/dL (8.4-10.2); Creatinine 1 0.97 mg/dL (0.52-1.04); EST GLOMERULAR FILTRATION RATE 65.7 ML/MIN; Potassium 4.9 mmol/L (3.5-5.1)
[~2024-06-12 11:43] MED LIST: CEFAZOLIN 2 GM/100 ML NaCl 2 GM/100 ML IVPB IV SCH
[2024-06-12 12:12] VITALS: TEMP 96.9
[2024-06-12 12:15] VITALS: O2SAT 99
--- NOTE | 2024-06-12 12:15 | ERPHSYRPT ---
- History of Present Illness Time Seen by Provider: 06/12/24 11:46 Source: patient, senior care records, other (Surgery preop) Exam Limitations: no limitations Physician History: 63-year-old female resident of senior care CODE STATUS DNR on hospice with history of stroke with residual weakness, diabetes mellitus, hypertension, left foot osteomyelitis with partial amputation and currently external fixator is sent in ER from same-day surgery where patient was scheduled to have some procedure done but her blood pressure was low. Patient blood pressure on presentation in the ER is 104 and on recheck is in 80s. Patient denies any chest pain palpitations or shortness of breath. No abdominal pain nausea or vomiting. She is on ertapenem and does have PICC line. Patient denies fever or chills. Not a good historian and history is limited. Allergies/Adverse Reactions: shellfish derived Allergy (Intermediate, Verified 06/12/24 10:31) Rash rash bee venom protein (honey bee) Allergy (Unknown, Verified 06/12/24 10:31) hives, difficulty breathing metformin [From Glucophage] Allergy (Unknown, Verified 06/12/24 10:31) Rash Penicillins Allergy (Verified 06/12/24 10:31) Hives hives sob Home Medications: Gabapentin [Neurontin ] 300 mg PO TID 01/16/24 [History] Amlodipine Besylate [Norvasc] 10 mg PO DAILY 04/12/24 [History] Atorvastatin Calcium [Lipitor 40Mg] 40 mg PO HS 04/12/24 [History] Glyburide 5 mg [Micronase 5 MG] 5 mg PO HS 04/12/24 [History] Hydrocodone/Acetaminophen [Hydrocodone-Acetamin 5-325 mg] 1 tab PO Q4H PRN PRN MDD 4 04/12/24 [History] Lisinopril 20 mg [Zestril 20 MG] 40 mg PO DAILY 04/12/24 [History] Metoprolol Succinate 25 mg Xl* [Toprol-Xl 25MG Tablets] 25 mg PO DAILY 04/12/24 [History] Aspirin 81 gm Chew [Baby Aspirin 81 mg Chew] 81 mg PO DAILY 05/06/24 [History] Hx Tetanus, Diphtheria Vaccination/Date Given: Yes Hx Influenza Vaccination/Date Given: Yes Hx Pneumococcal Vaccination/Date Given: Yes Travel Risk - International Travel Have you traveled outside of the country in past 3 weeks: No - Emerging Infectious Disease Are you exhibiting symptoms associated with any current EIDs: No Symptoms: Diarrhea, Headaches/Body Aches/ - Review of Systems Constitutional: Fatigue, Weakness Eyes: No Symptoms Ears, Nose, & Throat: No Symptoms Respiratory: No Symptoms Cardiac: No Symptoms Abdominal/Gastrointestinal: No Symptoms Genitourinary Symptoms: No Symptoms Musculoskeletal: Joint Swelling Skin: Decubiti, Skin Lesions Neurological: No Symptoms Hematologic/Lymphatic: No Symptoms - Past Medical History Pertinent Past Medical History: No Neurological History: Stroke ENT History: Cataracts Cardiac History: High Cholesterol, Hypertension Respiratory History: No Pertinent History Endocrine Medical History: Diabetes Type II, Other Musculoskeletal History: Arthritis GI Medical History: Other History: Other Psycho-Social History: Anxiety, Depression Female Reproductive Disorders: No Pertinent History Other Medical History: kidney stones, gallstones - Past Surgical History Past Surgical History: Yes Neuro Surgical History: No Pertinent History Cardiac: No Pertinent History Respiratory: No Pertinent History Gastrointestinal: Appendectomy, Cholecystectomy Genitourinary: No Pertinent History Musculoskeletal: Amputation, Other Female Surgical History: Tubal Ligation Other Surgical History: left hip surgery, mass removal. breast biopsy,Lt great toe amputation. debr Significant Family History: no pertinent family hx - Social History Smoking Status: Never smoker Exposure to second hand smoke: No Drug Use: none Patient Lives Alone: Yes - Social Determinants of Health Will the patient participate in the screening: Yes Do you worry about a steady place to live?: No In the past 12 months,have you had to go without utilities?: No Transportation Issues: No Has anyone in your support network made you feel unsafe?: No Have you or anyone in your house had to go without enough: No - Nursing Vital Signs Nursing Vital Signs: Initial Vital Signs Temperature 97.6 F 06/12/24 10:31 Pulse Rate 63 06/12/24 10:31 Respiratory Rate 18 06/12/24 10:31 Blood Pressure 93/51 06/12/24 10:31 O2 Sat by Pulse Oximetry 99 06/12/24 10:31 Pain Scale Pain Intensity 5 - Physical Exam General Appearance: no apparent distress, alert Eye Exam: eyes nml inspection Ears, Nose, Throat Exam: normal ENT inspection Neck Exam: normal inspection, full range of motion Respiratory Exam: normal breath sounds, lungs clear Cardiovascular Exam: regular rate/rhythm, normal heart sounds Gastrointestinal/Abdomen Exam: soft, No normal bowel sounds, No tenderness Back Exam: rash (Decubitus) Extremity Exam: other (External fixator left lower leg/foot with partial amputation of toes/foot) Neurologic Exam: alert, oriented x 3, cooperative, sensation nml Skin Exam: normal color SpO2 Interpretation: normal SpO2: 99 O2 Delivery: Room Air - Course EKG Interpreted by Me: RATE (74), Sinus Rhythm, NORMAL AXIS, Right Bundle Branch Block, Non-specific ST Changes Ordered Tests: Active Orders 24 hr Category Date Time Status EKG-ER Only STAT Care 06/12/24 12:04 Active IV Insertion STAT Care 06/12/24 12:04 Active CHEST 1 VIEW (PORTABLE) Stat Exams 06/12/24 12:04 Completed BLOOD CULTURE Stat Lab 06/12/24 13:30 Received CBC Stat Lab 06/12/24 10:50 Completed CBC W DIFF Stat Lab 06/12/24 13:30 Completed CMP Stat Lab 06/12/24 10:50 Completed CMP Stat Lab 06/12/24 12:52 Completed CULTURE,URINE Stat Lab 06/12/24 13:32 Received Lactic Acid Stat Lab 06/12/24 12:04 Completed MAG [MAGNESIUM] Stat Lab 06/12/24 12:52 Completed POCT GLUCOSE Stat Lab 06/12/24 10:22 Completed PROCALCITONIN Stat Lab 06/12/24 12:52 Completed UA W/RFX UR CULTURE Stat Lab 06/12/24 13:32 Completed Medication Summary Generic Name Dose Route Start Last Admin Trade Name Freq PRN Reason Stop Dose Admin Lactated Ringer's 1,000 mls @ 50 mls/hr 06/12/24 11:00 06/12/24 10:49 Lactated Ringers IV 07/12/24 10:59 50 mls/hr .Q20H LM Administration Lactated Ringer's 1,000 mls @ 125 mls/hr 06/12/24 12:30 06/12/24 12:42 Lactated Ringers IV 07/12/24 12:29 125 mls/hr .Q8H LM Administration Discontinued Medications Generic Name Dose Route Start Last Admin Trade Name Freq PRN Reason Stop Dose Admin Cefazolin Sodium 2 gm in 100 mls @ 200 mls/hr 06/12/24 10:45 Cefazolin 2 Gm/100 Ml Nacl IV 06/12/24 11:14 [facility] Lab/Rad Data: Laboratory Result Diagrams 06/12/24 13:30 06/12/24 12:52 Laboratory Results 06/12/24 06/12/24 06/12/24 Range/Units 13:32 13:30 12:52 WBC 12.6 H (3.98-10.04) x10^3/uL RBC 3.26 L (3.93-5.22) x10^6/uL Hgb 8.6 L (11.2-15.7) g/dL Hct 28.7 L (34.1-44.9) % MCV 88.0 (79.4-94.8) fL MCH 26.4 (25.6-32.2) pg MCHC 30.0 L (32.2-35.5) g/dL RDW 14.9 H (11.7-14.4) % Plt Count 162 L (182-369) x10^3/uL MPV 9.4 (9.4-12.3) fL Gran % 86.0 H (34.0-71.1) % Immature Gran % (Auto) 1.3 H (0.001-0.429) % Nucleat RBC Rel Count 0.0 (0.00-0.2) % Eos # (Auto) 0.05 (0.04-0.36) x10^3/uL Immature Gran # (Auto) 0.16 H (0.001-0.031) x10^3u/L Absolute Lymphs (auto) 1.07 L (1.18-3.74) x10^3/uL Absolute Monos (auto) 0.44 (0.24-0.86) x10^3/uL Absolute Nucleated RBC 0.00 (0.00-0.012) x10^3u/L Lymphocytes % 8.5 L (19.3-51.7) % Monocytes % 3.5 L (4.7-12.5) % Eosinophils % 0.4 L (0.7-5.8) % Basophils % 0.3 (0.1-1.2) % Absolute Granulocytes 10.86 H (1.56-6.13) x10^3/uL Basophils # 0.04 (0.01-0.08) x10^3/uL Sodium (135-145) mmol/L Potassium (3.5-5.1) mmol/L Chloride (98-107) mmol/L Carbon Dioxide (22-30) mmol/L Anion Gap (5-15) MEQ/L BUN (7-17) mg/dL Creatinine (0.52-1.04) mg/dL Estimated GFR ML/MIN Glucose (74-106) mg/dL POC Glucometer (74 to 106) mg/dL Lactic Acid (0.4-2.0) Calcium (8.4-10.2) mg/dL Magnesium (1.6-2.3) mg/dL Total Bilirubin (0.2-1.3) mg/dL AST (14-36) U/L ALT (0-35) U/L Alkaline Phosphatase (38-126) U/L Serum Total Protein (6.3-8.2) g/dL Albumin (3.5-5.0) g/dL Procalcitonin 1.280 H (0.030-0.080) ng/mL Urine Color Yellow (Yellow) Urine Appearance Cloudy A (Clear) Urine pH 5.5 (4.6-8.0) Ur Specific [place] 1.020 (1.005-1.030) Urine Protein 30 (Negative) Urine Glucose (UA) Negative (Negative) mg/dL Urine Ketones Negative (Negative) Urine Blood Negative (Negative) Urine Nitrite Negative (Negative) Urine Bilirubin Negative (Negative) Urine Urobilinogen 0.2 (0.2) mg/dL Ur Leukocyte Esterase Small A (Negative) Urine Microscopic RBC NONE (0-5) /HPF Urine Microscopic WBC 3-5 (0-5) /HPF Ur Epithelial Cells Few (None Seen) /HPF Urine Bacteria Few A (None Seen) /HPF Urine Mucus Few A (NEGATIVE) /HPF Urine Yeast (Budding) Moderate A (None Seen) /HPF Urine Culture Reflexed YES (NO) 06/12/24 06/12/24 06/12/24 Range/Units 12:52 12:04 10:50 WBC (3.98-10.04) x10^3/uL RBC (3.93-5.22) x10^6/uL Hgb (11.2-15.7) g/dL Hct (34.1-44.9) % MCV (79.4-94.8) fL MCH (25.6-32.2) pg MCHC (32.2-35.5) g/dL RDW (11.7-14.4) % Plt Count (182-369) x10^3/uL MPV (9.4-12.3) fL Gran % (34.0-71.1) % Immature Gran % (Auto) (0.001-0.429) % Nucleat RBC Rel Count (0.00-0.2) % Eos # (Auto) (0.04-0.36) x10^3/uL Immature Gran # (Auto) (0.001-0.031) x10^3u/L Absolute Lymphs (auto) (1.18-3.74) x10^3/uL Absolute Monos (auto) (0.24-0.86) x10^3/uL Absolute Nucleated RBC (0.00-0.012) x10^3u/L Lymphocytes % (19.3-51.7) % Monocytes % (4.7-12.5) % Eosinophils % (0.7-5.8) % Basophils % (0.1-1.2) % Absolute Granulocytes (1.56-6.13) x10^3/uL Basophils # (0.01-0.08) x10^3/uL Sodium 141 141 (135-145) mmol/L Potassium 5.0 4.9 (3.5-5.1) mmol/L Chloride 105 105 (98-107) mmol/L Carbon Dioxide 23 26 (22-30) mmol/L Anion Gap 17.1 H 14.4 (5-15) MEQ/L BUN 42 H 41 H (7-17) mg/dL Creatinine 0.89 0.97 (0.52-1.04) mg/dL Estimated GFR 72.8 65.7 ML/MIN Glucose 153 H 174 H (74-106) mg/dL POC Glucometer (74 to 106) mg/dL Lactic Acid 1.5 (0.4-2.0) Calcium 10.7 H 10.3 H (8.4-10.2) mg/dL Magnesium 2.1 (1.6-2.3) mg/dL Total Bilirubin 0.60 0.40 (0.2-1.3) mg/dL AST 108 H 118 H (14-36) U/L ALT 91 H 80 H (0-35) U/L Alkaline Phosphatase 179 H 141 H (38-126) U/L Serum Total Protein 7.6 7.0 (6.3-8.2) g/dL Albumin 3.7 3.4 L (3.5-5.0) g/dL Procalcitonin (0.030-0.080) ng/mL Urine Color (Yellow) Urine Appearance (Clear) Urine pH (4.6-8.0) Ur Specific [place] (1.005-1.030) Urine Protein (Negative) Urine Glucose (UA) (Negative) mg/dL Urine Ketones (Negative) Urine Blood (Negative) Urine Nitrite (Negative) Urine Bilirubin (Negative) Urine Urobilinogen (0.2) mg/dL Ur Leukocyte Esterase (Negative) Urine Microscopic RBC (0-5) /HPF Urine Microscopic WBC (0-5) /HPF Ur Epithelial Cells (None Seen) /HPF Urine Bacteria (None Seen) /HPF Urine Mucus (NEGATIVE) /HPF Urine Yeast (Budding) (None Seen) /HPF Urine Culture Reflexed (NO) 06/12/24 06/12/24 Range/Units 10:50 10:22 WBC 15.6 H (3.98-10.04) x10^3/uL RBC 3.10 L (3.93-5.22) x10^6/uL Hgb 8.3 L (11.2-15.7) g/dL Hct 26.8 L (34.1-44.9) % MCV 86.5 (79.4-94.8) fL MCH 26.8 (25.6-32.2) pg MCHC 31.0 L (32.2-35.5) g/dL RDW 14.8 H (11.7-14.4) % Plt Count 173 L (182-369) x10^3/uL MPV 9.0 L (9.4-12.3) fL Gran % (34.0-71.1) % Immature Gran % (Auto) (0.001-0.429) % Nucleat RBC Rel Count (0.00-0.2) % Eos # (Auto) (0.04-0.36) x10^3/uL Immature Gran # (Auto) (0.001-0.031) x10^3u/L Absolute Lymphs (auto) (1.18-3.74) x10^3/uL Absolute Monos (auto) (0.24-0.86) x10^3/uL Absolute Nucleated RBC (0.00-0.012) x10^3u/L Lymphocytes % (19.3-51.7) % Monocytes % (4.7-12.5) % Eosinophils % (0.7-5.8) % Basophils % (0.1-1.2) % Absolute Granulocytes (1.56-6.13) x10^3/uL Basophils # (0.01-0.08) x10^3/uL Sodium (135-145) mmol/L Potassium (3.5-5.1) mmol/L Chloride (98-107) mmol/L Carbon Dioxide (22-30) mmol/L Anion Gap (5-15) MEQ/L BUN (7-17) mg/dL Creatinine (0.52-1.04) mg/dL Estimated GFR ML/MIN Glucose (74-106) mg/dL POC Glucometer 152 H (74 to 106) mg/dL Lactic Acid (0.4-2.0) Calcium (8.4-10.2) mg/dL Magnesium (1.6-2.3) mg/dL Total Bilirubin (0.2-1.3) mg/dL AST (14-36) U/L ALT (0-35) U/L Alkaline Phosphatase (38-126) U/L Serum Total Protein (6.3-8.2) g/dL Albumin (3.5-5.0) g/dL Procalcitonin (0.030-0.080) ng/mL Urine Color (Yellow) Urine Appearance (Clear) Urine pH (4.6-8.0) Ur Specific [place] (1.005-1.030) Urine Protein (Negative) Urine Glucose (UA) (Negative) mg/dL Urine Ketones (Negative) Urine Blood (Negative) Urine Nitrite (Negative) Urine Bilirubin (Negative) Urine Urobilinogen (0.2) mg/dL Ur Leukocyte Esterase (Negative) Urine Microscopic RBC (0-5) /HPF Urine Microscopic WBC (0-5) /HPF Ur Epithelial Cells (None Seen) /HPF Urine Bacteria (None Seen) /HPF Urine Mucus (NEGATIVE) /HPF Urine Yeast (Budding) (None Seen) /HPF Urine Culture Reflexed (NO) - Progress Progress: improved Progress Note: 06/12/24 14:41 63-year-old female with multiple medical problems with recent stroke, osteomyelitis of right foot/heel with partial amputation currently in external fixator which is better after antibiotics but later on patient developed osteomyelitis of right heel and currently on ertapenem, peripheral neuropathy, has a recent change in the CODE STATUS to DNR and Dr. Sims was planning to take off external fixator as patient POA daughter named Gale does not want to aggressively pursue this. While patient was in the preop her pressure was in 60s and is sent in here for further evaluation. Patient denies any chest pain or difficulty breathing. Patient blood pressure was a little better on presentation in the ER and 80s and 90s. She is given fluids. Workup showed white count of 12, Pro-Ayden of 1.28, stable renal functions and some elevation in transaminases. No acute findings on chest x-ray. I have discussed with Dr. Salas, reviewed her current workup and blood pressure, do not think patient needs to be admitted but can be transferred back to senior care and he will call in prescription for IV antibiotics based on recent wound culture sensitivities done here at [facility]. I have shared the results of workup with patient and family and patient does not want to go for wound care, IV antibiotics and any other aggressive measures and wants to be hospice/comfort measures. Patient's daughter Gale and her younger sister were in the room and involved in decision making. They do understand the process of going to hospice where she would not be getting aggressive measures and they agree with that. Her blood pressure currently in low 80s which according to daughters is normal for her for the last few months. Patient is not in any distress. She is not confused or altered at all and she agreed with plan of going back to senior care on hospice. Discussed with Dr.: Other (Dr. Salas) Counseled pt/family regarding: lab results, diagnosis, need for follow-up, rad results Medical Desision Making - Independent Historian Additional History obtained from: Child, Family - External Record(s) Reviewed Records reviewed as a part of evaluation & management: [facility] - Discussion of managment Care discussed with:: specialist (Dr. Sims podiatry) Reviewed:: Test results Agreed on:: Treatment plan - Diagnostic Testing Diagnostic test were ordered, analyzed, and reviewed by me: Yes Radiological Interpretation: Reviewed by me - Risk of complications The pt has a mod risk of morbidity or mortality based on: Need for prescription drug management - Departure Departure Disposition: Home Clinical Impression: Hypotension, Osteomyelitis, Elevated transaminase level, Dehydration, Hospice care Condition: Stable Critical Care Time: No Referrals: VALERIE LANGLEY OF [Primary Care Provider] - Follow up with PCP 1 day Instructions: Weakness ED Additional Instructions: Follow-up with your primary care for comfort measures. Return to ER for any worsening .
--- NOTE | 2024-06-12 12:41 | XRAY ---
Indication: General weakness. Hypertension. Comparison: April 11, 2024 Portable chest inflated and remains clear. Heart not enlarged with new right jugular central venous access catheter. Bony thorax intact again with osteopenia and degenerative changes. Impression: Continued nonacute chest with chronic features.
[2024-06-12 13:30] LABS: ALBUMIN 3.7 g/dL (3.5-5.0); ANION GAP 17.1 MEQ/L (5-15); BILIRUBIN,TOTAL 0.6 mg/dL (0.2-1.3); Calcium 10.7 mg/dL (8.4-10.2); Creatinine 1 0.89 mg/dL (0.52-1.04); EST GLOMERULAR FILTRATION RATE 72.8 ML/MIN; MAGNESIUM 2.1 mg/dL (1.6-2.3); Total Protein 7.6 g/dL (6.3-8.2)
[2024-06-12 13:44] LABS: Absolute Neutrophil Ct (ANC) 10.86 x10^3/uL (1.56-6.13); BASOPHIL % 0.3 % (0.1-1.2); Basophil (Absolute #) 0.04 x10^3/uL (0.01-0.08); Eosinophil % 0.4 % (0.7-5.8); Eosinophil (Absolute #) 0.05 x10^3/uL (0.04-0.36); Hematocrit 28.7 % (34.1-44.9); Hemoglobin 8.6 g/dL (11.2-15.7); IMMATURE GRAN # 0.16 x10^3u/L (0.001-0.031); IMMATURE GRAN % 1.3 % (0.001-0.429); Lymphocyte (Absolute #) 1.07 x10^3/uL (1.18-3.74); Lymphocytes % 8.5 % (19.3-51.7); Mean Corpuscular Hemoglobin 26.4 pg (25.6-32.2); Mean Platelet Volume 9.4 fL (9.4-12.3); Monocyte (Absolute #) 0.44 x10^3/uL (0.24-0.86); Monocytes % 3.5 % (4.7-12.5); Platelet Count 162 x10^3/uL (182-369); Red Blood Count 3.26 x10^6/uL (3.93-5.22); Red Cell Distribution Width 14.9 % (11.7-14.4); White Blood Count 12.6 x10^3/uL (3.98-10.04)
[2024-06-12 13:52] LABS: Appearance Cloudy (Clear); Bacteria Few /HPF (None Seen); Bilirubin Negative (Negative); Blood Negative (Negative); Epithelial Cells Few /HPF (None Seen); Glucose, Urine Negative (Negative); Ketones Negative (Negative); Leukocyte Esterase Small (Negative); Mucus Few /HPF (NEGATIVE); Nitrite Negative (Negative); Ph 5.5 (4.6-8.0); Protein,Urine Dip 30 (Negative); Urobilinogen 0.2 mg/dL (0.2)
[2024-06-12 13:53] LABS: ADD URINE CULTURE? YES (NO); Budding Yeast Moderate /HPF (None Seen)
[2024-06-12 15:33] VITALS: BP 79/51; PULSE 78; RESP 14
== END 2024-06-12 16:37 | disposition home or self-care (01) ==
LOC: EDSTATUS 11:43 → ED 11:43
DX: I95.9 Hypotension, unspecified (principal); M86.9 Osteomyelitis, unspecified; R74.01 Elevation of levels of liver transaminase levels; E86.0 Dehydration; E11.9 Type 2 diabetes mellitus without complications; I10 Essential (primary) hypertension; E78.5 Hyperlipidemia, unspecified; Z79.899 Other long term (current) drug therapy; Z66 Do not resuscitate
CPT/HCPCS: 36000; 36415; 71045; 80053; 81001; 82947; 83605; 83735; 84145; 85025; 85027; 87040; 87086; 93005; 99284

== ENCOUNTER 2024-06-19 10:05 | Day surgery (SDC) | payer OTHER ==
[2024-06-19] MEDS ORDERED: Lactated Ringers 1,000 ML IV ONE (10:34)
[2024-06-19] MEDS: Lactated Ringers 1,000 ML IV SCH (10:43)
[2024-06-19 10:49] LABS: Hematocrit 25.8 % (34.1-44.9); Mean Cell Volume 86.6 fL (79.4-94.8); Mean Corpuscular Hemoglobin 26.8 pg (25.6-32.2); Platelet Count 155 x10^3/uL (182-369); Red Blood Count 2.98 x10^6/uL (3.93-5.22); Red Cell Distribution Width 14.9 % (11.7-14.4)
[2024-06-19 11:01] LABS: ALBUMIN 3.3 g/dL (3.5-5.0); ANION GAP 10.1 MEQ/L (5-15); BILIRUBIN,TOTAL 0.3 mg/dL (0.2-1.3); Calcium 9.7 mg/dL (8.4-10.2); Creatinine 1 0.61 mg/dL (0.52-1.04); EST GLOMERULAR FILTRATION RATE 100.4 ML/MIN; Total Protein 6.8 g/dL (6.3-8.2)
[2024-06-19] MEDS ORDERED: EXPAREL 133 MG/10 ML VIAL IJ ONE (12:44)
[2024-06-19] MEDS ORDERED: Marcaine 0.5%/Epinephrine 10 ML ONE (12:45)
[2024-06-19] MEDS ORDERED: Versed 2 MG/2 ML Injection ONE (12:53)
[2024-06-19] MEDS ORDERED: DIPRIVAN 200 MG/20 ML IV ONE (13:51)
--- NOTE | 2024-06-19 14:39 | XRAY ---
Indication: Left external fixator removal. Intraoperative fluoroscopy provided for 6 seconds. 4 digital spot images left ankle submitted for interpretation demonstrates removal of external fixation device is seen 9 May 06, 2024 exam. Correlate with intraoperative findings/report.
[2024-06-19 15:16] VITALS: RESP 18
[2024-06-19 15:29] VITALS: BP 105/65; PULSE 80; TEMP 96.8; O2SAT 100
--- NOTE | 2024-06-19 17:09 | XRAY ---
6 seconds of fluoroscopy was used in surgery for a left external fixator removal.
--- NOTE | 2024-06-22 21:18 | OP ---
SURGERY DATE/TIME: 06/19/2024 [id number] PREOPERATIVE DIAGNOSES: 1) Osteomyelitis, bilateral heels. 2) Diabetic foot ulcer, bilateral heels. 3) Pressure ulceration, stage 4, bilateral heels. 4) Uncontrolled diabetes. 5) Peripheral neuropathy. 6) Retained hardware to the left lower extremity in the form of external fixation. POSTOPERATIVE DIAGNOSES: 1) Osteomyelitis, bilateral heels. 2) Diabetic foot ulcer, bilateral heels. 3) Pressure ulceration, stage 4, bilateral heels. 4) Uncontrolled diabetes. 5) Peripheral neuropathy. 6) Retained hardware to the left lower extremity in the form of external fixation. PROCEDURES: 1) Removal of external fixator, left lower extremity. 2) Bone debridement, left heel. 3) Bone debridement, right heel. SURGEON: Levi Ramirez D.P.M. PRECINCT POLICE SERGEANT: KENNETH Duque. ANESTHESIA: Monitored anesthesia care with a left lower extremity popliteal and saphenous block. See Anesthesia report for details. HEMOSTASIS: Pressure dressing. ESTIMATED BLOOD LOSS: Approximately 10 mL. MATERIALS: None. INJECTABLES: See Anesthesia report for details. INDICATIONS: The patient is a very pleasant 63-year-old female who since the beginning of this year has snowballed pretty significantly, half of which is due to the recent passing of her secondary to metastases or cancer to his brain, as well as her uncontrolled diabetes and her late arrival presentation, as well as some degree of noncompliance throughout the operative course. This has recently been complicated by patient having a stroke and a GI bleed that resulted in failure of some skin graft secondary to some repetitive motion to the bilateral lower extremity in driving the heel against surfaces. From that standpoint, decision was made with her family prior to where external fixation and the attempt at limb salvage was provided. We did manage to get rid of the osteomyelitis of the left calcaneus at that time; however, it has made a recurrence to the left heel and now is showing some indications to the right heel as well. At this time, patient has now no longer become her POA and her daughter has taken this responsibility on. Patient has been complaining of pain to the left lower extremity secondary to the external fixator and her full code status that has dropped to a DNR. At this time, the family requests removal of the external fixator. A lengthy discussion was held in the office in regards to treatment in which we are not withdrawing the treatment and we are still trying to prevent sepsis. However, we are avoiding any aggressive management from a surgical standpoint to which I am amenable at this time. Patient at this time understands all risks, complications and benefits of surgical intervention at this time including but not limited to infection, hematoma, seroma, possibility of delayed wound healing, non-wound healing, possible need for further surgical intervention at a later date. No guarantees were provided as to the outcome of surgical intervention at this time. It is at this time we have decided to proceed. DESCRIPTION OF PROCEDURE AND FINDINGS: Patient was brought into the PACU prior to the procedure and provided a popliteal and saphenous block to the left lower extremity. Following this, the patient was brought in the operating room, placed on the operating room table in the supine position. Monitored anesthesia care was administered until the patient was adequately sedated and the bilateral lower extremity was prepped and draped in a typical sterile fashion. At this time, attention was directed to the external fixator on the left lower extremity. The wires were clipped one by one and the frame was then removed. From that standpoint, the wires were then coated in Betadine and then individually removed, being respective of which side the olive is on. From that standpoint, once the external fixator was removed, a curette was utilized to clean the pin holes and stimulate new healing response over these sites. From that standpoint, copious amounts of sterile saline were utilized to flush the surgical sites. Attention was then directed to the left and right heels where very similar procedures took place. A combination of 15 blades, pickups, curettes and rongeurs were utilized to debride to the level of bone, which was exposed at this time to the bilateral lower extremity due to failure of grafting in the past. From that standpoint, once debrided, copious amounts of sterile saline in the form of pulse lavage was utilized to debride the heels. From that standpoint, the legs were cleansed with sterile saline and a dressing consisting of Betadine, Adaptic, 4 x 4, ABD, Kerlix and Tj was applied to the bilateral lower extremity. Patient was then reversed from anesthesia and returned to the postoperative anesthesia care unit with vital signs stable and vascular status intact. Patient handled the anesthesia, as well as the procedure, without significant complication. Postoperative orders as indicated in the patient's discharge chart.
== END 2024-06-19 15:58 ==
LOC: SDC 10:05
PROVIDERS: ATTEND Podiatrist Foot & Ankle Surgery
DX: M86.9 Osteomyelitis, unspecified (principal); E11.621 Type 2 diabetes mellitus with foot ulcer; L89.624 Pressure ulcer of left heel, stage 4; L89.614 Pressure ulcer of right heel, stage 4; E11.65 Type 2 diabetes mellitus with hyperglycemia; E11.42 Type 2 diabetes mellitus with diabetic polyneuropathy; T84.84XA Pain due to internal orthopedic prosthetic devices, implants and grafts, initial encounter
CPT/HCPCS: 20694; 28005; 36415; 73630; 76000; 76937; 80053; 85027; J1642; J2250; J2704

== ENCOUNTER 2024-07-31 08:12 | Emergency (ER) | payer OTHER ==
--- NOTE | 2024-07-31 08:18 | ERPHSYRPT ---
- History of Present Illness Time Seen by Provider: 07/31/24 08:15 Source: patient, EMS, shelter records, old records Exam Limitations: clinical condition Physician History: This is a 64-year-old white female patient who is a resident at [facility] and was brought to the emergency department by the paramedics who provided additional, independent history. The patient, this morning, per shelter staff, states that when the she was rechecked and examined she had crackles and low oxygen saturation levels. Patient was on 2 L of oxygen via nasal cannula and still showing 55% oxygen saturation levels. Patient has been ordered to be on oxygen via nasal cannula on a as needed basis. Patient has a history of hypertension, hyperlipidemia, type 2 diabetes, stroke with generalized residual weakness. 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 She has bilateral lower extremity wounds below the knee that are being followed by Dr. Sims, podiatry. Patient is not the best historian. She does not have chest pain or abdominal pain. Timing/Duration: today Severity of Dyspnea-Max: mild (To moderate) Severity of Dyspnea-Current: mild (To moderate) Possible Cause: occasional episodes Modifying Factors: Improves With: nothing Associated Symptoms: weakness Allergies/Adverse Reactions: shellfish derived Allergy (Intermediate, Verified 07/31/24 08:54) Rash rash bee venom protein (honey bee) Allergy (Unknown, Verified 07/31/24 08:54) hives, difficulty breathing metformin [From Glucophage] Allergy (Unknown, Verified 07/31/24 08:54) Rash Penicillins Allergy (Verified 07/31/24 08:54) Hives hives sob Home Medications: Gabapentin [Neurontin ] 300 mg PO TID 01/16/24 [History] Amlodipine Besylate [Norvasc] 10 mg PO DAILY 04/12/24 [History] Atorvastatin Calcium [Lipitor 40Mg] 40 mg PO HS 04/12/24 [History] Glyburide 5 mg [Micronase 5 MG] 5 mg PO HS 04/12/24 [History] Lisinopril 20 mg [Zestril 20 MG] 40 mg PO DAILY 04/12/24 [History] Metoprolol Succinate 25 mg Xl* [Toprol-Xl 25MG Tablets] 25 mg PO DAILY 04/12/24 [History] Aspirin 81 gm Chew [Baby Aspirin 81 mg Chew] 81 mg PO DAILY 05/06/24 [History] Ferrous Sulfate [Ferosul] 325 mg PO DAILY 07/31/24 [History] Sertraline HCl 50 mg [Zoloft 50 mg Tablet] 50 mg PO DAILY 07/31/24 [History] polyethylene glycoL 3350 [Polyethylene Glycol 3350] 17 gm PO DAILY 07/31/24 [History] Hx Tetanus, Diphtheria Vaccination/Date Given: Yes Hx Influenza Vaccination/Date Given: Yes Hx Pneumococcal Vaccination/Date Given: Yes Travel Risk - Emerging Infectious Disease Are you exhibiting symptoms associated with any current EIDs: Yes Symptoms: Diarrhea, Headaches/Body Aches/ - Review of Systems Constitutional: Weakness Eyes: No Symptoms Ears, Nose, & Throat: No Symptoms Respiratory: No Symptoms Cardiac: No Symptoms Abdominal/Gastrointestinal: No Symptoms Genitourinary Symptoms: No Symptoms Musculoskeletal: No Symptoms Skin: No Symptoms Neurological: No Symptoms Psychological: No Symptoms Endocrine: No Symptoms Hematologic/Lymphatic: No Symptoms Immunological/Allergic: No Symptoms All Other Systems: Reviewed and Negative - Past Medical History Pertinent Past Medical History: Yes Neurological History: Stroke ENT History: Cataracts Cardiac History: High Cholesterol, Hypertension Respiratory History: No Pertinent History Endocrine Medical History: Diabetes Type II, Other Musculoskeletal History: Arthritis GI Medical History: Other History: Other Psycho-Social History: Anxiety, Depression Female Reproductive Disorders: No Pertinent History Other Medical History: kidney stones, gallstones - Past Surgical History Past Surgical History: Yes Neuro Surgical History: No Pertinent History Cardiac: No Pertinent History Respiratory: No Pertinent History Gastrointestinal: Appendectomy, Cholecystectomy Genitourinary: No Pertinent History Musculoskeletal: Amputation, Other Female Surgical History: Tubal Ligation Other Surgical History: left hip surgery, mass removal. breast biopsy,Lt great toe amputation. debr Significant Family History: no pertinent family hx - Social History Smoking Status: Never smoker Exposure to second hand smoke: No Drug Use: none Patient Lives Alone: Yes - Social Determinants of Health Will the patient participate in the screening: Yes Do you worry about a steady place to live?: No In the past 12 months,have you had to go without utilities?: No Transportation Issues: No Has anyone in your support network made you feel unsafe?: No Have you or anyone in your house had to go without enough: No - Nursing Vital Signs Nursing Vital Signs: Initial Vital Signs Temperature 94.5 F 07/31/24 08:20 Pulse Rate 79 07/31/24 08:20 Respiratory Rate 22 07/31/24 08:20 Blood Pressure 110/78 07/31/24 08:20 O2 Sat by Pulse Oximetry 100 07/31/24 08:20 Pain Scale Pain Intensity 0 - Physical Exam General Appearance: no apparent distress, alert, anxiety Eye Exam: PERRL/EOMI, eyes nml inspection Ears, Nose, Throat Exam: hearing grossly normal, normal ENT inspection, normal pharynx Neck Exam: normal inspection, non-tender, supple, full range of motion Respiratory Exam: respiratory distress, crackles/rales (Bilateral diffuse), rhonchi (Lateral diffuse), No chest tenderness Cardiovascular/Chest Exam: normal heart sounds, regular rate/rhythm Abdominal/Gastrointestinal Exam: soft, normal bowel sounds, No tenderness Rectal Exam: not done Extremity Exam: normal range of motion (Bilateral lower extremity below the knee skin has multiple wounds present and are wrapped in bandage at this time.), no calf tenderness, no pedal edema, pelvis stable Neurologic Exam: alert, cooperative, trainer II-XII nml as tested Skin Exam: other (Skin wounds bilateral lower extremities below the knee. No proximal streaking) Lymphatic Exam: No adenopathy SpO2 Interpretation: hypoxic O2 Delivery: Nasal Cannula - Course Nursing assessment & vital signs reviewed: Yes Ordered Tests: Active Orders 24 hr Category Date Time Status Car Cleaning Supervisor STAT Care 07/31/24 08:24 Active EKG-ER Only STAT Care 07/31/24 08:23 Active IV Insertion STAT Care 07/31/24 08:23 Active Oxygen-ED Only NON-REBREATHER 100% Care 07/31/24 08:23 Active CHEST 1 VIEW (PORTABLE) Stat Exams 07/31/24 08:23 Completed BLOOD CULTURE Stat Lab 07/31/24 08:34 Received CBC W DIFF Stat Lab 07/31/24 08:34 Completed CMP Stat Lab 07/31/24 08:34 Completed CULTURE,URINE Stat Lab 07/31/24 09:20 Received Lactic Acid Stat Lab 07/31/24 08:23 Completed MAGNESIUM Stat Lab 07/31/24 08:34 Completed Manual Differential NC Stat Lab 07/31/24 08:34 Completed NT PRO BNPII Stat Lab 07/31/24 08:34 Completed POCT GLUCOSE Stat Lab 07/31/24 09:10 Completed POCT GLUCOSE Stat Lab 07/31/24 09:10 Received POCT GLUCOSE Stat Lab 07/31/24 10:06 Completed PROCALCITONIN Stat Lab 07/31/24 08:34 Completed UA W/RFX UR CULTURE Stat Lab 07/31/24 09:20 Completed VENOUS BLOOD GAS Stat Lab 07/31/24 08:45 Completed Medication Summary Generic Name Dose Route Start Last Admin Trade Name Freq PRN Reason Stop Dose Admin Sodium Chloride 1,000 mls @ 100 mls/hr 07/31/24 08:30 07/31/24 09:07 Sodium Chloride 0.9% 1000 Ml IV 08/30/24 08:29 100 mls/hr .Q10H LM Administration Discontinued Medications Generic Name Dose Route Start Last Admin Trade Name Freq PRN Reason Stop Dose Admin Dextrose Confirm 07/31/24 08:31 Dextrose 50%-Water 50 Ml Abboject Administered 07/31/24 08:32 Dose 50 ml IV .STK-MED ONE Dextrose 50 ml 07/31/24 08:32 07/31/24 08:32 Dextrose 50%-Water 50 Ml Abboject IV 07/31/24 08:33 50 ml STAT ONE Administration Dextrose 50 ml 07/31/24 10:02 07/31/24 10:10 Dextrose 50%-Water 50 Ml Abboject IV 07/31/24 10:03 Not Given STAT ONE Levofloxacin/Dextrose 500 mg in 100 mls @ 100 mls/hr 07/31/24 09:07 07/31/24 09:22 Levofloxacin 500mg/100ml D5w IV 07/31/24 10:06 100 mls/hr STAT STA 100 mls/hr Administration Levofloxacin/Dextrose Confirm 07/31/24 09:21 Levofloxacin 500mg/100ml D5w Administered 07/31/24 09:22 Dose 500 mg in 100 mls @ ud IV .STK-MED ONE Lab/Rad Data: Laboratory Result Diagrams 07/31/24 08:34 07/31/24 08:34 Laboratory Results 07/31/24 07/31/24 07/31/24 Range/Units 10:06 09:20 09:10 WBC (3.98-10.04) x10^3/uL RBC (3.93-5.22) x10^6/uL Hgb (11.2-15.7) g/dL Hct (34.1-44.9) % MCV (79.4-94.8) fL MCH (25.6-32.2) pg MCHC (32.2-35.5) g/dL RDW (11.7-14.4) % Plt Count (182-369) x10^3/uL MPV (9.4-12.3) fL Segmented Neutrophils (34.0-71.1) % Band Neutrophils (0.0-2.0) % Lymphocytes (Manual) (19.3-51.7) % Monocytes (Manual) (4.7-12.5) % Hypochromia Platelet Estimate (NORMAL) RBC Morphology pO2/FiO2 Ratio % VBG pH (7.32-7.42) VBG pCO2 at Pat Temp (42-55) mm/Hg VBG pO2 at Pat Temp (25-40) mm/Hg VBG HCO3 (22-28) meq/L VBG O2 Sat (Sherry) (95-100) VBG Base Excess (-2.0-2.0) VBG Hemoglobin VBG Carboxyhemoglobin (0.0-6.9) % T HGB POC Potassium (3.5-5.1) Sodium (135-145) mmol/L Potassium (3.5-5.1) mmol/L Chloride (98-107) mmol/L Carbon Dioxide (22-30) mmol/L Anion Gap (5-15) MEQ/L BUN (7-17) mg/dL Creatinine (0.52-1.04) mg/dL Estimated GFR ML/MIN Glucose (74-106) mg/dL POC Glucometer 125 H 138 H (74 to 106) mg/dL Lactic Acid (0.4-2.0) Calcium (8.4-10.2) mg/dL Magnesium (1.6-2.3) mg/dL Total Bilirubin (0.2-1.3) mg/dL AST (14-36) U/L ALT (0-35) U/L Alkaline Phosphatase (38-126) U/L NT-Pro-B Natriuret Pep (<300) pg/mL Serum Total Protein (6.3-8.2) g/dL Albumin (3.5-5.0) g/dL Procalcitonin (0.030-0.080) ng/mL Urine Color Dark Yellow A (Yellow) Urine Appearance Turbid A (Clear) Urine pH 6.5 (4.6-8.0) Ur Specific [facility] 1.025 (1.005-1.030) Urine Protein 300 A (Negative) Urine Glucose (UA) 500 A (Negative) mg/dL Urine Ketones Negative (Negative) Urine Blood Large A (Negative) Urine Nitrite Negative (Negative) Urine Bilirubin Negative (Negative) Urine Urobilinogen 2.0 A (0.2) mg/dL Ur Leukocyte Esterase Moderate A (Negative) U Hyaline Cast (Auto) 20-50 (0-2) /LPF Urine Microscopic RBC >100 A (0-5) /HPF Urine Microscopic WBC >100 A (0-5) /HPF Ur Epithelial Cells Many A (None Seen) /HPF Urine Bacteria Many A (None Seen) /HPF Urine Yeast (Budding) Few A (None Seen) /HPF Urine Culture Reflexed ORDERED SEPARATELY (NO) Influenza Type A Ag (NEGATIVE) Influenza Type B Ag (NEGATIVE) RSV (PCR) (NEGATIVE) SARS-CoV-2 (PCR) (NEGATIVE) 07/31/24 07/31/24 07/31/24 Range/Units 08:45 08:34 08:34 WBC (3.98-10.04) x10^3/uL RBC (3.93-5.22) x10^6/uL Hgb (11.2-15.7) g/dL Hct (34.1-44.9) % MCV (79.4-94.8) fL MCH (25.6-32.2) pg MCHC (32.2-35.5) g/dL RDW (11.7-14.4) % Plt Count (182-369) x10^3/uL MPV (9.4-12.3) fL Segmented Neutrophils (34.0-71.1) % Band Neutrophils (0.0-2.0) % Lymphocytes (Manual) (19.3-51.7) % Monocytes (Manual) (4.7-12.5) % Hypochromia Platelet Estimate (NORMAL) RBC Morphology pO2/FiO2 Ratio 100.0 % VBG pH 7.48 H (7.32-7.42) VBG pCO2 at Pat Temp 31 L (42-55) mm/Hg VBG pO2 at Pat Temp 35 (25-40) mm/Hg VBG HCO3 23.1 (22-28) meq/L VBG O2 Sat (Sherry) 66.6 L (95-100) VBG Base Excess -0.1 (-2.0-2.0) VBG Hemoglobin 8.3 VBG Carboxyhemoglobin 9.1 H* (0.0-6.9) % T HGB POC Potassium 3.8 (3.5-5.1) Sodium (135-145) mmol/L Potassium (3.5-5.1) mmol/L Chloride (98-107) mmol/L Carbon Dioxide (22-30) mmol/L Anion Gap (5-15) MEQ/L BUN (7-17) mg/dL Creatinine (0.52-1.04) mg/dL Estimated GFR ML/MIN Glucose (74-106) mg/dL POC Glucometer (74 to 106) mg/dL Lactic Acid (0.4-2.0) Calcium (8.4-10.2) mg/dL Magnesium (1.6-2.3) mg/dL Total Bilirubin (0.2-1.3) mg/dL AST (14-36) U/L ALT (0-35) U/L Alkaline Phosphatase (38-126) U/L NT-Pro-B Natriuret Pep 2320 (<300) pg/mL Serum Total Protein (6.3-8.2) g/dL Albumin (3.5-5.0) g/dL Procalcitonin 0.445 H (0.030-0.080) ng/mL Urine Color (Yellow) Urine Appearance (Clear) Urine pH (4.6-8.0) Ur Specific [facility] (1.005-1.030) Urine Protein (Negative) Urine Glucose (UA) (Negative) mg/dL Urine Ketones (Negative) Urine Blood (Negative) Urine Nitrite (Negative) Urine Bilirubin (Negative) Urine Urobilinogen (0.2) mg/dL Ur Leukocyte Esterase (Negative) U Hyaline Cast (Auto) (0-2) /LPF Urine Microscopic RBC (0-5) /HPF Urine Microscopic WBC (0-5) /HPF Ur Epithelial Cells (None Seen) /HPF Urine Bacteria (None Seen) /HPF Urine Yeast (Budding) (None Seen) /HPF Urine Culture Reflexed (NO) Influenza Type A Ag NEGATIVE (NEGATIVE) Influenza Type B Ag NEGATIVE (NEGATIVE) RSV (PCR) NEGATIVE (NEGATIVE) SARS-CoV-2 (PCR) NEGATIVE (NEGATIVE) 07/31/24 07/31/24 07/31/24 Range/Units 08:34 08:34 08:23 WBC 28.6 H* (3.98-10.04) x10^3/uL RBC 2.96 L (3.93-5.22) x10^6/uL Hgb 7.3 L (11.2-15.7) g/dL Hct 25.1 L (34.1-44.9) % MCV 84.8 (79.4-94.8) fL MCH 24.7 L (25.6-32.2) pg MCHC 29.1 L (32.2-35.5) g/dL RDW 14.9 H (11.7-14.4) % Plt Count 257 (182-369) x10^3/uL MPV 9.2 L (9.4-12.3) fL Segmented Neutrophils 93 H (34.0-71.1) % Band Neutrophils 1 (0.0-2.0) % Lymphocytes (Manual) 3 L (19.3-51.7) % Monocytes (Manual) 3 L (4.7-12.5) % Hypochromia 2+ Platelet Estimate NORMAL (NORMAL) RBC Morphology ABNORMAL pO2/FiO2 Ratio % VBG pH (7.32-7.42) VBG pCO2 at Pat Temp (42-55) mm/Hg VBG pO2 at Pat Temp (25-40) mm/Hg VBG HCO3 (22-28) meq/L VBG O2 Sat (Sherry) (95-100) VBG Base Excess (-2.0-2.0) VBG Hemoglobin VBG Carboxyhemoglobin (0.0-6.9) % T HGB POC Potassium (3.5-5.1) Sodium 139 (135-145) mmol/L Potassium 3.8 (3.5-5.1) mmol/L Chloride 104 (98-107) mmol/L Carbon Dioxide 26 (22-30) mmol/L Anion Gap 12.4 (5-15) MEQ/L BUN 24 H (7-17) mg/dL Creatinine 0.83 (0.52-1.04) mg/dL Estimated GFR 78.7 ML/MIN Glucose 44 L* (74-106) mg/dL POC Glucometer (74 to 106) mg/dL Lactic Acid 1.5 (0.4-2.0) Calcium 9.4 (8.4-10.2) mg/dL Magnesium 2.4 H (1.6-2.3) mg/dL Total Bilirubin 0.80 (0.2-1.3) mg/dL AST 40 H (14-36) U/L ALT 35 (0-35) U/L Alkaline Phosphatase 227 H (38-126) U/L NT-Pro-B Natriuret Pep (<300) pg/mL Serum Total Protein 7.5 (6.3-8.2) g/dL Albumin 3.3 L (3.5-5.0) g/dL Procalcitonin (0.030-0.080) ng/mL Urine Color (Yellow) Urine Appearance (Clear) Urine pH (4.6-8.0) Ur Specific [facility] (1.005-1.030) Urine Protein (Negative) Urine Glucose (UA) (Negative) mg/dL Urine Ketones (Negative) Urine Blood (Negative) Urine Nitrite (Negative) Urine Bilirubin (Negative) Urine Urobilinogen (0.2) mg/dL Ur Leukocyte Esterase (Negative) U Hyaline Cast (Auto) (0-2) /LPF Urine Microscopic RBC (0-5) /HPF Urine Microscopic WBC (0-5) /HPF Ur Epithelial Cells (None Seen) /HPF Urine Bacteria (None Seen) /HPF Urine Yeast (Budding) (None Seen) /HPF Urine Culture Reflexed (NO) Influenza Type A Ag (NEGATIVE) Influenza Type B Ag (NEGATIVE) RSV (PCR) (NEGATIVE) SARS-CoV-2 (PCR) (NEGATIVE) - Progress Progress: improved, re-examined Air Movement: fair Progress Note: 07/31/24 08:30 My medical decision making and the assignment of moderate to high complexity on this patient's medical issue today is based on review of the patient's past me dical history, review of patient's medication list, reviewed patient drug allergy list, history present of some physical findings on examination. The workup in this patient includes placement of intravenous line, infusion of low rate crystalloid, urinalysis, CBC, CMP, magnesium level, troponin level, BNP level, procalcitonin level, twelve-lead EKG and viral swabs Differential diagnosis includes was not limited to CHF exacerbation, COPD exacerbation, myocardial infarction, pneumonia, electrolyte abnormalities, arrhythmia Patient is DNR. This has been confirmed. Family is on their way here and they will sign the DNR form. 07/31/24 10:20 I interpreted the patient's laboratory data results. The patient has anemia with a hemoglobin of 7.8. She has a white count of over 28,000. Her blood sugar has now improved 125. Patient still has hypoxia when taken off the oxygen. Patient has a significant urinary tract infection. I explained these issues to the patient twice about our goal to not perform any heroic measures but to provide her with intravenous fluid, intravenous antibiotics and to treat her condition of hypoxia, leukocytosis and urinary tract infection. Patient wants to go back to the shelter. She understands the risks of leaving including worsening condition and . She understands the benefits of being in the hospital. She also understands that we understand she is DNR and would not perform any heroic measures in the event there is a code arrest or respi ratory arrest. She still wants to go back to the shelter. 07/31/24 10:22 The chest x-ray was interpreted by the radiologist and I reviewed the impression. The impression states nonacute chest with chronic features. Blood Culture(s) Obtained: Yes Antibiotics given: Yes Counseled pt/family regarding: lab results, diagnosis, need for follow-up, rad results Medical Desision Making - Independent Historian Additional History obtained from: Senior [employer] Net Developer/EMT - External Record(s) Reviewed Records reviewed as a part of evaluation & management: skilled nursing - Diagnostic Testing Diagnostic test were ordered, analyzed, and reviewed by me: Yes Radiological Interpretation: Reviewed by me, Teleradiologist Report - Risk of complications The pt has a high risk of morbidity or mortality based on: Decision regarding hospitilization or escalation of hosp level of care, Decision not to resucitate - Departure Departure Disposition: AMA Clinical Impression: Hypoxia, Leukocytosis, Urinary tract infection, Hypoglycemia Condition: Fair Critical Care Time: Yes Critical Care Time(excluding separately billable procedures): Critical 105-134 mins (40) Referrals: VALERIE LANG[facility] [Primary Care Provider] - Follow up/PCP as directed Additional Instructions: Give this patient her antibiotics as prescribed. Continue the same other management at the shelter. Apply oxygen via nasal cannula per your existing orders. Make sure these patient is eating and drinking well and you are monitoring her blood sugar closely. Prescriptions: Levofloxacin [Levaquin 500 MG Tablet] 500 mg PO DAILY #7 tablet
[2024-07-31] MEDS ORDERED: D50W 50 ml Abboject IV ONE (08:31)
[2024-07-31] MEDS: D50W 50 ml Abboject IV ONE ×2 (08:32→10:10)
[2024-07-31 08:47] LABS: Hematocrit 25.1 % (34.1-44.9); Hemoglobin 7.3 g/dL (11.2-15.7); Mean Cell Volume 84.8 fL (79.4-94.8); Mean Corpuscular Hemoglobin 24.7 pg (25.6-32.2); Mean Corpuscular Hgb Concent. 29.1 g/dL (32.2-35.5); Mean Platelet Volume 9.2 fL (9.4-12.3); Platelet Count 257 x10^3/uL (182-369); Red Blood Count 2.96 x10^6/uL (3.93-5.22); Red Cell Distribution Width 14.9 % (11.7-14.4)
[2024-07-31 08:48] LABS: VBG BASE EXCESS -0.1 (-2.0-2.0); VBG HCO3- 23.1 meq/L (22-28); VBG HEMOGLOBIN 8.3; VBG O2 SATURATION 66.6 (95-100); VBG POTASSIUM 3.8 (3.5-5.1); VBG pH 7.48 (7.32-7.42)
[2024-07-31 08:50] LABS: VBG CARBOXYHEMOGLOBIN 9.1 % T HGB (0.0-6.9)
[2024-07-31 08:56] LABS: White Blood Count 28.6 x10^3/uL (3.98-10.04)
[2024-07-31 09:03] LABS: ALBUMIN 3.3 g/dL (3.5-5.0); ANION GAP 12.4 MEQ/L (5-15); BILIRUBIN,TOTAL 0.8 mg/dL (0.2-1.3); Calcium 9.4 mg/dL (8.4-10.2); Creatinine 1 0.83 mg/dL (0.52-1.04); EST GLOMERULAR FILTRATION RATE 78.7 ML/MIN; MAGNESIUM 2.4 mg/dL (1.6-2.3); Potassium 3.8 mmol/L (3.5-5.1); Total Protein 7.5 g/dL (6.3-8.2)
[2024-07-31] MEDS: Sodium Chloride 0.9% 1000 ML 1,000 ML IV SCH (09:07)
[2024-07-31] MEDS ORDERED: Sodium Chloride 0.9% 1000 ML 1,000 ML ONE (09:07)
[2024-07-31 09:19] LABS: INFLUENZA A NEGATIVE (NEGATIVE); INFLUENZA B NEGATIVE (NEGATIVE); PROCALCITONIN 0.445 ng/mL (0.030-0.080); RESPIRATORY SYNCTIAL VIRUS NEGATIVE (NEGATIVE); SARS-CoV-2 Xpert Express NEGATIVE (NEGATIVE)
[2024-07-31] MEDS ORDERED: Levofloxacin 500MG/100ML D5W 500 MG/100 ML BAG IV ONE (09:21)
[2024-07-31] MEDS: Levofloxacin 500MG/100ML D5W 500 MG/100 ML BAG IV STA (09:22)
--- NOTE | 2024-07-31 09:36 | XRAY ---
Indication: Hypoxia. Comparison: June 12, 2024 Portable chest inflated and remains clear. Heart and mediastinal structures within normal limits again with incidental right central venous access catheter. Bony thorax intact again with osteopenia and degenerative changes. Impression: Continued nonacute chest with chronic features.
[2024-07-31 10:08] VITALS: O2SAT 94
[2024-07-31 10:09] LABS: BAND 1 % (0.0-2.0); Lymphocytes 3 % (19.3-51.7); Monocyte 3 % (4.7-12.5); Neutrophils 93 % (34.0-71.1); Total Cells Counted 100
[2024-07-31 10:13] LABS: Hypochromia 2+; Platelet Estimate NORMAL (NORMAL)
[2024-07-31 10:16] LABS: Appearance Turbid (Clear); Bacteria Many /HPF (None Seen); Bilirubin Negative (Negative); Blood Large (Negative); Epithelial Cells Many /HPF (None Seen); Glucose, Urine 500 mg/dL (Negative); Ketones Negative (Negative); Leukocyte Esterase Moderate (Negative); Nitrite Negative (Negative); Ph 6.5 (4.6-8.0); Protein,Urine Dip 300 (Negative); RBC >100 /HPF (0-5); Specific Gravity 1.025 (1.005-1.030); WBC >100 /HPF (0-5)
[2024-07-31 10:17] LABS: Budding Yeast Few /HPF (None Seen); Hyaline Casts 20-50 /LPF (0-2)
[2024-07-31 11:09] VITALS: BP 101/60; PULSE 80; RESP 19; TEMP 97
== END 2024-07-31 11:39 | disposition home or self-care (01) ==
LOC: ED 08:12
DX: R09.02 Hypoxemia (principal); D72.829 Elevated white blood cell count, unspecified; N39.0 Urinary tract infection, site not specified; E11.649 Type 2 diabetes mellitus with hypoglycemia without coma; I10 Essential (primary) hypertension; E78.5 Hyperlipidemia, unspecified; Z79.899 Other long term (current) drug therapy
CPT/HCPCS: 0241U; 36415; 71045; 80053; 81001; 82805; 82947; 83605; 83735; 83880; 84145; 85025; 87040; 87077; 87086; 87186; 93005; 93041; 96360; 96361; 96365; 96374; 99291; 99292; 99284; J1642; J1956